=== PATIENT | male | born 1940 | race Caucasian/White ===

== ENCOUNTER 2020-01-08 14:09 | Outpatient (CLI) | payer OTHER, SELFPAY ==
--- NOTE | ~2020-01-08 | CT_ITS ---
EXAMINATION: CT abdomen pelvis wo con DATE: 01/08/2020 14:48 INDICATION: Renal mass TECHNIQUE: Computed tomography (CT) of the abdomen and pelvis was performed without intravenous contr ast. The dose-length product was 1314.09 mGy-cm. Automated exposure control and iterative reconstruct ion technique were employed. COMPARISON: CT dated 10/19/2016 FINDINGS: Borderline heart size. No significant pleural effusion. There is right lower lobe atelectas is/scarring. There is an expansile lytic lesion of the right eighth rib, suspicious for metastatic di sease. There are small scattered lytic lesions of the left pelvis. Gallbladder is moderately distende d. The liver, spleen, pancreas, adrenal glands are unremarkable. There is a 1 cm exophytic lesion lat eral margin of the right kidney, possibly hyperdense cysts. This is unchanged. There is a small exoph ytic lesion from the lower pole of the left kidney, likely benign. No lymphadenopathy. Small fat-cont aining umbilical hernia. Fat-containing left inguinal hernia. Enlarged prostate gland. Mild bladder w all thickening. IMPRESSION: 1. Expansile lytic lesion right eighth rib with multiple scattered lytic lesions of the left pelvis, suspicious for metastatic disease. Correlate for history of malignancy. 2: Small exophytic renal lesions, largest measuring 1 cm lateral margin right kidney. Correlation wit h contrast-enhanced MRI recommended. 3: Small fat-containing umbilical and left inguinal hernias. 4: Mild bladder wall thickening which may be due to hypertrophy from an large prostate gland or cysti tis. Reviewed, dictated and finalized at location A. IMPRESSION: 1. Expansile lytic lesion right eighth rib with multiple scattered lytic lesion s of the left pelvis, suspicious for metastatic disease. Correlate for history of malignancy. 2: Small exophytic renal lesions, largest measuring 1 cm lateral margin right k idney. Correlation with contrast-enhanced MRI recommended. 3: Small fat-containing umbilical and left inguinal hernias. 4: Mild bladder wall thickening which may be due to hypertrophy from an large p rostate gland or cystitis.
== END 2020-01-08 14:10 | disposition home or self-care (01) ==
PROVIDERS: PCP Emergency Medicine; Visit Provider Urology
DX: N28.89 Other specified disorders of kidney and ureter (principal); K44.9 Diaphragmatic hernia without obstruction or gangrene; K40.90 Unilateral inguinal hernia, without obstruction or gangrene, not specified as recurrent
CPT/HCPCS: 74176

== ENCOUNTER 2020-08-23 12:18 | Outpatient (CLI) | payer OTHER, SELFPAY ==
--- NOTE | ~2020-08-23 | NM_ITS ---
EXAMINATION: NM bone scan whole body DATE: 08/23/2020 15:54 INDICATION: Prostate cancer TECHNIQUE: 24.3 mCi Tc-99m HDP was administered intravenously. Delayed whole-body scintigrams were o btained. COMPARISON: CT dated 01/08/2020 and bone scan dated 10/19/2016 FINDINGS: Interval increase in size of a region of increased uptake at the posterior left second rib. New promi nent increased uptake such with an expansile lesion at the lateral right eighth rib which appears sub jectively increased in size since CT dated 01/08/2020 there are multiple new small foci of mild increa sed uptake at the left side of L5, at the right posterior iliac spine and posterior left seventh rib also concerning for metastatic disease. A prior lesion in the left supra-acetabular region is no long er visualized. Again seen is joint centered likely degenerative increased uptake at the medial compar tments of both knees, at the sternomanubrial articulation and at the bilateral acromioclavicular join ts. IMPRESSION: 1. Several suspicious foci of increased bone uptake suspicious for progression of metastatic disease, the most prominent fissure with an expansile lytic lesion at the lateral right eighth rib which appe ars enlarged since prior CT . Reviewed, dictated and finalized at location B. IMPRESSION: 1. Several suspicious foci of increased bone uptake suspicious for progression of metastatic disease, the most prominent fissure with an expansile lytic lesio n at the lateral right eighth rib which appears enlarged since prior CT .
== END 2020-08-23 12:19 | disposition home or self-care (01) ==
PROVIDERS: PCP Emergency Medicine; Visit Provider Urology
DX: C61 Malignant neoplasm of prostate (principal)
CPT/HCPCS: 78306; A9561

== ENCOUNTER 2020-08-31 09:32 | Outpatient (CLI) | payer OTHER, SELFPAY ==
--- NOTE | ~2020-08-31 | CT_ITS ---
EXAMINATION: CT abdomen pelvis wo con DATE: 08/31/2020 10:54 INDICATION: Prostate cancer. TECHNIQUE: Computed tomography (CT) of the abdomen and pelvis was performed without intravenous contr ast. The dose-length product was 878.58 mGy-cm. Automated exposure control and iterative reconstructi on technique were employed. COMPARISON: CT dated 12/2019. FINDINGS: Heart size normal. Lung bases unremarkable. No significant pleural or pericardial effusion. Increased size of expansile right eighth rib mass measuring 5.8 x 5.2 cm compared with 3.6 x 2.2 cm on prior examination. There are scattered ill-defined lytic lesions of the pelvis and proximal femurs which are not significantly changed. The gallbladder is distended. The liver, spleen, pancreas, adrenal glands are unremarkable. Prostate gland is enlarged. Bladder wall thickened. Nonobstructive bowel gas pattern. Fat-containing left ingu inal hernia. Fat-containing umbilical hernia. There is atherosclerosis. No evidence for aneurysm. No lymphadenopathy.. Enlargement of exophytic 1.3 cm right renal lesion measuring 23 Hounsfield units, m ost likely complicated cysts. Recommend correlation with ultrasound. IMPRESSION: 1. Progression of expansile mass involving the right eighth rib laterally, compatible with metastatic disease. Multiple ill-defined lytic lesions of the pelvis and proximal femurs, also suspicious for m etastatic disease. 2: Enlarging exophytic right renal lesion measuring 1.3 cm. Follow-up ultrasound recommended. 3: Enlarged prostate gland. Thickened bladder wall, likely due to bladder outlet obstruction or less likely cystitis. Reviewed, dictated and finalized at location A. IMPRESSION: 1. Progression of expansile mass involving the right eighth rib laterally, comp atible with metastatic disease. Multiple ill-defined lytic lesions of the pelvi s and proximal femurs, also suspicious for metastatic disease. 2: Enlarging exophytic right renal lesion measuring 1.3 cm. Follow-up ultrasoun d recommended. 3: Enlarged prostate gland. Thickened bladder wall, likely due to bladder outle t obstruction or less likely cystitis.
[2020-08-31 10:31] LABS: Estimated Glomerular Filt Rate 25
== END 2020-08-31 09:33 | disposition home or self-care (01) ==
PROVIDERS: PCP Emergency Medicine; Visit Provider Urology
DX: C61 Malignant neoplasm of prostate (principal); K42.9 Umbilical hernia without obstruction or gangrene; K40.90 Unilateral inguinal hernia, without obstruction or gangrene, not specified as recurrent; N28.9 Disorder of kidney and ureter, unspecified
CPT/HCPCS: 74176

== ENCOUNTER → 2020-10-27 14:49 | Outpatient (CLI) | payer OTHER, SELFPAY ==
--- NOTE | ~2020-10-27 | CT_ITS ---
EXAMINATION: CT abdomen pelvis wo con DATE: 10/27/2020 15:08 INDICATION: Right flank pain. Right upper quadrant abdominal pain TECHNIQUE: Computed tomography (CT) of the abdomen and pelvis was performed without intravenous contr ast. Automated exposure control and iterative reconstruction technique were employed. Exam dose: 107 7.91 mGy-cm total exam DLP. COMPARISON: 08/31/2020 CT abdomen pelvis noncontrast examination FINDINGS: There is further increased size of an expansile lesion of the right eighth rib laterally, c urrently measuring up to approximately 6.3 x 7.1 cm compared to approximately 4.8 x 5.7 cm on 09/01/19 21. There is extensive coronary calcification. Heart size is within normal range. There is mild atelectasis or fibrotic change at the lung bases. The gallbladder is distended. No gallbladder wall thickening or pericholecystic fluid or fat strandin g is evident. No bile duct or pancreatic duct dilatation. No hepatic, splenic, pancreatic, and adrenal space-occupying mass lesion is evident on this limited n oncontrast examination. Exophytic 11 mm lateral right exophytic mid renal mass, likely a cyst. The kidneys are otherwise unre markable. No hydroureteronephrosis. No apparent urinary tract calculus. Normal caliber of the abdominal aorta. No intraperitoneal or retroperitoneal or pelvic mass lesion or adenopathy or ascites. There is prominent prostate enlargement and moderate diffuse thickening of the urinary bladder wall s econdary to bladder outlet obstruction as a result. Small left and minimal right fat-containing inguinal hernias. Small fat containing umbilical hernia. IMPRESSION: Increased size of expansile lytic mass of lateral right eighth rib 11 mm lateral mid right renal exophytic probable cyst No urinary tract calculus or hydroureteronephrosis Normal appendix Prominent prostate enlargement with bladder outlet obstruction/moderate diffuse bladder wall thickeni ng Bilateral fat-containing inguinal hernias, mild on the left, minimal on the right Reviewed, dictated and finalized at Location A. Reviewed, dictated and finalized at location B. IMPRESSION: Increased size of expansile lytic mass of lateral right eighth rib 11 mm lateral mid right renal exophytic probable cyst No urinary tract calculus or hydroureteronephrosis Normal appendix Prominent prostate enlargement with bladder outlet obstruction/moderate diffuse bladder wall thickening Bilateral fat-containing inguinal hernias, mild on the left, minimal on the rig ht
== END ==
PROVIDERS: PCP Emergency Medicine; Visit Provider Emergency Medicine
DX: N18.4 Chronic kidney disease, stage 4 (severe) (principal); R10.9 Unspecified abdominal pain; K40.20 Bilateral inguinal hernia, without obstruction or gangrene, not specified as recurrent
CPT/HCPCS: 74176

== ENCOUNTER 2020-11-26 11:31 | Outpatient (CLI) | payer OTHER, SELFPAY ==
[2020-11-26 12:04] LABS: Basophils Percent Auto 0.7 % (0.2-1.2); Eosinophils Absolute Auto 0.1 K/mm3 (0-0.3); Eosinophils Percent Auto 1.7 % (0-4.4); Hematocrit 33.4 % (42.0-52.0); Hemoglobin 11.2 g/dL (14.0-18.0); Immature Granulocyte Absolute 0.02 K/mm3 (0.00-0.031); Immature Granulocyte Percent A 0.4 % (0-0.5); Lymphocytes Absolute Auto 1.34 K/mm3 (0.9-3.2); Lymphocytes Percent Auto 24.7 % (18.3-44.2); Mean Corpuscular HGB Conc 33.5 g/dl (32-36); Mean Corpuscular Hemoglobin 29.6 pg (26-34); Mean Corpuscular Volume 88.4 fl (80-100); Mean Platelet Volume 9.9 fl (7.4-10.4); Monocytes Absolute Auto 0.6 K/mm3 (0.1-0.6); Monocytes Percent Auto 11.6 % (2.6-8.5); Neutrophils Absolute Auto 3.3 K/mm3 (1.3-6.7); Neutrophils Percent Auto 60.9 % (45.5-73.1); Platelet Count Result 189 k/mm3 (150-375); Red Blood Count 3.78 M/mm3 (4.6-6.20); Red Cell Distribution Width 13.1 % (11.5-14.5); White Blood Count 5.4 K/mm3 (4.5-10.0)
[2020-11-26 12:46] LABS: Alanine Aminotransferase 12 U/L (4-50); Albumin Level 4.2 g/dL (3.5-5.1); Alkaline Phosphatase 210 U/L (38-126); Anion Gap 10 mmol/L (8-16); Aspartate Amino Transferase 28 U/L (17-59); Bilirubin,Total 0.4 mg/dL (0.2-1.3); Blood Urea Nitrogen 44 mg/dL (9-20); Calcium 8.6 mg/dL (8.4-10.2); Carbon Dioxide 21 mmol/L (22-30); Chloride 107 mmol/L (98-107); Estimated Glomerular Filt Rate 27; Glucose 133 mg/dL (75-110); Potassium 5.4 mmol/L (3.4-5.0); Sodium 138 mmol/L (137-145)
[2020-11-26 13:16] LABS: Prostate Specific Antigen 0.7 ng/mL (< OR = 4.0)
== END 2020-11-26 11:32 | disposition home or self-care (01) ==
PROVIDERS: PCP Emergency Medicine; Visit Provider Internal Medicine Hematology & Oncology
DX: C61 Malignant neoplasm of prostate (principal); C79.51 Secondary malignant neoplasm of bone
CPT/HCPCS: 36415; 80053; 84153; 85025

== ENCOUNTER 2021-06-17 11:40 | Outpatient (CLI) | payer OTHER, SELFPAY ==
--- NOTE | ~2021-06-17 | NM_ITS ---
EXAMINATION: NM bone scan whole body DATE: 06/17/2021 16:00 INDICATION: Prostate cancer metastatic to bone. TECHNIQUE: 25 mCi Tc-99m HDP was administered intravenously. Delayed whole-body scintigrams were obt ained. COMPARISON: Bone scan dated 08/23/[address] abdomen and pelvis dated 10/27/2020 FINDINGS: Again seen is prominent uptake associated with and expansile destructive mass lateral right eighth ri b which appears increased in size by approximately 20%. Likely degenerative joint centered uptake mos t prominent the region of the toes of the right foot and to a lesser degree at the medial compartment s of both knees, the bilateral acromioclavicular joints and along the sternomanubrial articulation or hypertrophic changes are seen on prior lateral chest radiograph dated 10/19/2016. Prior suspicious kalyn ne lesions at the left side of L5 and at the right posterior iliac spine are now nearly indiscernible significant decrease in the degree of bone uptake. No other new bone lesions to suggest more widespr ead metastatic disease. IMPRESSION: 1. Increase in size of expansile mass at the lateral right eighth rib consistent with progression of metastatic disease. 2. Decrease in degree of bone uptake associated with additional suspicious at the right posterior bryce ac spine and left side of L5 suggesting response to treatment. Reviewed, dictated and finalized at location B. 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 Increase in size of expansile mass at the lateral right eighth rib consisten t with progression of metastatic disease. 2. Decrease in degree of bone uptake associated with additional suspicious at t he right posterior iliac spine and left side of L5 suggesting response to treat ment.
== END 2021-06-17 11:41 | disposition home or self-care (01) ==
LOC: ANHIMG 11:46
PROVIDERS: PCP Emergency Medicine; Visit Provider Internal Medicine Hematology & Oncology
DX: C61 Malignant neoplasm of prostate (principal); C79.51 Secondary malignant neoplasm of bone
CPT/HCPCS: 78306; A9561

== ENCOUNTER → 2022-02-09 12:45 | Outpatient (CLI) | payer OTHER, SELFPAY ==
--- NOTE | ~2022-02-09 | DEXA_ITS ---
Bone Density Report Name: JORDAN GUTIERREZ Age: 81 Sex: Male Ethnicity: White Date of : 1940 Indication: screening for osteoporosis; height loss; cancer Referring Provider: Vel Harris Study: Bone densitometry was performed. Exam Date: February 09, 2022 Accession number: [id number] Bone Density: Region BMD T-score Z-score Classification AP Spine (L1-L4) 1.321 2.1 3.4 Normal Femoral Neck (Left) 1.027 0.7 2.4 Normal Total Hip (Left) 1.179 1.0 2.2 Normal Femoral Neck (Right) 1.026 0.7 2.4 Normal Total Hip (Right) 1.196 1.1 2.3 Normal Total Hip Mean 1.188 1.1 2.3 Normal World Health Organization criteria for BMD impression classify patients as: Normal (T-score at or above -1.0), Osteopenia (T-score between -1.0 and -2.5), or Osteoporosis (T-score at or below -2.5). 10-year Fracture Risk: FRAX not reported because: All T-scores for Spine Total, Hip Total, Femoral Neck at or above -1.0 Clinical Information Provided by Patient: Has used the following medications: Vitamin D, Calcium Has the following medical conditions: Cancer, PROSTATE CA-2018; BONE CA - 2020 Patient maximum height was 71 No regular weight bearing exercise Drinks caffeinated beverages Impression: The patient has normal bone mass. Discussion: LOW RISK OF FRACTURE; BONE DENSITY IS WELL ABOVE THE MINIMUM DESIRABLE LEVEL AND ABOVE AVERAGE FOR AGE AND SEX AT ALL SKELETAL SITES TESTED. This person's bone density is above expected limits for age and sex. This is rarely clinically significant, but should be pursued if there are significant musculoskeletal complaints. The patient should follow a healthful lifestyle (good nutrition with adequate calcium and vitamin D, and appropriate weight-bearing exercise). Follow-Up: Consider repeating this study in 5 years or sooner if there is some new clinical indication. Reported by: [facility] on 02/09/2022 1:54:00 PM. Reviewed, dictated and finalized at location AGia DUNN
== END ==
PROVIDERS: PCP Emergency Medicine; Visit Provider Internal Medicine Hematology & Oncology
DX: M81.0 Age-related osteoporosis without current pathological fracture (principal)
CPT/HCPCS: 77080

== ENCOUNTER 2022-03-29 07:18 | Inpatient (IN) | payer OTHER, SELFPAY ==
[2022-03-29] VITALS (39 sets, daily range): BP systolic 139–196; BP diastolic 57–115; PULSE 45–143; RESP 16–28; TEMP 36.2–36.9; O2SAT 96–100; BMI 31.4
--- NOTE | 2022-03-29 | ECHO_ITS ---
Patient Info Name: Rafael Oneill Age: 82 years : 1940 Gender: Male Ht: 69 in Wt: 213 lbs BSA: 2.20 m2 HR: 53 bpm BP: 141 / 93 mmHg Heart Rhythm: Sinus Rhythm Technical Quality: Fair Exam Date: 03/29/2022 4:35 PM Exam Location: [facility] Patient Status: Inpatient Admit Date: 03/29/2022 Staff Ordering Physician: Sarabjit Thornton MD Railcar Carpenter: Hanh Goff RDCS Attending Provider: Dennis Malave MD Referring Physician: Hillary TRUJILLO; Exam Type: CA echo doppler color flow Study Info Complete two-dimensional, color flow and Doppler transthoracic echocardiogram is performed. Summary 1. Complete two-dimensional, color flow and Doppler transthoracic echocardiogram is performed. 2. Left ventricular chamber dimension is mildly enlarged. 3. Left ventricular systolic function is mildly reduced, estimated at 45-50%. 4. There is mildly increased left ventricular wall thickness. 5. The left ventricular diastolic function is abnormal. 6. Left atrial chamber dimension is moderately enlarged. 7. There is mild mitral valve regurgitation. 8. There is mild tricuspid valve regurgitation. 9. Moderate pulmonary hypertension, estimated pulmonary arterial systolic pressure is 47 mmHg. 10. There is mild pulmonic regurgitation. 11. There is small pericardial effusion. Left Ventricle Left ventricular chamber dimension is mildly enlarged. Left ventricular systolic function is mildly reduced, estimated at 45-50%. There is mildly increased left ventricular wall thickness. The left ventricular diastolic function is abnormal. Right Ventricle Right ventricular chamber dimension is normal. Right ventricular systolic function is normal. Left Atria Left atrial chamber dimension is moderately enlarged. Right Atria Right atrial chamber dimension is normal. Atrial Septum Intact interatrial septum visualized by color flow imaging. Aortic Valve The aortic valve is trileaflet. There is mild aortic valve sclerosis. There is no aortic valve stenosis. There is trace aortic valve regurgitation. Pulmonic Valve The pulmonic valve is normal. There is no pulmonic valve stenosis. There is mild pulmonic regurgitation. Mitral Valve The mitral valve has normal leaflets. There is no mitral valve stenosis. There is mild mitral valve regurgitation. Tricuspid Valve The tricuspid valve leaflets are normal. There is no significant tricuspid valve stenosis. There is mild tricuspid valve regurgitation. Moderate pulmonary hypertension, estimated pulmonary arterial systolic pressure is 47 mmHg. Pericardium/Pleural The pericardium appears normal. There is small pericardial effusion. Inferior Vena Cava Dilated inferior vena cava with <50% collapse upon inspiration consistent with elevated right atrial pressure, 15 mmHg. Aorta The aortic root size at the sinus of Valsalva is normal. Left Ventricular Outflow Tract Name Value Normal LVOT 2D LVOT Diameter 2.2 cm LVOT Doppler LVOT Peak Gradient 3 mmHg LVOT Mean Gradient 2 mmHg
--- NOTE | ~2022-03-29 | US_ITS ---
EXAMINATION: US venous doppler [facility] DATE: 03/29/2022 17:39 INDICATION: sob . TECHNIQUE: Grayscale images without and with compression and Doppler images of the bilateral lower ex tremity veins were obtained. COMPARISON: None FINDINGS: Thrombus noted in the profunda femoral vein, femoral vein, popliteal vein, peroneal vein, and posteri or tibial vein. The right common femoral vein is patent. Thrombus noted in the profunda femoral vein, femoral vein, popliteal vein, peroneal vein, and posteri or tibial vein. The left common femoral vein is patent. IMPRESSION: 1. Extensive bilateral lower extremity DVTs. Results reported telephonically to Andreia Montaño RN by Dr. Garcia at 6:00 PM on 03/29/2022. Reviewed, dictated and finalized at location K. IMPRESSION: 1. Extensive bilateral lower extremity DVTs. Results reported telephonically to Andreia Montaño RN by Dr. Garcia at 6:00 PM o n 03/29/2022.
--- NOTE | ~2022-03-29 | XR_ITS ---
XR chest 1V portable 03/31/2022 12:36 Indication: Pulmonary edema Procedure: AP portable chest Comparison: Comparison to multiple prior studies sequentially, with oldest reviewed study dated 07/2009. Findings: There is improving pulmonary edema compared with 03/29/2022. Shallow inspiration. Possible small effusions. No pneumothorax. Stable cardiomediastinal silhouette. Impression: 1: Improving pulmonary edema. Reviewed, dictated and finalized at location A. Impression: 1: Improving pulmonary edema.
--- NOTE | ~2022-03-29 | NM_ITS ---
EXAMINATION: NM pulmonary perfusion DATE: 03/30/2022 11:00 INDICATION: Shortness of breath TECHNIQUE: 6 mCi Tc-99m MAA by intravenous route. Scintigraphic images of the chest were obtained. COMPARISON: Chest radiograph dated 03/29/2022 FINDINGS: Large perfusion defect involving the posterior lateral basilar segments of the right lower lobe with corresponding airspace opacities on chest radiograph as well as a large expansile right seventh rib l esion seen on prior CT. Small perfusion defect at the apical posterior segment of the left upper lobe . No other perfusion defects appreciated. Cardiomegaly. IMPRESSION: 1. Nondiagnostic (low or intermediate probability) probability for pulmonary embolism. Reviewed, dictated and finalized at location A. IMPRESSION: 1. Nondiagnostic (low or intermediate probability) probability for pulmonary e mbolism.
--- NOTE | ~2022-03-29 | XR_ITS ---
EXAMINATION: XR chest 1V portable DATE: 03/29/2022 08:02 INDICATION: Shortness of breath and hypoxia TECHNIQUE: frontal view of the chest was obtained. COMPARISON: Chest radiograph dated 10/19/16 FINDINGS: Diffuse bilateral interstitial and airspace opacities with perihilar and lower lung predominance. No pneumothorax or definitive pleural effusion. Cardiomegaly. 9 x 7 cm masslike opacity with suggestion of rim calcification projecting over the lateral right chest wall which appears to represent a expans ile lesion of the posterolateral right eighth rib which is concerning for malignancy. Right rotator c uff arthropathy. IMPRESSION: 1. Diffuse bilateral interstitial and airspace opacities most likely congestive heart failure related pulmonary edema with differential including pneumonia. 2. Cardiomegaly. 3. 9 x 7 cm mass projecting over the lateral right chest wall which appears to represent an expansile rib lesion concerning for malignancy. Correlate with clinical history. Reviewed, dictated and finalized at location A. IMPRESSION: 1. Diffuse bilateral interstitial and airspace opacities most likely congestive heart failure related pulmonary edema with differential including pneumonia. 2. Cardiomegaly. 3. 9 x 7 cm mass projecting over the lateral right chest wall which appears to represent an expansile rib lesion concerning for malignancy. Correlate with cli nical history.
--- NOTE | 2022-03-29 07:26 | ECG_ITS ---
Measurements Intervals [place] Rate: 86 P: IA: 0 QRS: -40 QRSD: 150 T: 82 QT: 415 QTc: 499 Interpretive Statements ATRIAL FIBRILLATION MARKED LEFT AXIS DEVIATION [QRS AXIS < -30] LEFT BUNDLE BRANCH BLOCK [120+ ms QRS DURATION, 80+ ms Q/S IN V1/V2, 85+ ms R IN I/aVL/V5/V6] ABNORMAL ECG NO PREVIOUS ECG AVAILABLE FOR COMPARISON Electronically Signed On 03-29-2022 10:21:20 CDT by Sarabjit Thornton M.D.
--- NOTE | 2022-03-29 07:35 | ED.SOB ---
HPI - SOB/Dyspnea General Chief Complaint: Shortness of Breath/Dyspnea Stated Complaint: SOB Time Seen by Provider: 03/29/22 07:34 Source: patient, EMS and RN notes reviewed Mode of arrival: EMS Limitations: no limitations History of Present Illness HPI Narrative: 82 years old white male came from assisting living by ambulance with sudden onset of shortness of breath started 1 to 2 hours prior to arrival to the emergency room. Patient denies having similar symptoms, fever, chills, nausea, vomiting, chest pain, back pain Patient came to the emergency room with oxygen, nasal cannula at 4 L with saturation running around 95 to 96%. Patient is telling me that he does not like to be on the machine if his condition getting worse. Patient is awake, alert and oriented x4 Related Data Home Medications Medication Instructions Recorded Confirmed finasteride 5 mg tablet 5 mg PO HS 05/06/19 03/30/22 hydralazine 50 mg tablet 50 mg PO BID 05/06/19 03/30/22 latanoprost 0.005 % eye drops 1 drp ophthalmic (eye) DAILY 05/06/19 03/30/22 needle (disp) 31 gauge 31 gauge x #100 ea 05/06/19 03/29/22 5/16 (Easy Touch Hypodermic Needle) omeprazole 20 mg capsule,delayed 20 mg PO DAILY 07/06/20 03/29/22 release calcium 600 mg capsule 2,400 mg PO QID 11/28/21 03/29/22 denosumab 60 mg/mL subcutaneous 60 mg subcut .[id number] 01/18/22 03/29/22 syringe leuprolide acetate (6 month) 45 mg 7.5 mg IM [id number] 01/18/22 03/29/22 intramuscular syringe kit enzalutamide 40 mg capsule (Xtandi) 160 mg PO DAILY 03/29/22 03/29/22 furosemide 20 mg tablet 20 mg PO DAILY 03/30/22 03/30/22 metoprolol tartrate 100 mg tablet 100 mg PO BID 03/30/22 03/30/22 simvastatin 40 mg tablet 20 mg PO HS 03/30/22 03/30/22 Allergies Allergy/AdvReac Type Severity Reaction Status Date / Time lisinopril Allergy Unknown Itching Verified 03/29/22 07:56 Review of Systems Review of Systems: All systems reviewed & are unremarkable except as noted in HPI and below PMFSH Past Medical History Medical History Arthritis Cancer treatment started CKD (chronic kidney disease) stage 4, GFR 15-29 ml/min Diabetes mellitus HLD (hyperlipidemia) Hypertension Impaired functional mobility, balance, gait, and endurance Kidney disease OA (osteoarthritis) of knee Prostate cancer Wears glasses Surgical History Surgical History History of hernia repair Family History Family History Father Acute myocardial infarction, Onset Age: 87 Cerebrovascular accident, Onset Age: 87 Mother Heart disease Acute myocardial infarction Sibling Acute myocardial infarction Heart disease Cerebrovascular accident Malignant neoplasm of prostate Sibling Carcinoma of colon Other Diabetes mellitus Family history of arthritis Hypertension Kidney disease Neuropathy Social History Social History Social History: Patient recently moved into [facility] into the assisted living. His niece Ursula is his surrogate power of truck chauffeur. Patient wishes to be a DNR at this time. Patient denies having any pets. Smoking status: Never smoker Tobacco type: cigarettes Smoking end date: 01/03/1965 Alcohol intake: current Alcohol use details: 1 beer every 2 months Substance use: never Living arrangements: assisted living Additional living arrangements comments: [facility] Occupation/Education: retired Additional occupation/education comments: [employer] Gender identity (if verbalized by the patient): Male Sexual Orientation (if Verbalized by the Patient): Straight or Heterosexual Spiritual care concerns: No Agree to blood products: Yes Has the Lack of Transportation Kept You From Medical Appointments or From Getting Medications?: No Within th
[2022-03-29 07:40] LABS: Glucose Point of Care 226 mg/dl (65-105)
[2022-03-29 08:03] LABS: Basophils Absolute Auto 0.1 K/mm3 (0.0-0.1); Basophils Percent Auto 0.6 % (0.2-1.2); Eosinophils Absolute Auto 0.2 K/mm3 (0-0.3); Eosinophils Percent Auto 2.4 % (0-4.4); Hematocrit 32.8 % (42.0-52.0); Hemoglobin 10.9 g/dL (14.0-18.0); Immature Granulocyte Absolute 0.08 K/mm3 (0.00-0.031); Immature Granulocyte Percent A 0.8 % (0-0.5); Lymphocytes Percent Auto 16.4 % (18.3-44.2); Mean Corpuscular HGB Conc 33.2 g/dl (32-36); Mean Corpuscular Hemoglobin 31.3 pg (26-34); Mean Corpuscular Volume 94.3 fl (80-100); Mean Platelet Volume 9.9 fl (7.4-10.4); Monocytes Absolute Auto 0.7 K/mm3 (0.1-0.6); Monocytes Percent Auto 6.8 % (2.6-8.5); Neutrophils Absolute Auto 7.1 K/mm3 (1.3-6.7); Platelet Count Result 251 k/mm3 (150-375); Red Blood Count 3.48 M/mm3 (4.6-6.20); Red Cell Distribution Width 13.2 % (11.5-14.5); White Blood Count 9.7 K/mm3 (4.5-10.0)
[2022-03-29 08:04] LABS: Alveolar/Arterial O2 Gradient 100.3 mmHg; Base Excess ABG -6.4 mEq/l (+/-2.0); Fractional Inspired Oxygen 36 %; HCO3 ABG 20.2 mEq/l (22.0-26.0); Oxygen Content ABG 15.9 %vol (16.0-22.0); Oxygen Saturation ABG 97.1 % (95.0-100.0); Oxyhemoglobin 95.5 % THb (90.0-100.0); PCO2 ABG 44.6 mmHg (35.0-45.0); PO2 ABG 104.6 mmHg (80.0-100.0); PO2 FiO2 Ratio Arterial Blood 2.91 %; Total Hemoglobin 11.7 g/dL (12.0-18.0)
[2022-03-29 08:07] LABS: Device NASAL CANNULA; Modified Allen's Test Pass; Site Drawn RIGHT RADIAL; pH ABG 7.274 (7.350-7.450)
[2022-03-29 08:13] LABS: Lactic Acid Reflex 1.9 mmol/L (0.7-2.0)
[2022-03-29 08:14] LABS: Alanine Aminotransferase 16 U/L (6-50); Albumin Level 4.1 g/dL (3.5-5.1); Alkaline Phosphatase 38 U/L (38-126); Anion Gap 13 mmol/L (8-16); Aspartate Amino Transferase 27 U/L (17-59); Bilirubin,Total 0.5 mg/dL (0.2-1.3); Blood Urea Nitrogen 72 mg/dL (9-20); Calcium 8.4 mg/dL (8.4-10.2); Carbon Dioxide 21 mmol/L (22-30); Chloride 103 mmol/L (98-107); Estimated CRCL calculation 18 ml/min; Estimated Glomerular Filt Rate 19; Glucose 236 mg/dL (65-110); Potassium 4.5 mmol/L (3.4-5.0); Sodium 137 mmol/L (137-145)
[2022-03-29 08:14] LABS: INR 1.1; Prothrombin Time 13.4 Seconds (11.1-14.7)
[2022-03-29 08:15] LABS: Partial Thromboplastin Time 31.6 SECONDS (22.3-36.8)
[2022-03-29 08:18] LABS: D Dimer 2.15 ug/mL (<0.48)
[2022-03-29 08:28] LABS: NT Pro B Type Natriuretic Pept 6100 pg/mL (5-100); Troponin I 0.117 ng/mL (0.000-0.034)
[2022-03-29 08:44] LABS: SARS-CoV-2 RNA PCR Negative
[2022-03-29] MEDS: NITROGLYCERIN OINTMENT 1 INCH DOSE TRANSDERM ×3 (08:54→23:59)
[2022-03-29] MEDS: FUROSEMIDE INJ 40 MG/4 ML VIAL 80 MG IV PUSH (08:54)
--- NOTE | 2022-03-29 09:38 | ECG_ITS ---
Measurements Intervals [place] Rate: 130 P: 19 [place]: 208 QRS: -52 QRSD: 156 T: 86 QT: 353 QTc: 520 Interpretive Statements SINUS TACHYCARDIA MARKED LEFT AXIS DEVIATION [QRS AXIS < -30] LEFT BUNDLE BRANCH BLOCK [120+ ms QRS DURATION, 80+ ms Q/S IN V1/V2, 85+ ms R IN I/aVL/V5/V6] ABNORMAL ECG COMPARED TO ECG 03/29/2022 07:27:41 SINUS TACHYCARDIA NOW PRESENT Electronically Signed On 03-29-2022 10:22:36 CDT by Sarabjit Thornton M.D.
--- NOTE | 2022-03-29 09:48 | PC.NURSE ---
DR. CLAUDIO UPDATED ON PT ABNORMAL VITAL SIGNS AND HE WISHES TO CONTINUE TO MONITOR THE PT AT THIS TIME
[2022-03-29] MEDS: dilTIAZem HCl INJ 25 MG/5 ML VIAL 10 MG IV PUSH (10:49)
[2022-03-29] MEDS: dilTIAZem 100 MG/100 ML 100 MG/100 ML BAG IV CONT (10:50)
[2022-03-29] MEDS: ENOXAPARIN 100 MG/ML SYRINGE SUB-Q (10:50)
[2022-03-29 11:11] LABS: Troponin I 0.383 ng/mL (0.000-0.034)
--- NOTE | 2022-03-29 11:45 | PM.IMHP ---
H&P: HPI History of Present Illness Date/Time: 03/29/22 7599 Chief Complaint: Shortness of breath Narrative: Patient is a 82-year-old male with a past medical history of CHF CKD, diabetes, hypertension, prostate cancer who presented to the ED with complaints of shortness of breath. Patient stated at 5-6 o'clock this morning he pushes button because he could not breathe. Patient stated that he tried to lay down and sit up however he just could not catch his breath. Patient also claims that he has a cough that had started yesterday afternoon however nothing is coming up with it. He denies any chest pain, nausea, vomiting, diarrhea, constipation, lightheadedness, dizziness, weakness, fatigue, home O2 use, wheezes, abnormal swelling. Patient did state that his feet are not swollen anymore than normal however he did state that when he does notices swelling is mostly at night and goes away when he lays down. Patient does not wear any compression as it was told him that it would not help him. He does claim to have some phlegm which he says he feels in his throat however will come back up. His niece was in the room. Workup did reveal an elevated troponin and elevated BNP. Patient was started on Lasix. I was called to the room earlier in the day for review of heart rate and rhythm. Patient did have burst of SVT that he would sustain for roughly a minute and then go back into a sinus Royce with what looks to be a pause here in there. Cardiology is consulted at this time. Patient is being admitted to the hospitalist service as an inpatient [facility] Past Medical History Medical History Arthritis Cancer treatment started CKD (chronic kidney disease) stage 4, GFR 15-29 ml/min Diabetes mellitus HLD (hyperlipidemia) Hypertension Impaired functional mobility, balance, gait, and endurance Kidney disease OA (osteoarthritis) of knee Prostate cancer Wears glasses Surgical History Surgical History History of hernia repair Family History Family History Father Acute myocardial infarction, Onset Age: 87 Cerebrovascular accident, Onset Age: 87 Mother Heart disease Acute myocardial infarction Sibling Acute myocardial infarction Heart disease Cerebrovascular accident Malignant neoplasm of prostate Sibling Carcinoma of colon Other Diabetes mellitus Family history of arthritis Hypertension Kidney disease Neuropathy Social History Social History Social History: Patient recently moved into [facility] into the assisted living. His niece Ursula is his surrogate power of deputy commonwealth's attorney. Patient wishes to be a DNR at this time. Patient denies having any pets. Smoking status: Never smoker Tobacco type: cigarettes Smoking end date: 01/03/1965 Alcohol intake: current Alcohol use details: 1 beer every 2 months Substance use: never Living arrangements: assisted living Additional living arrangements comments: [facility] house Occupation/Education: retired Additional occupation/education comments: [employer] Gender identity (if verbalized by the patient): Male Sexual Orientation (if Verbalized by the Patient): Straight or Heterosexual Spiritual care concerns: No Agree to blood products: Yes Has the Lack of Transportation Kept You From Medical Appointments or From Getting Medications?: No Within the Past 12 Months, Were You Worried Whether Your Food Would Run Out Before You Got Money to Buy More?: Never True What is Your Housing Situation Today?: I Have Housing Are You Worried That in the Next 2 Months, You May Not Have Your Own Housing to Live In?: No Do You Have Trouble Paying Your Heating Or Electricity Bill?: No Do You Have Trouble Paying For Medicines?: No A
--- NOTE | 2022-03-29 12:14 | ECG_ITS ---
Measurements Intervals [place] Rate: 125 P: -15 ID: [id number] QRS: -63 QRSD: 142 T: 71 QT: 345 QTc: 499 Interpretive Statements SINUS TACHYCARDIA WITH FIRST DEGREE AV BLOCK WITH OCCASIONAL VENTRICULAR PREMATURE COMPLEXES MARKED LEFT AXIS DEVIATION [QRS AXIS < -30] LEFT BUNDLE BRANCH BLOCK [120+ ms QRS DURATION, 80+ ms Q/S IN V1/V2, 85+ ms R IN I/aVL/V5/V6] ABNORMAL ECG COMPARED TO ECG 03/29/2022 09:40:44 FIRST DEGREE AV BLOCK NOW PRESENT Electronically Signed On 03-29-2022 13:58:02 CDT by Sarabjit Thornton M.D.
[2022-03-29 12:29] LABS: Glucose Point of Care 174 mg/dl (65-105)
[2022-03-29 12:45] LABS: Magnesium 2.2 mg/dL (1.6-2.3)
[2022-03-29] MEDS: METOPROLOL TARTRATE 50 MG TAB 100 MG PO (12:54)
[2022-03-29 14:29] LABS: Troponin I 0.581 ng/mL (0.000-0.034)
--- NOTE | 2022-03-29 16:05 | PM.CNCAR ---
Assessment and Plan Assessment and plan (1) NSTEMI (non-ST elevated myocardial infarction): Code(s): I21.4 - Non-ST elevation (NSTEMI) myocardial infarction Status: Acute Assessment and Plan: Plan as below. Will initiate enoxaparin, statin. Continue metoprolol, aspirin. Continue nitroglycerin. Will evaluate for evidence of pulmonary embolism. Patient is not a candidate for cardiac catheterization. 2D echocardiogram Doppler is ordered and will be reviewed. (2) Elevated troponin: Code(s): R77.8 - Other specified abnormalities of plasma proteins Status: Acute Assessment and Plan: Likely secondary to underlying non-STEMI from coronary disease. Cannot exclude pulmonary embolism at this point or simply related to underlying renal insufficiency with elevated blood pressure/heart failure. Plan as below (3) CKD (chronic kidney disease): Code(s): N18.9 - Chronic kidney disease, unspecified Status: Acute Assessment and Plan: Severe stage IV (4) Complete left bundle branch block: Code(s): I44.7 - Left bundle-branch block, unspecified Status: Acute Assessment and Plan: New onset: May be ischemic (5) Hypertension associated with diabetes: Code(s): E11.59 - Type 2 diabetes mellitus with other circulatory complications; I15.2 - Hypertension secondary to endocrine disorders Status: Acute Assessment and Plan: Above goal but better at present (6) Shortness of breath: Code(s): R06.02 - Shortness of breath Status: Acute Assessment and Plan: Shortness of breath is either related to marked hypertension and CHF versus underlying ischemic coronary disease verses pulmonary embolism. Likelihood is that this is related to underlying CAD in this is a true non-STEMI. Will order V/Q scan as well as a lower extremity venous Doppler to evaluate for evidence of pulmonary embolism. Cannot do a CT scan with contrast due to underlying renal disease. Will initiate Lovenox 100 mg q. 24 hours. He has significant renal insufficiency and acute 24 hour dosing appropriate. 2D echocardiogram Doppler is also ordered and will be reviewed. Continue metoprolol, aspirin, IV furosemide. Follow I's of his, daily weights and daily renal panel. Continue statin. I did talk to him about ischemic workup. He is not interested in cardiac catheterization. He is a DNR and does not want to rescind his DNR status nor wishes to be exposed IV dye which may result in dialysis. He verbalizes all understanding. Will continue to treat medically as best as possible including nitroglycerin paste 1 in Q 6 hours for now into workup is complete. History of Present Illness History of Present Illness Consult date/time: 03/29/22 16:05 Requesting physician: Mark Iraheta APN-[facility] Consult reason: chest pain and Other (ELEVATED TROPONIN) Reason For Visit: acute respiratory failure,chf, a fib with rvr,ckd, Narrative: REASON FOR CONSULTATION: NON-STEMI, CHEST PAIN, elevated troponin Date of service 03/29/2022 Requesting provider Mark Iraheta History patient is an 82-year-old male who has a multitude of cardiac risk factors including history of CHF, CKD, diabetes, hypertension, age, family history of coronary disease who presented to hospital because of acute onset of shortness of breath at about 5:00 a.m. this morning. States that he woke up and suddenly felt very short of breath. He sat up and laid back and had no improvement. Symptoms continued to the point that he came to the hospital for further workup and evaluation. His EKG showed a left bundle branch block pattern. Initial troponins were minimally elevated and under up trending. Cardiology consultation is requested. His blood pressure was markedly elevated also around 200/100. He was started on nitroglycerin paste as well as given IV furosemide. He currently is feeling much better and denies any active shortness of breath.
[2022-03-29 16:43] LABS: Hemoglobin A1C 5.6 % (<5.7)
[2022-03-29] MEDS: SIMVASTATIN 20 MG TABLET 40 MG PO (17:15)
[2022-03-29] MEDS: hydrALAZINE HCL 50 MG TABLET PO (17:15)
[2022-03-29 17:22] LABS: Glucose Point of Care 288 mg/dl (65-105)
[2022-03-29] MEDS: INSULIN ASPART (*BKC) 100 UNITS/ML SUB-Q (17:35)
[2022-03-29 20:14] LABS: Glucose Point of Care 134 mg/dl (65-105)
[2022-03-29] MEDS: FUROSEMIDE INJ 40 MG/4 ML VIAL IV PUSH (21:04)
[2022-03-29] MEDS: LATANOPROST 0.005% OP SOLN 2.5 ML BTL 1 DROP EACH EYE (21:04)
[2022-03-29 21:09] LABS: Creatinine Urine 52.1 mg/dL; Urea Random Urine 428 MG/DL
[2022-03-29 21:10] LABS: Sodium Urine Random 75 meq/L
[2022-03-30] VITALS (15 sets, daily range): BP systolic 128–165; BP diastolic 53–87; PULSE 38–93; RESP 16–20; TEMP 36.2–36.8; O2SAT 94–100
[2022-03-30 05:14] LABS: Basophils Percent Auto 0.6 % (0.2-1.2); Eosinophils Percent Auto 0.6 % (0-4.4); Hematocrit 27.7 % (42.0-52.0); Hemoglobin 9.2 g/dL (14.0-18.0); Immature Granulocyte Absolute 0.03 K/mm3 (0.00-0.031); Immature Granulocyte Percent A 0.5 % (0-0.5); Lymphocytes Percent Auto 31.8 % (18.3-44.2); Mean Corpuscular HGB Conc 33.2 g/dl (32-36); Mean Corpuscular Hemoglobin 31.7 pg (26-34); Mean Corpuscular Volume 95.5 fl (80-100); Mean Platelet Volume 9.5 fl (7.4-10.4); Monocytes Absolute Auto 0.8 K/mm3 (0.1-0.6); Monocytes Percent Auto 11.8 % (2.6-8.5); Neutrophils Absolute Auto 3.6 K/mm3 (1.3-6.7); Neutrophils Percent Auto 54.7 % (45.5-73.1); Platelet Count Result 192 k/mm3 (150-375); Red Cell Distribution Width 13.1 % (11.5-14.5); White Blood Count 6.6 K/mm3 (4.5-10.0)
[2022-03-30 05:34] LABS: Alanine Aminotransferase 15 U/L (6-50); Albumin Level 3.6 g/dL (3.5-5.1); Alkaline Phosphatase 27 U/L (38-126); Anion Gap 8 mmol/L (8-16); Aspartate Amino Transferase 29 U/L (17-59); Bilirubin,Total 0.6 mg/dL (0.2-1.3); Blood Urea Nitrogen 83 mg/dL (9-20); Calcium 7.8 mg/dL (8.4-10.2); Carbon Dioxide 25 mmol/L (22-30); Chloride 104 mmol/L (98-107); Estimated CRCL calculation 16 ml/min; Estimated Glomerular Filt Rate 16; Glucose 113 mg/dL (65-110); Magnesium 2.1 mg/dL (1.6-2.3); Potassium 4.3 mmol/L (3.4-5.0); Sodium 137 mmol/L (137-145)
[2022-03-30] MEDS: NITROGLYCERIN OINTMENT 1 INCH DOSE TRANSDERM (05:34)
--- NOTE | 2022-03-30 07:45 | P.PNIM_ITS ---
Progress Note: A&P Assessment and Plan (1) NSTEMI (non-ST elevated myocardial infarction): Code(s): I21.4 - Non-ST elevation (NSTEMI) myocardial infarction Status: Acute Assessment and Plan: * No chest pain noted however short of breath * EKG shows new bundle-branch block and first-degree block * Elevated troponins * Cardiology on board * Continue aspirin, metoprolol, simvastatin * Continue nitro paste * Tele monitor * Echo showed EF of 45-50% with abnormal diastolic dysfunction (2) Elevated troponin: Code(s): R77.8 - Other specified abnormalities of plasma proteins Status: Acute Assessment and Plan: * Troponin elevated: 0.117, 0.383, 0.581 * Cardiology on board * Echo EF of 45-50% with abnormal diastolic dysfunction * Not a candidate for catheterization * Could be related to CHF * Aspirin and nitro given the ED * Continue aspirin (3) Pneumonia: Code(s): J18.9 - Pneumonia, unspecified organism Status: Acute Assessment and Plan: * Chest x-ray indicates fluid overload versus pneumonia * WBCs are 9.7 however his baseline looks to be around 4 * WBC trending down currently 5.4 * Continue azithromycin and ceftriaxone * Supplemental oxygen provided * Trend labs * Sputum culture ordered awaiting collection * Adjust therapy as indicated * Blood cultures NGTD (4) CHF (congestive heart failure): Code(s): I50.9 - Heart failure, unspecified Status: Acute Assessment and Plan: * Chest x-ray indicates pulmonary edema * Increased oxygen demand * 1 to 2+ pitting edema bilateral lower extremities * Looks to be a probable acute on chronic exacerbation of diastolic heart failure * Cardiology consulted thank very help * Troponins elevated however not flat probably unrelated * Trend urine output * Daily weights * Heart healthy diet (5) CKD (chronic kidney disease): Code(s): N18.9 - Chronic kidney disease, unspecified Status: Acute Assessment and Plan: * Current BUN and creatinine 81/3.40 * Baseline creatinine looks to be about 3-3.5 * Avoid nephrotoxic medications * Trend labs * Adjust therapy as indicated * Urine labs (6) Acute respiratory failure: Code(s): J96.00 - Acute respiratory failure, unspecified whether with hypoxia or hypercap pia Status: Acute Assessment and Plan: * ABG does show metabolic acidosis with hypoxia * 4 L nasal cannula in the ED * Supplemental oxygen as needed * Trend SpO2 * Wean oxygen as indicated * Maintain saturations above 92% (7) Diabetes mellitus: Qualifiers: Chronic kidney disease stage: stage 4 (severe) Diabetes mellitus complication detail: with chronic kidney disease Diabetes mellitus complication status: with kidney complications Diabetes mellitus exterminator termite insulin use: with shelter use Diabetes mellitus type: type 2 Qualified Code(s): E11.22 - Type 2 diabetes mellitus with diabetic chronic kidney disease; N18.4 - Chronic kidney disease, stage 4 (severe); Z79.4 - longterm (current) use of insulin Code(s): E11.9 - Type 2 diabetes mellitus without complications Status: Acute Assessment and Plan: * Current glucose 142 * Hold Lantus 15 units BID, because he slides his lantus, will just use sliding scale * Accu-Cheks AC and HS * Hypoglycemia protocol * Trend glucos
--- NOTE | 2022-03-30 07:45 | PM.IMPN ---
Progress Note: A&P Assessment and Plan (1) NSTEMI (non-ST elevated myocardial infarction): Code(s): I21.4 - Non-ST elevation (NSTEMI) myocardial infarction Status: Acute Assessment and Plan: No chest pain noted however short of breath EKG shows new bundle-branch block and first-degree block Elevated troponins Cardiology on board Continue aspirin, metoprolol, simvastatin Continue nitro paste Tele monitor Echo showed EF of 45-50% with abnormal diastolic dysfunction (2) Elevated troponin: Code(s): R77.8 - Other specified abnormalities of plasma proteins Status: Acute Assessment and Plan: Troponin elevated: 0.117, 0.383, 0.581 Cardiology on board Echo EF of 45-50% with abnormal diastolic dysfunction Not a candidate for catheterization Could be related to CHF Aspirin and nitro given the ED Continue aspirin (3) Pneumonia: Code(s): J18.9 - Pneumonia, unspecified organism Status: Acute Assessment and Plan: Chest x-ray indicates fluid overload versus pneumonia WBCs are 9.7 however his baseline looks to be around 4 WBC trending down currently 5.4 Continue azithromycin and ceftriaxone Supplemental oxygen provided Trend labs Sputum culture ordered awaiting collection Adjust therapy as indicated Blood cultures NGTD (4) CHF (congestive heart failure): Code(s): I50.9 - Heart failure, unspecified Status: Acute Assessment and Plan: Chest x-ray indicates pulmonary edema Increased oxygen demand 1 to 2+ pitting edema bilateral lower extremities Looks to be a probable acute on chronic exacerbation of diastolic heart failure Cardiology consulted thank very help Troponins elevated however not flat probably unrelated Trend urine output Daily weights Heart healthy diet (5) CKD (chronic kidney disease): Code(s): N18.9 - Chronic kidney disease, unspecified Status: Acute Assessment and Plan: Current BUN and creatinine 81/3.40 Baseline creatinine looks to be about 3-3.5 Avoid nephrotoxic medications Trend labs Adjust therapy as indicated Urine labs (6) Acute respiratory failure: Code(s): J96.00 - Acute respiratory failure, unspecified whether with hypoxia or hypercapnia Status: Acute Assessment and Plan: ABG does show metabolic acidosis with hypoxia 4 L nasal cannula in the ED Supplemental oxygen as needed Trend SpO2 Wean oxygen as indicated Maintain saturations above 92% (7) Diabetes mellitus: Qualifiers: Chronic kidney disease stage: stage 4 (severe) Diabetes mellitus complication detail: with chronic kidney disease Diabetes mellitus complication status: with kidney complications Diabetes mellitus long term care phlebotomist insulin use: with custodial use Diabetes mellitus type: type 2 Qualified Code(s): E11.22 - Type 2 diabetes mellitus with diabetic chronic kidney disease; N18.4 - Chronic kidney disease, stage 4 (severe); Z79.4 - halfway (current) use of insulin Code(s): E11.9 - Type 2 diabetes mellitus without complications Status: Acute Assessment and Plan: Current glucose 142 Hold Lantus 15 units BID, because he slides his lantus, will just use sliding scale Accu-Cheks AC and HS Hypoglycemia protocol Trend glucose Insulin sliding scale Adjust therapy as indicated (8) Chest wall mass: Code(s): R22.2 - Localized swelling, mass and lump, trunk Status: Acute Assessment and Plan: Noted on the chest x-ray however unchanged Patient is aware Follow-up outpatient (9) HLD (hyperlipidemia): Qualifiers: Hyperlipidemia type: mixed hyperlipidemia Qualified Code(s): E78.2 - Mixed hyperlipidemia Code(s): E78.5 - Hyperlipidemia, unspecified Status: Acute Assessment and Plan: Continue simvastatin
[2022-03-30 08:36] LABS: Glucose Point of Care 131 mg/dl (65-105)
[2022-03-30] MEDS: amLODIPine BESYLATE 5 MG TABLET PO (09:26)
[2022-03-30] MEDS: hydrALAZINE HCL 50 MG TABLET PO ×2 (09:26→16:29)
[2022-03-30] MEDS: FUROSEMIDE INJ 40 MG/4 ML VIAL IV PUSH (09:27)
--- NOTE | 2022-03-30 09:46 | PM.PNCARD ---
Progress Note: A&P Assessment and Plan (1) NSTEMI (non-ST elevated myocardial infarction): Code(s): I21.4 - Non-ST elevation (NSTEMI) myocardial infarction Status: Acute Assessment and Plan: Plan as below. Continue enoxaparin, statin. Continue metoprolol, aspirin. Discontinue nitroglycerin paste. Awaiting Pulmonary perfusion study. Patient is not a candidate for cardiac catheterization. 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 Awaiting pulmonary V/Q scan. Discontinue IV furosemide at this point given worsening renal insufficiency. Continue enoxaparin and other medical regimen for now. Will eventually need to transition to oral anticoagulation. Subjective Date/time seen: 03/30/22 09:46 Interval history: Patient is a 82-year-old male with a past medical history of CHF CKD, diabetes, hypertension, prostate cancer who presented to the ED with complaints of shortness of breath. Date of service 03/30/2022: Less short of breath today. No chest pain. Lower extremity venous Doppler showed extensive bilateral DVT. Review of Systems Review of Systems: All systems reviewed & are unremarkable except as noted in HPI and below Constitutional: Constitutional: Denies body ache(s) and Denies fatigue Eyes: Eyes: Denies blurry vision ENT: Reports Normal hearing present and Denies lip swelling Cardiovascular: Cardiovascular: Denies chest pain, Denies leg edema and Reports dyspnea Respiratory: Respiratory: Denies hemoptysis and Reports dyspnea Gastrointestinal: Gastrointestinal: Denies abdominal pain Genitourinary: Genitourinary: Denies hematuria Musculoskeletal: Musculoskeletal: Denies myalgias, Reports arthralgias and Denies joint swelling Integumentary/Breasts: Skin/Breast: Denies skin pain Neurologic: Reports Normal hearing present, Denies Abnormal speech present and Denies confusion Psychiatric: Psychiatric: Denies anxiety and Denies confusion Endocrine: Endocrine: Denies fatigue Hematologic/Lymphatic: Hematologic/Lymphatic: Denies easy bleeding Allergic/Immunologic: Allergic/Immunologic: Denies GI upset with certain foods and Denies lip swelling Exam Narrative: Awake alert oriented and appears stated age Const: General: comfortable and no acute distress; No confusion Orientation/consciousness: No confusion HENMT: Face/Nose/Sinus: Normal nares present Mouth: Yes moist mucous membranes Eyes: General: appearance normal, both eyes and all related structures Sclera: sclerae normal Neck: Neck: supple Carotids: bruit Chest: Other: No reproducible chest wall pain to palpation Resp: Effort & Inspection: normal respiratory effort Auscultation: crackles Other: Basilar crackles bilaterally Cardio: Rate: regular rate Rhythm: regular rhythm Heart sounds: Murmur heart sound present GI: Inspection: non-distended Auscultation: normal bowel sounds Skin: General skin exam
[2022-03-30 12:37] LABS: Glucose Point of Care 169 mg/dl (65-105)
[2022-03-30 16:53] LABS: Glucose Point of Care 200 mg/dl (65-105)
[2022-03-30 20:02] LABS: Glucose Point of Care 223 mg/dl (65-105)
[2022-03-30] MEDS: APIXABAN 5 MG TABLET 10 MG PO (21:35)
[2022-03-30] MEDS: FINASTERIDE 5 MG TABLET PO (21:36)
[2022-03-30] MEDS: SIMVASTATIN 20 MG TABLET PO (21:36)
[2022-03-30] MEDS: LATANOPROST 0.005% OP SOLN 2.5 ML BTL 1 DROP EACH EYE (21:36)
[2022-03-31] VITALS (10 sets, daily range): BP systolic 129–168; BP diastolic 47–84; PULSE 49–130; RESP 18–22; TEMP 36.3–37.1; O2SAT 96–99
--- NOTE | 2022-03-31 00:57 | PC.NURSE ---
This patient, Rafael Oneill, was transferred to [[id number] ] on 03/31/22 at 0058. Personal belongings sent with patient. Report given to [ arturo rn]. Appropriate documentation sent with patient.
--- NOTE | 2022-03-31 03:59 | PC.NURSE ---
Pt had consistent mask leaking when using BiPap overnight, RT attempted fitting pt with different masks with no success, pt removed from Bipap and placed back on 3L NC at this time per RT recommendation. Dr Leal notified of situation.
[2022-03-31] MEDS: METOPROLOL TARTRATE 50 MG TAB 100 MG PO (04:25)
--- NOTE | 2022-03-31 04:26 | PC.NURSE ---
Dr Leal notified pt sustaining 130 HR for >10min, order received to give 100mg lopressor now
[2022-03-31 05:51] LABS: Basophils Percent Auto 0.7 % (0.2-1.2); Eosinophils Absolute Auto 0.1 K/mm3 (0-0.3); Hematocrit 26.7 % (42.0-52.0); Immature Granulocyte Absolute 0.02 K/mm3 (0.00-0.031); Immature Granulocyte Percent A 0.4 % (0-0.5); Lymphocytes Absolute Auto 1.62 K/mm3 (0.9-3.2); Lymphocytes Percent Auto 29.8 % (18.3-44.2); Mean Corpuscular HGB Conc 33.7 g/dl (32-36); Mean Corpuscular Hemoglobin 31.4 pg (26-34); Mean Platelet Volume 9.7 fl (7.4-10.4); Monocytes Absolute Auto 0.7 K/mm3 (0.1-0.6); Monocytes Percent Auto 13.1 % (2.6-8.5); Neutrophils Absolute Auto 2.9 K/mm3 (1.3-6.7); Platelet Count Result 190 k/mm3 (150-375); Red Blood Count 2.87 M/mm3 (4.6-6.20); Red Cell Distribution Width 12.8 % (11.5-14.5); White Blood Count 5.4 K/mm3 (4.5-10.0)
[2022-03-31 06:06] LABS: Alanine Aminotransferase 14 U/L (6-50); Albumin Level 3.6 g/dL (3.5-5.1); Alkaline Phosphatase 25 U/L (38-126); Anion Gap 14 mmol/L (8-16); Aspartate Amino Transferase 26 U/L (17-59); Bilirubin,Total 0.5 mg/dL (0.2-1.3); Blood Urea Nitrogen 81 mg/dL (9-20); Calcium 7.5 mg/dL (8.4-10.2); Carbon Dioxide 25 mmol/L (22-30); Chloride 102 mmol/L (98-107); Estimated CRCL calculation 17 ml/min; Estimated Glomerular Filt Rate 17; Glucose 142 mg/dL (65-110); Magnesium 2.1 mg/dL (1.6-2.3); Sodium 141 mmol/L (137-145)
[2022-03-31 08:07] LABS: Glucose Point of Care 166 mg/dl (65-105)
[2022-03-31] MEDS: APIXABAN 5 MG TABLET 10 MG PO (08:53)
[2022-03-31] MEDS: amLODIPine BESYLATE 5 MG TABLET PO (08:54)
[2022-03-31] MEDS: hydrALAZINE HCL 50 MG TABLET PO ×2 (08:54→16:21)
--- NOTE | 2022-03-31 09:00 | PM.DS ---
DS: Admitting Diagnosis Discharge Date 03/31/22 0900 Admitting Diagnosis Acute DVT/CHF Exacerbation DS: Discharge Diagnosis Discharge Diagnosis (1) NSTEMI (non-ST elevated myocardial infarction): Code(s): I21.4 - Non-ST elevation (NSTEMI) myocardial infarction Status: Acute Assessment and Plan: No chest pain noted however short of breath EKG shows new bundle-branch block and first-degree block Elevated troponins Cardiology on board Continue aspirin, metoprolol, simvastatin Eliquis added Tele monitor Echo showed EF of 45-50% with abnormal diastolic dysfunction (2) Elevated troponin: Code(s): R77.8 - Other specified abnormalities of plasma proteins Status: Acute Assessment and Plan: Troponin elevated: 0.117, 0.383, 0.581 Cardiology on board Echo EF of 45-50% with abnormal diastolic dysfunction Not a candidate for catheterization Could be related to CHF Aspirin and nitro given the ED Continue aspirin (3) Pneumonia: Code(s): J18.9 - Pneumonia, unspecified organism Status: Acute Assessment and Plan: Chest x-ray indicates fluid overload versus pneumonia WBCs are 9.7 however his baseline looks to be around 4 WBC trending down currently 5.4 Stop azithromycin and ceftriaxone Supplemental oxygen provided Trend labs Sputum culture ordered awaiting collection Adjust therapy as indicated Blood cultures NGTD Seems to be a probable CHF Exacerbation (4) CHF (congestive heart failure): Code(s): I50.9 - Heart failure, unspecified Status: Acute Assessment and Plan: Chest x-ray indicates pulmonary edema Weaned to room air 1 to 2+ pitting edema bilateral lower extremities 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 Cardiology consulted thank very help Troponins elevated however not flat probably unrelated Trend urine output Daily weights Heart healthy diet (5) CKD (chronic kidney disease): Code(s): N18.9 - Chronic kidney disease, unspecified Status: Acute Assessment and Plan: Current BUN and creatinine 81/3.40 Baseline creatinine looks to be about 3-3.5 Avoid nephrotoxic medications Trend labs Adjust therapy as indicated Urine labs (6) Acute respiratory failure: Code(s): J96.00 - Acute respiratory failure, unspecified whether with hypoxia or hypercapnia Status: Acute Assessment and Plan: ABG does show metabolic acidosis with hypoxia 4 L nasal cannula in the ED Supplemental oxygen as needed Trend SpO2 Wean oxygen as indicated Maintain saturations above 92% (7) Diabetes mellitus: Qualifiers: Chronic kidney disease stage: stage 4 (severe) Diabetes mellitus complication detail: with chronic kidney disease Diabetes mellitus complication status: with kidney complications Diabetes mellitus longterm insulin use: with roasterman use Diabetes mellitus type: type 2 Qualified Code(s): E11.22 - Type 2 diabetes mellitus with diabetic chronic kidney disease; N18.4 - Chronic kidney disease, stage 4 (severe); Z79.4 - retirement (current) use of insulin Code(s): E11.9 - Type 2 diabetes mellitus without complications Status: Acute Assessment and Plan: Current glucose 142 Hold Lantus 15 units BID, because he slides his lantus, will just use sliding scale Accu-Cheks AC and HS Hypoglycemia protocol Trend glucose Insulin sliding scale Adjust therapy as indicated (8) Chest wall mass: Code(s): R22.2 - Localized swelling, mass and lump, trunk Status: Acute Assessment and Plan: Noted on the chest x-ray however unchanged Patient is aware Follow-up outpatient (9) HLD (hyperlipidemia): Qualifiers: Hyperlipidemia type: mixed hyperlipidemia Qualified Code(s): E78.2 - Mixed hyperlipid
--- NOTE | 2022-03-31 09:00 | P.DS_ITS ---
DS: Admitting Diagnosis Discharge Date 03/31/22 0900 Admitting Diagnosis Acute DVT/CHF Exacerbation DS: Discharge Diagnosis Discharge Diagnosis (1) NSTEMI (non-ST elevated myocardial infarction): Code(s): I21.4 - Non-ST elevation (NSTEMI) myocardial infarction Status: Acute Assessment and Plan: * No chest pain noted however short of breath * EKG shows new bundle-branch block and first-degree block * Elevated troponins * Cardiology on board * Continue aspirin, metoprolol, simvastatin * Eliquis added * Tele monitor * Echo showed EF of 45-50% with abnormal diastolic dysfunction (2) Elevated troponin: Code(s): R77.8 - Other specified abnormalities of plasma proteins Status: Acute Assessment and Plan: * Troponin elevated: 0.117, 0.383, 0.581 * Cardiology on board * Echo EF of 45-50% with abnormal diastolic dysfunction * Not a candidate for catheterization * Could be related to CHF * Aspirin and nitro given the ED * Continue aspirin (3) Pneumonia: Code(s): J18.9 - Pneumonia, unspecified organism Status: Acute Assessment and Plan: * Chest x-ray indicates fluid overload versus pneumonia * WBCs are 9.7 however his baseline looks to be around 4 * WBC trending down currently 5.4 * Stop azithromycin and ceftriaxone * Supplemental oxygen provided * Trend labs * Sputum culture ordered awaiting collection * Adjust therapy as indicated * Blood cultures NGTD * Seems to be a probable CHF Exacerbation (4) CHF (congestive heart failure): Code(s): I50.9 - Heart failure, unspecified Status: Acute Assessment and Plan: * Chest x-ray indicates pulmonary edema * Weaned to room air * 1 to 2+ pitting edema bilateral lower extremities * 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 * Cardiology consulted thank very help * Troponins elevated however not flat probably unrelated * Trend urine output * Daily weights * Heart healthy diet (5) CKD (chronic kidney disease): Code(s): N18.9 - Chronic kidney disease, unspecified Status: Acute Assessment and Plan: * Current BUN and creatinine 81/3.40 * Baseline creatinine looks to be about 3-3.5 * Avoid nephrotoxic medications * Trend labs * Adjust therapy as indicated * Urine labs (6) Acute respiratory failure: Code(s): J96.00 - Acute respiratory failure, unspecified whether with hypoxia or hypercapnia Status: Acute Assessment and Plan: * ABG does show metabolic acidosis with hypoxia * 4 L nasal cannula in the ED * Supplemental oxygen as needed * Trend SpO2 * Wean oxygen as indicated * Maintain saturations above 92% (7) Diabetes mellitus: Qualifiers: Chronic kidney disease stage: stage 4 (severe) Diabetes mellitus complication detail: with chronic kidney disease Diabetes mellitus complication status: with kidney complications 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
--- NOTE | 2022-03-31 09:40 | PM.PNCARD ---
Progress Note: A&P Assessment and Plan (1) NSTEMI (non-ST elevated myocardial infarction): Code(s): I21.4 - Non-ST elevation (NSTEMI) myocardial infarction Status: Acute Assessment and Plan: Medical management with eliquis, statin, metoprolol, ASA. Patient is not a candidate for cardiac catheterization. (2) Elevated troponin: Code(s): R77.8 - Other specified abnormalities of plasma proteins Status: Acute Assessment and Plan: Likely secondary to underlying non-STEMI from coronary disease. (3) CKD (chronic kidney disease): Code(s): N18.9 - Chronic kidney disease, unspecified Status: Acute Assessment and Plan: Severe stage IV (4) Complete left bundle branch block: Code(s): I44.7 - Left bundle-branch block, unspecified Status: Acute Assessment and Plan: New onset: May be ischemic (5) Hypertension associated with diabetes: Code(s): E11.59 - Type 2 diabetes mellitus with other circulatory complications; I15.2 - Hypertension secondary to endocrine disorders Status: Acute Assessment and Plan: Above goal but better at present (6) Shortness of breath: Code(s): R06.02 - Shortness of breath Status: Acute Subjective Date/time seen: 03/31/22 09:40 Cardiology follow up for NSTEMI Interval history: Patient is a 82-year-old male with a past medical history of CHF CKD, diabetes, hypertension, prostate cancer who presented to the ED with complaints of shortness of breath. Date of service 03/30/2022: Less short of breath today. No chest pain. Lower extremity venous Doppler showed extensive bilateral DVT. Date of service 03/31/2022: Denies any shortness of breath today. Feels worn out after physical therapy. No chest pain. Review of Systems Review of Systems: All systems reviewed & are unremarkable except as noted in HPI and below Constitutional: Constitutional: Denies body ache(s) and Denies fatigue Eyes: Eyes: Denies blurry vision ENT: Reports Normal hearing present and Denies lip swelling Cardiovascular: Cardiovascular: Denies chest pain, Denies leg edema and Reports dyspnea Respiratory: Respiratory: Denies hemoptysis and Reports dyspnea Gastrointestinal: Gastrointestinal: Denies abdominal pain Genitourinary: Genitourinary: Denies hematuria Musculoskeletal: Musculoskeletal: Denies myalgias, Reports arthralgias and Denies joint swelling Integumentary/Breasts: Skin/Breast: Denies skin pain Neurologic: Reports Normal hearing present, Denies Abnormal speech present and Denies confusion Psychiatric: Psychiatric: Denies anxiety and Denies confusion Endocrine: Endocrine: Denies fatigue Hematologic/Lymphatic: Hematologic/Lymphatic: Denies easy bleeding Allergic/Immunologic: Allergic/Immunologic: Denies GI upset with certain foods and Denies lip swelling Exam Narrative: Awake alert oriented and appears stated age Const: General: comfortable and no acute distress; No confusion Orientation/consciousness: No confusion HENMT: Face/Nose/Sinus: Normal nares present Mouth: Yes moist mucous membranes Eyes: General: appearance normal, both eyes and all related structures Sclera: sclerae normal Neck: Neck: supple Carotids: bruit Chest: Other: No reproducible chest wall pain to palpation Resp: Effort & Inspection: normal respiratory effort Auscultation: clear to auscultation bilaterally Cardio: Rate: regular rate Rhythm: regular rhythm Heart sounds: Murmur heart sound present GI: Inspection: non-distended Auscultation: normal bowel sounds Skin: General skin exam: normal color Neuro: General: No confusion Cranial nerves: Yes Normal hearing present Speech: normal speech and No Abnormal speech present Extrem: General: normal to inspection and no edema Psych: Mental Status: mental status grossly normal Objective Data Vital Signs Vital Signs: Vital Signs - 24 hr 03/30/22 12:00 1
--- NOTE | 2022-03-31 10:55 | PM.CNNEP ---
Assessment and Plan Assessment and plan (1) CKD (chronic kidney disease): Code(s): N18.9 - Chronic kidney disease, unspecified Status: Acute Assessment and Plan: the patient has chronic kidney disease. This is due to diabetes and hypertension. It looks like his creatinine is at about its baseline. He has done pretty well considering the diuresis, as his creatinine has remained stable. (2) DVT (deep venous thrombosis): Code(s): I82.409 - Acute embolism and thrombosis of unspecified deep veins of unspecified lower extremity Status: Acute Assessment and Plan: The patient received Lovenox and is on Eliquis now. (3) NSTEMI (non-ST elevated myocardial infarction): Code(s): I21.4 - Non-ST elevation (NSTEMI) myocardial infarction Status: Acute Assessment and Plan: He is on a baby aspirin (4) Hypertension associated with diabetes: Code(s): E11.59 - Type 2 diabetes mellitus with other circulatory complications; I15.2 - Hypertension secondary to endocrine disorders Status: Acute Assessment and Plan: his systolic is running between 150 and 170. He is on amlodipine and metoprolol. GFR is too low for Shalom inhibitors (5) Chest wall mass: Code(s): R22.2 - Localized swelling, mass and lump, trunk Status: Acute Assessment and Plan: he had swelling in his legs. This is better now with diuretics , and anticoagulants.. (6) Bilateral knee pain: Code(s): M25.561 - Pain in right knee; M25.562 - Pain in left knee Status: Acute Assessment and Plan: He has severe arthritis in both knees. He has been trying to get orthopedics to do a knee replacements but he is not been able to be cleared by surgery because of his severe comorbidities. (7) Prostate CA: Code(s): C61 - Malignant neoplasm of prostate Status: Acute Assessment and Plan: He is working with Urology on this. Plan Okay for discharge at any time from the renal standpoint History of Present Illness Reason for Consult Consult date: 03/31/22 Chief Complaint Chief complaint: acute respiratory failure,chf, a fib with rvr,ckd, History of Present Illness Narrative: Rafael is a very pleasant 82-year-old gentleman who has multiple problems including chronic kidney disease stage 4 with a GFR in the high teens, diabetes, hypertension, prostate cancer, arthritis, hyperlipidemia, who was well until a few days before admission. At that point he started becoming short of breath. He woke up at 5:00 a.m. on the day of admission and he was very short of breath so came to the ER. He was seen in the emergency room admitted. Venous Dopplers were positive for clots on both sides. Perfusion scan was indeterminate apparently. He also had a high BNP and high troponin and so it is felt that his shortness of breath was due to possible pulmonary emboli, and congestive heart failure. He was treated with anticoagulants and also diuretics. He had some swelling when he came in and that is better now. His creatinine is about the same as when he was on admission which is at his baseline. Renal consultation was requested because of the CKD. The patient denies any chest pain. No belly pain. He has not coughed up any blood her blood blood out of his nose. No fevers or chills. He has no bloody urine foamy urine kidney stones or bladder infections. No pain with urination. Review of Systems Constitutional: Constitutional: Reports no additional constitutional complaints Eyes: Eyes: Reports no additional eye complaints ENT: Reports system reviewed and no additional complaints, except as documented Cardiovascular: Cardiovascular: Reports no additional cardiovascular complaints Respiratory: Respiratory: Reports no additional respiratory complaints Gastrointestinal: Gastrointestinal: Reports no additional gastrointestinal complaints Genitourinary
[2022-03-31] MEDS: ASPIRIN 81 MG CHEWABLE TABLET PO (11:00)
[2022-03-31 11:03] LABS: Glucose Point of Care 254 mg/dl (65-105)
--- NOTE | 2022-03-31 11:22 | P.PNIM_ITS ---
Progress Note: A&P Assessment and Plan (1) NSTEMI (non-ST elevated myocardial infarction): Code(s): I21.4 - Non-ST elevation (NSTEMI) myocardial infarction Status: Acute Assessment and Plan: * No chest pain noted however short of breath * EKG shows new bundle-branch block and first-degree block * Elevated troponins * Cardiology on board * Continue aspirin, metoprolol, simvastatin * Eliquis added * Tele monitor * Echo showed EF of 45-50% with abnormal diastolic dysfunction (2) Elevated troponin: Code(s): R77.8 - Other specified abnormalities of plasma proteins Status: Acute Assessment and Plan: * Troponin elevated: 0.117, 0.383, 0.581 * Cardiology on board * Echo EF of 45-50% with abnormal diastolic dysfunction * Not a candidate for catheterization * Could be related to CHF * Aspirin and nitro given the ED * Continue aspirin (3) Pneumonia: Code(s): J18.9 - Pneumonia, unspecified organism Status: Acute Assessment and Plan: * Chest x-ray indicates fluid overload versus pneumonia * WBCs are 9.7 however his baseline looks to be around 4 * WBC trending down currently 5.4 * Stop azithromycin and ceftriaxone * Supplemental oxygen provided * Trend labs * Sputum culture ordered awaiting collection * Adjust therapy as indicated * Blood cultures NGTD * Seems to be a probable CHF Exacerbation (4) CHF (congestive heart failure): Code(s): I50.9 - Heart failure, unspecified Status: Acute Assessment and Plan: * Chest x-ray indicates pulmonary edema * Weaned to room air * 1 to 2+ pitting edema bilateral lower extremities * 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 * Cardiology consulted thank very help * Troponins elevated however not flat probably unrelated * Trend urine output * Daily weights * Heart healthy diet (5) CKD (chronic kidney disease): Code(s): N18.9 - Chronic kidney disease, unspecified Status: Acute Assessment and Plan: * Current BUN and creatinine 81/3.40 * Baseline creatinine looks to be about 3-3.5 * Avoid nephrotoxic medications * Trend labs * Adjust therapy as indicated * Urine labs (6) Acute respiratory failure: Code(s): J96.00 - Acute respiratory failure, unspecified whether with hypoxia or hypercapnia Status: Acute Assessment and Plan: * ABG does show metabolic acidosis with hypoxia * 4 L nasal cannula in the ED * Supplemental oxygen as needed * Trend SpO2 * Wean oxygen as indicated * Maintain saturations above 92% (7) Diabetes mellitus: Qualifiers: Chronic kidney disease stage: stage 4 (severe) Diabetes mellitus complication detail: with chronic kidney disease Diabetes mellitus complication status: with kidney complications Diabetes mellitus mcc insulin use: with mcc use Diabetes mellitus type: type 2 Qualified Code(s): E11.22 - Type 2 diabetes mellitus with diabetic chronic kidney disease; N18.4 - Chronic kidney disease, stage 4 (severe); 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
--- NOTE | 2022-03-31 11:22 | PM.IMPN ---
Progress Note: A&P Assessment and Plan (1) NSTEMI (non-ST elevated myocardial infarction): Code(s): I21.4 - Non-ST elevation (NSTEMI) myocardial infarction Status: Acute Assessment and Plan: No chest pain noted however short of breath EKG shows new bundle-branch block and first-degree block Elevated troponins Cardiology on board Continue aspirin, metoprolol, simvastatin Eliquis added Tele monitor Echo showed EF of 45-50% with abnormal diastolic dysfunction (2) Elevated troponin: Code(s): R77.8 - Other specified abnormalities of plasma proteins Status: Acute Assessment and Plan: Troponin elevated: 0.117, 0.383, 0.581 Cardiology on board Echo EF of 45-50% with abnormal diastolic dysfunction Not a candidate for catheterization Could be related to CHF Aspirin and nitro given the ED Continue aspirin (3) Pneumonia: Code(s): J18.9 - Pneumonia, unspecified organism Status: Acute Assessment and Plan: Chest x-ray indicates fluid overload versus pneumonia WBCs are 9.7 however his baseline looks to be around 4 WBC trending down currently 5.4 Stop azithromycin and ceftriaxone Supplemental oxygen provided Trend labs Sputum culture ordered awaiting collection Adjust therapy as indicated Blood cultures NGTD Seems to be a probable CHF Exacerbation (4) CHF (congestive heart failure): Code(s): I50.9 - Heart failure, unspecified Status: Acute Assessment and Plan: Chest x-ray indicates pulmonary edema Weaned to room air 1 to 2+ pitting edema bilateral lower extremities 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 Cardiology consulted thank very help Troponins elevated however not flat probably unrelated Trend urine output Daily weights Heart healthy diet (5) CKD (chronic kidney disease): Code(s): N18.9 - Chronic kidney disease, unspecified Status: Acute Assessment and Plan: Current BUN and creatinine 81/3.40 Baseline creatinine looks to be about 3-3.5 Avoid nephrotoxic medications Trend labs Adjust therapy as indicated Urine labs (6) Acute respiratory failure: Code(s): J96.00 - Acute respiratory failure, unspecified whether with hypoxia or hypercapnia Status: Acute Assessment and Plan: ABG does show metabolic acidosis with hypoxia 4 L nasal cannula in the ED Supplemental oxygen as needed Trend SpO2 Wean oxygen as indicated Maintain saturations above 92% (7) Diabetes mellitus: Qualifiers: Chronic kidney disease stage: stage 4 (severe) Diabetes mellitus complication detail: with chronic kidney disease Diabetes mellitus complication status: with kidney complications Diabetes mellitus skilled nursing insulin use: with watermelon inspector use Diabetes mellitus type: type 2 Qualified Code(s): E11.22 - Type 2 diabetes mellitus with diabetic chronic kidney disease; N18.4 - Chronic kidney disease, stage 4 (severe); 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 Code(s): E11.9 - Type 2 diabetes mellitus without complications Status: Acute Assessment and Plan: Current glucose 142 Hold Lantus 15 units BID, because he slides his lantus, will just use sliding scale Accu-Cheks AC and HS Hypoglycemia protocol Trend glucose Insulin sliding scale Adjust therapy as indicated (8) Chest wall mass: Code(s): R22.2 - Localized swelling, mass and lump, trunk Status: Acute Assessment and Plan: Noted on the chest x-ray however unchanged Patient is aware Follow-up outpatient (9) HLD (hyperlipidemia): Qualifiers: Hyperlipidemia type: mixed hyperlipidemia Qualified Code(s): E78.2 - Mixed hyperlipidemia Code(s): E78.5 - Hyperlipidemia, unspecified Status: Acute Assessment and Plan: Co
[2022-03-31] MEDS: DOCUSATE SODIUM 100 MG CAPSULE PO (11:36)
[2022-03-31] MEDS: polyethylene glycoL 3350 17 GM POWD.PACK PO (11:36)
[2022-03-31] MEDS: INSULIN ASPART (*BKC) 100 UNITS/ML SUB-Q (11:37)
[2022-03-31 13:00] LABS: NT Pro B Type Natriuretic Pept 9540 pg/mL (5-100)
[2022-03-31 16:17] LABS: Glucose Point of Care 160 mg/dl (65-105)
[2022-04-02 05:40] LABS: Legionella pneumophila Ag Ur Not Detected (Not Detected)
[2022-04-02 21:32] LABS: Pneumococcal Antigen Urine Not Detected (Not Detected)
--- NOTE | 2022-04-03 15:17 | PCCCNOTE ---
Phone call received from YESI Garcia regarding home health, and that she hasn't been contacted yet. Ursula provides patient's name and as identification. Advised that this care assistant would review discharge notes and call her back. Per discharge planning notes, [facility] had accepted the patient. Called to [facility] and spoke with Zen, Zen states that referral is pending, and will be going out later this week. Awaiting approval from insurance. Zen does not have PO's contact number which was provided to her. Called back to Ursula at [phone] and updated regarding home health and information provided by Zen. Provided Ursula with contact # for [facility]. No other further questions or concerns.
[2022-04-03 18:01] LABS: Osmolality, Urine 392 mOsm/kg (50-1200)
== END 2022-03-31 17:45 | disposition home health service (06) | DRG 280 ==
LOC: ANHED 07:45 → ANHIMU 11:05 → ANH2MED 03-31 00:59
PROVIDERS: Nurse Practitioner; Admitting Provider Internal Medicine; Emergency Provider Emergency Medicine; PCP Emergency Medicine; Visit Provider Internal Medicine
DX: I21.4 Non-ST elevation (NSTEMI) myocardial infarction (principal); I50.43 Acute on chronic combined systolic (congestive) and diastolic (congestive) heart failure; J18.9 Pneumonia, unspecified organism; J96.01 Acute respiratory failure with hypoxia; I13.0 Hypertensive heart and chronic kidney disease with heart failure and stage 1 through stage 4 chronic kidney disease, or unspecified chronic kidney disease; I47.1 Supraventricular tachycardia; E87.20 Acidosis, unspecified; N18.4 Chronic kidney disease, stage 4 (severe); I82.453 Acute embolism and thrombosis of peroneal vein, bilateral; I82.413 Acute embolism and thrombosis of femoral vein, bilateral; I82.433 Acute embolism and thrombosis of popliteal vein, bilateral; I82.443 Acute embolism and thrombosis of tibial vein, bilateral; I44.0 Atrioventricular block, first degree; E11.22 Type 2 diabetes mellitus with diabetic chronic kidney disease; Z20.822 Contact with and (suspected) exposure to COVID-19; E78.2 Mixed hyperlipidemia; R79.89 Other specified abnormal findings of blood chemistry; M19.90 Unspecified osteoarthritis, unspecified site; Z79.4 Long term (current) use of insulin; Z85.46 Personal history of malignant neoplasm of prostate; I44.7 Left bundle-branch block, unspecified; R22.2 Localized swelling, mass and lump, trunk; K59.00 Constipation, unspecified
CPT/HCPCS: 36415; 36600; 71045; 78580; 80053; 82570; 82805; 82948; 83036; 83605; 83735; 83880; 83935; 84300; 84484; 84540; 85025; 85380; 85610; 85730; 87040; 87449; 87899; 93005; 93306; 93970; 94002; 96374; 97161; 97166; 99291; A9270; A9540; C9803; J0456; J0696; J1650; J1815; J1940; U0003; U0005

== ENCOUNTER 2022-04-25 03:01 | Inpatient (IN) | payer OTHER, SELFPAY ==
[2022-04-25] VITALS (21 sets, daily range): BP systolic 122–191; BP diastolic 65–103; PULSE 73–131; RESP 14–27; TEMP 35.9–36.9; O2SAT 95–100; BMI 31.4
--- NOTE | ~2022-04-25 | XR_ITS ---
EXAMINATION: XR chest 1V portable DATE: 04/25/2022 04:09 INDICATION: Shortness of breath. TECHNIQUE: A single frontal view of the chest was obtained. COMPARISON: Chest single view 03/31/2022, CT abdomen and pelvis 10/27/2020 FINDINGS: There is a diffuse interstitial pattern in the lungs, consistent mild pulmonary edema. No p leural effusion or pneumothorax. Cardiomegaly is noted. There is an expansile lytic lesion of right e ighth rib. IMPRESSION: 1. Mild pulmonary edema. 2. Cardiomegaly. 3. Expansile lytic lesion of right eighth rib, consistent with metastatic disease versus sarcoma. Reviewed, dictated and finalized at location A. ER/[facility] IMPRESSION: 1. Mild pulmonary edema. 2. Cardiomegaly. 3. Expansile lytic lesion of right eighth rib, consistent with metastatic disea se versus sarcoma.
--- NOTE | 2022-04-25 03:15 | ECG_ITS ---
Measurements Intervals [place] Rate: 94 P: -59 OR: 80 QRS: -46 QRSD: 150 T: 86 QT: 385 QTc: 483 Interpretive Statements SINUS RHYTHM WITH FIRST DEGREE AV BLOCK FREQUENT ATRIAL PREMATURE COMPLEXES LEFT AXIS DEVIATION LEFT BUNDLE BRANCH BLOCK BASELINE ARTIFACT- I, II, III, AVR, AVL, AVF, V1-V6 ABNORMAL ECG COMPARED TO ECG 03/29/2022 12:28:26 SINUS RHYTHM NOW PRESENT Electronically Signed On 04-25-2022 6:40:05 SADDLE CUTTER by Isma Pearson D.O.
--- NOTE | 2022-04-25 03:26 | ECG_ITS ---
Measurements Intervals [place] Rate: 100 P: [place]: 0 QRS: -1 QRSD: 161 T: 81 QT: 414 QTc: 535 Interpretive Statements ATRIAL FLUTTER/TACHYCARDIA WITH RAPID VENTRICULAR RESPONSE LEFT BUNDLE BRANCH BLOCK ABNORMAL ECG COMPARED TO ECG 04/25/2022 03:06:32 ATRIAL FLUTTER/TACHYCARDIA WITH RAPID VENTRICULAR RESPONSE NOW PRESENT Electronically Signed On 04-25-2022 6:45:25 MUFFLER MECHANIC by Isma Pearson D.O.
[2022-04-25] MEDS: NITROGLYCERIN/D5W 200 MCG/ML 50 MG/250 ML BTL IV CONT (03:45)
[2022-04-25 04:00] LABS: Basophils Absolute Auto 0.1 K/mm3 (0.0-0.1); Basophils Percent Auto 0.6 % (0.2-1.2); Eosinophils Absolute Auto 0.1 K/mm3 (0-0.3); Eosinophils Percent Auto 1.1 % (0-4.4); Hematocrit 32.2 % (42.0-52.0); Hemoglobin 10.6 g/dL (14.0-18.0); Immature Granulocyte Absolute 0.08 K/mm3 (0.00-0.031); Immature Granulocyte Percent A 0.7 % (0-0.5); Lymphocytes Absolute Auto 1.77 K/mm3 (0.9-3.2); Lymphocytes Percent Auto 15.2 % (18.3-44.2); Mean Corpuscular HGB Conc 32.9 g/dl (32-36); Mean Corpuscular Hemoglobin 31.4 pg (26-34); Mean Corpuscular Volume 95.3 fl (80-100); Mean Platelet Volume 9.8 fl (7.4-10.4); Monocytes Absolute Auto 0.9 K/mm3 (0.1-0.6); Monocytes Percent Auto 7.7 % (2.6-8.5); Neutrophils Absolute Auto 8.7 K/mm3 (1.3-6.7); Neutrophils Percent Auto 74.7 % (45.5-73.1); Platelet Count Result 237 k/mm3 (150-375); Red Blood Count 3.38 M/mm3 (4.6-6.20); Red Cell Distribution Width 12.7 % (11.5-14.5); White Blood Count 11.6 K/mm3 (4.5-10.0)
[2022-04-25 04:14] LABS: Alanine Aminotransferase 17 U/L (6-50); Albumin Level 4.1 g/dL (3.5-5.1); Alkaline Phosphatase 46 U/L (38-126); Anion Gap 14 mmol/L (8-16); Aspartate Amino Transferase 30 U/L (17-59); Bilirubin,Total 0.5 mg/dL (0.2-1.3); Blood Urea Nitrogen 69 mg/dL (9-20); Calcium 8.3 mg/dL (8.4-10.2); Carbon Dioxide 22 mmol/L (22-30); Chloride 104 mmol/L (98-107); Estimated Glomerular Filt Rate 19; Glucose 217 mg/dL (65-110); Potassium 4.3 mmol/L (3.4-5.0); Sodium 140 mmol/L (137-145)
--- NOTE | 2022-04-25 04:15 | ED.SOB ---
HPI - SOB/Dyspnea General Chief Complaint: Shortness of Breath/Dyspnea Stated Complaint: SOB LYING DOWN Time Seen by Provider: 04/25/22 03:05 History of Present Illness HPI Narrative: HPI limited by acuity of symptoms. This is an 82-year-old male with past medical history of CHF and A. fib on Eliquis, brought into the emergency department by EMS for sudden onset shortness of breath. EMS reports patient woke approximately an hour prior to arrival with sudden onset shortness of breath. On arrival patient was satting in the 80s on room air he was placed on supplemental oxygen rising to the low 90s. He denies chest pain, loss of consciousness or palpitations. He has no other complaints today. Related Data Home Medications Medication Instructions Recorded Confirmed finasteride 5 mg tablet 5 mg PO HS 05/06/19 03/30/22 hydralazine 50 mg tablet 50 mg PO BID 05/06/19 03/30/22 latanoprost 0.005 % eye drops 1 drp ophthalmic (eye) DAILY 05/06/19 03/30/22 needle (disp) 31 gauge 31 gauge x #100 ea 05/06/19 03/29/22/16 (Easy Touch Hypodermic Needle) omeprazole 20 mg capsule,delayed 20 mg PO DAILY 07/06/20 03/29/22 release calcium 600 mg capsule 2,400 mg PO QID 11/28/21 03/29/22 denosumab 60 mg/mL subcutaneous 60 mg subcut .[id number] 01/18/22 03/29/22 syringe leuprolide acetate (6 month) 45 mg 7.5 mg IM [id number] 01/18/22 03/29/22 intramuscular syringe kit enzalutamide 40 mg capsule (Xtandi) 160 mg PO DAILY 03/29/22 03/29/22 furosemide 20 mg tablet 20 mg PO DAILY 03/30/22 03/30/22 metoprolol tartrate 100 mg tablet 100 mg PO BID 03/30/22 03/30/22 simvastatin 40 mg tablet 20 mg PO HS 03/30/22 03/30/22 Allergies Allergy/AdvReac Type Severity Reaction Status Date / Time lisinopril Allergy Unknown Itching Verified 04/25/22 03:27 Review of Systems Review of Systems: Review of systems limited due to acuity of symptoms CONSTITUTIONAL: Denies fever, chills, or sweats. CARDIOVASCULAR: Denies chest pain, palpitations, or edema. RESPIRATORY: Dyspnea and cough GASTROINTESTINAL: Denies abdominal pain, nausea, vomiting, or diarrhea. [facility] Past Medical History Medical History (Updated 04/25/22 @ 06:11 by Gerald Trivedi MD) Arthritis Atrial fibrillation with RVR Cancer treatment started CHF (congestive heart failure) CKD (chronic kidney disease) stage 4, GFR 15-29 ml/min Diabetes mellitus DNR (do not resuscitate) HLD (hyperlipidemia) Hypertension Impaired functional mobility, balance, gait, and endurance Kidney disease OA (osteoarthritis) of knee Prostate cancer Wears glasses Surgical History Surgical History History of hernia repair Family History Family History Father Acute myocardial infarction, Onset Age: 87 Cerebrovascular accident, Onset Age: 87 Mother Heart disease Acute myocardial infarction Sibling Acute myocardial infarction Heart disease Cerebrovascular accident Malignant neoplasm of prostate Sibling Carcinoma of colon Other Diabetes mellitus Family history of arthritis Hypertension Kidney disease Neuropathy Social History Social History Social History: Patient recently moved into [facility] into the assisted living. His niece Ursula is his surrogate power of state attorney. Patient wishes to be a DNR at this time. Patient denies having any pets. Smoking status: Former smoker Tobacco type: cigarettes Smoking end date: 01/03/1965 Alcohol intake: current Alcohol use details: 1 beer every 2 months Substance use: never Lack of Transportation: No Lack of Food: Never True Current Housing: I Have Housing Concerned About Future Housing: No Difficulty Paying Gas/Electric Bills: No Difficulty Paying for Meds: No Currently Unemployed: No Education: High School Diploma
[2022-04-25 04:20] LABS: INR 1.3; Prothrombin Time 15.8 Seconds (11.1-14.7)
[2022-04-25 04:21] LABS: Partial Thromboplastin Time 38.9 SECONDS (22.3-36.8)
[2022-04-25 04:23] LABS: NT Pro B Type Natriuretic Pept 11700 pg/mL (5-100)
[2022-04-25 04:28] LABS: NT Pro B Type Natriuretic Pept 11600 pg/mL (5-100); Troponin I 0.076 ng/mL (0.000-0.034)
[2022-04-25 05:11] LABS: Influenza A QL RT-PCR Negative (Negative); Influenza B QL RT-PCR Negative (Negative); SARS-CoV-2 RNA PCR Negative
[2022-04-25] MEDS: FUROSEMIDE INJ 100 MG/10 ML VIAL 80 MG IV PUSH (05:46)
[2022-04-25 05:54] LABS: Alveolar/Arterial O2 Gradient 230.6 mmHg; Fractional Inspired Oxygen 50 %; HCO3 ABG 18.8 mEq/l (22.0-26.0); Oxygen Content ABG 14.5 %vol (16.0-22.0); Oxygen Saturation ABG 96.4 % (95.0-100.0); Oxyhemoglobin 94.5 % THb (90.0-100.0); PCO2 ABG 34.2 mmHg (35.0-45.0); PO2 ABG 87.4 mmHg (80.0-100.0); PO2 FiO2 Ratio Arterial Blood 1.75 %; Total Hemoglobin 10.8 g/dL (12.0-18.0); pH ABG 7.357 (7.350-7.450)
[2022-04-25 05:55] LABS: Device NON-INVASIVE VENT; Modified Allen's Test Pass; Non-Invasive Expiratory Pressure 7 CMH2O; Non-Invasive Inspiratory Pressure 14 CMH2O; Non-Invasive Vent Rate 12 /MIN; Site Drawn RIGHT RADIAL
--- NOTE | 2022-04-25 06:48 | ADMGEN ---
This patient, Rafael Oneill, was admitted to Intensive Care Unit-3 at 0630 on 04/25/2022. Patient/family oriented to hospital policies and general routines including ID bracelet, bed and alarms, visiting hours, pain management, procedures, bathroom and other care routines, personal items, smoking policy, room service/diet, and visiting hours. Information on how to activate the Rapid Response Team has been discussed. Patient/Family are encouraged to report perceived risks to care and to ask questions if they do not understand what they are told or what they should do.
[2022-04-25 07:02] LABS: Troponin I 0.105 ng/mL (0.000-0.034)
--- NOTE | 2022-04-25 08:03 | PM.IMHP ---
H&P: HPI History of Present Illness Date/Time: 04/25/22 08:03 Chief Complaint: sob Narrative: A 2-year-old male with past medical history significant for prostate cancer, diabetes, atrial fibrillation, systolic heart failure with pulmonary hypertension, CKD, hypertension, hyperlipidemia with recent admission at the end of March is presenting with shortness of breath. During his last admission, he was found to have bilateral DVTs but was unable to tolerate a CTA to rule out PE secondary to kidney disease. Therefore, he was discharged on Eliquis. He states that yesterday he woke up with acute shortness of breath and was gasping for air. In the ER, he was hypoxic in the low 80s and placed on BiPAP with a nitro drip for hypertensive urgency and heart failure exacerbation. He was also noted to have AFib with RVR and was given metoprolol. This seemed to improve his rate. IV diuresis was initiated and patient seemed to improve. He was initially in the ICU with critical care and cardiology consultations for possible flash pulmonary edema. Rapidly improved, weaned to 3 L nasal cannula after diuresis and was transferred to the floor. Previous echo showed an EF of 45-50% with moderate pulmonary hypertension. Patient did refuse any ischemic workup including heart catheterization. Creatinine was noted to be 3.1, 3.4 at last discharge. Baseline appears to be anywhere from 3-3.5. Review of Systems Review of Systems: 12 point review of systems was assessed and was negative except as noted in the HPI [facility] Past Medical History Medical History Arthritis Atrial fibrillation with RVR Cancer treatment started CHF (congestive heart failure) CKD (chronic kidney disease) stage 4, GFR 15-29 ml/min Diabetes mellitus DNR (do not resuscitate) HLD (hyperlipidemia) Hypertension Impaired functional mobility, balance, gait, and endurance Kidney disease OA (osteoarthritis) of knee Prostate cancer Wears glasses Surgical History Surgical History History of hernia repair Family History Family History Father Acute myocardial infarction, Onset Age: 87 Cerebrovascular accident, Onset Age: 87 Mother Heart disease Acute myocardial infarction Sibling Acute myocardial infarction Heart disease Cerebrovascular accident Malignant neoplasm of prostate Sibling Carcinoma of colon Other Diabetes mellitus Family history of arthritis Hypertension Kidney disease Neuropathy Social History Social History Social History: Patient recently moved into [facility] into the assisted living. His niece Ursula is his surrogate power of civil attorney. Patient wishes to be a DNR at this time. Patient denies having any pets. Smoking packs per day: 0.5 Smoking cigarettes per day: 10.0 Years smoked: 10 Smoking pack-years: 5.00 Smoking status: Former smoker Alcohol intake: current Alcohol use details: 1 beer every 2 months Substance use: never Lack of Transportation: No Lack of Food: Never True Current Housing: I Have Housing Concerned About Future Housing: No Difficulty Paying Gas/Electric Bills: No Difficulty Paying for Meds: No Currently Unemployed: No Education: High School Diploma/GED Difficulty w/ Childcare or Family Care: No Additional living arrangements comments: [facility] Additional occupation/education comments: [employer] Gender identity (if verbalized by the patient): Male Sexual Orientation (if Verbalized by the Patient): Straight or Heterosexual Spiritual care concerns: No Agree to blood products: Yes Meds Home Medications and Allergies Home Medications Medication Instructions Recorded Confirmed Type finasteride 5 mg tablet 5 mg PO HS 1
[2022-04-25 09:15] LABS: Troponin I 0.111 ng/mL (0.000-0.034)
[2022-04-25 09:24] LABS: Hemoglobin A1C 5.7 % (<5.7)
[2022-04-25] MEDS: amLODIPine BESYLATE 5 MG TABLET PO (09:27)
[2022-04-25] MEDS: hydrALAZINE HCL 50 MG TABLET PO ×2 (09:27→16:19)
[2022-04-25] MEDS: METOPROLOL TARTRATE 50 MG TAB 100 MG PO ×2 (09:28→20:35)
[2022-04-25] MEDS: PANTOPRAZOLE SODIUM IV 40 MG VIAL IV PUSH (09:37)
[2022-04-25] MEDS: FLUTICASONE PROPIONATE 0.05% NA SPR 16 GM BTL (*BKC) 1 SPRAY NASAL ×2 (09:42→20:34)
[2022-04-25 09:53] LABS: Glucose Point of Care 149 mg/dl (65-105)
--- NOTE | 2022-04-25 10:31 | PM.CNCAR ---
Assessment and Plan Assessment and plan (1) Flash pulmonary edema: Code(s): J81.0 - Acute pulmonary edema Status: Acute (2) Hypertension: Code(s): I10 - Essential (primary) hypertension Status: Acute (3) Acute dyspnea: Code(s): R06.00 - Dyspnea, unspecified Status: Acute (4) DVT (deep venous thrombosis): Code(s): I82.409 - Acute embolism and thrombosis of unspecified deep veins of unspecified lower extremity Status: Acute (5) CKD (chronic kidney disease): Code(s): N18.9 - Chronic kidney disease, unspecified Status: Acute (6) Complete left bundle branch block: Code(s): I44.7 - Left bundle-branch block, unspecified Status: Acute Plan Agree with IV diuresis. Restarted on Amlodipine 5mg, however, patient had med recently increased to 10mg. Will increase dose to 10mg. Continue home doses of Hydralazine, Metoprolol. Would resume his Eliquis. His ECG from 4:32 this AM was read as atrial flutter/tachycardia, however, the rhythm lead appears to be more sinus with PACs. Telemetry review shows frequent ectopy with PACs, no clear evidence of atrial fibrillation. HR is controlled. Regardless, patient needs to be on Eliquis anyways. Will continue to monitor his telemetry. History of Present Illness History of Present Illness Consult date/time: 04/25/22 10:31 Requesting physician: Gerald Trivedi MD Consult reason: Other (Flash pulmonary edema) Reason For Visit: Flash pulmonary edema Narrative: This is an 82-year-old male who we are being consulted for flash pulmonary edema. Patient has a history of metastatic prostate cancer, CKD, HTN, HLD who was recently discharged from here end of March. Patient was admitted at that time with shortness of breath. Found with bilateral severe DVTs. He was unable to get a CTA for PE evaluation due to his renal function. Was discharged on Eliquis for anticoagulation. His echo last admission showed LVEF 45-50%, moderate PHTN. He had mildly elevated troponins last hospitalization. Our team was consulted at that time. We did talk to him about ischemic workup, however, he was not interested in cardiac cath and did not want to undergo procedure. His symptoms at that time were deemed to be most likely from a PE given extensive DVTs. Patient presented last night with acute shortness of breath that awoke him from sleep. Patient was noted to be hypoxic in the ED with sats in the 80s. Patient denies any chest pain. BP noted to be in the 190s systolics. He was placed on BIPAP. Given IV diuresis with significant improvement. Patient remains on BIPAP this AM, but reports that he has been urinated frequently since getting the IV diuresis. No chest pain. BP is improved. Review of Systems Review of Systems: 12-point ROS obtained. Negative, unless stated in HPI. [facility] Past Medical History Medical History Arthritis Atrial fibrillation with RVR Cancer treatment started CHF (congestive heart failure) CKD (chronic kidney disease) stage 4, GFR 15-29 ml/min Diabetes mellitus DNR (do not resuscitate) HLD (hyperlipidemia) Hypertension Impaired functional mobility, balance, gait, and endurance Kidney disease OA (osteoarthritis) of knee Prostate cancer Wears glasses Surgical History Surgical History History of hernia repair Family History Family History Father Acute myocardial infarction, Onset Age: 87 Cerebrovascular accident, Onset Age: 87 Mother Heart disease Acute myocardial infarction Sibling Acute myocardial infarction Heart disease Cerebrovascular accident Malignant neoplasm of prostate Sibling Carcinoma of colon Other Diabetes mellitus Family history of arthritis Hypertension Kidney disease Neuropathy Social Hi
--- NOTE | 2022-04-25 11:15 | WPDCNINT ---
Assessment and Plan Assessment and plan (1) Flash pulmonary edema: Code(s): J81.0 - Acute pulmonary edema Status: Acute Assessment and Plan: Patient presented with sudden onset of shortness of breath, was found to be in hypertensive urgency and pulmonary edema in the ER on chest x-ray. Likely cause of pulmonary edema was hypertensive urgency and AFib RVR -patient was given Lasix with adequate urine output and improvement in respiratory status -currently on BiPAP -blood pressures are better, patient's breathing seems to be improving -will place patient on nasal cannula (2) Hypertensive urgency: Code(s): I16.0 - Hypertensive urgency Status: Acute Assessment and Plan: Patient had a systolic blood pressures in the 190s, -was started on nitroglycerin infusion with improvement in blood pressures -will restart home medications, cardiology also following and agreeable to stay pre starting home meds -started on amlodipine 10 mg daily, hydralazine and metoprolol (3) Atrial fibrillation with RVR: Code(s): I48.91 - Unspecified atrial fibrillation Status: Acute Assessment and Plan: Patient with history of AFib RVR, was in rapid ventricular response in the ER, could also be the reason for his flash pulmonary edema -continue metoprolol -currently in AFib, rate controlled (4) Acute respiratory failure: Code(s): J96.00 - Acute respiratory failure, unspecified whether with hypoxia or hypercapnia Status: Acute Assessment and Plan: Acute respiratory failure likely related to the above -will continue BiPAP and switched to nasal cannula (5) CKD (chronic kidney disease): Code(s): N18.9 - Chronic kidney disease, unspecified Status: Acute Assessment and Plan: Patient with history of chronic kidney disease, currently at baseline creatinine, CKD likely related to hypertension, diabetes, CHF -continue to monitor urine output, renal function electrolytes (6) DVT (deep venous thrombosis): Code(s): I82.409 - Acute embolism and thrombosis of unspecified deep veins of unspecified lower extremity Status: Acute Assessment and Plan: Patient has a history of recent DVT, Eliquis was restarted (7) Prostate CA: Code(s): C61 - Malignant neoplasm of prostate Status: Acute Assessment and Plan: History of prostate cancer, -niece who is the POA has requested to start him on calcium and vitamin-D, also on his home prostate cancer medications. Xenia is going to bring his medications from home since they are not on formulary at the hospital, pharmacist is agreeable to allow home medications for prostate cancer (8) Diabetes mellitus: Qualifiers: Diabetes mellitus type: type 2 Diabetes mellitus alf insulin use: with watermaster use Diabetes mellitus complication status: with kidney complications Diabetes mellitus complication detail: with chronic kidney disease Chronic kidney disease stage: stage 4 (severe) Qualified Code(s): E11.22 - Type 2 diabetes mellitus with diabetic chronic kidney disease; N18.4 - Chronic kidney disease, stage 4 (severe); Z79.4 - intermediate teacher (current) use of insulin Code(s): E11.9 - Type 2 diabetes mellitus without complications Status: Acute Assessment and Plan: Sliding scale insulin and Accu-Cheks (9) HLD (hyperlipidemia): Qualifiers: Hyperlipidemia type: mixed hyperlipidemia Qualified Code(s): E78.2 - Mixed hyperlipidemia Code(s): E78.5 - Hyperlipidemia, unspecified Status: Acute Assessment and Plan: Continue simvastatin Plan DVT prophylaxis: Heparin Stress ulcer prophylaxis: Protonix Nutrition: NPO except sips with medications, patient as well as try to start him on some diet at lunch Code Status: Do not resuscitate Critical Care Time Spent: 44 minutes Due to a high probability of clinically significant, life threatening deterioration, t
[2022-04-25 12:57] LABS: Glucose Point of Care 127 mg/dl (65-105)
[2022-04-25] MEDS: CALCIUM CARBONATE (OSCAL) 500 MG TABLET PO ×3 (13:04→20:34)
[2022-04-25] MEDS: APIXABAN 5 MG TABLET PO (13:04)
--- NOTE | 2022-04-25 15:49 | PHAR ---
HOME MEDICATION VERIFIED BY PHARMACY: XTANDI 40MG TABLETS (IN A CAPSULE PACKAGE)
[2022-04-25] MEDS: BUMETANIDE INJ 1 MG/4 ML VIAL IV PUSH (16:21)
--- NOTE | 2022-04-25 16:45 | PC.NURSE ---
This patient, Rafael Oneill, was transferred to [[id number]] on 04/25/22 at 1645. Personal belongings sent with patient. Report given to [ANALISA DOMINGO]. Appropriate documentation sent with patient.
[2022-04-25 16:58] LABS: Glucose Point of Care 289 mg/dl (65-105)
[2022-04-25] MEDS: INSULIN ASPART (*BKC) 100 UNITS/ML SUB-Q (16:58)
--- NOTE | 2022-04-25 17:02 | PC.NURSE ---
This patient, Rafael Oneill, was received from [ICU] on 04/25/22 at 1645. Patient/family oriented to unit policies and routines. report from vaughn
[2022-04-25 19:56] LABS: Glucose Point of Care 233 mg/dl (65-105)
[2022-04-25] MEDS: FINASTERIDE 5 MG TABLET PO (20:34)
[2022-04-25] MEDS: LATANOPROST 0.005% OP SOLN 2.5 ML BTL 1 DROP EACH EYE (20:35)
[2022-04-26] VITALS (13 sets, daily range): BP systolic 119–149; BP diastolic 63–88; PULSE 58–111; RESP 18–25; TEMP 35.6–36.6; O2SAT 97–100
[2022-04-26] MEDS: FLUTICASONE PROPIONATE 0.05% NA SPR 16 GM BTL (*BKC) 1 SPRAY NASAL ×2 (08:18→20:34)
[2022-04-26] MEDS: CHOLECALCIFEROL 1,000 UNITS TABLET 1000 UNITS PO (08:18)
[2022-04-26] MEDS: CALCIUM CARBONATE (OSCAL) 500 MG TABLET PO ×4 (08:19→20:34)
[2022-04-26] MEDS: METOPROLOL TARTRATE 50 MG TAB 100 MG PO ×2 (08:20→20:35)
[2022-04-26] MEDS: hydrALAZINE HCL 50 MG TABLET PO ×2 (08:20→17:34)
[2022-04-26] MEDS: APIXABAN 5 MG TABLET PO ×2 (08:20→17:34)
[2022-04-26] MEDS: SIMVASTATIN 20 MG TABLET PO (08:20)
[2022-04-26] MEDS: INSULIN ASPART (*BKC) 100 UNITS/ML SUB-Q ×2 (08:21→17:34)
[2022-04-26] MEDS: PANTOPRAZOLE SODIUM IV 40 MG VIAL IV PUSH (08:21)
[2022-04-26] MEDS: INSULIN GLARGINE (*BKC) 100 UNITS/ML 10 UNITS SUB-Q (08:21)
[2022-04-26 09:06] LABS: Glucose Point of Care 135 mg/dl (65-105)
[2022-04-26] MEDS: amLODIPine BESYLATE 5 MG TABLET 10 MG PO (09:38)
--- NOTE | 2022-04-26 14:32 | PM.IMPN ---
Progress Note: A&P Assessment and Plan (1) Acute respiratory failure: Code(s): J96.00 - Acute respiratory failure, unspecified whether with hypoxia or hypercapnia Status: Acute Assessment and Plan: Suspected flash pulmonary edema from heart failure, AFib with RVR, and possible underlying metastatic disease Originally on BiPAP, now weaned to 3 L nasal cannula, monitor ABG with no hypercarbia Will try to taper off BiPAP (2) Diabetes mellitus: Qualifiers: Diabetes mellitus type: type 2 Diabetes mellitus usp insulin use: with soft drink powder mixer use Diabetes mellitus complication status: with kidney complications Diabetes mellitus complication detail: with chronic kidney disease Chronic kidney disease stage: stage 4 (severe) Qualified Code(s): E11.22 - Type 2 diabetes mellitus with diabetic chronic kidney disease; N18.4 - Chronic kidney disease, stage 4 (severe); Z79.4 - [facility] (current) use of insulin Code(s): E11.9 - Type 2 diabetes mellitus without complications Status: Acute Assessment and Plan: Accu-Cheks, sliding scale insulin, last A1c was 5.6 Continue home Lantus 10 units daily (3) HLD (hyperlipidemia): Qualifiers: Hyperlipidemia type: mixed hyperlipidemia Qualified Code(s): E78.2 - Mixed hyperlipidemia Code(s): E78.5 - Hyperlipidemia, unspecified Status: Acute Assessment and Plan: on simvastatin (4) Hypertension: Code(s): I10 - Essential (primary) hypertension Status: Acute Assessment and Plan: Slightly elevated, monitor (5) CKD (chronic kidney disease): Code(s): N18.9 - Chronic kidney disease, unspecified Status: Acute Assessment and Plan: Appears to be at baseline, monitor (6) Elevated troponin: Code(s): R77.8 - Other specified abnormalities of plasma proteins Status: Acute Assessment and Plan: Do not suspect NH at this time, likely a troponin leak from the AFib with RVR (7) Prostate CA: Code(s): C61 - Malignant neoplasm of prostate Status: Acute Assessment and Plan: Concern for metastatic disease, lytic lesion of right 8th rib noted This is been present in CT abdomen pelvis done in 2020 as well also in bone scan Was planned to see Dr. Beltran for treatment (8) Hypertensive urgency: Code(s): I16.0 - Hypertensive urgency Status: Acute Assessment and Plan: Resolved, weaned off nitro drip, continue home medications (9) Atrial fibrillation with RVR: Code(s): I48.91 - Unspecified atrial fibrillation Status: Acute Assessment and Plan: Rate controlled at this time, monitor cardiology notes notes more sinus with frequent ectopy with PACs Plan history of prostate cancer on treatment Xtandi bilateral extensive DVT diagnosed March 2022: On Eliquis DVT prophylaxis with Eliquis GI prophylaxis with PPI Code status DNR Subjective Date/time seen: 04/26/22 14:32 Interval history: 82-year-old male with past medical history significant for prostate cancer, diabetes, atrial fibrillation, systolic heart failure with pulmonary hypertension, CKD, hypertension, hyperlipidemia with recent admission at the end of March is presenting with shortness of breath.? During his last admission, he was found to have bilateral DVTs but was unable to tolerate a CTA to rule out PE secondary to kidney disease.? Therefore, he was discharged on Eliquis.? He states that yesterday he woke up with acute shortness of breath and was gasping for air.? In the ER, he was hypoxic in the low 80s and placed on BiPAP with a nitro drip for hypertensive urgency and heart failure exacerbation.? He was also noted to have AFib with RVR and was given metoprolol.? This seemed to improve his rate.? IV diuresis was initiated and patient seemed to improve.? He was initially in the ICU with critical care and cardiology consultations for possible flash pulmonary edema.? R
[2022-04-26] MEDS: FUROSEMIDE INJ 40 MG/4 ML VIAL IV PUSH (16:05)
[2022-04-26 16:40] LABS: Glucose Point of Care 220 mg/dl (65-105)
[2022-04-26 16:51] LABS: Glucose Point of Care 160 mg/dl (65-105)
--- NOTE | 2022-04-26 17:03 | PM.PNCARD ---
Progress Note: A&P Assessment and Plan (1) Hypertensive urgency: Code(s): I16.0 - Hypertensive urgency Status: Acute (2) Flash pulmonary edema: Code(s): J81.0 - Acute pulmonary edema Status: Acute (3) Acute dyspnea: Code(s): R06.00 - Dyspnea, unspecified Status: Acute (4) DVT (deep venous thrombosis): Code(s): I82.409 - Acute embolism and thrombosis of unspecified deep veins of unspecified lower extremity Status: Acute (5) CKD (chronic kidney disease): Code(s): N18.9 - Chronic kidney disease, unspecified Status: Acute (6) Complete left bundle branch block: Code(s): I44.7 - Left bundle-branch block, unspecified Status: Acute Plan Blood pressures are much better now. Continue with anti-hypertensive regimen. Still with oxygen requirement, would continue diuresis. Continue Eliquis Time Spent With Patient Time with patient: 15 - 25 minutes Subjective Date/time seen: 04/26/22 17:03 Interval history: Reason for visit: Flash pulmonary edema No acute events overnight. Transferred out of ICU. Feeling better. On supplemental oxygen. BP much better today. Review of Systems Review of Systems: 8-point ROS obtained. Negative, unless stated in HPI. Exam Const: General: comfortable HENMT: Mouth: Yes moist mucous membranes Eyes: General: appearance normal, both eyes and all related structures Neck: Neck: supple Other: Unable to accurately assess for JVD Resp: Effort & Inspection: normal respiratory effort Auscultation: diminished lung sounds Cardio: Rate: regular rate Rhythm: regular rhythm and abnormal rhythm Heart sounds: no murmurs GI: GI Palp: Yes Soft to palpation and No Tenderness to palpation present (GI) Skin: General skin exam: normal color Neuro: Speech: normal speech Extrem: General: no edema Psych: Mental Status: mental status grossly normal Objective Data Vital Signs Vital Signs: Vital Signs - 24 hr 04/25/22 20:35 04/25/22 20:00 04/25/22 23:26 Temperature 36.1 C L Pulse Rate 75 112 H Respiratory Rate 16 Blood Pressure 122/79 Pulse Oximetry 98 98 Oxygen Delivery Nasal Cannula Oxygen Flow Rate 3 04/26/22 00:35 04/26/22 02:35 04/25/22 20:00 Temperature Pulse Rate 58 L 111 H 112 H Respiratory Rate 19 25 H Blood Pressure Pulse Oximetry 98 98 Oxygen Delivery BiPAP BiPAP Oxygen Flow Rate 04/26/22 00:00 04/26/22 04:00 04/26/22 06:46 Temperature 35.6 C L Pulse Rate 64 111 H 111 H Respiratory Rate 22 H Blood Pressure 136/88 Pulse Oximetry 100 Oxygen Delivery Oxygen Flow Rate 04/26/22 08:20 04/26/22 08:00 04/26/22 12:00 Temperature Pulse Rate 80 77 64 Respiratory Rate Blood Pressure Pulse Oximetry Oxygen Delivery Oxygen Flow Rate 04/26/22 14:00 04/26/22 16:00 Temperature 36.6 C Pulse Rate 74 76 Respiratory Rate 18 Blood Pressure 119/63 Pulse Oximetry 100 Oxygen Delivery Oxygen Flow Rate Intake/Output Intake/Output: Intake & Output 04/23/22 04/24/22 04/25/22 04/26/22 23:59 23:59 23:59 23:59 Intake Total 740 480 Output Total 3785 1000 Balance -3045 -520 Meds/Results Medications: Active Medications Generic Name Dose Route Start Last Admin Trade Name Freq PRN Reason Stop Dose Admin Amlodipine Besylate 10 mg 04/26/22 09:00 04/26/22 09:38 Amlodipine Besylate 5 Mg Tablet PO 10 mg DAILY BLADIMIR Administration Apixaban 5 mg 04/26/22 09:00 04/26/22 08:20 Apixaban 5 Mg Tablet PO 5 mg BID BLADIMIR Administration Calcium Carbonate 500 mg 04/25/22 13:00 04/26/22 12:02 Calcium Carbonate (Oscal) 500 Mg Tablet PO 05/25/22 12:59 500 mg QID BLADIMIR Administration Dextrose 12.5 gm 04/25/22 08:46 Dextrose 50% 25 Gm/50 Ml Syringe IV PUSH PRN PRN Hypoglycemia Protocol Finasteride 5 mg 04/25/22 21:00 04/25/22 20:34 Finasteride 5 Mg Tablet PO 5 mg HS
[2022-04-26] MEDS: FINASTERIDE 5 MG TABLET PO (20:34)
[2022-04-26 21:09] LABS: Glucose Point of Care 192 mg/dl (65-105)
[2022-04-27] VITALS (10 sets, daily range): BP systolic 128–154; BP diastolic 72–76; PULSE 68–98; RESP 18–20; TEMP 36.2–36.7; O2SAT 95–97
[2022-04-27] MEDS: LATANOPROST 0.005% OP SOLN 2.5 ML BTL 1 DROP EACH EYE ×2 (00:11→20:02)
[2022-04-27 06:36] LABS: Basophils Percent Auto 0.3 % (0.2-1.2); Eosinophils Absolute Auto 0.2 K/mm3 (0-0.3); Eosinophils Percent Auto 2.8 % (0-4.4); Hemoglobin 9.7 g/dL (14.0-18.0); Immature Granulocyte Absolute 0.03 K/mm3 (0.00-0.031); Immature Granulocyte Percent A 0.5 % (0-0.5); Lymphocytes Absolute Auto 1.56 K/mm3 (0.9-3.2); Lymphocytes Percent Auto 24.5 % (18.3-44.2); Mean Corpuscular HGB Conc 33.4 g/dl (32-36); Mean Corpuscular Hemoglobin 30.6 pg (26-34); Mean Corpuscular Volume 91.5 fl (80-100); Mean Platelet Volume 10.2 fl (7.4-10.4); Monocytes Absolute Auto 0.8 K/mm3 (0.1-0.6); Monocytes Percent Auto 12.4 % (2.6-8.5); Neutrophils Absolute Auto 3.8 K/mm3 (1.3-6.7); Neutrophils Percent Auto 59.5 % (45.5-73.1); Platelet Count Result 197 k/mm3 (150-375); Red Blood Count 3.17 M/mm3 (4.6-6.20); Red Cell Distribution Width 12.1 % (11.5-14.5); White Blood Count 6.4 K/mm3 (4.5-10.0)
[2022-04-27 06:52] LABS: Alanine Aminotransferase 14 U/L (6-50); Albumin Level 3.8 g/dL (3.5-5.1); Alkaline Phosphatase 43 U/L (38-126); Anion Gap 13 mmol/L (8-16); Aspartate Amino Transferase 26 U/L (17-59); Bilirubin,Total 0.6 mg/dL (0.2-1.3); Blood Urea Nitrogen 69 mg/dL (9-20); Calcium 7.9 mg/dL (8.4-10.2); Carbon Dioxide 26 mmol/L (22-30); Chloride 100 mmol/L (98-107); Estimated CRCL calculation 18 ml/min; Estimated Glomerular Filt Rate 18; Glucose 162 mg/dL (65-110); Magnesium 2.2 mg/dL (1.6-2.3); Potassium 4.2 mmol/L (3.4-5.0); Sodium 139 mmol/L (137-145)
[2022-04-27 07:45] LABS: Glucose Point of Care 142 mg/dl (65-105)
--- NOTE | 2022-04-27 07:51 | P.CDI_ITS ---
CDI Query Clarified Diagnosis Clarified Diagnosis: Please specify type and acuity of heart failure if known. Patient noted to have acute respiratory failure and flash pulmonary edema. It was noted on 04/25/22 flash pulmonary edema from heart failure Patient taking IV Lasix and had an increase in oxygen demand requiring Bipap. BNP was elevated on 04/25/22 lab work Charting notes patient with complaints of shortness of breath and inability to lie flat. Please clarify type and acuity of CHF if known: * Acute * Chronic * Acute on Chronic * Unknown * Systolic * Diastolic * Combined Systolic and Diastolic * Unknown <Carmella Oshea RN - Last Filed: 04/27/22 08:02> Provider Comments acute on chronic combined systolic and diastolic congestive heart failure <Dennis Malave MD - Last Filed: 04/27/22 08:07>
[2022-04-27] MEDS: INSULIN GLARGINE (*BKC) 100 UNITS/ML 10 UNITS SUB-Q (08:17)
[2022-04-27] MEDS: METOPROLOL TARTRATE 50 MG TAB 100 MG PO ×2 (08:23→20:02)
[2022-04-27] MEDS: amLODIPine BESYLATE 5 MG TABLET 10 MG PO (08:23)
[2022-04-27] MEDS: CHOLECALCIFEROL 1,000 UNITS TABLET 1000 UNITS PO (08:23)
[2022-04-27] MEDS: hydrALAZINE HCL 50 MG TABLET PO ×2 (08:23→17:17)
[2022-04-27] MEDS: FLUTICASONE PROPIONATE 0.05% NA SPR 16 GM BTL (*BKC) 1 SPRAY NASAL ×2 (08:25→20:02)
[2022-04-27] MEDS: CALCIUM CARBONATE (OSCAL) 500 MG TABLET PO ×4 (08:25→20:00)
[2022-04-27] MEDS: SIMVASTATIN 20 MG TABLET PO (08:25)
[2022-04-27] MEDS: APIXABAN 5 MG TABLET PO ×2 (08:25→17:17)
[2022-04-27] MEDS: PANTOPRAZOLE SODIUM IV 40 MG VIAL IV PUSH (08:28)
--- NOTE | 2022-04-27 09:29 | PM.PNCARD ---
Progress Note: A&P Assessment and Plan (1) Hypertensive urgency: Code(s): I16.0 - Hypertensive urgency Status: Acute (2) Flash pulmonary edema: Code(s): J81.0 - Acute pulmonary edema Status: Acute (3) Acute dyspnea: Code(s): R06.00 - Dyspnea, unspecified Status: Acute (4) DVT (deep venous thrombosis): Code(s): I82.409 - Acute embolism and thrombosis of unspecified deep veins of unspecified lower extremity Status: Acute (5) CKD (chronic kidney disease): Code(s): N18.9 - Chronic kidney disease, unspecified Status: Acute (6) Complete left bundle branch block: Code(s): I44.7 - Left bundle-branch block, unspecified Status: Acute Plan Blood pressures improved, stable. If not at goal for discharge would recommend adding losartan. Now on room air, breathing comfortably. Can shift to p.o. diuretic at this point. Continue Eliquis Cardiology will sign off please do not hesitate to contact us with any questions. Subjective Date/time seen: 04/27/22 09:29 Cardiology follow up for hypertensive urgency Interval history: Feeling good today. Breathing comfortably on room air. Denies any chest pain, swelling, or shortness of breath. Exam Const: General: comfortable, no acute distress, alert and awake HENMT: Head: normal to inspection Mouth: Yes moist mucous membranes Eyes: General: appearance normal, both eyes and all related structures Neck: Neck: supple Other: Unable to accurately assess for JVD Resp: Effort & Inspection: normal respiratory effort Auscultation: crackles and diminished lung sounds Cardio: Rate: regular rate Rhythm: regular rhythm Heart sounds: no murmurs Skin: General skin exam: normal color Neuro: Speech: normal speech Extrem: General: no edema Psych: Mental Status: mental status grossly normal Objective Data Vital Signs Vital Signs: Vital Signs - 24 hr 04/26/22 12:00 04/26/22 14:00 04/26/22 16:00 Temperature 36.6 C Pulse Rate 64 74 76 Respiratory Rate 18 Blood Pressure 119/63 Pulse Oximetry 100 Oxygen Delivery Oxygen Flow Rate 04/26/22 19:56 04/26/22 20:35 04/26/22 23:45 Temperature 36.2 C L Pulse Rate 80 89 Respiratory Rate 20 Blood Pressure 149/75 H Pulse Oximetry 100 97 Oxygen Delivery Nasal Cannula Oxygen Flow Rate 3 04/27/22 00:00 04/27/22 04:00 04/27/22 08:23 Temperature Pulse Rate 68 89 78 Respiratory Rate Blood Pressure Pulse Oximetry Oxygen Delivery Oxygen Flow Rate 04/27/22 08:00 Temperature 36.7 C Pulse Rate 80 Respiratory Rate 20 Blood Pressure 154/76 H Pulse Oximetry 96 Oxygen Delivery Oxygen Flow Rate Intake/Output Intake/Output: Intake & Output 04/24/22 04/25/22 04/26/22 04/27/22 23:59 23:59 23:59 23:59 Intake Total 740 960 400 Output Total 3785 0560 1950 [facility] -3045 [id number] -[id number] Meds/Results Medications: Active Medications Generic Name Dose Route Start Last Admin Trade Name Freq PRN Reason Stop Dose Admin Amlodipine Besylate 10 mg 04/26/22 09:00 04/27/22 08:23 Amlodipine Besylate 5 Mg Tablet PO 10 mg DAILY BLADIMIR Administration Apixaban 5 mg 04/26/22 09:00 04/27/22 08:25 Apixaban 5 Mg Tablet PO 5 mg BID BLADIMIR Administration Calcium Carbonate 500 mg 04/25/22 13:00 04/27/22 08:25 Calcium Carbonate (Oscal) 500 Mg Tablet PO 05/25/22 12:59 500 mg QID BLADIMIR Administration Dextrose 12.5 gm 04/25/22 08:46 Dextrose 50% 25 Gm/50 Ml Syringe IV PUSH PRN PRN Hypoglycemia Protocol Finasteride 5 mg 04/25/22 21:00 04/26/22 20:34 Finasteride 5 Mg Tablet PO 5 mg HS BLADIMIR Administration Fluticasone Propionate 1 spray 04/25/22 09:00 04/27/22 08:25 Fluticasone Propionate 0.05% Na Spr 16 Gm Btl (*Bkc) NASAL 1 spray Q12HR BLADIMIR Administration Glucagon 1 mg 04/25/22 08:46 Glucagon For Inj 1 Mg Vial IM PRN PRN Hypoglycemia
[2022-04-27 11:22] LABS: Glucose Point of Care 217 mg/dl (65-105)
[2022-04-27] MEDS: INSULIN ASPART (*BKC) 100 UNITS/ML SUB-Q ×2 (11:44→17:17)
--- NOTE | 2022-04-27 12:53 | PDONCCN ---
[facility] - Date of Consult Date/Time: 04/27/22 12:53 Requesting Physician: Dennis Malave MD Primary Care Provider: Jose M Stafford MD - Consult Narrative Reason for consult: Metastatic prostate cancer Narrative: Rafael Oneill is a 82 year old male with history of metastatic prostate cancer. He was initially diagnosed with Colon score 4+4=8 prostate cancer in 2017 with initial PSA of 25. He had bone metastasis at diagnosis. Patient is currently on treatment with Xtandi and Lupron every 3 months basis. His last PSA was normal. He also received Xgeva on a monthly basis. He came into the hospital with increasing shortness of breath. He was diagnosed to have extensive bilateral lower extremity DVT in March 29, 2022. V/Q scan showed low to intermediate probability. His labs also showed drop in hemoglobin now down to 9.7. He denies any bleeding including melena hematochezia. He has been eating poorly and may have lost some weight. Review of Systems - Review of Systems All systems reviewed & are unremarkable except as noted in [facility] and [facility] Medical History: Medical History (Last Reviewed 04/25/22 @ 20:04 by Sofie Gasca DO) Arthritis Atrial fibrillation with RVR Cancer treatment started CHF (congestive heart failure) CKD (chronic kidney disease) stage 4, GFR 15-29 ml/min Diabetes mellitus DNR (do not resuscitate) HLD (hyperlipidemia) Hypertension Impaired functional mobility, balance, gait, and endurance Kidney disease OA (osteoarthritis) of knee Prostate cancer Wears glasses Surgical History: Surgical History (Last Reviewed 04/25/22 @ 20:04 by Sofie Gasca DO) History of hernia repair Family History: Family History (Last Reviewed 04/25/22 @ 20:04 by Sofie Gasca DO) Father Acute myocardial infarction, Onset Age: 87 Cerebrovascular accident, Onset Age: 87 Mother Heart disease Acute myocardial infarction Sibling Acute myocardial infarction Heart disease Cerebrovascular accident Malignant neoplasm of prostate Sibling Carcinoma of colon Other Diabetes mellitus Family history of arthritis Hypertension Kidney disease Neuropathy - Social History Social History: Social History (Last Reviewed 04/25/22 @ 20:04 by Sofie Gasca DO) Gender Identity: Gender identity (if verbalized by the patient): Male Sexual Orientation: Sexual Orientation (if Verbalized by the Patient): Straight or Heterosexual Alcohol Use: Alcohol intake: current Alcohol use details: 1 beer every 2 months Substance Use: Substance use: never Others: Spiritual care concerns: No Agree to blood products: Yes Smoking Status: Smoking status: Former smoker Approximate Smoking End Date: 1967 Smoking Pack-years: Smoking packs per day: 0.5 Smoking cigarettes per day: 10.0 Years smoked: 10 Smoking pack-years: 5.00 Social Determinants of Health: Has the Lack of Transportation Kept You From Medical Appointments or From Getting Medications?: No Within the Past 12 Months, Were You Worried Whether Your Food Would Run Out Before You Got Money to Buy More?: Never True What is Your Housing Situation Today?: I Have Housing Are You Worried That in the Next 2 Months, You May Not Have Your Own Housing to Live In?: No Do You Have Trouble Paying Your Heating Or Electricity Bill?: No Do You Have Trouble Paying For Medicines?: No Are You Currently Unemployed and Looking for Work?: No Highest Level of Education Completed: High School Diploma/GED Do You Have Trouble With Childcare or the Care of a Family Member?: No Exam - Vital Signs Vital Signs - 24 hr 04/26/22 14:00 04/26/22 16:00 04/26/22 19:56 Temperature 36.6 C Pulse Rate 74 76 Respiratory Rate 18 Blood Pressure 119/63 Pulse Oximetry 100 100 Oxygen Delivery Nasal Cannula Oxygen Jakob
[2022-04-27] MEDS: EPOETIN ALFA-EPBX 20,000 UNITS/ML VIAL 20000 UNITS SUB-Q (13:42)
[2022-04-27 14:14] LABS: Iron 46 ug/dL (49-181)
[2022-04-27 14:24] LABS: Percent Iron Saturation 15 % (20-50)
[2022-04-27 14:27] LABS: Prostate Specific Antigen 0.9 ng/mL (< OR = 4.0)
[2022-04-27 15:02] LABS: Folic Acid 11.7 ng/mL (2.76->20)
[2022-04-27 16:32] LABS: Glucose Point of Care 209 mg/dl (65-105)
--- NOTE | 2022-04-27 16:47 | PM.IMPN ---
Progress Note: A&P Assessment and Plan (1) Acute respiratory failure: Code(s): J96.00 - Acute respiratory failure, unspecified whether with hypoxia or hypercapnia Status: Acute Assessment and Plan: Suspected flash pulmonary edema from heart failure, AFib with RVR, and possible underlying metastatic disease Originally on BiPAP, now weaned to 3 L nasal cannula, monitor ABG with no hypercarbia will stop BiPAP at night (2) Diabetes mellitus: Qualifiers: Diabetes mellitus type: type 2 Diabetes mellitus residential insulin use: with residential use Diabetes mellitus complication status: with kidney complications Diabetes mellitus complication detail: with chronic kidney disease Chronic kidney disease stage: stage 4 (severe) Qualified Code(s): E11.22 - Type 2 diabetes mellitus with diabetic chronic kidney disease; N18.4 - Chronic kidney disease, stage 4 (severe); 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 Code(s): E11.9 - Type 2 diabetes mellitus without complications Status: Acute Assessment and Plan: Accu-Cheks, sliding scale insulin, last A1c was 5.6 Continue home Lantus 10 units daily (3) HLD (hyperlipidemia): Qualifiers: Hyperlipidemia type: mixed hyperlipidemia Qualified Code(s): E78.2 - Mixed hyperlipidemia Code(s): E78.5 - Hyperlipidemia, unspecified Status: Acute Assessment and Plan: on simvastatin (4) Hypertension: Code(s): I10 - Essential (primary) hypertension Status: Acute Assessment and Plan: Slightly elevated, monitor Much improved from admission (5) CKD (chronic kidney disease): Code(s): N18.9 - Chronic kidney disease, unspecified Status: Acute Assessment and Plan: Appears to be at baseline, monitor (6) Elevated troponin: Code(s): R77.8 - Other specified abnormalities of plasma proteins Status: Acute Assessment and Plan: Do not suspect PA at this time, likely a troponin leak from the AFib with RVR (7) Prostate CA: Code(s): C61 - Malignant neoplasm of prostate Status: Acute Assessment and Plan: Concern for metastatic disease, lytic lesion of right 8th rib noted This is been present in CT abdomen pelvis done in 2020 as well also in bone scan Was planned to see Dr. Beltran for treatment To urology and oncology consulted during the hospital stay (8) Hypertensive urgency: Code(s): I16.0 - Hypertensive urgency Status: Acute Assessment and Plan: Resolved, weaned off nitro drip, continue home medications (9) Atrial fibrillation with RVR: Code(s): I48.91 - Unspecified atrial fibrillation Status: Acute Assessment and Plan: Rate controlled at this time, monitor cardiology notes notes more sinus with frequent ectopy with PACs Plan history of prostate cancer on treatment Xtandi bilateral extensive DVT diagnosed March 2022: On Eliquis DVT prophylaxis with Eliquis GI prophylaxis with PPI Code status DNR Subjective Date/time seen: 04/27/22 16:47 Interval history: 82-year-old male with past medical history significant for prostate cancer, diabetes, atrial fibrillation, systolic heart failure with pulmonary hypertension, CKD, hypertension, hyperlipidemia with recent admission at the end of March is presenting with shortness of breath.? During his last admission, he was found to have bilateral DVTs but was unable to tolerate a CTA to rule out PE secondary to kidney disease.? Therefore, he was discharged on Eliquis.? He states that yesterday he woke up with acute shortness of breath and was gasping for air.? In the ER, he was hypoxic in the low 80s and placed on BiPAP with a nitro drip for hypertensive urgency and heart failure exacerbation.? He was also noted to have AFib with RVR and was given metoprolol.? This seemed to improve his rate.? IV diuresis was initiated and patient seemed to improve.? He was initially in the I
[2022-04-27] MEDS: SALINE 0.65% NAS SOLN 44 ML BTL 1 SPRAY NASAL (17:21)
[2022-04-27] MEDS: FINASTERIDE 5 MG TABLET PO (20:02)
[2022-04-27 21:00] LABS: Glucose Point of Care 270 mg/dl (65-105)
[2022-04-28] VITALS: PULSE 83
[2022-04-28 04:00] VITALS: PULSE 83
[2022-04-28 05:50] VITALS: BP 138/75; PULSE 113; RESP 16; TEMP 36.8; O2SAT 98
[2022-04-28 07:33] LABS: Basophils Percent Auto 0.7 % (0.2-1.2); Eosinophils Absolute Auto 0.2 K/mm3 (0-0.3); Eosinophils Percent Auto 3.1 % (0-4.4); Hematocrit 31.2 % (42.0-52.0); Hemoglobin 10.2 g/dL (14.0-18.0); Immature Granulocyte Absolute 0.02 K/mm3 (0.00-0.031); Immature Granulocyte Percent A 0.3 % (0-0.5); Lymphocytes Absolute Auto 1.56 K/mm3 (0.9-3.2); Lymphocytes Percent Auto 26.8 % (18.3-44.2); Mean Corpuscular HGB Conc 32.7 g/dl (32-36); Mean Corpuscular Hemoglobin 30.9 pg (26-34); Mean Corpuscular Volume 94.5 fl (80-100); Monocytes Absolute Auto 0.6 K/mm3 (0.1-0.6); Monocytes Percent Auto 10.8 % (2.6-8.5); Neutrophils Absolute Auto 3.4 K/mm3 (1.3-6.7); Neutrophils Percent Auto 58.3 % (45.5-73.1); Platelet Count Result 227 k/mm3 (150-375); Red Cell Distribution Width 12.1 % (11.5-14.5); White Blood Count 5.8 K/mm3 (4.5-10.0)
[2022-04-28 07:49] LABS: Glucose Point of Care 165 mg/dl (65-105)
[2022-04-28 08:00] VITALS: PULSE 112
[2022-04-28 08:06] LABS: Alanine Aminotransferase 13 U/L (6-50); Albumin Level 3.8 g/dL (3.5-5.1); Alkaline Phosphatase 35 U/L (38-126); Anion Gap 16 mmol/L (8-16); Aspartate Amino Transferase 27 U/L (17-59); Bilirubin,Total 0.6 mg/dL (0.2-1.3); Blood Urea Nitrogen 68 mg/dL (9-20); Calcium 7.7 mg/dL (8.4-10.2); Carbon Dioxide 21 mmol/L (22-30); Chloride 100 mmol/L (98-107); Estimated CRCL calculation 21 ml/min; Estimated Glomerular Filt Rate 22; Glucose 154 mg/dL (65-110); Magnesium 2.4 mg/dL (1.6-2.3); Potassium 4.3 mmol/L (3.4-5.0); Sodium 137 mmol/L (137-145)
[2022-04-28 08:18] VITALS: PULSE 98
[2022-04-28] MEDS: hydrALAZINE HCL 50 MG TABLET PO (08:18)
[2022-04-28] MEDS: APIXABAN 5 MG TABLET PO (08:18)
[2022-04-28] MEDS: amLODIPine BESYLATE 5 MG TABLET 10 MG PO (08:18)
[2022-04-28] MEDS: SIMVASTATIN 20 MG TABLET PO (08:18)
[2022-04-28] MEDS: FUROSEMIDE 40 MG TABLET PO (08:18)
[2022-04-28] MEDS: CHOLECALCIFEROL 1,000 UNITS TABLET 1000 UNITS PO (08:18)
[2022-04-28] MEDS: CALCIUM CARBONATE (OSCAL) 500 MG TABLET PO ×2 (08:18→12:00)
[2022-04-28] MEDS: METOPROLOL TARTRATE 50 MG TAB 100 MG PO (08:18)
[2022-04-28] MEDS: INSULIN GLARGINE (*BKC) 100 UNITS/ML 10 UNITS SUB-Q (08:19)
[2022-04-28] MEDS: FLUTICASONE PROPIONATE 0.05% NA SPR 16 GM BTL (*BKC) 1 SPRAY NASAL (08:19)
[2022-04-28] MEDS: PANTOPRAZOLE SODIUM IV 40 MG VIAL IV PUSH (08:19)
[2022-04-28 11:12] LABS: Glucose Point of Care 349 mg/dl (65-105)
[2022-04-28] MEDS: INSULIN ASPART (*BKC) 100 UNITS/ML SUB-Q (11:24)
[2022-04-28 12:00] VITALS: PULSE 56
--- NOTE | 2022-04-28 13:06 | PM.DS ---
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 use: with lobsterman use Diabetes mellitus complication status: with kidney complications Diabetes mellitus complication detail: with chronic kidney disease Chronic kidney disease stage: stage 4 (severe) Qualified Code(s): E11.22 - Type 2 diabetes mellitus with diabetic chronic kidney disease; N18.4 - Chronic kidney disease, stage 4 (severe); Z79.4 - USP (current) use of insulin Code(s): E11.9 - Type 2 diabetes mellitus without complications Status: Acute (3) HLD (hyperlipidemia): Qualifiers: Hyperlipidemia type: mixed hyperlipidemia Qualified Code(s): E78.2 - Mixed hyperlipidemia Code(s): E78.5 - Hyperlipidemia, unspecified Status: Acute (4) Hypertension: Code(s): I10 - Essential (primary) hypertension Status: Acute (5) CKD (chronic kidney disease): Code(s): N18.9 - Chronic kidney disease, unspecified Status: Acute (6) Elevated troponin: Code(s): R77.8 - Other specified abnormalities of plasma proteins Status: Acute (7) Prostate CA: Code(s): C61 - Malignant neoplasm of prostate Status: Acute (8) Hypertensive urgency: Code(s): I16.0 - Hypertensive urgency Status: Acute (9) Atrial fibrillation with RVR: Code(s): I48.91 - Unspecified atrial fibrillation Status: Acute DS: Summary Hospital Course Reason for hospitalization: 82-year-old male with past medical history significant for prostate cancer, diabetes, atrial fibrillation, systolic heart failure with pulmonary hypertension, CKD, hypertension, hyperlipidemia with recent admission at the end of March is presenting with shortness of breath.? During his last admission, he was found to have bilateral DVTs but was unable to tolerate a CTA to rule out PE secondary to kidney disease.? Therefore, he was discharged on Eliquis.? He states that yesterday he woke up with acute shortness of breath and was gasping for air.? In the ER, he was hypoxic in the low 80s and placed on BiPAP with a nitro drip for hypertensive urgency and heart failure exacerbation.? He was also noted to have AFib with RVR and was given metoprolol.? This seemed to improve his rate.? IV diuresis was initiated and patient seemed to improve.? He was initially in the ICU with critical care and cardiology consultations for possible flash pulmonary edema.? Rapidly improved, weaned to 3 L nasal cannula after diuresis and was transferred to the floor. Previous echo showed an EF of 45-50% with moderate pulmonary hypertension.? Patient did refuse any ischemic workup including heart catheterization.? Creatinine was noted to be 3.1, 3.4 at last discharge.? Baseline appears to be anywhere from 3-3.5. Hospital Course: # Acute respiratory failure: Suspected flash pulmonary edema from heart failure, AFib with RVR, and possible underlying metastatic disease Originally on BiPAP, admitted to the ICU now weaned to 3 L nasal cannula, subsequently tapered off and was room air by the time of discharge. ABG with no hypercarbia # diabetes mellitus type 2 on insulin: Accu-Cheks, sliding scale insulin, last A1c was 5.6 Continue home Lantus 10 units daily Along with sliding scale insulin # hyperlipidemia: On simvastatin # hypertensive urgency: Started on nitro drip on admission. Subsequently Was weaned offf with adjustment of blood pressure medication. he was also diuresed for her as flash pulmonary edema with rapid improvement. # CKD stage 4: Renal function remains stable throughout the hospital stay # elevated tro
== END 2022-04-28 14:35 | disposition home health service (06) | DRG 291 ==
LOC: ANHED 04:46 → ANHICU 05:51 → ANH3MEDSUR 16:54
PROVIDERS: Internal Medicine; Internal Medicine Hematology & Oncology; Student in an Organized Health Care Education/Training Program; Admitting Provider Internal Medicine; Emergency Provider Preventive Medicine Aerospace Medicine; PCP Emergency Medicine; Visit Provider Internal Medicine
DX: I13.0 Hypertensive heart and chronic kidney disease with heart failure and stage 1 through stage 4 chronic kidney disease, or unspecified chronic kidney disease (principal); I50.43 Acute on chronic combined systolic (congestive) and diastolic (congestive) heart failure; J96.01 Acute respiratory failure with hypoxia; N18.4 Chronic kidney disease, stage 4 (severe); C79.51 Secondary malignant neoplasm of bone; E11.22 Type 2 diabetes mellitus with diabetic chronic kidney disease; E78.2 Mixed hyperlipidemia; Z87.891 Personal history of nicotine dependence; I16.0 Hypertensive urgency; I48.91 Unspecified atrial fibrillation; Z79.01 Long term (current) use of anticoagulants; C61 Malignant neoplasm of prostate; Z86.718 Personal history of other venous thrombosis and embolism; Z20.822 Contact with and (suspected) exposure to COVID-19; I44.7 Left bundle-branch block, unspecified; Z80.42 Family history of malignant neoplasm of prostate; Z82.49 Family history of ischemic heart disease and other diseases of the circulatory system; Z83.3 Family history of diabetes mellitus; Z66 Do not resuscitate; Z79.899 Other long term (current) drug therapy
CPT/HCPCS: 36415; 36600; 71045; 80053; 82607; 82728; 82746; 82805; 82948; 83036; 83540; 83550; 83735; 83880; 84153; 84484; 85025; 85610; 85730; 87636; 93005; 94002; 94003; 96365; 96366; 96375; 96376; 97161; 97165; 99285; A9270; C9113; G0378; J1815; J1940; Q5105

== ENCOUNTER 2022-06-28 17:48 | Inpatient (IN) | payer OTHER, SELFPAY ==
[2022-06-28] VITALS (13 sets, daily range): BP systolic 148–215; BP diastolic 85–145; PULSE 105–123; RESP 20–27; TEMP 36.4; O2SAT 93–99; BMI 35.8
--- NOTE | ~2022-06-28 | XR_ITS ---
EXAMINATION: XR chest 1V portable DATE: 06/28/2022 18:27 INDICATION: Shortness of breath. TECHNIQUE: A single frontal view of the chest was obtained. COMPARISON: Chest single view 04/25/2022, CT abdomen and pelvis 10/27/2020 FINDINGS: There is a diffuse interstitial pattern in the lungs. There are mild airspace opacities in the right mid and lower lung zones and left lower lung zone. No pleural effusion or pneumothorax. Car diomegaly is noted. There is an expansile lytic lesion of right eighth rib. IMPRESSION: 1. Diffuse lung disease, likely mild pulmonary edema. 2. Cardiomegaly. 3. Expansile lytic lesion of right eighth rib, consistent with metastatic disease versus sarcoma. Reviewed, dictated and finalized at location [facility]. E INFORMATICIST IMPRESSION: 1. Diffuse lung disease, likely mild pulmonary edema. 2. Cardiomegaly. 3. Expansile lytic lesion of right eighth rib, consistent with metastatic disea se versus sarcoma.
--- NOTE | 2022-06-28 17:48 | ED.GENADULT ---
HPI - General Adult General Chief complaint: Shortness of Breath/Dyspnea Stated complaint: SOB, EMS declared STEMI Source: EMS Mode of arrival: EMS Limitations: physical limitation and clinical condition History of Present Illness HPI narrative: 82 years old white male assisted living called 911 because of sudden onset of shortness of breath. Patient was tachypneic at 30 breaths/min, diaphoretic, BiPAP was placed immediately. History of A. fib with RVR, congestive heart failure, CKD, diabetes hyperlipidemia, DNR, hypertension, prostatic cancer with treatment started April 2022. Patient arrived to the ED with BiPAP on, unable to communicate. Related Data Home Medications Medication Instructions Recorded Confirmed finasteride 5 mg tablet 5 mg PO HS 05/06/19 04/25/22 latanoprost 0.005 % eye drops 1 drp ophthalmic (eye) DAILY 05/06/19 04/25/22 omeprazole 20 mg capsule,delayed 20 mg PO DAILY 07/06/20 04/25/22 release calcium 600 mg capsule 600 mg PO QID 11/28/21 04/25/22 denosumab 60 mg/mL subcutaneous 60 mg subcut .[id number] 01/18/22 04/25/22 syringe leuprolide acetate (6 month) 45 mg 7.5 mg IM [id number] 01/18/22 04/25/22 intramuscular syringe kit enzalutamide 40 mg capsule (Xtandi) 160 mg PO DAILY 03/29/22 04/25/22 metoprolol tartrate 100 mg tablet 100 mg PO BID 03/30/22 04/25/22 apixaban 5 mg tablet (Eliquis) 5 mg PO BID 04/25/22 04/25/22 fluticasone propionate 50 1 spray intranasal BID 04/25/22 04/25/22 mcg/actuation nasal spray,suspension insulin glargine 100 unit/mL (3 15 unit subcut DIRECTED 04/25/22 04/25/22 mL) subcutaneous pen (Lantus Solostar U-100 Insulin) simvastatin 40 mg tablet 20 mg PO DAILY 04/25/22 04/25/22 insulin glargine 100 unit/mL (3 10 unit subcut DAILY 06/28/22 mL) subcutaneous pen (Lantus Solostar U-100 Insulin) Allergies Allergy/AdvReac Type Severity Reaction Status Date / Time lisinopril Allergy Unknown Itching Verified 06/28/22 17:52 Review of Systems Review of Systems: ROS unobtainable: Yes unobtainable due to medical condition [facility] Past Medical History Medical History Arthritis Atrial fibrillation with RVR Cancer treatment started CHF (congestive heart failure) CKD (chronic kidney disease) stage 4, GFR 15-29 ml/min Diabetes mellitus DNR (do not resuscitate) HLD (hyperlipidemia) Hypertension Impaired functional mobility, balance, gait, and endurance Kidney disease OA (osteoarthritis) of knee Prostate cancer Wears glasses Surgical History Surgical History History of hernia repair Family History Family History Father Acute myocardial infarction, Onset Age: 87 Cerebrovascular accident, Onset Age: 87 Mother Heart disease Acute myocardial infarction Sibling Acute myocardial infarction Heart disease Cerebrovascular accident Malignant neoplasm of prostate Sibling Carcinoma of colon Other Diabetes mellitus Family history of arthritis Hypertension Kidney disease Neuropathy Social History Social History (Updated 06/28/22 @ 20:13 by Renetta Ramirez NP) Social History: Patient recently moved into [facility] into the assisted living. His niece Ursula is his surrogate power of bee tender. Patient wishes to be a DNR at this time. Patient denies having any pets.no children . retired [employer] Smoking packs per day: 0.5 Smoking cigarettes per day: 10.0 Years smoked: 10 Smoking pack-years: 5.00 Smoking status: Former smoker Alcohol intake: current Alcohol use details: 1 beer every 2 months Substance use: never Lack of Transportation: No Lack of Food: Never True Current Housing: I Have Housing Concerned About Future Housing: No Difficulty Paying Gas/Electric Bills: No Difficulty Paying for Meds: No Currently Unemplo
--- NOTE | 2022-06-28 17:53 | ECG_ITS ---
Measurements Intervals [place] Rate: 108 P: [place]: 0 QRS: -47 QRSD: 153 T: 83 QT: 386 QTc: 519 Interpretive Statements ATRIAL FLUTTER/TACHYCARDIA WITH RAPID VENTRICULAR RESPONSE LEFT AXIS DEVIATION LEFT BUNDLE BRANCH BLOCK ABNORMAL ECG COMPARED TO ECG 04/25/2022 04:32:14 LEFT-AXIS DEVIATION NOW PRESENT Electronically Signed On 06-28-2022 19:20:39 [employer]ICULTURE [employer]ER by Isma Pearson D.O.
[2022-06-28 18:04] LABS: Basophils Absolute Auto 0.1 K/mm3 (0.0-0.1); Basophils Percent Auto 0.7 % (0.2-1.2); Eosinophils Absolute Auto 0.3 K/mm3 (0-0.3); Eosinophils Percent Auto 2.8 % (0-4.4); Hematocrit 34.5 % (42.0-52.0); Hemoglobin 11.1 g/dL (14.0-18.0); Immature Granulocyte Absolute 0.06 K/mm3 (0.00-0.031); Immature Granulocyte Percent A 0.6 % (0-0.5); Mean Corpuscular HGB Conc 32.2 g/dl (32-36); Mean Corpuscular Hemoglobin 30.3 pg (26-34); Mean Corpuscular Volume 94.3 fl (80-100); Mean Platelet Volume 9.9 fl (7.4-10.4); Monocytes Absolute Auto 0.8 K/mm3 (0.1-0.6); Neutrophils Absolute Auto 6.5 K/mm3 (1.3-6.7); Neutrophils Percent Auto 67.9 % (45.5-73.1); Platelet Count Result 212 k/mm3 (150-375); Red Blood Count 3.66 M/mm3 (4.6-6.20); Red Cell Distribution Width 14.3 % (11.5-14.5); White Blood Count 9.5 K/mm3 (4.5-10.0)
[2022-06-28 18:11] LABS: Alanine Aminotransferase 18 U/L (6-50); Albumin Level 4.2 g/dL (3.5-5.1); Alkaline Phosphatase 49 U/L (38-126); Anion Gap 10 mmol/L (8-16); Aspartate Amino Transferase 27 U/L (17-59); Bilirubin,Total 0.4 mg/dL (0.2-1.3); Blood Urea Nitrogen 71 mg/dL (9-20); Calcium 7.1 mg/dL (8.4-10.2); Carbon Dioxide 23 mmol/L (22-30); Chloride 105 mmol/L (98-107); Estimated Glomerular Filt Rate 18; Glucose 218 mg/dL (65-110); Potassium 4.7 mmol/L (3.4-5.0); Sodium 138 mmol/L (137-145)
[2022-06-28 18:12] LABS: INR 1.2; Prothrombin Time 14.7 Seconds (11.1-14.7)
[2022-06-28 18:13] LABS: Partial Thromboplastin Time 37.9 SECONDS (22.3-36.8)
[2022-06-28 18:23] LABS: Alveolar/Arterial O2 Gradient 212.6 mmHg; Base Excess ABG -4.1 mEq/l (+/-2.0); Fractional Inspired Oxygen 50 %; HCO3 ABG 21.6 mEq/l (22.0-26.0); Oxygen Saturation ABG 96.9 % (95.0-100.0); Oxyhemoglobin 95.1 % THb (90.0-100.0); PCO2 ABG 41.9 mmHg (35.0-45.0); PO2 ABG 96.8 mmHg (80.0-100.0); PO2 FiO2 Ratio Arterial Blood 1.94 %; Total Hemoglobin 11.9 g/dL (12.0-18.0); pH ABG 7.331 (7.350-7.450)
[2022-06-28 18:24] LABS: Device NON-INVASIVE VENT; Modified Allen's Test Pass; Site Drawn LEFT RADIAL
[2022-06-28 18:25] LABS: Non-Invasive Expiratory Pressure 8 CMH2O; Non-Invasive Inspiratory Pressure 16 CMH2O; Non-Invasive Vent Rate 16 /MIN
[2022-06-28 18:26] LABS: NT Pro B Type Natriuretic Pept 9090 pg/mL (19.9-100)
[2022-06-28] MEDS: NITROGLYCERIN OINTMENT 1 INCH DOSE TRANSDERM ×2 (18:53→23:26)
[2022-06-28] MEDS: FUROSEMIDE INJ 40 MG/4 ML VIAL 60 MG IV PUSH (18:53)
--- NOTE | 2022-06-28 19:05 | PM.IMHP ---
H&P: HPI History of Present Illness Date/Time: 06/28/22 19:05 Chief Complaint: Shortness of breath. Narrative: This is a 82-year-old male patient that has had a son and onset of shortness of breath. He resides at the [facility] and 911 was called. A STEMI was to cleared EN route. The patient was diaphoretic and a BiPAP was placed immediately. The patient had been on a BiPAP 16/8 with a rate of 16 and FiO2 of 50. He does have a history of congestive heart failure, AFib, chronic kidney disease, diabetes and hypertension. The patient is a DNR. His niece was at the bedside to answer the questions for me. His H&H is 11.1 and 34.5 which has improved from his baseline. Arterial blood gases pH 7.331, bicarb 21.6. CO2 normal. His BUN is 71 creatinine 3.3 which is his baseline. His blood sugar was 218. Troponin was 0.040. BNP 9090. The patient was negative for influenza a B and is positive for COVID. The patient was given IV Lasix, x2 and nitroglycerin ointment. Chest x-ray was read as 1. Diffuse lung disease, likely mild pulmonary edema. 2. Cardiomegaly. 3. Expansile lytic lesion of right eighth rib, consistent with metastatic disease versus sarcoma. Once the patient came up to IMU he was taken off of the BiPAP and was doing well on oxygen at 2 L per nasal cannula. The patient is being admitted to observation status on the date of service of 06/28/2022. Review of Systems Review of Systems: See HPI All systems reviewed & are unremarkable except as noted in HPI and below Constitutional: Constitutional: Reports as per HPI and Reports no additional constitutional complaints Eyes: Eyes: Reports as per HPI and Reports no additional eye complaints ENT: Reports system reviewed and no additional complaints, except as documented and Reports Normal hearing present Cardiovascular: Cardiovascular: Reports no additional cardiovascular complaints Respiratory: Respiratory: Reports no additional respiratory complaints and Reports no additional respiratory complaints Gastrointestinal: Gastrointestinal: Reports as per HPI and Reports no additional gastrointestinal complaints Musculoskeletal: Musculoskeletal: Reports no additional musculoskeletal complaints Integumentary/Breasts: Skin/Breast: Reports system reviewed and no additional complaints, except as docu and Reports as per HPI Neurologic: Reports system reviewed and no additional complaints, except as documented, Reports as per HPI and Reports Normal hearing present Psychiatric: Psychiatric: Reports no additional psychiatric complaints and Reports as per HPI Endocrine: Endocrine: Reports no additional endocrine complaints Hematologic/Lymphatic: Hematologic/Lymphatic: Reports no additional hematologic/lymphatic complaints Allergic/Immunologic: Allergic/Immunologic: Reports no additional allergic/immunologic complaints [facility] Past Medical History Medical History (Updated 06/28/22 @ 23:42 by Renetta Ramirez NP) Arthritis Atrial fibrillation with RVR BPH (benign prostatic hyperplasia) Cancer treatment started CHF (congestive heart failure) CKD (chronic kidney disease) stage 4, GFR 15-29 ml/min Diabetes mellitus DNR (do not resuscitate) Glaucoma HLD (hyperlipidemia) Hypertension Impaired functional mobility, balance, gait, and endurance Kidney disease Neuropathy OA (osteoarthritis) of knee Prostate cancer Wears glasses Surgical History Surgical History (Updated 06/28/22 @ 23:33 by Renetta Ramirez NP) History of cardiac catheterization History of hernia repair Family History Family History Father Acute myocardial infarction, Onset Age: 87 Cerebrovascular accident, Onset Age: 87 Mother Heart disease Acute myocardial infarction Sibling Acute myocardial infarction Heart disease Cerebrovascular accident Malignant neoplasm of prostate Sibling Carcinoma of colon Othe
[2022-06-28] MEDS: FUROSEMIDE INJ 40 MG/4 ML VIAL IV PUSH (20:23)
[2022-06-28 20:48] LABS: Influenza A QL RT-PCR Negative (Negative); Influenza B QL RT-PCR Negative (Negative); SARS-CoV-2 RNA PCR Positive
--- NOTE | 2022-06-28 20:51 | ADMGEN ---
This patient, Rafael Oneill, was admitted to IMU Room 214-01 at 2034. Patient/family oriented to hospital policies and general routines including ID bracelet, bed and alarms, visiting hours, pain management, procedures, bathroom and other care routines, personal items, smoking policy, room service/diet, and visiting hours. Information on how to activate the Rapid Response Team has been discussed. Patient/Family are encouraged to report perceived risks to care and to ask questions if they do not understand what they are told or what they should do.
[2022-06-28 23:53] LABS: Troponin I 0.187 ng/mL (0.000-0.034)
[2022-06-29] VITALS (16 sets, daily range): BP systolic 133–177; BP diastolic 70–85; PULSE 73–114; RESP 20–24; TEMP 36.3–36.7; O2SAT 95–100
[2022-06-29 02:11] LABS: Troponin I 0.253 ng/mL (0.000-0.034)
[2022-06-29 04:16] LABS: Basophils Percent Auto 0.2 % (0.2-1.2); Hematocrit 28.7 % (42.0-52.0); Hemoglobin 9.5 g/dL (14.0-18.0); Immature Granulocyte Absolute 0.02 K/mm3 (0.00-0.031); Immature Granulocyte Percent A 0.4 % (0-0.5); Lymphocytes Absolute Auto 0.35 K/mm3 (0.9-3.2); Lymphocytes Percent Auto 6.5 % (18.3-44.2); Mean Corpuscular HGB Conc 33.1 g/dl (32-36); Mean Corpuscular Hemoglobin 30.1 pg (26-34); Mean Corpuscular Volume 90.8 fl (80-100); Mean Platelet Volume 10.2 fl (7.4-10.4); Monocytes Absolute Auto 0.1 K/mm3 (0.1-0.6); Monocytes Percent Auto 1.9 % (2.6-8.5); Neutrophils Absolute Auto 4.9 K/mm3 (1.3-6.7); Platelet Count Result 158 k/mm3 (150-375); Red Blood Count 3.16 M/mm3 (4.6-6.20); White Blood Count 5.4 K/mm3 (4.5-10.0)
[2022-06-29 04:30] LABS: Alanine Aminotransferase 16 U/L (6-50); Albumin Level 3.6 g/dL (3.5-5.1); Alkaline Phosphatase 40 U/L (38-126); Anion Gap 10 mmol/L (8-16); Aspartate Amino Transferase 32 U/L (17-59); Bilirubin,Total 0.5 mg/dL (0.2-1.3); Blood Urea Nitrogen 72 mg/dL (9-20); Calcium 7.4 mg/dL (8.4-10.2); Carbon Dioxide 21 mmol/L (22-30); Chloride 105 mmol/L (98-107); Estimated CRCL calculation 18 ml/min; Estimated Glomerular Filt Rate 18; Glucose 209 mg/dL (65-110); Magnesium 2.2 mg/dL (1.6-2.3); Sodium 136 mmol/L (137-145)
[2022-06-29 06:18] LABS: Thyroid Stimulating Hormone Reflex 0.726 uIU/mL (0.465-4.68)
[2022-06-29] MEDS: NITROGLYCERIN OINTMENT 1 INCH DOSE TRANSDERM ×3 (07:54→18:22)
[2022-06-29 08:54] LABS: Glucose Point of Care 187 mg/dl (65-105)
[2022-06-29] MEDS: FLUTICASONE PROPIONATE 0.05% NA SPR 16 GM BTL (*BKC) 1 SPRAY NASAL (10:03)
[2022-06-29] MEDS: FUROSEMIDE INJ 40 MG/4 ML VIAL IV PUSH ×2 (10:05→20:16)
[2022-06-29] MEDS: INSULIN GLARGINE (*BKC) 100 UNITS/ML 10 UNITS SUB-Q (10:06)
[2022-06-29] MEDS: LATANOPROST 0.005% OP SOLN 2.5 ML BTL 1 DROP EACH EYE (10:07)
[2022-06-29] MEDS: APIXABAN 5 MG TABLET PO ×2 (10:07→18:22)
[2022-06-29] MEDS: PANTOPRAZOLE 40 MG TABLET PO (10:08)
[2022-06-29] MEDS: SIMVASTATIN 20 MG TABLET PO (10:08)
[2022-06-29] MEDS: hydrALAZINE HCL 50 MG TABLET PO ×2 (10:08→18:22)
[2022-06-29] MEDS: METOPROLOL TARTRATE 50 MG TAB 100 MG PO ×2 (10:08→18:22)
[2022-06-29 11:48] LABS: Hemoglobin A1C 6.1 % (<5.7)
[2022-06-29 12:26] LABS: Glucose Point of Care 305 mg/dl (65-105)
[2022-06-29] MEDS: INSULIN ASPART (*BKC) 100 UNITS/ML SUB-Q ×2 (14:07→18:16)
--- NOTE | 2022-06-29 14:22 | PC.NURSE ---
Spoke with Andreia Bautista at [facility]. She confirmed patient takes 2,400 mg 4 times daily. Due to prostate cancer.
[2022-06-29 17:13] LABS: Glucose Point of Care 244 mg/dl (65-105)
--- NOTE | 2022-06-29 18:00 | PM.IMPN ---
Progress Note: A&P Assessment and Plan (1) Acute respiratory failure: Code(s): J96.00 - Acute respiratory failure, unspecified whether with hypoxia or hypercapnia Status: Acute Assessment and Plan: -the patient initially was started on a BiPAP machine and given Lasix. 06/29/2021 interval history: 82-year-old male presented with a complaint of shortness of breath and is found to have COVID-19 started the patient on dexamethasone unable to treated with and severe due to chronic kidney disease, patient with a mildly reduced systolic ejection fraction patient being diuresed with IV Lasix 40 mg b.i.d., patient also found to have hypoxic respiratory failure, requiring BiPAP, patient states is feeling much better compared to when he arrived, will continue to monitor will have a PT OT evaluate the patient. (2) COVID: Code(s): U07.1 - COVID-19 Status: Acute Assessment and Plan: -unable to give REMdezivir due to his renal failure. -continue with Decadron. -continue with droplet and contact isolation. (3) CKD (chronic kidney disease) stage 4, GFR 15-29 ml/min: Code(s): N18.4 - Chronic kidney disease, stage 4 (severe) Status: Acute Assessment and Plan: -the patient is at his baseline. Continue to monitor. (4) DVT (deep venous thrombosis): Code(s): I82.409 - Acute embolism and thrombosis of unspecified deep veins of unspecified lower extremity Status: Acute Assessment and Plan: -the patient is on Eliquis. (5) Glaucoma: Code(s): H40.9 - Unspecified glaucoma Status: Acute Assessment and Plan: -continue with home medication. Continue with latanoprost (6) HLD (hyperlipidemia): Qualifiers: Hyperlipidemia type: mixed hyperlipidemia Qualified Code(s): E78.2 - Mixed hyperlipidemia Code(s): E78.5 - Hyperlipidemia, unspecified Status: Acute Assessment and Plan: -continue with Zocor. (7) Hypertension: Code(s): I10 - Essential (primary) hypertension Status: Acute Assessment and Plan: -continue with hydralazine -continue with Lasix -continue metoprolol (8) Prostate CA: Code(s): C61 - Malignant neoplasm of prostate Status: Acute Assessment and Plan: -the patient is not able to have his prostate removed. The patient is on harm a injections. Leuprolide -the patient is also on Xtandi however this is non formulary the patient will need to bring in his home dose. -continue with finasteride (9) Anemia: Code(s): D64.9 - Anemia, unspecified Status: Acute Assessment and Plan: The patient appears to be above his baseline. 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 The patient is a DNR. (12) Congestive heart failure: Code(s): I50.9 - Heart failure, unspecified Status: Acute Assessment and Plan: -continue with IV Lasix. -continue with metoprolol. Last echo 03/29/2022. Complete two-dimensional, color flow and Doppler transthoracic echocardiogram is performed. ? 2. Left ventricular chamber dimension is mildly enlarged. ? 3. Left ventricular systolic function is mildly reduced, estimated at 45-50%. ? 4. There is mildly increased left ventricular wall thickness. ? 5. The left ventricular diastolic function is abnormal. ? 6. Left atrial chamber dimension is moderately enlarged. ? 7. There is mild mitral valve regurgitation. ? 8. There is mild tricuspid valve regurgitation. ? 9. Moderate pulmonary hypertension, estimated pulmonary arterial systolic pressure is 47 mmHg. ? 10. There is mild pulmonic regurgitation. ? 11. There i
[2022-06-29] MEDS: CALCIUM CARBONATE (OSCAL) 500 MG TABLET PO ×2 (18:22→20:17)
--- NOTE | 2022-06-29 18:35 | PC.NURSE ---
Calcium: 1 each, 600mg tablet of calcium Caltrate taken 4 times a day, for a total daily dose of 2,400mg. After extensive research, electronics department manager spoke to cancer center and verified patients calcium order.
[2022-06-29] MEDS: FINASTERIDE 5 MG TABLET PO (20:17)
[2022-06-29 21:46] LABS: Glucose Point of Care 200 mg/dl (65-105)
[2022-06-30] VITALS (15 sets, daily range): BP systolic 134–154; BP diastolic 75–95; PULSE 56–115; RESP 20–24; TEMP 36.1–36.8; O2SAT 96–100
[2022-06-30] MEDS: NITROGLYCERIN OINTMENT 1 INCH DOSE TRANSDERM ×3 (00:01→13:48)
[2022-06-30 03:57] LABS: Glucose Point of Care 142 mg/dl (65-105)
[2022-06-30 08:32] LABS: Glucose Point of Care 198 mg/dl (65-105)
--- NOTE | 2022-06-30 09:51 | P.CDI_ITS ---
CDI Query Clarified Diagnosis Clarified Diagnosis: Elevated BNP on 06/28/22 lab work. Documented history of CHF. CHF noted on assessment and plan. Chest xray notes pulmonary edema. Documented edema and dyspnea. Please specify type and acuity of heart failure if known. * Acute * Chronic * Acute on Chronic * Unknown * Systolic * Diastolic * Combined Systolic and Diastolic * Unknown <Carmella Oshea RN - Last Filed: 06/30/22 09:54> Provider Comments patient with history mild reduced systolic function most likely patient had acute on chronic systolic congestive Heart failure <Lucía Dodge MD - Last Filed: 07/16/22 15:15>
[2022-06-30 12:10] LABS: Glucose Point of Care 235 mg/dl (65-105)
[2022-06-30] MEDS: INSULIN ASPART (*BKC) 100 UNITS/ML SUB-Q (13:42)
[2022-06-30] MEDS: FLUTICASONE PROPIONATE 0.05% NA SPR 16 GM BTL (*BKC) 1 SPRAY NASAL (13:42)
[2022-06-30] MEDS: APIXABAN 5 MG TABLET PO (13:43)
[2022-06-30] MEDS: hydrALAZINE HCL 50 MG TABLET PO (13:43)
[2022-06-30] MEDS: FUROSEMIDE INJ 40 MG/4 ML VIAL IV PUSH ×2 (13:43→21:28)
[2022-06-30] MEDS: LATANOPROST 0.005% OP SOLN 2.5 ML BTL 1 DROP EACH EYE (13:43)
[2022-06-30] MEDS: CALCIUM CARBONATE (OSCAL) 500 MG TABLET PO ×3 (13:43→21:21)
--- NOTE | 2022-06-30 15:11 | PM.CNCAR ---
Assessment and Plan Assessment and plan (1) Atrial fibrillation with RVR: Code(s): I48.91 - Unspecified atrial fibrillation Status: Acute (2) CHF (congestive heart failure): Code(s): I50.9 - Heart failure, unspecified Status: Acute Plan This is an 82-year-old man with atrial fibrillation mild LV systolic dysfunction and left bundle branch block presents the hospital with shortness of breath yet again. He does have some pulmonary congestion and needs to be diuresed. His atrial fibrillation has been is seen previously and is very well controlled as far as the heart rate is concerned. It we are asked to see him again today because of bradycardia but on my review of his telemetry strips there has been none of this documented. Obviously even he were having significant a bradycardic pauses he would not be a candidate for pacemaker device he is DNR has been very firm in this decision or/desire. At this point I would simply recommend diuresing him with furosemide and/or Bumex to decongest his lungs on chest x-ray. His physical exam is not very impressive at all in terms of congestion. His left bundle branch block is chronic. It is interesting that despite his age, chronic left bundle branch block and DNR status acute STEMI was declared in the field as he was being brought into the hospital. He is clearly not a candidate for going to the labor and delivery nurse even if that were to be found. Since the patient does not have any significant new cardiac issues I will sign off of his case at this time. Please contact me/our service a far services are needed any further during this hospitalization Jose M Frazier MD [facility] History of Present Illness History of Present Illness Consult date/time: 06/30/22 15:11 Reason For Visit: CHF Narrative: This is an 82-year-old man I am seeing at the request of the hospitalist with the stated for consult being new bradycardia. Patient is unknown to me prior to this consultation however he has been seen on 2 previous admissions by my partners and all of these notes and hospital records have been reviewed. The patient was admitted to [facility] from his residence in an assisted living facility yesterday because of her problematic shortness of breath. He was evaluated in the emergency room and found to have coronavirus. His chest x-ray appears to show evidence of diffuse congestion/pulmonary edema. He was given some diuretics and is on a BiPAP in the IMU at this time. His telemetry shows atrial fibrillation with controlled ventricular response heart rates generally in the 90s with left bundle branch block morphology. Compared to previous electrocardiograms there is no interval difference. Reviewing the rhythm strips from this morning that created concern there is no rhythm strip on the chart the demonstrates any concerning bradycardia. The strip that created the concern has significant artifact on it and on review the patient was not bradycardic. He has no history of syncope/near syncope he is resting fairly comfortably in room 214 with the BiPAP in place and does not have any other complaints. On previous admissions he was seen because of significant shortness of breath and found to have some congestive heart failure with LV systolic dysfunction with ejection fraction in the 40-45% range. He was seen to have episodes of atrial fib as well as sinus rhythm on previous admissions. He was also found to have extensive DVTs and was presumed to have pulmonary emboli and has been systemically anticoagulated for both of these reasons. The patient has a his advanced age with comorbidities and renal failure has elected DNR status and is consistent with that desire and does not wish to have any further cardiac testing or evaluation. For these reasons he is obviously not a candidate for any invasive procedures. Review of Systems Constitutional: Constitutional: Reports lethargy Eyes: Eyes: Reports no additio
[2022-06-30 17:23] LABS: Glucose Point of Care 196 mg/dl (65-105)
[2022-06-30] MEDS: METOPROLOL TARTRATE 50 MG TAB 100 MG PO (17:37)
--- NOTE | 2022-06-30 18:39 | PM.IMPN ---
Progress Note: A&P Assessment and Plan (1) Acute respiratory failure: Code(s): J96.00 - Acute respiratory failure, unspecified whether with hypoxia or hypercapnia Status: Acute Assessment and Plan: -the patient initially was started on a BiPAP machine and given Lasix. 06/30/2021 interval history: 82-year-old male presented with a complaint of shortness of breath and is found to have COVID-19 started the patient on dexamethasone unable to treated with and severe due to chronic kidney disease, patient with a mildly reduced systolic ejection fraction patient being diuresed with IV Lasix 40 mg b.i.d., patient also found to have hypoxic respiratory failure, requiring BiPAP, patient also found to have bradycardia his heart rate drops and 30s, was seen by elevator repair mechanic patient with elevated tropes and chronic left bundle jermaine block, however patient is not a candidate for cardiac catheterization, recommended conservative management,patient states is feeling much better compared to when he arrived, will continue to monitor will have a PT OT evaluate the patient. (2) COVID: Code(s): U07.1 - COVID-19 Status: Acute Assessment and Plan: -unable to give REMdezivir due to his renal failure. -continue with Decadron. -continue with droplet and contact isolation. (3) CKD (chronic kidney disease) stage 4, GFR 15-29 ml/min: Code(s): N18.4 - Chronic kidney disease, stage 4 (severe) Status: Acute Assessment and Plan: -the patient is at his baseline. Continue to monitor. (4) DVT (deep venous thrombosis): Code(s): I82.409 - Acute embolism and thrombosis of unspecified deep veins of unspecified lower extremity Status: Acute Assessment and Plan: -the patient is on Eliquis. (5) Glaucoma: Code(s): H40.9 - Unspecified glaucoma Status: Acute Assessment and Plan: -continue with home medication. Continue with latanoprost (6) HLD (hyperlipidemia): Qualifiers: Hyperlipidemia type: mixed hyperlipidemia Qualified Code(s): E78.2 - Mixed hyperlipidemia Code(s): E78.5 - Hyperlipidemia, unspecified Status: Acute Assessment and Plan: -continue with Zocor. (7) Hypertension: Code(s): I10 - Essential (primary) hypertension Status: Acute Assessment and Plan: -continue with hydralazine -continue with Lasix -continue metoprolol (8) Prostate CA: Code(s): C61 - Malignant neoplasm of prostate Status: Acute Assessment and Plan: -the patient is not able to have his prostate removed. The patient is on harm a injections. Leuprolide -the patient is also on Xtandi however this is non formulary the patient will need to bring in his home dose. -continue with finasteride (9) Anemia: Code(s): D64.9 - Anemia, unspecified Status: Acute Assessment and Plan: The patient appears to be above his baseline. 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 The patient is a DNR. (12) Congestive heart failure: Code(s): I50.9 - Heart failure, unspecified Status: Acute Assessment and Plan: -continue with IV Lasix. -continue with metoprolol. Last echo 03/29/2022. Complete two-dimensional, color flow and Doppler transthoracic echocardiogram is performed. ? 2. Left ventricular chamber dimension is mildly enlarged. ? 3. Left ventricular systolic function is mildly reduced, estimated at 45-50%. ? 4. There is mildly increased left ventricular wall thickness. ? 5. The left ventricular diastolic function is abnormal. ? 6. Left atrial chamber dimension is moderately enl
[2022-06-30 20:40] LABS: Glucose Point of Care 272 mg/dl (65-105)
[2022-06-30] MEDS: FINASTERIDE 5 MG TABLET PO (21:21)
[2022-07-01] VITALS (21 sets, daily range): BP systolic 110–149; BP diastolic 70–90; PULSE 50–119; RESP 18–32; TEMP 36.2–36.8; O2SAT 94–100
[2022-07-01] MEDS: NITROGLYCERIN OINTMENT 1 INCH DOSE TRANSDERM ×4 (00:25→17:56)
[2022-07-01 07:57] LABS: Glucose Point of Care 156 mg/dl (65-105)
[2022-07-01] MEDS: SIMVASTATIN 20 MG TABLET PO (08:08)
[2022-07-01] MEDS: LATANOPROST 0.005% OP SOLN 2.5 ML BTL 1 DROP EACH EYE (08:08)
[2022-07-01] MEDS: METOPROLOL TARTRATE 50 MG TAB 100 MG PO ×2 (08:08→16:36)
[2022-07-01] MEDS: PANTOPRAZOLE 40 MG TABLET PO (08:08)
[2022-07-01] MEDS: FUROSEMIDE INJ 40 MG/4 ML VIAL IV PUSH ×2 (08:09→21:40)
[2022-07-01] MEDS: CALCIUM CARBONATE (OSCAL) 500 MG TABLET PO ×4 (08:09→21:40)
[2022-07-01] MEDS: APIXABAN 5 MG TABLET PO ×2 (08:09→16:38)
[2022-07-01] MEDS: hydrALAZINE HCL 50 MG TABLET PO ×2 (08:09→16:37)
[2022-07-01] MEDS: INSULIN GLARGINE (*BKC) 100 UNITS/ML 10 UNITS SUB-Q (08:11)
[2022-07-01 12:05] LABS: Glucose Point of Care 340 mg/dl (65-105)
[2022-07-01] MEDS: INSULIN ASPART (*BKC) 100 UNITS/ML SUB-Q ×2 (12:12→16:37)
--- NOTE | 2022-07-01 15:31 | PM.IMPN ---
Progress Note: A&P Assessment and Plan (1) Acute respiratory failure: Code(s): J96.00 - Acute respiratory failure, unspecified whether with hypoxia or hypercapnia Status: Acute Assessment and Plan: -the patient initially was started on a BiPAP machine and given Lasix. 07/01/2021 interval history: 82-year-old male presented with a complaint of shortness of breath and is found to have COVID-19 started the patient on dexamethasone unable to treated with and severe due to chronic kidney disease, patient with a mildly reduced systolic ejection fraction patient being diuresed with IV Lasix 40 mg b.i.d., patient also found to have hypoxic respiratory failure, requiring BiPAP, patient also found to have bradycardia his heart rate drops and 30s, was seen by baggage checker patient with elevated tropes and chronic left bundle jermaine block, however patient is not a candidate for cardiac catheterization, recommended conservative management, patient remains clinically stable has no new complaints, patient states is feeling much better compared to when he arrived, will continue to monitor will have a PT OT evaluate the patient. (2) COVID: Code(s): U07.1 - COVID-19 Status: Acute Assessment and Plan: -unable to give REMdezivir due to his renal failure. -continue with Decadron. -continue with droplet and contact isolation. (3) CKD (chronic kidney disease) stage 4, GFR 15-29 ml/min: Code(s): N18.4 - Chronic kidney disease, stage 4 (severe) Status: Acute Assessment and Plan: -the patient is at his baseline. Continue to monitor. (4) DVT (deep venous thrombosis): Code(s): I82.409 - Acute embolism and thrombosis of unspecified deep veins of unspecified lower extremity Status: Acute Assessment and Plan: -the patient is on Eliquis. (5) Glaucoma: Code(s): H40.9 - Unspecified glaucoma Status: Acute Assessment and Plan: -continue with home medication. Continue with latanoprost (6) HLD (hyperlipidemia): Qualifiers: Hyperlipidemia type: mixed hyperlipidemia Qualified Code(s): E78.2 - Mixed hyperlipidemia Code(s): E78.5 - Hyperlipidemia, unspecified Status: Acute Assessment and Plan: -continue with Zocor. (7) Hypertension: Code(s): I10 - Essential (primary) hypertension Status: Acute Assessment and Plan: -continue with hydralazine -continue with Lasix -continue metoprolol (8) Prostate CA: Code(s): C61 - Malignant neoplasm of prostate Status: Acute Assessment and Plan: -the patient is not able to have his prostate removed. The patient is on harm a injections. Leuprolide -the patient is also on Xtandi however this is non formulary the patient will need to bring in his home dose. -continue with finasteride (9) Anemia: Code(s): D64.9 - Anemia, unspecified Status: Acute Assessment and Plan: The patient appears to be above his baseline. 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 The patient is a DNR. (12) Congestive heart failure: Code(s): I50.9 - Heart failure, unspecified Status: Acute Assessment and Plan: -continue with IV Lasix. -continue with metoprolol. Last echo 03/29/2022. Complete two-dimensional, color flow and Doppler transthoracic echocardiogram is performed. ? 2. Left ventricular chamber dimension is mildly enlarged. ? 3. Left ventricular systolic function is mildly reduced, estimated at 45-50%. ? 4. There is mildly increased left ventricular wall thickness. ? 5. The left ventricular diastolic function is abnor
[2022-07-01 16:24] LABS: Glucose Point of Care 275 mg/dl (65-105)
[2022-07-01 20:22] LABS: Glucose Point of Care 235 mg/dl (65-105)
[2022-07-01] MEDS: FINASTERIDE 5 MG TABLET PO (21:40)
[2022-07-02] VITALS (12 sets, daily range): BP systolic 129–155; BP diastolic 69–90; PULSE 63–121; RESP 16–20; TEMP 36.2–36.8; O2SAT 94–100
[2022-07-02] MEDS: NITROGLYCERIN OINTMENT 1 INCH DOSE TRANSDERM ×4 (06:19→18:26)
[2022-07-02] MEDS: SIMVASTATIN 20 MG TABLET PO (08:24)
[2022-07-02] MEDS: PANTOPRAZOLE 40 MG TABLET PO (08:24)
[2022-07-02] MEDS: METOPROLOL TARTRATE 50 MG TAB 100 MG PO ×2 (08:24→16:42)
[2022-07-02] MEDS: FUROSEMIDE INJ 40 MG/4 ML VIAL IV PUSH ×2 (08:25→21:10)
[2022-07-02] MEDS: hydrALAZINE HCL 50 MG TABLET PO ×2 (08:25→16:42)
[2022-07-02] MEDS: LATANOPROST 0.005% OP SOLN 2.5 ML BTL 1 DROP EACH EYE (08:25)
[2022-07-02] MEDS: APIXABAN 5 MG TABLET PO ×2 (08:26→16:42)
[2022-07-02] MEDS: CALCIUM CARBONATE (OSCAL) 500 MG TABLET PO ×4 (08:26→21:10)
[2022-07-02] MEDS: INSULIN GLARGINE (*BKC) 100 UNITS/ML 10 UNITS SUB-Q (08:27)
[2022-07-02 08:41] LABS: Glucose Point of Care 200 mg/dl (65-105)
[2022-07-02 11:57] LABS: Glucose Point of Care 382 mg/dl (65-105)
[2022-07-02] MEDS: INSULIN ASPART (*BKC) 100 UNITS/ML SUB-Q ×2 (12:14→16:45)
--- NOTE | 2022-07-02 13:03 | PM.IMPN ---
Progress Note: A&P Assessment and Plan (1) Acute respiratory failure: Code(s): J96.00 - Acute respiratory failure, unspecified whether with hypoxia or hypercapnia Status: Acute Assessment and Plan: -the patient initially was started on a BiPAP machine and given Lasix. 07/02/2021 interval history: 82-year-old male presented with a complaint of shortness of breath and is found to have COVID-19 started the patient on dexamethasone unable to treated with and severe due to chronic kidney disease, patient with a mildly reduced systolic ejection fraction patient being diuresed with IV Lasix 40 mg b.i.d., so far has diursed 16L, patient also found to have hypoxic respiratory failure, requiring BiPAP, patient also found to have bradycardia his heart rate drops and 30s, was seen by cross tie maker patient with elevated tropes and chronic left bundle jermaine block, however patient is not a candidate for cardiac catheterization, recommended conservative management, patient remains clinically stable has no new complaints, patient states is feeling much better compared to when he arrived, will transfer patient out of IMU to medical floor, will continue to monitor will have a PT OT evaluate the patient. (2) COVID: Code(s): U07.1 - COVID-19 Status: Acute Assessment and Plan: -unable to give REMdezivir due to his renal failure. -continue with Decadron. -continue with droplet and contact isolation. (3) CKD (chronic kidney disease) stage 4, GFR 15-29 ml/min: Code(s): N18.4 - Chronic kidney disease, stage 4 (severe) Status: Acute Assessment and Plan: -the patient is at his baseline. Continue to monitor. (4) DVT (deep venous thrombosis): Code(s): I82.409 - Acute embolism and thrombosis of unspecified deep veins of unspecified lower extremity Status: Acute Assessment and Plan: -the patient is on Eliquis. (5) Glaucoma: Code(s): H40.9 - Unspecified glaucoma Status: Acute Assessment and Plan: -continue with home medication. Continue with latanoprost (6) HLD (hyperlipidemia): Qualifiers: Hyperlipidemia type: mixed hyperlipidemia Qualified Code(s): E78.2 - Mixed hyperlipidemia Code(s): E78.5 - Hyperlipidemia, unspecified Status: Acute Assessment and Plan: -continue with Zocor. (7) Hypertension: Code(s): I10 - Essential (primary) hypertension Status: Acute Assessment and Plan: -continue with hydralazine -continue with Lasix -continue metoprolol (8) Prostate CA: Code(s): C61 - Malignant neoplasm of prostate Status: Acute Assessment and Plan: -the patient is not able to have his prostate removed. The patient is on harm a injections. Leuprolide -the patient is also on Xtandi however this is non formulary the patient will need to bring in his home dose. -continue with finasteride (9) Anemia: Code(s): D64.9 - Anemia, unspecified Status: Acute Assessment and Plan: The patient appears to be above his baseline. 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 The patient is a DNR. (12) Congestive heart failure: Code(s): I50.9 - Heart failure, unspecified Status: Acute Assessment and Plan: -continue with IV Lasix. -continue with metoprolol. Last echo 03/29/2022. Complete two-dimensional, color flow and Doppler transthoracic echocardiogram is performed. ? 2. Left ventricular chamber dimension is mildly enlarged. ? 3. Left ventricular systolic function is mildly reduced, estimated at 45-50%. ? 4. There is mildly increased left ventri
--- NOTE | 2022-07-02 15:53 | PHAR ---
The patient's home med of XTANDI Enzalutamide 40mg has been verified.
[2022-07-02 16:47] LABS: Glucose Point of Care 399 mg/dl (65-105)
[2022-07-02 20:22] LABS: Glucose Point of Care 260 mg/dl (65-105)
[2022-07-02] MEDS: FINASTERIDE 5 MG TABLET PO (21:10)
--- NOTE | 2022-07-02 23:20 | PC.NURSE ---
This patient, Rafael Oneill, was transferred to [ [facility]] on 07/02/22 at 2320. Personal belongings sent with patient. Report given to [ miladis]. Appropriate documentation sent with patient.
[2022-07-03] VITALS (7 sets, daily range): BP systolic 105–133; BP diastolic 66–85; PULSE 63–101; RESP 17–18; TEMP 36.1–36.6; O2SAT 94–100
[2022-07-03] MEDS: NITROGLYCERIN OINTMENT 1 INCH DOSE TRANSDERM ×3 (01:20→12:01)
[2022-07-03 08:09] LABS: Hematocrit 32.8 % (42.0-52.0); Hemoglobin 11.2 g/dL (14.0-18.0); Mean Corpuscular HGB Conc 34.1 g/dl (32-36); Mean Corpuscular Hemoglobin 30.7 pg (26-34); Mean Corpuscular Volume 89.9 fl (80-100); Mean Platelet Volume 10.1 fl (7.4-10.4); Platelet Count Result 214 k/mm3 (150-375); Red Blood Count 3.65 M/mm3 (4.6-6.20); Red Cell Distribution Width 13.5 % (11.5-14.5); White Blood Count 8.3 K/mm3 (4.5-10.0)
[2022-07-03 08:19] LABS: Anion Gap 11 mmol/L (8-16); Blood Urea Nitrogen 98 mg/dL (9-20); Calcium 7.6 mg/dL (8.4-10.2); Carbon Dioxide 28 mmol/L (22-30); Chloride 94 mmol/L (98-107); Estimated CRCL calculation 18 ml/min; Estimated Glomerular Filt Rate 19; Glucose 193 mg/dL (65-110); Magnesium 2.2 mg/dL (1.6-2.3); Potassium 3.6 mmol/L (3.4-5.0); Sodium 133 mmol/L (137-145)
[2022-07-03 08:23] LABS: Glucose Point of Care 215 mg/dl (65-105)
[2022-07-03] MEDS: METOPROLOL TARTRATE 50 MG TAB 100 MG PO (08:24)
[2022-07-03] MEDS: CALCIUM CARBONATE (OSCAL) 500 MG TABLET PO ×2 (08:24→12:00)
[2022-07-03] MEDS: APIXABAN 5 MG TABLET PO (08:24)
[2022-07-03] MEDS: hydrALAZINE HCL 50 MG TABLET PO (08:24)
[2022-07-03] MEDS: PANTOPRAZOLE 40 MG TABLET PO (08:25)
[2022-07-03] MEDS: LATANOPROST 0.005% OP SOLN 2.5 ML BTL 1 DROP EACH EYE (08:25)
[2022-07-03] MEDS: INSULIN GLARGINE (*BKC) 100 UNITS/ML 10 UNITS SUB-Q (08:25)
[2022-07-03] MEDS: INSULIN ASPART (*BKC) 100 UNITS/ML SUB-Q ×2 (08:25→12:05)
[2022-07-03] MEDS: SIMVASTATIN 20 MG TABLET PO (08:25)
[2022-07-03] MEDS: FUROSEMIDE INJ 40 MG/4 ML VIAL IV PUSH (08:25)
[2022-07-03] MEDS: FLUTICASONE PROPIONATE 0.05% NA SPR 16 GM BTL (*BKC) 1 SPRAY NASAL (08:26)
[2022-07-03 12:01] LABS: Glucose Point of Care 306 mg/dl (65-105)
--- NOTE | 2022-07-03 15:04 | PM.DS ---
DS: Admitting Diagnosis Discharge Date 07/03/2022 Admitting Diagnosis shortness of breath DS: Discharge Diagnosis Discharge Diagnosis (1) Acute respiratory failure: Code(s): J96.00 - Acute respiratory failure, unspecified whether with hypoxia or hypercapnia Status: Acute Assessment and Plan: -the patient initially was started on a BiPAP machine and given Lasix. 07/02/2021 interval history: 82-year-old male presented with a complaint of shortness of breath and is found to have COVID-19 started the patient on dexamethasone unable to treated with and severe due to chronic kidney disease, patient with a mildly reduced systolic ejection fraction patient being diuresed with IV Lasix 40 mg b.i.d., so far has diursed 16L, patient also found to have hypoxic respiratory failure, requiring BiPAP, patient also found to have bradycardia his heart rate drops and 30s, was seen by diet supervisor patient with elevated tropes and chronic left bundle jermaine block, however patient is not a candidate for cardiac catheterization, recommended conservative management, patient remains clinically stable has no new complaints, patient states is feeling much better compared to when he arrived, will transfer patient out of IMU to medical floor, will continue to monitor will have a PT OT evaluate the patient. (2) COVID: Code(s): U07.1 - COVID-19 Status: Acute Assessment and Plan: -unable to give REMdezivir due to his renal failure. -continue with Decadron. -continue with droplet and contact isolation. (3) CKD (chronic kidney disease) stage 4, GFR 15-29 ml/min: Code(s): N18.4 - Chronic kidney disease, stage 4 (severe) Status: Acute Assessment and Plan: -the patient is at his baseline. Continue to monitor. (4) DVT (deep venous thrombosis): Code(s): I82.409 - Acute embolism and thrombosis of unspecified deep veins of unspecified lower extremity Status: Acute Assessment and Plan: -the patient is on Eliquis. (5) Glaucoma: Code(s): H40.9 - Unspecified glaucoma Status: Acute Assessment and Plan: -continue with home medication. Continue with latanoprost (6) HLD (hyperlipidemia): Qualifiers: Hyperlipidemia type: mixed hyperlipidemia Qualified Code(s): E78.2 - Mixed hyperlipidemia Code(s): E78.5 - Hyperlipidemia, unspecified Status: Acute Assessment and Plan: -continue with Zocor. (7) Hypertension: Code(s): I10 - Essential (primary) hypertension Status: Acute Assessment and Plan: -continue with hydralazine -continue with Lasix -continue metoprolol (8) Prostate CA: Code(s): C61 - Malignant neoplasm of prostate Status: Acute Assessment and Plan: -the patient is not able to have his prostate removed. The patient is on harm a injections. Leuprolide -the patient is also on Xtandi however this is non formulary the patient will need to bring in his home dose. -continue with finasteride (9) Anemia: Code(s): D64.9 - Anemia, unspecified Status: Acute Assessment and Plan: The patient appears to be above his baseline. 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 The patient is a DNR. (12) Congestive heart failure: Code(s): I50.9 - Heart failure, unspecified Status: Acute Assessment and Plan: -continue with IV Lasix. -continue with metoprolol. Last echo 03/29/2022. Complete two-dimensional, color flow and Doppler transthoracic echocardiogram is performed. ? 2. Left ventricular chamber dimension is mildly enlarged. ? 3. Left ventricula
[2022-07-03 17:07] LABS: Glucose Point of Care 278 mg/dl (65-105)
== END 2022-07-03 18:55 | DRG 177 ==
LOC: ANHED 19:43 → ANHIMU 20:02 → ANH3MEDSUR 07-02 23:36
PROVIDERS: Nurse Practitioner; Admitting Provider Family Medicine; Emergency Provider Emergency Medicine; PCP Emergency Medicine; Visit Provider Family Medicine
DX: U07.1 COVID-19 (principal); I50.43 Acute on chronic combined systolic (congestive) and diastolic (congestive) heart failure; J96.21 Acute and chronic respiratory failure with hypoxia; N18.4 Chronic kidney disease, stage 4 (severe); I48.92 Unspecified atrial flutter; I13.0 Hypertensive heart and chronic kidney disease with heart failure and stage 1 through stage 4 chronic kidney disease, or unspecified chronic kidney disease; C79.51 Secondary malignant neoplasm of bone; I82.409 Acute embolism and thrombosis of unspecified deep veins of unspecified lower extremity; C61 Malignant neoplasm of prostate; E11.22 Type 2 diabetes mellitus with diabetic chronic kidney disease; I44.7 Left bundle-branch block, unspecified; H40.9 Unspecified glaucoma; E78.5 Hyperlipidemia, unspecified; I48.91 Unspecified atrial fibrillation; D64.9 Anemia, unspecified; E11.42 Type 2 diabetes mellitus with diabetic polyneuropathy; Z66 Do not resuscitate; E66.9 Obesity, unspecified; M19.90 Unspecified osteoarthritis, unspecified site; Z68.32 Body mass index [BMI] 32.0-32.9, adult; Z87.891 Personal history of nicotine dependence; Z79.4 Long term (current) use of insulin; R00.1 Bradycardia, unspecified
CPT/HCPCS: 36415; 36600; 71045; 80048; 80053; 82805; 82948; 83036; 83735; 83880; 84443; 84484; 85025; 85027; 85610; 85730; 87636; 93005; 94002; 94003; 96374; 97161; 99291; A9270; J1100; J1815; J1940

== ENCOUNTER 2022-09-23 18:43 | Observation (INO) | payer OTHER, SELFPAY ==
--- NOTE | ~2022-09-23 | XR_ITS ---
Portable chest x-ray Comparison: 09/23/2022 Clinical History: CHF Findings: Small right pleural effusion present. There is probable mild interstitial pulmonary edema pattern. Probable minimal bibasilar atelectasis. Cardiomediastinal silhouette is stable. Stable larg e calcified masslike lesion projecting over the right chest.. Impression: Small left pleural effusion with probable mild interstitial pulmonary edema and mild bibasilar atelec tasis. Stable large calcified masslike lesion projecting over the right chest. Reviewed, dictated and finalized at location . Impression: Small left pleural effusion with probable mild interstitial pulmonary edema and mild bibasilar atelectasis. Stable large calcified masslike lesion projecting over the right chest.
--- NOTE | ~2022-09-23 | XR_ITS ---
EXAMINATION: XR chest 2V DATE: 09/23/2022 20:09 INDICATION: Hypertension, atrial fibrillation and congestive heart failure presenting with shortness of breath TECHNIQUE: frontal and lateral views of the chest were obtained. COMPARISON: Chest radiograph dated 06/28/2022 FINDINGS: Small bilateral pleural effusions with blunting at the posterior sulci and costophrenic angles. Addit ional mild opacities in the bilateral lung bases which could represent associated atelectasis, pneumo pia or mild pulmonary edema. No pneumothorax. Cardiomegaly. Chronic markedly expansile mass arising f rom the posterolateral right eighth rib suspicious for metastatic disease in patient with known histo ry of metastatic prostate cancer. IMPRESSION: 1. Small bilateral pleural effusions with mild bibasilar opacities which could represent atelectasis, mild pulmonary edema or pneumonia. 2. Cardiomegaly. 3. Chronic large expansile lesion arising from the posterolateral right eighth rib suspicious for met astatic disease. Reviewed, dictated and finalized at location A. IMPRESSION: 1. Small bilateral pleural effusions with mild bibasilar opacities which could represent atelectasis, mild pulmonary edema or pneumonia. 2. Cardiomegaly. 3. Chronic large expansile lesion arising from the posterolateral right eighth rib suspicious for metastatic disease.
[2022-09-23 18:51] VITALS: BP 154/96; PULSE 94; RESP 22; O2SAT 97
[2022-09-23 18:55] VITALS: BP 154/96; PULSE 90; PULSE 94; RESP 24; O2SAT 98
--- NOTE | 2022-09-23 18:57 | ECG_ITS ---
Measurements Intervals [place] Rate: 76 P: TX: 0 QRS: -42 QRSD: 145 T: 62 QT: 469 QTc: 528 Interpretive Statements POSSIBLE ATRIAL FLUTTER/TACHYCARDIA MARKED LEFT AXIS DEVIATION [QRS AXIS < -30] LEFT BUNDLE BRANCH BLOCK [120+ ms QRS DURATION, 80+ ms Q/S IN V1/V2, 85+ ms R IN I/aVL/V5/V6] COMPARED TO ECG 06/28/2022 17:47:32 NO SIGNIFICANT CHANGES Electronically Signed On 09-24-2022 9:16:09 CDT by Ivone Rodgers M.D.
--- NOTE | 2022-09-23 19:10 | PC.NURSE ---
Report given to CHAYO Doran at this time.
[2022-09-23 19:14] LABS: Basophils Percent Auto 0.4 % (0.2-1.2); Eosinophils Percent Auto 0.1 % (0-4.4); Hematocrit 32.6 % (42.0-52.0); Hemoglobin 10.8 g/dL (14.0-18.0); Immature Granulocyte Absolute 0.06 K/mm3 (0.00-0.031); Immature Granulocyte Percent A 0.6 % (0-0.5); Lymphocytes Absolute Auto 0.91 K/mm3 (0.9-3.2); Lymphocytes Percent Auto 9.7 % (18.3-44.2); Mean Corpuscular HGB Conc 33.1 g/dl (32-36); Mean Corpuscular Hemoglobin 31.2 pg (26-34); Mean Corpuscular Volume 94.2 fl (80-100); Mean Platelet Volume 9.8 fl (7.4-10.4); Monocytes Absolute Auto 0.8 K/mm3 (0.1-0.6); Monocytes Percent Auto 8.2 % (2.6-8.5); Neutrophils Absolute Auto 7.6 K/mm3 (1.3-6.7); Platelet Count Result 227 k/mm3 (150-375); Red Blood Count 3.46 M/mm3 (4.6-6.20); Red Cell Distribution Width 13.9 % (11.5-14.5); White Blood Count 9.3 K/mm3 (4.5-10.0)
[2022-09-23 19:17] VITALS: BP 135/65; PULSE 73; RESP 20; O2SAT 98
[2022-09-23 19:21] LABS: Alanine Aminotransferase 17 U/L (6-50); Albumin Level 4.5 g/dL (3.5-5.1); Alkaline Phosphatase 46 U/L (38-126); Anion Gap 16 mmol/L (8-16); Aspartate Amino Transferase 24 U/L (17-59); Bilirubin,Total 0.7 mg/dL (0.2-1.3); Blood Urea Nitrogen 87 mg/dL (9-20); Calcium 7.4 mg/dL (8.4-10.2); Carbon Dioxide 19 mmol/L (22-30); Chloride 105 mmol/L (98-107); Estimated CRCL calculation 16 ml/min; Estimated Glomerular Filt Rate 18; Glucose 259 mg/dL (65-110); Potassium 5.1 mmol/L (3.4-5.0); Sodium 140 mmol/L (137-145)
[2022-09-23 19:31] VITALS: BP 152/66; PULSE 66; RESP 20; O2SAT 96
[2022-09-23] MEDS: FUROSEMIDE INJ 40 MG/4 ML VIAL IV PUSH (19:35)
--- NOTE | 2022-09-23 19:38 | ED.GENADULT ---
HPI - General Adult General Chief complaint: Shortness of Breath/Dyspnea Stated complaint: SOB Time Seen by Provider: 09/23/22 19:07 History of Present Illness HPI narrative: Patient 82-year-old gentleman who presents the emergency department with chief complaint of shortness of breath. The patient reports he has history of chronic kidney disease and congestive heart failure. The patient reports he has been compliant with his diuretic and reports that this morning he woke up and was having shortness of breath. The patient reports that he opened the door to his apartment and tried sitting in the doorway and one of the neighbors came by with their oxygen and was not using it at that time and decided to share their oxygen with him while he was short of breath the patient states the oxygen made him feel so much better and reports that he waited till 5 PM to call his family member who then transported him to the emergency department. Related Data Home Medications Medication Instructions Recorded Confirmed finasteride 5 mg tablet 5 mg PO HS 05/06/19 08/30/22 latanoprost 0.005 % eye drops 1 drp ophthalmic (eye) DAILY 05/06/19 08/30/22 omeprazole 20 mg capsule,delayed 20 mg PO DAILY 07/06/20 08/30/22 release calcium 600 mg capsule 600 mg PO QID 11/28/21 08/30/22 denosumab 60 mg/mL subcutaneous 60 mg subcut .[id number] 01/18/22 08/30/22 syringe leuprolide acetate (6 month) 45 mg 7.5 mg IM [id number] 01/18/22 08/30/22 intramuscular syringe kit enzalutamide 40 mg capsule (Xtandi) 160 mg PO DAILY 03/29/22 08/30/22 metoprolol tartrate 100 mg tablet 100 mg PO BID 03/30/22 08/30/22 apixaban 5 mg tablet (Eliquis) 5 mg PO BID 04/25/22 08/30/22 fluticasone propionate 50 1 spray intranasal BID 04/25/22 08/30/22 mcg/actuation nasal spray,suspension hydralazine 50 mg tablet 50 mg PO BID 06/28/22 08/30/22 amlodipine 2.5 mg tablet 2.5 mg PO DAILY 07/10/22 08/30/22 cholecalciferol (vitamin D3) 125 125 mcg PO DAILY 07/10/22 08/30/22 mcg (5,000 unit) capsule mecobalamin (vitamin B12) 500 mcg See Rx Instructions PO .COMPLEX 07/10/22 08/30/22 chewable tablet Allergies Allergy/AdvReac Type Severity Reaction Status Date / Time lisinopril Allergy Unknown Itching Verified 09/23/22 18:55 Review of Systems Review of Systems: A 10 system review of systems was completed on the patient and is negative except for what is stated in the HPI. Nursing and ancillary documentation was reviewed. [facility] Past Medical History Medical History Arthritis Atrial fibrillation with RVR BPH (benign prostatic hyperplasia) Cancer treatment started CHF (congestive heart failure) CKD (chronic kidney disease) stage 4, GFR 15-29 ml/min Diabetes mellitus DNR (do not resuscitate) Glaucoma HLD (hyperlipidemia) Hypertension Impaired functional mobility, balance, gait, and endurance Kidney disease Neuropathy OA (osteoarthritis) of knee Prostate cancer Wears glasses Surgical History Surgical History History of cardiac catheterization History of hernia repair Family History Family History Father Acute myocardial infarction, Onset Age: 87 Cerebrovascular accident, Onset Age: 87 Mother Heart disease Acute myocardial infarction Sibling Acute myocardial infarction Heart disease Cerebrovascular accident Malignant neoplasm of prostate Sibling Carcinoma of colon Other Diabetes mellitus Family history of arthritis Hypertension Kidney disease Neuropathy Social History Social History Social History: Patient recently moved into [facility] into the assisted living. His niece Ursula is his surrogate power of meter technician. Patient wishes to be a DNR at this time. Patient denies
[2022-09-23 19:45] LABS: INR 1.2
[2022-09-23 19:46] LABS: Partial Thromboplastin Time 35.5 SECONDS (22.3-36.8)
[2022-09-23 19:47] LABS: NT Pro B Type Natriuretic Pept 16400 pg/mL (19.9-100); Troponin I 0.103 ng/mL (0.000-0.034)
--- NOTE | 2022-09-23 21:29 | PM.IMHP ---
H&P: HPI History of Present Illness Date/Time: 09/23/22 21:29 Chief Complaint: Shortness of breath Narrative: This is an 82-year-old male with past medical history significant for systolic heart failure and diastolic heart failure, ejection fraction 45%, insulin-dependent diabetes mellitus, prostate CA, hypertension, chronic kidney insufficiency, atrial fibrillation, rate controlled anticoagulated, neuropathy, osteoarthritis. Patient resides a shelter was brought today by his daughter due to shortness of breath, has some cough with scanty production of white phlegm, this started in the morning he felt short of breath and a fellow shelter member offered her a supplemental oxygen which he borrowed and improved his shortness of breath, patient also with bilateral lower extremity edema, denies any chest pain, denies palpitations, has had PND and orthopnea, no fevers, no rigors, no chills, no nausea no vomiting no abdominal pain. Preliminary workup was significant for brain natriuretic peptide was 16,400, creatinine 3.3 BUN 87 potassium 5.1 bicarb 19 troponin x1 0.109 a chest x-ray was reported as: FINDINGS: Small bilateral pleural effusions with blunting at the posterior sulci and costophrenic angles. Additional mild opacities in the bilateral lung bases which could represent associated atelectasis, pneumonia or mild pulmonary edema. No pneumothorax. Cardiomegaly. Chronic markedly expansile mass arising from the posterolateral right eighth rib suspicious for metastatic disease in patient with known history of metastatic prostate cancer. IMPRESSION: 1. Small bilateral pleural effusions with mild bibasilar opacities which could represent atelectasis, mild pulmonary edema or pneumonia. 2. Cardiomegaly. 3. Chronic large expansile lesion arising from the posterolateral right eighth rib suspicious for metastatic disease. Patient has been admitted for further evaluation management and treatment. Review of Systems Review of Systems: Shortness of breath Constitutional: Constitutional: Denies chills, Reports fatigue, Denies fever(s), Reports lethargy, Denies malaise, Denies night sweats, Denies poor appetite, Reports stops breathing during sleep and Reports weakness Eyes: Eyes: Denies change in vision ENT: Denies dysphagia and Denies odynophagia Cardiovascular: Cardiovascular: Denies chest pain, Reports leg edema, Denies palpitations, Reports dyspnea, Reports dyspnea on exertion, Reports orthopnea and Reports paroxysmal nocturnal dyspnea Respiratory: Respiratory: Reports chest congestion, Reports cough and Denies excessive phlegm production Gastrointestinal: Gastrointestinal: Denies abdominal pain, Denies dyspepsia, Denies heartburn, Denies diarrhea, Denies nausea and Denies vomiting Genitourinary: Genitourinary: Denies dysuria Musculoskeletal: Musculoskeletal: Denies back pain, Denies myalgias and Denies muscle cramps Integumentary/Breasts: Skin/Breast: Denies rash Neurologic: Denies focal weakness and Denies Sensory deficit (Neuro) Psychiatric: Psychiatric: Reports no additional psychiatric complaints, Reports as per HPI and Reports other (Patient states that he is related to [facility] and [facility]) Endocrine: Endocrine: Denies cold intolerance, Denies flushing, Denies heat intolerance, Denies polyphagia, Denies polydipsia and Denies palpitations Hematologic/Lymphatic: Hematologic/Lymphatic: Reports no additional hematologic/lymphatic complaints and Reports as per HPI Allergic/Immunologic: Allergic/Immunologic: Reports no additional allergic/immunologic complaints and Reports as per HPI PMFSH Past Medical History Medical History Arthritis Atrial fibrillation with RVR BPH (benign prostatic hyperplasia) Cancer treatment started CHF (congestive heart failure) CKD (chronic kidney disease) stage 4, GFR 15-29 ml/min Diabetes mellitus DNR (do not resuscitate) Dave
[2022-09-23 22:00] VITALS: BP 161/76; PULSE 93; RESP 20; TEMP 36.3; O2SAT 98
--- NOTE | 2022-09-23 22:30 | ADMGEN ---
This patient, Rafael Oneill, was admitted to IMU Room 205-02 at 2205. Patient/family oriented to hospital policies and general routines including ID bracelet, bed and alarms, visiting hours, pain management, procedures, bathroom and other care routines, personal items, smoking policy, room service/diet, and visiting hours. Information on how to activate the Rapid Response Team has been discussed. Patient/Family are encouraged to report perceived risks to care and to ask questions if they do not understand what they are told or what they should do.
[2022-09-23 23:29] VITALS: BP 161/76; PULSE 93; TEMP 36.3; O2SAT 98
[2022-09-23 23:53] LABS: Glucose Point of Care 213 mg/dl (65-105)
[2022-09-24] VITALS (16 sets, daily range): BP systolic 121–141; BP diastolic 64–95; PULSE 58–118; RESP 20–24; TEMP 36.4–36.8; O2SAT 96–100
--- NOTE | 2022-09-24 00:19 | PHAR ---
pharmacy verified home med: *HOME MED* Enzalutamide [Xtandi] 40 mg Capsule take 4 capsules by mouth once daily
[2022-09-24] MEDS: FINASTERIDE 5 MG TABLET PO ×2 (00:26→21:06)
[2022-09-24] MEDS: APIXABAN 5 MG TABLET PO ×3 (00:26→17:30)
[2022-09-24] MEDS: METOPROLOL TARTRATE 50 MG TAB 100 MG PO ×3 (00:26→21:11)
[2022-09-24] MEDS: LATANOPROST 0.005% OP SOLN 2.5 ML BTL 1 DROP EACH EYE ×2 (00:26→21:07)
[2022-09-24] MEDS: hydrALAZINE HCL 50 MG TABLET PO ×2 (00:27→09:17)
[2022-09-24] MEDS: INSULIN GLARGINE (*BKC) 100 UNITS/ML 10 UNITS SUB-Q ×2 (00:29→09:18)
[2022-09-24 00:55] LABS: Troponin I 0.105 ng/mL (0.000-0.034)
[2022-09-24 01:05] LABS: Anion Gap 13 mmol/L (8-16); Blood Urea Nitrogen 85 mg/dL (9-20); Calcium 7.4 mg/dL (8.4-10.2); Carbon Dioxide 20 mmol/L (22-30); Chloride 106 mmol/L (98-107); Estimated CRCL calculation 18 ml/min; Estimated Glomerular Filt Rate 19; Glucose 217 mg/dL (65-110); Potassium 4.5 mmol/L (3.4-5.0); Sodium 139 mmol/L (137-145)
[2022-09-24] MEDS: cefTRIAXone 2 GM/NS 100 ML 2 GM/100 ML BAG IVPB ×2 (02:40→21:05)
[2022-09-24 03:33] LABS: Troponin I 0.115 ng/mL (0.000-0.034)
[2022-09-24 07:33] LABS: Glucose Point of Care 175 mg/dl (65-105)
--- NOTE | 2022-09-24 08:38 | PM.IMPN ---
Progress Note: A&P Assessment and Plan (1) Acute exacerbation of CHF (congestive heart failure): Code(s): I50.9 - Heart failure, unspecified Status: Acute Assessment and Plan: Patient presents with shortness of breath. Chest x-ray shows cardiomegaly and small bilateral pleural effusions with mild bibasilar opacities. [place] [address]. Troponin elevated to 0.115. EKG shows atrial flutter with controlled rate, left axis deviation and left bundle branch block. The bundle branch block is chronic. Patient with acute on chronic systolic and diastolic CHF. Patient started on fluid restriction. He was started on IV Lasix. Echocardiogram has been ordered. Echocardiogram from March shows EF of 45-50%, diastolic dysfunction and moderate pulmonary hypertension. Continue diuresis. Cardiology has been consulted. Monitor renal function fluid status. Continue Metoprolol. Continue Nitrate/Hydralazine. No GUSTAVO/ARB. Consider stopping Norvasc but will wait for repeat Echo. (2) CKD (chronic kidney disease) stage 4, GFR 15-29 ml/min: Code(s): N18.4 - Chronic kidney disease, stage 4 (severe) Status: Acute Assessment and Plan: Baseline creatinine over the past year has been 2.8-3.6. More consistently in the low 3 range. Creatinine 3.3 on admission and about the same on recheck today. BUN also was elevated in the 60-80 range. Monitor renal function closely as he is continued on IV diuretics. Appreciate Nephrology input. (3) Prostate CA: Code(s): C61 - Malignant neoplasm of prostate Status: Acute Assessment and Plan: Chest x-ray shows a chronic large expansile lesion in the right 8th rib concerning for metastatic disease. Most likely this is related to his prostate cancer. Will continue his hormonal treatments. He is on Eliquis which will cover him for DVT prophylaxis. (4) Atrial fibrillation with RVR: Code(s): I48.91 - Unspecified atrial fibrillation Status: Acute Assessment and Plan: Patient with atrial fibrillation/flutter. Rate is controlled. Continue metoprolol. Continue Eliquis. (5) Insulin dependent diabetes mellitus: Status: Acute Assessment and Plan: A1c 6.1 in June. The patient's blood glucose was reviewed on 09/24 Glucose elevated at times Continue AccuCheks covering with sliding scale. Hypoglycemia protocol available as needed. Continue current medications. (6) Lung infiltrate: Code(s): R91.8 - Other nonspecific abnormal finding of lung field Status: Acute Assessment and Plan: CXR as mentioned above. WBC normal. No fevers. Cough with scant production. He was started on antibiotics for possible PNA. BCx collected. He does have a LBBB but QTc listed as 528. Will stop Azithro. Repeat CXR and if clear, then stop abx. Subjective Date/time seen: 09/24/22 08:38 Interval history: 82yo male with CHF, prostate CA and AFib here for SOB. Shortness of breath is better. No wheezing. Says he has chronic lower extremity edema. He does not have COPD. He has a very remote history of tobacco use. Exam Narrative: AF 97.6 141/69 105 20 97% ra Gen - NARD sitting up in bed Chest -bibasilar mid and lower lung field inspiratory crackles. Normal respiratory rate. No conversational dyspnea. CV -irregular irregular. S1-S2. Telemetry showing AFib/flutter with controlled rate. Abd -soft. Nontender. Nondistended. Ext -no significant pedal edema. Scaly bilateral lower extremity skin. Psych - Nml mood and affect Skin - Warm and dry. Chronic venous stasis skin changes bilateral lower extremities. Objective Data Vital Signs Vital Signs: Vital Signs - 24 hr 09/23/22 18:51 09/23/22 18:55 09/23/22 18:55 Temperature Pulse Rate 94 94 90 Respiratory Rate 22 H 24 H Blood Pressure 154/96 H 154/96 H Pulse Oximetry 97 98 Oxygen Delivery Room Air 09/23/22 19:17 09/23/22 19:31 09/23/22 22:00 [place]
[2022-09-24] MEDS: FUROSEMIDE INJ 40 MG/4 ML VIAL IV PUSH ×2 (09:16→21:04)
[2022-09-24] MEDS: PANTOPRAZOLE 40 MG TABLET PO (09:17)
[2022-09-24] MEDS: CALCIUM CARBONATE (OSCAL) 500 MG TABLET PO ×4 (09:17→21:03)
[2022-09-24] MEDS: amLODIPine BESYLATE 2.5 MG TABLET PO (09:17)
[2022-09-24] MEDS: ISOSORBIDE MONONITRATE 30 MG TAB.ER.24H PO (09:17)
[2022-09-24] MEDS: ASPIRIN 81 MG CHEWABLE TABLET PO (09:17)
[2022-09-24] MEDS: SIMVASTATIN 20 MG TABLET 40 MG PO (09:17)
[2022-09-24] MEDS: FLUTICASONE PROPIONATE 0.05% NA SPR 16 GM BTL (*BKC) 1 SPRAY NASAL ×2 (09:18→17:30)
--- NOTE | 2022-09-24 10:00 | PM.CNNEP ---
Assessment and Plan Assessment and plan (1) Acute exacerbation of CHF (congestive heart failure): Code(s): I50.9 - Heart failure, unspecified Status: Acute Assessment and Plan: the patient has an ejection fraction of 45% plus diastolic dysfunction. He is on a low-dose of chronic diuretics to keep his volume status controlled. He has not had any cardiac issues lately. He says he has not been treating on his diet. He avoid salty foods. He has not been out to dinner much and has not traveled. He did not have any chest pain along with the shortness of breath and his troponins do not indicate any sort of cardiac issues. He does have chronic kidney disease which leads to some issues with sodium retention so possibly this is a combination of just mild heart issues plus mild kidney issues. I agree with diuretics. He made a large amount of urine yesterday he says and his oxygenation is better. discharge will be based on his volume status. (2) Chronic kidney disease, stage 4 (severe): Code(s): N18.4 - Chronic kidney disease, stage 4 (severe) Status: Acute Assessment and Plan: The patient has chronic kidney disease stage 4 due to diabetes and hypertension. Probably has vascular disease as well. His baseline creatinine is in the mid threes. He is at his baseline currently. (3) Insulin dependent diabetes mellitus: Status: Acute Assessment and Plan: The patient has diabetes. This is somewhat troublesome. Usually is morning sugars are fairly well controlled in the 120s and 130s. His nighttime sugars are often higher in the 180-220 range. His grinding wheel facer is careful not to get him too low. (4) Secondary hyperparathyroidism, not elsewhere classified: Code(s): E21.1 - Secondary hyperparathyroidism, not elsewhere classified Status: Acute Assessment and Plan: The patient has an elevated PTH due to the kidney disease. Will check a phosphorus level in the morning (5) Hypertension: Code(s): I10 - Essential (primary) hypertension Status: Acute Assessment and Plan: the patient has hypertension. His blood pressure is ranging from 120-160. He gets amlodipine Hydralazine and metoprolol at home for his blood pressure. will continue these. (6) Prostate CA: Code(s): C61 - Malignant neoplasm of prostate Status: Acute Assessment and Plan: He has metastases from his prostate cancer. He is on Xtandi History of Present Illness Reason for Consult Consult date: 09/24/22 Chief Complaint Chief complaint: acute CHF exacerbation, elevated troponin, chronic History of Present Illness Narrative: Rafael is a very pleasant 82-year-old gentleman who has multiple medical problems including congestive heart failure with diastolic dysfunction, EF of 45%, atrial fibrillation on anticoagulants, chronic kidney disease stage 4 with a baseline creatinine in the mid threes, diabetes with nephropathy and neuropathy, osteoarthritis, hypertension, prostate cancer with metastases. The patient said he was well until yesterday morning when he was short of breath. It happened fairly gradually. He had no chest pain or palpitations. Because he was short of breath he has checked his O2 saturations with his oximeter at home. It was in the 70s. His neighbor has an oxygen concentrator which she does not use so he asked her to take it over there. She did and he got on some oxygen and felt better. He called his niece who takes care of him but she was at work so did not call him back until yesterday afternoon. When she found out about the low oxygen she went right over there. She met the home health nurse as well. They did vitals and things were okay but the oxygenation was still low when they took the oxygen off and so they brought him to the ER. In the ER he was evaluated. His chest x-ray showed fluid. He was admitted to the floor and yasmani
[2022-09-24 11:35] LABS: Glucose Point of Care 429 mg/dl (65-105)
[2022-09-24] MEDS: EUCERIN CREAM 120 GM JAR 1 APPLIC TOPICAL (12:35)
[2022-09-24] MEDS: INSULIN ASPART (*BKC) 100 UNITS/ML SUB-Q (12:35)
--- NOTE | 2022-09-24 13:02 | PCOTNOTE ---
Attempted OT evaluation; pt. was getting cleaned up with nursing. Will attempt again tomorrow
--- NOTE | 2022-09-24 13:53 | PM.CNCAR ---
Assessment and Plan Assessment and plan (1) Acute on chronic diastolic CHF (congestive heart failure): Code(s): I50.33 - Acute on chronic diastolic (congestive) heart failure Status: Acute Assessment and Plan: Several admissions over the past year for CHF. Sounds like the patient is compliant with his medications. Perhaps excessive p.o. intake and the atrial flutter which sometimes has to rapid ventricular response is contributing. Any case it appears that he is not as sick as he was on last admission. --agree with IV Lasix 40 mg IV push b.i.d. --continue metoprolol 100 mg p.o. b.i.d. --daily BMP --recommend a modest fluid restriction on discharge. (2) Atrial flutter: Code(s): I48.92 - Unspecified atrial flutter Status: Acute Assessment and Plan: History of atrial fibrillation atrial flutter, sometimes with a mildly rapid ventricular rate, despite taking metoprolol 100 mg b.i.d.. --continue Eliquis --consider additional medication for rate control. Could consider diltiazem, if the patient's left ventricular function is not too diminished, or add amiodarone. Will add amiodarone 200 mg BID for HR control. Reduce had a later time. (3) Cardiomyopathy: Code(s): I42.9 - Cardiomyopathy, unspecified Status: Acute Assessment and Plan: History of mild cardiomyopathy, EF 45-50%. --continue hydralazine +nitrates, and beta julio. Try titrating the hydralazine to 75 mg b.i.d. and nitrates to 60 mg daily --unknown if an SGOT 2 inhibitor would be of use with this advanced stage of renal failure. --avoiding GUSTAVO-inhibitor and ARB due to advanced kidney disease (4) CKD stage 4 due to type 2 diabetes mellitus: Code(s): E11.22 - Type 2 diabetes mellitus with diabetic chronic kidney disease; N18.4 - Chronic kidney disease, stage 4 (severe) Status: Acute Assessment and Plan: Followed by Dr. Beltran (5) Hypertension: Code(s): I10 - Essential (primary) hypertension Status: Acute Assessment and Plan: Was elevated on admission, now well controlled --continue hydralazine, metoprolol etc. History of Present Illness History of Present Illness Consult date/time: 09/24/22 13:53 Reason For Visit: acute CHF exacerbation, elevated troponin, chronic Narrative: Bill eason an 82-year-old male whom I was asked to see at the request of Dr. Gordillo for my advice and opinion regarding his CHF in consultation. He has had multiple hospitalizations over the last few months for CHF and his stage IV CKD. He is followed by Dr. Vazquez. EF rounds 45-50%. History of atrial flutter and atrial fibrillation. He has metastatic prostate cancer and is DNR. The patient woke up yesterday short of breath and borrowed oxygen from his neighbor since his O2 sats were in the 70s. He was brought the emergency room from his skilled nursing by his daughter for increasing shortness of breath. He has been taking furosemide 40 mg q a.m. and 20 q. pm. ProBNP was 66709. Telemetry shows atrial flutter occasionally runs up in the 110 beat per minute range. Renal function was at baseline, with a GFR of 18 mils per minute.. He has been started on furosemide 40 mg IV push q.12 hours. Patient states he has been compliant with his medicines and has not run out of anything. He is on a low-salt diet. From what he says he may drink excessive fluids. No recent fever, denies any significant cough. Had some chest pressure supine relieved with sitting up. Review of Systems Constitutional: Constitutional: Denies fever(s) Eyes: Eyes: Reports no additional eye complaints ENT: Denies epistaxis Cardiovascular: Cardiovascular: Denies chest pain, Denies pedal edema, Denies lightheadedness and Denies dyspnea Comments: Has orthopnea Respiratory: Respiratory: Denies chest congestion, Reports dyspnea and Reports dyspnea on exertion Gastrointestinal: Gastrointestinal: Denies abdominal
[2022-09-24 16:24] LABS: Glucose Point of Care 87 mg/dl (65-105)
[2022-09-24] MEDS: AMIODARONE HCL 200 MG TABLET PO (17:30)
[2022-09-24] MEDS: hydrALAZINE HCL 25 MG TABLET 75 MG PO (17:30)
[2022-09-24 20:06] LABS: Glucose Point of Care 81 mg/dl (65-105)
--- NOTE | 2022-09-24 21:00 | PC.NURSE ---
Spoke with provider about BG and Lantus. [facility]
[2022-09-24] MEDS: DOXYCYCLINE HYCLATE 100 MG TABLET PO (21:03)
[2022-09-25] VITALS (18 sets, daily range): BP systolic 105–147; BP diastolic 64–96; PULSE 48–119; RESP 20–24; TEMP 36.1–36.8; O2SAT 98–100
--- NOTE | 2022-09-25 | ECHO_ITS ---
Patient Info Name: Rafael Oneill Age: 82 years : 1940 Gender: Male Ht: 70 in Wt: 210 lbs BSA: 2.19 m2 HR: 77 bpm BP: 132 / 77 mmHg Heart Rhythm: Atrial Fibrillation Technical Quality: Fair Exam Date: 09/25/2022 9:17 AM Exam Location: [facility] Patient Status: Inpatient Admit Date: 09/23/2022 Staff Ordering Physician: Millie Leal MD Ethanol Quality Leader: Pebbles Gutierrez RDCS Attending Provider: Millie Leal MD Referring Physician: Elvis CRAFT; Exam Type: CA echo doppler color flow Study Info Indications - chf Complete two-dimensional, color flow and Doppler transthoracic echocardiogram is performed. Summary 1. Complete two-dimensional, color flow and Doppler transthoracic echocardiogram is performed. 2. Mild left ventricular enlargement with moderate global systolic dysfunction ejection fraction 30-35%. 3. Significant left atrial enlargement. 4. Trivial MR. 5. Mildly sclerotic aortic valve with trivial aortic regurgitation. 6. Small circumferential pericardial effusion. 7. Atrial fibrillation. 8. Compared to echocardiogram in March of 2022 left ventricular systolic function has declined. Left Ventricle Left ventricular chamber dimension is moderately enlarged. Left ventricular systolic function is moderately reduced, estimated at 30-35%. The left ventricular diastolic function is indeterminate. Right Ventricle Right ventricular chamber dimension is normal. Left Atria Left atrial chamber dimension is moderately enlarged. Right Atria Right atrial chamber dimension is mildly enlarged. Aortic Valve The aortic valve is trileaflet. There is mild aortic valve sclerosis. Pulmonic Valve The pulmonic valve is normal. Mitral Valve The mitral valve has normal leaflets. There is trace mitral valve regurgitation. Tricuspid Valve The tricuspid valve leaflets are normal. Pericardium/Pleural The pericardium appears normal. There is small circumferential pericardial effusion. Aorta The aortic root size at the sinus of Valsalva is normal. Left Ventricular Outflow Tract Name Value Normal LVOT 2D LVOT Diameter 2.2 cm LVOT Doppler LVOT Peak Gradient 1 mmHg LVOT Mean Gradient 1 mmHg LVOT VTI 11 cm LVOT VTI/AV VTI Ratio 0.5 LVOT Stroke Volume 41 ml LVOT CO 3.0 l/min LVOT CI 1.4 l/min/m2 Pulmonic Valve Name Value Normal RVOT Doppler RVOT Peak Gradient 1 mmHg PV Doppler PV Peak Gradient 3 mmHg Mitral Valve
[2022-09-25 04:11] LABS: Glucose Point of Care 104 mg/dl (65-105)
[2022-09-25 04:19] LABS: Basophils Percent Auto 0.6 % (0.2-1.2); Eosinophils Absolute Auto 0.1 K/mm3 (0-0.3); Eosinophils Percent Auto 1.5 % (0-4.4); Hematocrit 29.7 % (42.0-52.0); Hemoglobin 9.8 g/dL (14.0-18.0); Immature Granulocyte Absolute 0.03 K/mm3 (0.00-0.031); Immature Granulocyte Percent A 0.5 % (0-0.5); Lymphocytes Absolute Auto 1.48 K/mm3 (0.9-3.2); Lymphocytes Percent Auto 22.3 % (18.3-44.2); Mean Corpuscular Hemoglobin 31.4 pg (26-34); Mean Corpuscular Volume 95.2 fl (80-100); Mean Platelet Volume 9.1 fl (7.4-10.4); Monocytes Absolute Auto 0.8 K/mm3 (0.1-0.6); Monocytes Percent Auto 12.3 % (2.6-8.5); Neutrophils Absolute Auto 4.2 K/mm3 (1.3-6.7); Neutrophils Percent Auto 62.8 % (45.5-73.1); Platelet Count Result 188 k/mm3 (150-375); Red Blood Count 3.12 M/mm3 (4.6-6.20); Red Cell Distribution Width 13.8 % (11.5-14.5); White Blood Count 6.6 K/mm3 (4.5-10.0)
[2022-09-25 04:36] LABS: Magnesium 2.2 mg/dL (1.6-2.3); Phosphorus 4.3 mg/dL (2.5-4.5)
[2022-09-25 04:40] LABS: Hemoglobin A1C 6.3 % (<5.7)
[2022-09-25 04:58] LABS: Troponin I 0.085 ng/mL (0.000-0.034)
[2022-09-25 05:21] LABS: Anion Gap 13 mmol/L (8-16); Blood Urea Nitrogen 84 mg/dL (9-20); Calcium 7.2 mg/dL (8.4-10.2); Carbon Dioxide 23 mmol/L (22-30); Chloride 104 mmol/L (98-107); Estimated CRCL calculation 18 ml/min; Estimated Glomerular Filt Rate 19; Glucose 101 mg/dL (65-110); Phosphorus 4.2 mg/dL (2.5-4.5); Potassium 4.1 mmol/L (3.4-5.0); Sodium 140 mmol/L (137-145)
[2022-09-25 07:52] LABS: Glucose Point of Care 119 mg/dl (65-105)
--- NOTE | 2022-09-25 09:14 | PCOTNOTE ---
Attempted OT evaluation, patient currently having test done, will follow.
[2022-09-25] MEDS: PANTOPRAZOLE 40 MG TABLET PO (09:47)
[2022-09-25] MEDS: hydrALAZINE HCL 25 MG TABLET 75 MG PO ×2 (09:47→17:36)
[2022-09-25] MEDS: SIMVASTATIN 20 MG TABLET 40 MG PO (09:47)
[2022-09-25] MEDS: APIXABAN 5 MG TABLET PO ×2 (09:47→17:38)
[2022-09-25] MEDS: DOXYCYCLINE HYCLATE 100 MG TABLET PO (09:48)
[2022-09-25] MEDS: ISOSORBIDE MONONITRATE 60 MG TAB.ER.24H PO (09:48)
[2022-09-25] MEDS: AMIODARONE HCL 200 MG TABLET PO ×2 (09:48→17:39)
[2022-09-25] MEDS: FUROSEMIDE INJ 40 MG/4 ML VIAL IV PUSH (09:49)
[2022-09-25] MEDS: amLODIPine BESYLATE 2.5 MG TABLET PO (09:49)
[2022-09-25] MEDS: CALCIUM CARBONATE (OSCAL) 500 MG TABLET PO ×4 (09:49→20:25)
[2022-09-25] MEDS: METOPROLOL TARTRATE 50 MG TAB 100 MG PO ×2 (09:51→20:25)
[2022-09-25] MEDS: EUCERIN CREAM 120 GM JAR 1 APPLIC TOPICAL (09:57)
[2022-09-25] MEDS: INSULIN GLARGINE (*BKC) 100 UNITS/ML 10 UNITS SUB-Q ×2 (09:57→20:26)
--- NOTE | 2022-09-25 10:27 | PM.PNNEP ---
Progress Note: A&P Assessment and Plan (1) Chronic kidney disease, stage 4 (severe): Code(s): N18.4 - Chronic kidney disease, stage 4 (severe) Status: Acute Assessment and Plan: baseline creatinine runs ~ 2.8 - 3.4mg/dl in the last year due to diabetes and hypertension as well as vascular disease and age related change (2) Acute exacerbation of CHF (congestive heart failure): Code(s): I50.9 - Heart failure, unspecified Status: Acute Assessment and Plan: unclear on trigger for this however, responding to current therapy/diuretics continue supportive therapy Cardiology recommendations noted (3) Hypertension: Code(s): I10 - Essential (primary) hypertension Status: Acute Assessment and Plan: reasonable control at this time continue to follow hemodynamics (4) Prostate CA: Code(s): C61 - Malignant neoplasm of prostate Status: Acute Assessment and Plan: known to be metastatic on Xtandi (5) Insulin dependent diabetes mellitus: Status: Acute Assessment and Plan: follow accuchecks glycemic control per hospitalist Will continue to follow. Subjective Date/time seen: 09/25/22 10:27 Chart reviewed -- assuming care from Dr. Beltran; good urine output noted in response to diuretic therapy; no complaints of shortness of breath or chest pain; sitting up in chair in no apparent distress at the time of my visit; no issues/events overnight or earlier this AM. Exam Narrative: General: elderly male in NAD Heart: IRRR, normal S1 and S2; no rub Lungs: decreased at bases with a few scant bibasilar crackles Abdomen: soft, nontender, nondistended, positive bowel sounds Extremities: no cyanosis or clubbing; no edema Skin: chronic venous stasis changes present Objective Data Vital Signs Vital Signs: Vital Signs Temp Pulse Resp BP Pulse Ox O2 Del Method 09/25/22 10:08 Room Air 09/25/22 09:51 Room Air 09/25/22 08:00 97.5 F L 114 H 24 H 147/96 H 98 09/25/22 09:51 101 H 09/25/22 09:48 101 H 09/25/22 05:56 77 09/25/22 04:00 82 20 98 Room Air 09/25/22 04:00 82 09/25/22 04:00 97.6 F 89 20 132/77 98 09/25/22 02:00 75 09/25/22 00:00 117 H 20 98 Room Air 09/25/22 00:00 48 L 09/25/22 00:00 97.2 F L 117 H 20 136/87 98 09/24/22 22:00 116 H 09/24/22 20:00 117 H 09/24/22 20:00 108 H 20 98 Room Air 09/24/22 21:11 108 H 09/24/22 20:00 97.6 F 108 H 20 128/64 98 09/24/22 16:00 Room Air 09/24/22 12:00 Room Air 09/24/22 18:00 116 H 09/24/22 16:00 118 H 09/24/22 14:00 65 09/24/22 12:00 60 09/24/22 17:30 118 H 09/24/22 16:00 97.8 F 118 H 20 126/95 H 100 09/24/22 12:00 97.9 F 114 H 24 H 121/81 100 Intake/Output Intake/Output: Intake & Output 09/22/22 09/23/22 09/24/22 09/25/22 23:59 23:59 23:59 23:59 Intake Total 1210 240 Output Total 2370 5380 Meds/Results Medications: Active Medications Generic Name Dose Route Start Last Admin Trade Name Darrellq PRN Reason Stop Dose Admin Amiodarone HCl 200 mg 09/24/22 17:00 09/25/22 09:48 Amiodarone Hcl 200 Mg Tablet PO 200 mg BID BLADIMIR Administration Amlodipine Besylate 2.5 mg 09/24/22 09:00 09/25/22 09:49 Amlodipine Besylate 2.5 Mg Tablet PO 2.5 mg DAILY BLADIMIR Administration Apixaban 5 mg 09/24/22 00:05 09/25/22 09:47 Apixaban 5 Mg Tablet PO 5 mg BID BLADIMIR Administration Aspirin 81 mg 09/24/22 08:00 09/25/22 09:54 Aspirin 81 Mg Chewable Tablet PO Not Given DAILY@0800 [facility] Calcium Carbonate 500 mg 09/24/22 09:00 09/25/22 09:49 Calcium Carbonate (Oscal) 500 Mg Tablet PO 500 mg QID BLADIMIR Administration Dextrose 12.5 gm 04/16/23 11:42 Dextrose 50% 25 Gm/50 Ml Syringe IV PUSH PRN PRN Hypoglyc
--- NOTE | 2022-09-25 11:26 | PM.IMPN ---
Progress Note: A&P Assessment and Plan (1) Acute exacerbation of CHF (congestive heart failure): Code(s): I50.9 - Heart failure, unspecified Status: Acute Assessment and Plan: Patient presents with shortness of breath. Chest x-ray shows cardiomegaly and small bilateral pleural effusions with mild bibasilar opacities. BNP was 62854. Troponin elevated to 0.115. EKG shows atrial flutter with controlled rate, left axis deviation and left bundle branch block. The bundle branch block is chronic. Patient with acute on chronic systolic and diastolic CHF. Patient started on fluid restriction. He was started on IV Lasix. Echocardiogram has been ordered. Echocardiogram from March shows EF of 45-50%, diastolic dysfunction and moderate pulmonary hypertension. Continue diuresis. Cardiology has been consulted. Continue to monitor renal function and fluid status. Continue Metoprolol. Continue Nitrate/Hydralazine. No GUSTAVO/ARB. Consider stopping Norvasc but will wait for repeat Echo. Takes Lasix 60mg daily; change to oral lasix 40mg BID. (2) Atrial fibrillation with RVR: Code(s): I48.91 - Unspecified atrial fibrillation Status: Acute Assessment and Plan: Patient with atrial fibrillation/flutter. Amiodarone added. Rate is mostly controlled. Continue metoprolol. Continue Eliquis. (3) Elevated troponin: Code(s): R77.8 - Other specified abnormalities of plasma proteins Status: Acute Assessment and Plan: Troponin elevated to 0.115. EKG as mentioned above. Echo pending. No CP. Elevated Trop related to CHF and/or AFib and/or CKD. Appreciate Cardiology input (4) CKD (chronic kidney disease) stage 4, GFR 15-29 ml/min: Code(s): N18.4 - Chronic kidney disease, stage 4 (severe) Status: Acute Assessment and Plan: Baseline creatinine over the past year has been 2.8-3.6. More consistently in the low 3 range. Creatinine 3.3 on admission and about the same on recheck today. BUN also was elevated in the 60-80 range. Monitor renal function closely as he is continued on diuretics. Appreciate Nephrology input. (5) Prostate CA: Code(s): C61 - Malignant neoplasm of prostate Status: Acute Assessment and Plan: Chest x-ray shows a chronic large expansile lesion in the right 8th rib concerning for metastatic disease. Most likely this is related to his prostate cancer. Will continue his hormonal treatments. He is on Eliquis which will cover him for DVT prophylaxis. (6) Insulin dependent diabetes mellitus: Status: Acute Assessment and Plan: A1c 6.3. The patient's blood glucose was reviewed on 09/25 Glucose elevated at times Continue AccuCheks covering with sliding scale. Hypoglycemia protocol available as needed. Continue current medications. (7) Lung infiltrate: Code(s): R91.8 - Other nonspecific abnormal finding of lung field Status: Acute Assessment and Plan: Admission CXR as mentioned above. WBC normal. No fevers. Cough with scant production. He was started on antibiotics for possible PNA. BCx NGTD. Repeat CXR reviewed and showing small left pleural effusion with probable mild intersitital pulm edema and bibasilar atelectasis. Doubt PNA. Stop abx. Plan Debility - he is working with PT/OT. Increase activity and time out of bed Subjective Date/time seen: 09/25/22 11:26 Interval history: 82yo male with CHF, prostate CA and AFib here for SOB. Good UOP with the Lasix. He has not been out of bed at all. No CP or SOB. No palpitations. No cough. No n/v. Exam Narrative: AF 97.5 147/96 101 24 98% ra Gen - NARD sitting up in bed Chest - L>R bibasilar inspiratory crackles. Normal respiratory rate. CV -irregular irregular. S1-S2. Telemetry showing AFib/flutter with occasional RVR Abd -soft. Nontender. Nondistended. Ext -no pedal edema. Psych - Nml mood and affect Skin - Warm and dry. Chr
[2022-09-25 11:48] LABS: Glucose Point of Care 183 mg/dl (65-105)
--- NOTE | 2022-09-25 12:34 | PM.PNCARD ---
Progress Note: A&P Assessment and Plan (1) Acute on chronic diastolic CHF (congestive heart failure): Code(s): I50.33 - Acute on chronic diastolic (congestive) heart failure Status: Acute Assessment and Plan: Several admissions over the past year for CHF. Sounds like the patient is compliant with his medications. Perhaps excessive p.o. intake and the atrial flutter which sometimes has to rapid ventricular response is contributing. Any case it appears that he is not as sick as he was on last admission. --Still has rales - Continue IV Lasix 40 mg IV push b.i.d. --continue metoprolol 100 mg p.o. b.i.d. --daily BMP --recommend a modest fluid restriction on discharge. (2) Atrial flutter: Code(s): I48.92 - Unspecified atrial flutter Status: Acute Assessment and Plan: History of atrial fibrillation atrial flutter, sometimes with a mildly rapid ventricular rate, despite taking metoprolol 100 mg b.i.d.. --continue Eliquis --Continue amiodarone 200 mg BID for HR control. Reduce to 200mg daily at a later time. (3) Cardiomyopathy: Code(s): I42.9 - Cardiomyopathy, unspecified Status: Acute Assessment and Plan: History of mild cardiomyopathy, EF 45-50%. --continue hydralazine +nitrates, and beta julio. --unknown if an SGLT 2 inhibitor would be of use with this advanced stage of renal failure. --avoiding GUSTAVO-inhibitor and ARB due to advanced kidney disease (4) CKD stage 4 due to type 2 diabetes mellitus: Code(s): E11.22 - Type 2 diabetes mellitus with diabetic chronic kidney disease; N18.4 - Chronic kidney disease, stage 4 (severe) Status: Acute Assessment and Plan: Followed by Dr. Beltran (5) Hypertension: Code(s): I10 - Essential (primary) hypertension Status: Acute Assessment and Plan: Was elevated on admission, now well controlled --continue hydralazine, metoprolol etc. Subjective Date/time seen: 09/25/22 12:34 Cardiology follow up for CHF, atrial fibrillation Resting comfortably when I enter the room, awakens to my voice. He feels well today and does not voice any complaints. He does not have any shortness of breath, swelling, chest pain, or palpitations. Review of Systems Constitutional: Constitutional: Denies fever(s) Eyes: Eyes: Reports no additional eye complaints ENT: Denies epistaxis Cardiovascular: Cardiovascular: Denies chest pain, Denies pedal edema, Denies lightheadedness, Reports dyspnea and Reports dyspnea on exertion Respiratory: Respiratory: Denies chest congestion, Reports dyspnea and Reports dyspnea on exertion Gastrointestinal: Gastrointestinal: Denies abdominal pain and Denies hematochezia Genitourinary: Genitourinary: Denies hematuria Musculoskeletal: Musculoskeletal: Reports no additional musculoskeletal complaints and Reports numbness (Lower extremity neuropathy) Integumentary/Breasts: Skin/Breast: Reports system reviewed and no additional complaints, except as docu Neurologic: Reports system reviewed and no additional complaints, except as documented, Denies behavioral changes, Denies confusion and Reports numbness (Lower extremity neuropathy) Psychiatric: Psychiatric: Denies behavioral changes and Denies confusion Exam Const: General: cooperative and comfortable; No confusion Orientation/consciousness: oriented to person, patient oriented x3 and No confusion HENMT: Mouth: Yes moist mucous membranes Eyes: General: appearance normal, both eyes and all related structures Neck: Neck: supple and no JVD Thyroid: thyroid normal Carotids: no bruits Resp: Effort & Inspection: normal respiratory effort Auscultation: rales Cardio: Rate: regular rate Rhythm: regular rhythm and abnormal rhythm irregularly irregular Heart sounds: no murmurs Other: Intact dorsalis pedis pulses GI: Inspection: normal to inspection Skin: General skin exam: normal color (Very tanned individual) and no analia
[2022-09-25 17:10] LABS: Glucose Point of Care 207 mg/dl (65-105)
[2022-09-25] MEDS: FUROSEMIDE 40 MG TABLET PO (17:40)
[2022-09-25] MEDS: INSULIN ASPART (*BKC) 100 UNITS/ML SUB-Q (17:40)
[2022-09-25 20:13] LABS: Glucose Point of Care 195 mg/dl (65-105)
[2022-09-25] MEDS: FINASTERIDE 5 MG TABLET PO (20:25)
[2022-09-25] MEDS: LATANOPROST 0.005% OP SOLN 2.5 ML BTL 1 DROP EACH EYE (20:25)
[2022-09-26] VITALS (13 sets, daily range): BP systolic 83–146; BP diastolic 52–86; PULSE 61–95; RESP 14–20; TEMP 36.4–36.6; O2SAT 97–100
[2022-09-26 04:58] LABS: Albumin Level 3.9 g/dL (3.5-5.1); Anion Gap 9 mmol/L (8-16); Blood Urea Nitrogen 89 mg/dL (9-20); Calcium 7.2 mg/dL (8.4-10.2); Carbon Dioxide 26 mmol/L (22-30); Chloride 103 mmol/L (98-107); Estimated CRCL calculation 18 ml/min; Estimated Glomerular Filt Rate 18; Glucose 143 mg/dL (65-110); Phosphorus 4.6 mg/dL (2.5-4.5); Potassium 4.1 mmol/L (3.4-5.0); Sodium 138 mmol/L (137-145)
[2022-09-26 08:22] LABS: Glucose Point of Care 145 mg/dl (65-105)
[2022-09-26] MEDS: ASPIRIN 81 MG CHEWABLE TABLET PO (09:27)
[2022-09-26] MEDS: PANTOPRAZOLE 40 MG TABLET PO (09:27)
[2022-09-26] MEDS: FUROSEMIDE 40 MG TABLET PO (09:27)
[2022-09-26] MEDS: SIMVASTATIN 20 MG TABLET 40 MG PO (09:27)
[2022-09-26] MEDS: amLODIPine BESYLATE 2.5 MG TABLET PO (09:27)
[2022-09-26] MEDS: APIXABAN 5 MG TABLET PO (09:28)
[2022-09-26] MEDS: METOPROLOL TARTRATE 50 MG TAB 100 MG PO (09:28)
[2022-09-26] MEDS: AMIODARONE HCL 200 MG TABLET PO (09:28)
[2022-09-26] MEDS: ISOSORBIDE MONONITRATE 60 MG TAB.ER.24H PO (09:28)
[2022-09-26] MEDS: CALCIUM CARBONATE (OSCAL) 500 MG TABLET PO (09:28)
[2022-09-26] MEDS: hydrALAZINE HCL 25 MG TABLET 75 MG PO (09:28)
[2022-09-26] MEDS: INSULIN GLARGINE (*BKC) 100 UNITS/ML 10 UNITS SUB-Q (09:30)
--- NOTE | 2022-09-26 09:50 | PM.PNNEP ---
Progress Note: A&P Assessment and Plan (1) Chronic kidney disease, stage 4 (severe): Code(s): N18.4 - Chronic kidney disease, stage 4 (severe) Status: Acute Assessment and Plan: baseline creatinine runs ~ 2.8 - 3.4mg/dl in the last year due to diabetes and hypertension as well as vascular disease and age related change follow trend of labs with ongoing diuresis (2) Acute exacerbation of CHF (congestive heart failure): Code(s): I50.9 - Heart failure, unspecified Status: Acute Assessment and Plan: acute on chronic systolic and diastolic heart failure unclear on trigger for this however, responding to current therapy/diuretics (~ 3.2L negative since admission) continue supportive therapy Cardiology recommendations noted (3) Hypertension: Code(s): I10 - Essential (primary) hypertension Status: Acute Assessment and Plan: reasonable control at this time continue to follow hemodynamics (4) Prostate CA: Code(s): C61 - Malignant neoplasm of prostate Status: Acute Assessment and Plan: known to be metastatic on Xtandi (5) Insulin dependent diabetes mellitus: Status: Acute Assessment and Plan: follow accuchecks glycemic control per hospitalist Will continue to follow. Subjective Date/time seen: 09/26/22 09:50 Slow and steady improvement in breathing and volume status with ongoing diuresis; no apparent issues/events overnight or earlier this morning; no other complaints voiced at the time of my visit. Exam Narrative: General: elderly male in NAD Heart: IRRR, normal S1 and S2; no rub Lungs: decreased at bases with occassional bibasilar crackles Abdomen: soft, nontender, nondistended, positive bowel sounds Extremities: no cyanosis or clubbing; no edema Skin: chronic venous stasis changes noted Objective Data Vital Signs Vital Signs: Vital Signs Temp Pulse Resp BP Pulse Ox O2 Del Method 09/26/22 09:28 93 09/26/22 09:28 95 09/26/22 08:00 97.8 F 80 14 146/82 H 98 09/26/22 06:00 82 09/26/22 04:00 97.8 F 80 20 127/86 97 09/26/22 04:00 78 09/26/22 03:19 69 Room Air 09/26/22 02:00 71 09/26/22 00:00 67 Room Air 09/26/22 00:00 67 04/17/23 23:17 98.3 F 60 20 126/76 98 09/25/22 22:00 64 09/25/22 20:00 119 H 09/25/22 20:00 117 H Room Air 09/25/22 20:25 117 H 09/25/22 20:20 98.0 F 118 H 20 133/86 98 09/25/22 16:00 Room Air 09/25/22 18:00 113 H 09/25/22 17:39 97 09/25/22 16:00 97.0 F L 112 H 20 136/91 H 98 09/25/22 12:00 Room Air 09/25/22 16:00 109 H 09/25/22 14:00 89 09/25/22 12:00 115 H 09/25/22 12:00 97.0 F L 114 H 20 105/64 100 Intake/Output Intake/Output: Intake & Output 09/23/22 09/24/22 09/25/22 09/26/22 23:59 23:59 23:59 23:59 Intake Total 1210 1220 600 Output Total 2375 2871 1000 Balance -6860 -1655 -400 Meds/Results Medications: Active Medications Generic Name Dose Route Start Last Admin Trade Name Freq PRN Reason Stop Dose Admin Amiodarone HCl 200 mg 09/24/22 17:00 09/26/22 09:28 Amiodarone Hcl 200 Mg Tablet PO 200 mg BID BLADIMIR Administration Amlodipine Besylate 2.5 mg 09/24/22 09:00 09/26/22 09:27 Amlodipine Besylate 2.5 Mg Tablet PO 2.5 mg DAILY BLADIMIR Administration Apixaban 5 mg 09/24/22 00:05 09/26/22 09:28 Apixaban 5 Mg Tablet PO 5 mg BID BLADIMIR Administration Aspirin 81 mg 09/24/22 08:00 09/26/22 09:27 Aspirin 81 Mg Chewable Tablet PO 81 mg DAILY@0800 BLADIMIR Administration Calcium Carbonate 500 mg 09/24/22 09:00 09/26/22 09:28 Calcium Carbonate (Oscal) 500 Mg Tablet PO 500 mg QID BLADIMIR Administration Dextrose 12.5 gm 09/24/22 11:42 Dextrose 50% 25 Gm/50 Ml Syringe IV PUSH PRN PRN Hypoglycemia Protocol Finast
--- NOTE | 2022-09-26 09:50 | P.PNNP_ITS ---
Progress Note: A&P Assessment and Plan (1) Chronic kidney disease, stage 4 (severe): Code(s): N18.4 - Chronic kidney disease, stage 4 (severe) Status: Acute Assessment and Plan: * baseline creatinine runs ~ 2.8 - 3.4mg/dl in the last year * due to diabetes and hypertension as well as vascular disease and age related change * follow trend of labs with ongoing diuresis (2) Acute exacerbation of CHF (congestive heart failure): Code(s): I50.9 - Heart failure, unspecified Status: Acute Assessment and Plan: * acute on chronic systolic and diastolic heart failure * unclear on trigger for this * however, responding to current therapy/diuretics (~ 3.2L negative since admission) * continue supportive therapy * Cardiology recommendations noted (3) Hypertension: Code(s): I10 - Essential (primary) hypertension Status: Acute Assessment and Plan: * reasonable control at this time * continue to follow hemodynamics (4) Prostate CA: Code(s): C61 - Malignant neoplasm of prostate Status: Acute Assessment and Plan: * known to be metastatic * on Xtandi (5) Insulin dependent diabetes mellitus: Status: Acute Assessment and Plan: * follow accuchecks * glycemic control per hospitalist Will continue to follow. Subjective Date/time seen: 09/26/22 09:50 Slow and steady improvement in breathing and volume status with ongoing diuresis; no apparent issues/events overnight or earlier this morning; no other complaints voiced at the time of my visit. Exam Narrative: General: elderly male in NAD Heart: IRRR, normal S1 and S2; no rub Lungs: decreased at bases with occassional bibasilar crackles Abdomen: soft, nontender, nondistended, positive bowel sounds Extremities: no cyanosis or clubbing; no edema Skin: chronic venous stasis changes noted Objective Data Vital Signs Vital Signs: Vital Signs Temp Pulse Resp BP Pulse Ox O2 Del Method 09/26/22 09:28 93 09/26/22 09:28 95 09/26/22 08:00 97.8 F 80 14 146/82 H 98 09/26/22 06:00 82 09/26/22 04:00 97.8 F 80 20 127/86 97 09/26/22 04:00 78 09/26/22 03:19 69 Room Air 09/26/22 02:00 71 09/26/22 00:00 67 Room Air 09/26/22 00:00 67 09/25/22 23:17 98.3 F 60 20 126/76 98 09/25/22 22:00 64 09/25/22 20:00 119 H 09/25/22 20:00 117 H Room Air 09/25/22 20:25 117 H 09/25/22 20:20 98.0 F 118 H 20 133/86 98 09/25/22 16:00 Room Air 09/25/22 18:00 113 H 09/25/22 17:39 97 09/25/22 16:00 97.0 F L 112 H 20 136/91 H 98 09/25/22 12:00 Room Air 09/25/22 16:00 109 H 09/25/22 14:00 89 09/25/22 12:00 115 H 09/25/22 12:00 97.0 F L 114 H 20 105/64 100 Intake/Output Intake/Output: Intake & Output 09/23/22 09/24/22 09/25/22 09/26/22 23:59 23:59 23:59 23:59 Intake Total 1210 1220 600 Output Total 4674 5236 1000 [facility] -1165 -1655 -400 Meds/Results Medications: Active Medicat
--- NOTE | 2022-09-26 11:55 | PM.PNCARD ---
Progress Note: A&P Assessment and Plan (1) Acute on chronic diastolic CHF (congestive heart failure): Code(s): I50.33 - Acute on chronic diastolic (congestive) heart failure Status: Acute Assessment and Plan: Several admissions over the past year for CHF. Sounds like the patient is compliant with his medications. Perhaps excessive p.o. intake and the atrial flutter which sometimes has to rapid ventricular response is contributing. Any case it appears that he is not as sick as he was on last admission. --Pulmonary exam much improved today. Has been shifted to p.o. lasix. --continue metoprolol 100 mg p.o. b.i.d. --daily BMP --recommend a modest fluid restriction on discharge. -- OK for discharge from a cardiac standpoint. Will sign off. Please do not hesitate to contact us with any further questions. (2) Atrial flutter: Code(s): I48.92 - Unspecified atrial flutter Status: Acute Assessment and Plan: History of atrial fibrillation atrial flutter, sometimes with a mildly rapid ventricular rate, despite taking metoprolol 100 mg b.i.d.. --continue Eliquis --Continue amiodarone 200 mg BID for HR control. Reduce to 200mg daily at a later time. (3) Cardiomyopathy: Code(s): I42.9 - Cardiomyopathy, unspecified Status: Acute Assessment and Plan: History of mild cardiomyopathy, EF 45-50%. --continue hydralazine +nitrates, and beta julio. --unknown if an SGLT 2 inhibitor would be of use with this advanced stage of renal failure. --avoiding GUSTAVO-inhibitor and ARB due to advanced kidney disease (4) CKD stage 4 due to type 2 diabetes mellitus: Code(s): E11.22 - Type 2 diabetes mellitus with diabetic chronic kidney disease; N18.4 - Chronic kidney disease, stage 4 (severe) Status: Acute Assessment and Plan: Followed by Dr. Beltran (5) Hypertension: Code(s): I10 - Essential (primary) hypertension Status: Acute Assessment and Plan: Was elevated on admission, now well controlled --continue hydralazine, metoprolol etc. Subjective Date/time seen: 09/26/22 11:55 Cardiology follow up for CHF, Afib Interval history: Feeling about the same today. He denies any shortness of breath, chest pain, palpitations, swelling. Review of Systems Constitutional: Constitutional: Denies fever(s) Eyes: Eyes: Reports no additional eye complaints ENT: Denies epistaxis Cardiovascular: Cardiovascular: Denies chest pain, Denies pedal edema, Denies lightheadedness, Reports dyspnea and Reports dyspnea on exertion Respiratory: Respiratory: Denies chest congestion, Reports dyspnea and Reports dyspnea on exertion Gastrointestinal: Gastrointestinal: Denies abdominal pain and Denies hematochezia Genitourinary: Genitourinary: Denies hematuria Musculoskeletal: Musculoskeletal: Reports no additional musculoskeletal complaints and Reports numbness (Lower extremity neuropathy) Integumentary/Breasts: Skin/Breast: Reports system reviewed and no additional complaints, except as docu Neurologic: Reports system reviewed and no additional complaints, except as documented, Denies behavioral changes, Denies confusion and Reports numbness (Lower extremity neuropathy) Psychiatric: Psychiatric: Denies behavioral changes and Denies confusion Exam Const: General: cooperative and comfortable; No confusion Orientation/consciousness: oriented to person, patient oriented x3 and No confusion HENMT: Mouth: Yes moist mucous membranes Eyes: General: appearance normal, both eyes and all related structures Neck: Neck: supple and no JVD Thyroid: thyroid normal Carotids: no bruits Resp: Effort & Inspection: normal respiratory effort Auscultation: clear to auscultation bilaterally Cardio: Rate: regular rate Rhythm: regular rhythm and abnormal rhythm irregularly irregular Heart sounds: no murmurs Other: Intact dorsalis pedis pulses GI: Inspection: normal to inspection Ski
[2022-09-26] MEDS: INSULIN ASPART (*BKC) 100 UNITS/ML SUB-Q (12:24)
[2022-09-26 12:56] LABS: Glucose Point of Care 248 mg/dl (65-105)
--- NOTE | 2022-09-26 14:27 | PM.DS ---
DS: Admitting Diagnosis Discharge Date 09/26/22 Admitting Diagnosis Shortness of breath DS: Discharge Diagnosis Discharge Diagnosis (1) Acute exacerbation of CHF (congestive heart failure): Code(s): I50.9 - Heart failure, unspecified Status: Acute (2) Atrial fibrillation with RVR: Code(s): I48.91 - Unspecified atrial fibrillation Status: Acute (3) Elevated troponin: Code(s): R77.8 - Other specified abnormalities of plasma proteins Status: Acute (4) CKD (chronic kidney disease) stage 4, GFR 15-29 ml/min: Code(s): N18.4 - Chronic kidney disease, stage 4 (severe) Status: Acute (5) Prostate CA: Code(s): C61 - Malignant neoplasm of prostate Status: Acute (6) Insulin dependent diabetes mellitus: Status: Acute (7) Lung infiltrate: Code(s): R91.8 - Other nonspecific abnormal finding of lung field Status: Acute DS: Summary Hospital Course Reason for hospitalization: 82yo male with CHF, prostate CA and AFib here for SOB. Please see H&P for details. Hospital Course: Patient presents with shortness of breath.? Chest x-ray shows cardiomegaly and small bilateral pleural effusions with mild bibasilar opacities.? BNP was 43935.? Troponin elevated to 0.115 felt related to CHF.? EKG shows atrial flutter with controlled rate, left axis deviation and left bundle branch block.? The bundle branch block is chronic.?Patient with acute on chronic systolic and diastolic CHF.? Patient started on fluid restriction.? He was started on IV Lasix.? Echo shows EF of 30-35%, indeterminate diastolic function, smal pericardial effusion and significant LAE. Cardiology was consulted.?We continued Metoprolol. We continued Nitrate/Hydralazine and doses were advanced. No GUSTAVO/ARB due to CKD. BP was soft so Norvasc stopped and Hydralazine was cut back to home dose. He did well and was able to be changed to oral lasix. He takes Lasix 60mg daily but changed to oral lasix 40mg BID. Patient with atrial fibrillation/flutter with RVR. He has been compliant with Eliquis. Amiodarone added. Rate better controlled.?Baseline creatinine over the past year has been 2.8-3.6.? More consistently in the low 3 range.? Creatinine 3.3 on admission and about the same on recheck today.? BUN also was elevated in the 60-80 range.?Chest x-ray shows a chronic large expansile lesion in the right 8th rib concerning for metastatic disease.? Most likely this is related to his prostate cancer.? We continued his hormonal treatments.? He is on Eliquis which will cover him for DVT prophylaxis. He worked with PT/OT who felt the patient was at his baseline. He overall did well and was able to be discharged home on 09/26/22. Status at Discharge Cognitive/behavioral status at discharge: Stable Time Spent with Patient Time attestation: Total time spent providing and/or coordinating discharge services: 38 minutes Time spent: Greater than 30 minutes Exam Narrative: AF 97.6 113/60 91 20 100% ra Gen - NARD sitting up in bed Chest - mild bibasilar inspiratory crackles. Normal respiratory rate. CV -irregular irregular. S1-S2. Abd -soft. NT/ND, +BS Ext -no pedal edema. Psych - Nml mood and affect Skin - Warm and dry. Chronic venous stasis skin changes bilateral lower extremities. DS: Data Data Completed and Pending Labs on day of discharge: Labs from last 24 hours 09/26/22 09/26/22 09/26/22 11:43 07:43 04:33 Sodium 138 Potassium 4.1 Chloride 103 Carbon Dioxide 26 Anion Gap 9 BUN 89 H Creatinine 3.30 H Estim Creat Clear Calc 18 Estimated GFR 18 L Glucose 143 H POC Capillary Glucose 248 H 145 H Calcium 7.2 L Phosphorus 4.6 H Albumin 3.9 09/25/22 09/25/22 20:05 16:43 Sodium Potassium Chloride Carbon Dioxide Anion Gap BUN Creatinine Estim Creat Clear Calc Estimated GFR Glucose POC Capillary Glucose 195 H 207 H
== END 2022-09-26 16:25 ==
LOC: ANHED 20:33 → ANHIMU 22:26
PROVIDERS: Admitting Provider Internal Medicine; Emergency Provider Emergency Medicine; PCP Emergency Medicine; Visit Provider Internal Medicine
DX: I13.0 Hypertensive heart and chronic kidney disease with heart failure and stage 1 through stage 4 chronic kidney disease, or unspecified chronic kidney disease (principal); E11.22 Type 2 diabetes mellitus with diabetic chronic kidney disease; N18.4 Chronic kidney disease, stage 4 (severe); I50.33 Acute on chronic diastolic (congestive) heart failure; I48.91 Unspecified atrial fibrillation; R77.8 Other specified abnormalities of plasma proteins; C61 Malignant neoplasm of prostate; R91.8 Other nonspecific abnormal finding of lung field; M19.90 Unspecified osteoarthritis, unspecified site; N40.0 Benign prostatic hyperplasia without lower urinary tract symptoms; E21.1 Secondary hyperparathyroidism, not elsewhere classified; Z66 Do not resuscitate; I44.4 Left anterior fascicular block; I44.7 Left bundle-branch block, unspecified; I35.8 Other nonrheumatic aortic valve disorders; H40.9 Unspecified glaucoma; E78.5 Hyperlipidemia, unspecified; R26.89 Other abnormalities of gait and mobility; E11.40 Type 2 diabetes mellitus with diabetic neuropathy, unspecified; F10.90 Alcohol use, unspecified, uncomplicated; M17.9 Osteoarthritis of knee, unspecified; Z87.891 Personal history of nicotine dependence; Z79.01 Long term (current) use of anticoagulants; Z79.899 Other long term (current) drug therapy; Z82.49 Family history of ischemic heart disease and other diseases of the circulatory system; Z83.3 Family history of diabetes mellitus; Z84.1 Family history of disorders of kidney and ureter
CPT/HCPCS: 36415; 71045; 71046; 80048; 80053; 80069; 82948; 83036; 83735; 83880; 84100; 84484; 85025; 85610; 85730; 87040; 93005; 93306; 96365; 96375; 96376; 97161; 97165; 97530; 99285; A9270; G0378; J0456; J0696; J1815; J1940

== ENCOUNTER 2022-10-17 02:24 | Inpatient (IN) | payer OTHER, SELFPAY ==
[2022-10-17] VITALS (39 sets, daily range): BP systolic 126–167; BP diastolic 59–101; PULSE 60–106; RESP 18–31; TEMP 36.2–36.6; O2SAT 78–99; BMI 30.3
--- NOTE | ~2022-10-17 | XR_ITS ---
XR chest 1V portable 10/22/2022 09:43 Indication: CHF. Shortness of breath. Hypertension. Procedure: AP portable chest Comparison: Comparison to multiple prior studies sequentially, with oldest reviewed study dated 03/11. Findings: Cardiomegaly. No focal air space disease, pulmonary edema, pleural effusion or suspected pn eumothorax. Expansile mass involving the right eighth rib, suspicious for metastatic disease. Conside r correlation with CT. Impression: 1: No acute cardiopulmonary disease. 2: Expansile mass right eighth rib, suspicious for metastatic disease. Consider correlation with CT. Reviewed, dictated and finalized at location A. Impression: 1: No acute cardiopulmonary disease. 2: Expansile mass right eighth rib, suspicious for metastatic disease. Consider correlation with CT.
--- NOTE | ~2022-10-17 | XR_ITS ---
Portable chest x-ray Comparison: 09/25/2022 Clinical History: Chest pain, dyspnea Findings: There is extensive hazy airspace disease, most compatible with moderate pulmonary edema. P robable minimal right pleural effusion. Cardiomediastinal silhouette is stable. Bones and soft tissu es are unremarkable. Impression: Moderate pulmonary edema pattern. Correlate for underlying infection or chronic interstitial disease. Probable minimal right pleural effusion. Reviewed, dictated and finalized at location M. Impression: Moderate pulmonary edema pattern. Correlate for underlying infection or chronic interstitial disease. Probable minimal right pleural effusion.
--- NOTE | ~2022-10-17 | XR_ITS ---
Portable chest x-ray Comparison: 10/17/2022 Clinical History: CHF Findings: There is probable mild bibasilar pulmonary edema/atelectasis. Probable minimal right pleur al effusion. Stable large calcified mass projecting over the lower right hemithorax. Cardiomediastin al silhouette is stable. Impression: Probable minimal right pleural effusion and minimal bibasilar pulmonary edema/atelectasis. Stable large calcified mass projecting over the lower right hemithorax. Reviewed, dictated and finalized at [facility]. Impression: Probable minimal right pleural effusion and minimal bibasilar pulmonary edema/a telectasis. Stable large calcified mass projecting over the lower right hemithorax.
--- NOTE | ~2022-10-17 | XR_ITS ---
XR shoulder LT min 2V 10/18/2022 08:29 Indication: Left shoulder pain Procedure: 4 views left shoulder Comparison: No prior studies for comparison. Findings: There is polyarticular osteoarthritis. Osteopenia. No acute fracture or traumatic malalignm ent. There is subacromial joint space narrowing. No acute fracture or traumatic malalignment. Impression: 1: Polyarticular osteoarthritis of the left shoulder. Reviewed, dictated and finalized at location B. Impression: 1: Polyarticular osteoarthritis of the left shoulder.
--- NOTE | ~2022-10-17 | NM_ITS ---
EXAMINATION: NM bone scan whole body DATE: 10/23/2022 13:40 INDICATION: Right eighth rib mass. Prostate cancer. TECHNIQUE: 23.1 mCi Tc-99m HDP was administered intravenously. Delayed whole-body scintigrams were o btained. COMPARISON: Chest single view 10/22/2022, bone scan 08/24/2019, 06/17/21, CT abdomen and pelvis 10/27/2020 FINDINGS: There is a 7 cm mass of increased activity in right eighth rib correlating with an expansil e aggressive lytic lesion with calcified matrix by CT. IMPRESSION: 1. Stable 7 cm mass with increased activity in right eighth rib suspicious for a sarcoma or metastati c disease. Reviewed, dictated and finalized at location A. IMPRESSION: 1. Stable 7 cm mass with increased activity in right eighth rib suspicious for a sarcoma or metastatic disease.
--- NOTE | ~2022-10-17 | XR_ITS ---
XR_CERV2-3V_CR 10/18/2022 08:29 Indication: Neck pain Procedure: 5 views cervical spine Comparison: No prior studies for comparison. Findings: C6 and C7 not adequately visualized on lateral view due to patient body habitus. The visual ized cervical spine, no fracture is identified. There is moderate-severe multilevel facet and to a le sser degree uncinate hypertrophy. Lung apices are unremarkable. Odontoid process is normal. Lateral m asses normally aligned. No prevertebral soft tissue swelling. Impression: 1: Moderate-severe cervical spondylosis. 2: Limited visualization of the lower cervical spine due to patient body habitus. Reviewed, dictated and finalized at location B. Impression: 1: Moderate-severe cervical spondylosis. 2: Limited visualization of the lower cervical spine due to patient body habit us.
--- NOTE | 2022-10-17 02:40 | ECG_ITS ---
Measurements Intervals Holt Rate: 96 P: 83 RI: 180 QRS: -42 QRSD: 169 T: 62 QT: 409 QTc: 517 Interpretive Statements ATRIAL FLUTTER/TACHYCARDIA WITH NORMAL VENTRICULAR RATE LEFT AXIS DEVIATION LEFT BUNDLE BRANCH BLOCK BASELINE ARTIFACT- I, II, III, AVR, AVL, AVF, V5-V6 ABNORMAL ECG COMPARED TO ECG 09/23/2022 19:04:03 NO SIGNIFICANT CHANGES Electronically Signed On 10-17-2022 6:42:29 CDT by Isma Pearson D.O.
--- NOTE | 2022-10-17 03:01 | ED.GENADULT ---
HPI - General Adult General Chief complaint: Chest Pain Stated complaint: CP, neck pain Time Seen by Provider: 10/17/22 02:31 History of Present Illness HPI narrative: Patient 82-year-old gentleman who presents emergency department with chief complaint of shortness of breath chest discomfort and neck pain. Patient reports that he has been having symptoms since Sunday and the patient has history of congestive heart failure and was recently in the hospital for congestive heart failure exacerbation. Patient states the pain has been pretty well constant but reports that today he started getting more more short of breath and started having crackles with breathing. The patient reports that his weight has not increased since he is left the hospital and reports that he has been taking his Lasix and has been urinating. The patient reports he is unable to lay flat Related Data Home Medications Medication Instructions Recorded Confirmed finasteride 5 mg tablet 5 mg PO HS 05/06/19 10/02/22 latanoprost 0.005 % eye drops 1 drp ophthalmic (eye) DAILY 05/06/19 10/02/22 omeprazole 20 mg capsule,delayed 20 mg PO DAILY 07/06/20 10/02/22 release calcium 600 mg capsule 600 mg PO QID 11/28/21 10/02/22 denosumab 60 mg/mL subcutaneous 60 mg subcut .[id number] 01/18/22 10/02/22 syringe leuprolide acetate (6 month) 45 mg 7.5 mg IM [id number] 01/18/22 10/02/22 intramuscular syringe kit enzalutamide 40 mg capsule (Xtandi) 160 mg PO DAILY 03/29/22 10/02/22 apixaban 5 mg tablet (Eliquis) 5 mg PO BID 04/25/22 10/02/22 fluticasone propionate 50 1 spray intranasal BID 04/25/22 10/02/22 mcg/actuation nasal spray,suspension hydralazine 50 mg tablet 50 mg PO BID 06/28/22 10/02/22 Allergies Allergy/AdvReac Type Severity Reaction Status Date / Time lisinopril Allergy Unknown Itching Verified 10/17/22 03:24 Review of Systems Review of Systems: A 10 system review of systems was completed on the patient and is negative except for what is stated in the HPI. Nursing and ancillary documentation was reviewed. [facility] Past Medical History Medical History Arthritis Atrial fibrillation with RVR BPH (benign prostatic hyperplasia) Cancer treatment started CHF (congestive heart failure) CKD (chronic kidney disease) stage 4, GFR 15-29 ml/min Diabetes mellitus DNR (do not resuscitate) Glaucoma HLD (hyperlipidemia) Hypertension Impaired functional mobility, balance, gait, and endurance Kidney disease Neuropathy OA (osteoarthritis) of knee Prostate cancer Wears glasses Surgical History Surgical History History of cardiac catheterization History of hernia repair Family History Family History Father Acute myocardial infarction, Onset Age: 87 Cerebrovascular accident, Onset Age: 87 Mother Heart disease Acute myocardial infarction Sibling Acute myocardial infarction Heart disease Cerebrovascular accident Malignant neoplasm of prostate Sibling Carcinoma of colon Other Diabetes mellitus Family history of arthritis Hypertension Kidney disease Neuropathy Social History Social History Social History: Patient recently moved into [facility] into the assisted living. His niece Ursula is his surrogate power of attorney general. Patient wishes to be a DNR at this time. Patient denies having any pets. He has no children and he is . He is a Retired [employer]. Code status DNR Smoking packs per day: 0.5 Smoking cigarettes per day: 10.0 Years smoked: 10 Smoking pack-years: 5.00 Smoking status: Never smoker Tobacco type: cigarettes Second hand tobacco smoke exposure: Yes Alcohol intake: current Drinks per week: 1 Alcohol use details: 1 beer
[2022-10-17] MEDS: NITROGLYCERIN SL 0.4 MG TABLET SUBLINGUAL (03:02)
[2022-10-17] MEDS: FUROSEMIDE INJ 40 MG/4 ML VIAL IV PUSH (03:03)
[2022-10-17 03:06] LABS: INR 1.2; Prothrombin Time 15.3 Seconds (11.1-14.7)
[2022-10-17 03:07] LABS: Partial Thromboplastin Time 37.4 SECONDS (22.3-36.8)
--- NOTE | 2022-10-17 03:12 | PC.NURSE ---
patient refused aspirin. Two returned to [facility]; other two were opened at bedside prior to patient refusing. Disposed of appropriately.
[2022-10-17 03:13] LABS: Basophils Absolute Auto 0.1 K/mm3 (0.0-0.1); Eosinophils Absolute Auto 0.2 K/mm3 (0-0.3); Eosinophils Percent Auto 2.8 % (0-4.4); Hematocrit 36.7 % (42.0-52.0); Hemoglobin 12.1 g/dL (14.0-18.0); Immature Granulocyte Absolute 0.05 K/mm3 (0.00-0.031); Immature Granulocyte Percent A 0.6 % (0-0.5); Lymphocytes Absolute Auto 1.39 K/mm3 (0.9-3.2); Lymphocytes Percent Auto 16.8 % (18.3-44.2); Mean Corpuscular Hemoglobin 31.8 pg (26-34); Mean Corpuscular Volume 96.6 fl (80-100); Mean Platelet Volume 10.8 fl (7.4-10.4); Monocytes Absolute Auto 0.9 K/mm3 (0.1-0.6); Monocytes Percent Auto 10.3 % (2.6-8.5); Neutrophils Absolute Auto 5.7 K/mm3 (1.3-6.7); Neutrophils Percent Auto 68.5 % (45.5-73.1); Platelet Count Result 171 k/mm3 (150-375); Red Cell Distribution Width 13.7 % (11.5-14.5); White Blood Count 8.3 K/mm3 (4.5-10.0)
[2022-10-17 03:45] LABS: Appearance Urine Clear (Clear); Bacteria Urine None Seen /hpf; Bilirubin Urine Negative (Negative); Blood Urine Negative (Negative); Color Urine Yellow (Yellow); Glucose Urine UA Negative (Negative); Ketones Urine Negative (Negative); Leukocyte Esterase Ur Negative LEU/UL (Negative); Nitrate Urine Negative (Negative); Non Pathogenic Casts 0-2; Protein Urine 2+ mg/dL (Negative); RBC Urine 0-2 /hpf (0-2); Specific Grav Ur 1.014 (1.001-1.035); Squamous Epithelial Cell Urine None seen /hpf (Few); Urobilinogen Urine 0.2 mg/dL (<2.0); WBC Urine 0-5 /hpf
[2022-10-17 03:46] LABS: Add Urine Microscopic? YES
[2022-10-17 04:02] LABS: Alanine Aminotransferase 17 U/L (6-50); Albumin Level 4.6 g/dL (3.5-5.1); Alkaline Phosphatase 46 U/L (38-126); Anion Gap 15 mmol/L (8-16); Aspartate Amino Transferase 31 U/L (17-59); Bilirubin,Total 0.6 mg/dL (0.2-1.3); Blood Urea Nitrogen 102 mg/dL (9-20); Calcium 8.4 mg/dL (8.4-10.2); Carbon Dioxide 22 mmol/L (22-30); Chloride 99 mmol/L (98-107); Estimated CRCL calculation 14 ml/min; Estimated Glomerular Filt Rate 14; Glucose 290 mg/dL (65-110); Lactic Acid Reflex 1.3 mmol/L (0.7-2.0); Lipase 364 U/L (23-300); Magnesium 2.3 mg/dL (1.6-2.3); Potassium 4.6 mmol/L (3.4-5.0); Sodium 136 mmol/L (137-145)
[2022-10-17 04:16] LABS: NT Pro B Type Natriuretic Pept 6960 pg/mL (19.9-100)
--- NOTE | 2022-10-17 04:39 | PM.IMHP ---
H&P: HPI History of Present Illness Date/Time: 10/17/22 04:39 Chief Complaint: Chest pain Narrative: This is an 82-year-old male with past medical history significant for systolic heart failure ejection fraction 30-35%, atrial fibrillation, chronic kidney disease, degenerative joint disease, type 2 diabetes mellitus, prostate CA. patient lives at assisted living facility was brought to the emergency room for evaluation due to chest pain shortness of breath bilateral lower extremity edema, patient recently discharged from [facility] and now back with similar complaints. Patient was treated for congestive heart failure exacerbation, denies any fevers, rigors, chills, nausea, vomiting, patient sleeps in a recliner, no syncope, near syncope, no lightheadedness, no dizziness. Preliminary workup significant brain natriuretic peptide upwards of 6960, BUN 100 and to creatinine is 4, a chest x-ray was reported as: Portable chest x-ray Comparison: 09/25/2022 Clinical History: Chest pain, dyspnea Findings:? There is extensive hazy airspace disease, most compatible with moderate pulmonary edema. Probable minimal right pleural effusion.? Cardiomediastinal silhouette is stable. Bones and soft tissues are unremarkable. ? Impression: ? Moderate pulmonary edema pattern. Correlate for underlying infection or chronic interstitial disease. Probable minimal right pleural effusion. patient has been admitted for further evaluation management and treatment Review of Systems Review of Systems: chest pain which is reproducible with movement radiates to the neck worse with movement of the neck, shortness of breath, bilateral lower extremity edema. Constitutional: Constitutional: Denies chills, Denies fever(s) and Denies night sweats Eyes: Eyes: Denies change in vision ENT: Denies dysphagia and Denies odynophagia Cardiovascular: Cardiovascular: Reports leg edema and Reports dyspnea on exertion Respiratory: Respiratory: Denies cough and Denies excessive phlegm production Gastrointestinal: Gastrointestinal: Denies abdominal pain, Denies dyspepsia, Denies heartburn, Denies diarrhea, Denies nausea and Denies vomiting Genitourinary: Genitourinary: Denies dysuria Musculoskeletal: Musculoskeletal: Reports arthralgias Integumentary/Breasts: Skin/Breast: Denies rash Neurologic: Denies focal weakness and Denies Sensory deficit (Neuro) Psychiatric: Psychiatric: Reports no additional psychiatric complaints and Reports as per HPI Endocrine: Endocrine: Denies cold intolerance, Denies flushing, Denies heat intolerance, Denies polyphagia, Denies polydipsia and Denies palpitations Hematologic/Lymphatic: Hematologic/Lymphatic: Denies no additional hematologic/lymphatic complaints and Denies as per HPI Allergic/Immunologic: Allergic/Immunologic: Denies no additional allergic/immunologic complaints and Denies as per HPI PMFSH Past Medical History Medical History (Updated 10/17/22 @ 12:06 by Ivone Rodgers MD) Arthritis Atrial fibrillation with RVR BPH (benign prostatic hyperplasia) Cancer treatment started CHF (congestive heart failure) CKD (chronic kidney disease) stage 4, GFR 15-29 ml/min Diabetes mellitus DNR (do not resuscitate) Glaucoma HLD (hyperlipidemia) Hypertension Impaired functional mobility, balance, gait, and endurance Kidney disease Neck pain Neuropathy OA (osteoarthritis) of knee Paroxysmal atrial flutter Prostate cancer Wears glasses Surgical History Surgical History History of cardiac catheterization History of hernia repair Family History Family History Father Acute myocardial infarction, Onset Age: 87 Cerebrovascular accident, Onset Age: 87 Mother Heart disease Acute myocardial infarction Sibling Acute myocardial infarction Heart d
--- NOTE | 2022-10-17 05:03 | PC.NURSE ---
Patient refused urinary catheterization.
--- NOTE | 2022-10-17 05:41 | ADMGEN ---
This patient, Rafael Oneill, was admitted to IMU Room 203-01. Patient/family oriented to hospital policies and general routines including ID bracelet, bed and alarms, visiting hours, pain management, procedures, bathroom and other care routines, personal items, smoking policy, room service/diet, and visiting hours. Information on how to activate the Rapid Response Team has been discussed. Patient/Family are encouraged to report perceived risks to care and to ask questions if they do not understand what they are told or what they should do.
[2022-10-17] MEDS: MORPHINE SULFATE (*CRX) 4 MG/ML INJ 2 MG IV PUSH ×3 (05:58→20:44)
--- NOTE | 2022-10-17 06:19 | PHAR ---
HOME MED VERIFIED [facility] [id number] XTANDI 40 MG TABS. TAKE 4 TAB (160 MG) ONCE A DAY. ROUND YELLOW TAB IMPRINTED E40
--- NOTE | 2022-10-17 09:01 | PM.IMPN ---
Progress Note: A&P Assessment and Plan (1) Acute on chronic systolic heart failure: Code(s): I50.23 - Acute on chronic systolic (congestive) heart failure Status: Acute Assessment and Plan: echocardiogram from September of 2022 showed EF 30-35% Appreciate cardiology consult Continue IV diuresis, dobutamine support as well (2) Diabetes mellitus: Qualifiers: Chronic kidney disease stage: stage 4 (severe) Diabetes mellitus complication detail: with chronic kidney disease Diabetes mellitus complication status: with kidney complications Diabetes mellitus terminal operations manager insulin use: with mcc use Diabetes mellitus type: type 2 Qualified Code(s): E11.22 - Type 2 diabetes mellitus with diabetic chronic kidney disease; N18.4 - Chronic kidney disease, stage 4 (severe); Z79.4 - terminal operations manager (current) use of insulin Code(s): E11.9 - Type 2 diabetes mellitus without complications Status: Acute Assessment and Plan: Accu-Cheks AC and HS, sliding scale insulin, A1c was 6.3 last month 10/01 Blood glucose reviewed 10/17 (3) Acute kidney injury superimposed on CKD: Code(s): N17.9 - Acute kidney failure, unspecified; N18.9 - Chronic kidney disease, unspecified Status: Acute Assessment and Plan: likely pre renal azotemia superimposed on chronic kidney disease nephrology consult Mora catheter (4) Acute and chronic respiratory failure with hypoxia: Code(s): J96.21 - Acute and chronic respiratory failure with hypoxia Status: Acute Assessment and Plan: supplemental oxygen as needed Plan DVT prophylaxis with eliquis GI prophylaxis with PPI Code status full code Subjective Date/time seen: 10/17/22 09:01 Interval history: 82-year-old male with history of heart disease, kidney disease and diabetes is presenting in heart failure exacerbation with sudden onset neck and shoulder pain. No overnight events noted. No chest pain or shortness of breath. No nausea, vomiting or diarrhea. No fevers or chills. He is complaining of severe neck and left shoulder pain after using his wheelchair. He denies any numbness or tingling or radiation of the pain into his upper extremities. Review of Systems Review of Systems: 12 point review of systems was assessed and was negative except as noted in the HPI Exam Narrative: General: No acute respiratory distress, alert and oriented per baseline, appears somewhat uncomfortable due to neck and shoulder pain HEENT: Atraumatic, normocephalic, mucous membranes moist CV: Irregularly irregular, S1, S2 Lungs: Clear to auscultation bilaterally, no rales or crackles noted, no wheezes, good air entry, somewhat diminished at bases Abdomen: Soft, nontender, nondistended Extremities: Normal to inspection, tenderness to palpation over left trapezius and SCM, no edema in bilateral lower extremities noted Skin: No rashes noted, no lesions or wounds seen Objective Data Vital Signs Vital Signs: Vital Signs - 24 hr 10/17/22 02:35 10/17/22 02:46 10/17/22 02:51 Temperature Pulse Rate 96 94 Respiratory Rate 25 H Blood Pressure 164/68 H Pulse Oximetry 81 L 98 Oxygen Delivery Room Air Nasal Cannula Oxygen Flow Rate 4 10/17/22 02:32 10/17/22 02:41 10/17/22 02:45 Temperature Pulse Rate 95 94 Respiratory Rate 30 H 27 H Blood Pressure 163/77 H Pulse Oximetry 78 L 95 Oxygen Delivery Oxygen Flow Rate 10/17/22 02:46 10/17/22 03:00 10/17/22 03:01 Temperature Pulse Rate 94 93 94 Respiratory Rate 25 H 31 H 29 H Blood Pressure 161/85 H 161/78 H Pulse Oximetry 99 95 96 Oxygen Delivery Oxygen Flow Rate 10/17/22 03:15 10/17/22 03:16 10/17/22 03:30 Temperature Pulse Rate 97 97 95 Respiratory Rate 28 H 25 H 27 H Blood Pressure 149/84 H Pulse Oximetry Oxygen Delivery Oxygen Flow Rate 10/17/22 03:31 10/17/22 03:32 10/17/22 03:4
[2022-10-17 09:41] LABS: Troponin I 0.088 ng/mL (0.000-0.034)
--- NOTE | 2022-10-17 10:38 | P.CONNP_ITS ---
Assessment and Plan Assessment and plan (1) DONNA (acute kidney injury): Code(s): N17.9 - Acute kidney failure, unspecified Status: Acute Assessment and Plan: * due to altered hemodynamics from #3 possibly exacerbated by atrial flutter * suspect further fluctuations to occur given need for IV diuresis * hopefully as CHF improves, so will his renal function * follow repeat labs and UOP with diuresis (2) Chronic kidney disease, stage 4 (severe): Code(s): N18.4 - Chronic kidney disease, stage 4 (severe) Status: Chronic Assessment and Plan: * baseline creatinine runs ~ 2.8 - 3.4mg/dl in the last year * due to diabetes and hypertension as well as vascular disease and age related change (3) Acute on chronic systolic heart failure: Code(s): I50.23 - Acute on chronic systolic (congestive) heart failure Status: Acute Assessment and Plan: * recent admission for the same and appears to have this again * possible contributing factor being atrial flutter on admission * IV diuresis * follow I/Os, respiratory status, and daily weights * follow renal function * Cardiology consulted (4) Cardiomyopathy: Code(s): I42.9 - Cardiomyopathy, unspecified Status: Acute Assessment and Plan: * as noted by recent Echo last month - EF ~ 30 - 35% * continue medical therapy as outlined * complicated by his known advanced kidney disease * Cardiology following (5) Hypertension: Code(s): I10 - Essential (primary) hypertension Status: Acute Assessment and Plan: * elevated on admission but better now * continue current therapy * follow trend of hemodynamics (6) Anemia: Code(s): D64.9 - Anemia, unspecified Status: Chronic Assessment and Plan: * due to CKD, acute illness, and underlying malignancy * follow trend of H/H * no need for ELISE at this time (7) Insulin dependent diabetes mellitus: Status: Chronic Assessment and Plan: * follow accuchecks * glycemic control per hospitalists I will continue to follow the patient with you while he remains hospitalized and make further recommendations depending on his hospital course. Thank you for allowing me to participate in the care of this patient. History of Present Illness Reason for Consult Consult date: 10/17/22 Reason for consult: acute renal failure (on chronic kidney disease) Chief Complaint Chief complaint: Chest Pain,CHF,Acute Kidney Injury History of Present Illness Narrative: The patient is an 82-year-old male with the extensive past medical history as outlined below who presented to [facility] Emergency room for further evaluation of chest pain, shortness of breath, and bilateral lower extremity edema. It should be noted the patient was just recently hospitalized for similar sym ptoms a few weeks ago at [facility]. During that hospitalization, he responded to more aggressive diuresis with relative stability in his renal function and he was subsequently discharged back to his assisted living facility. He returns today to [facility] Emergency room for similar symptoms/complaints as noted. On further questioning, he reports that his pain has been pretty well constant but feels that his shortness of breath has been progressively worsening with what appeared to be audible crackles. No significant weight increase noted and he reports compliance with his diuretic therapy. However, he does report difficulty with orthopnea and paroxysmal nocturnal dyspnea. Workup and evalua
--- NOTE | 2022-10-17 10:38 | PM.CNNEP ---
Assessment and Plan Assessment and plan (1) DONNA (acute kidney injury): Code(s): N17.9 - Acute kidney failure, unspecified Status: Acute Assessment and Plan: due to altered hemodynamics from #3 possibly exacerbated by atrial flutter suspect further fluctuations to occur given need for IV diuresis hopefully as CHF improves, so will his renal function follow repeat labs and UOP with diuresis (2) Chronic kidney disease, stage 4 (severe): Code(s): N18.4 - Chronic kidney disease, stage 4 (severe) Status: Chronic Assessment and Plan: baseline creatinine runs ~ 2.8 - 3.4mg/dl in the last year due to diabetes and hypertension as well as vascular disease and age related change (3) Acute on chronic systolic heart failure: Code(s): I50.23 - Acute on chronic systolic (congestive) heart failure Status: Acute Assessment and Plan: recent admission for the same and appears to have this again possible contributing factor being atrial flutter on admission IV diuresis follow I/Os, respiratory status, and daily weights follow renal function Cardiology consulted (4) Cardiomyopathy: Code(s): I42.9 - Cardiomyopathy, unspecified Status: Acute Assessment and Plan: as noted by recent Echo last month - EF ~ 30 - 35% continue medical therapy as outlined complicated by his known advanced kidney disease Cardiology following (5) Hypertension: Code(s): I10 - Essential (primary) hypertension Status: Acute Assessment and Plan: elevated on admission but better now continue current therapy follow trend of hemodynamics (6) Anemia: Code(s): D64.9 - Anemia, unspecified Status: Chronic Assessment and Plan: due to CKD, acute illness, and underlying malignancy follow trend of H/H no need for ELISE at this time (7) Insulin dependent diabetes mellitus: Status: Chronic Assessment and Plan: follow accuchecks glycemic control per hospitalists I will continue to follow the patient with you while he remains hospitalized and make further recommendations depending on his hospital course. Thank you for allowing me to participate in the care of this patient. History of Present Illness Reason for Consult Consult date: 10/17/22 Reason for consult: acute renal failure (on chronic kidney disease) Chief Complaint Chief complaint: Chest Pain,CHF,Acute Kidney Injury History of Present Illness Narrative: The patient is an 82-year-old male with the extensive past medical history as outlined below who presented to [facility] Emergency room for further evaluation of chest pain, shortness of breath, and bilateral lower extremity edema. It should be noted the patient was just recently hospitalized for similar symptoms a few weeks ago at [facility]. During that hospitalization, he responded to more aggressive diuresis with relative stability in his renal function and he was subsequently discharged back to his assisted living facility. He returns today to [facility] Emergency room for similar symptoms/complaints as noted. On further questioning, he reports that his pain has been pretty well constant but feels that his shortness of breath has been progressively worsening with what appeared to be audible crackles. No significant weight increase noted and he reports compliance with his diuretic therapy. However, he does report difficulty with orthopnea and paroxysmal nocturnal dyspnea. Workup and evaluation emergency room demonstrated the patient be hemodynamically stable but routine blood test demonstrated an elevated BNP of 69 60, elevated BUN of 100 and elevated creatinine of 4.0 which were are above his baseline. His chest x-ray showed moderate pulmonary edema but no significant findings of acute infiltrate or pneumonia. Given his constellation of symptoms as well as his imaging studies as mentione
[2022-10-17 10:56] LABS: Troponin I 0.092 ng/mL (0.000-0.034)
--- NOTE | 2022-10-17 11:26 | PM.CNCAR ---
Assessment and Plan Assessment and plan (1) Acute on chronic systolic heart failure: Code(s): I50.23 - Acute on chronic systolic (congestive) heart failure Status: Acute Assessment and Plan: Patient presents again with hypoxia and acute on chronic systolic heart failure. Heart rate was in the upper 90s and he appeared to be in atrial flutter on admission which may be contributing. He was also hypertensive on admission and of course has his stage 4-5 CKD. Sounds like he has been compliant with his medications. --agree with furosemide 40 mg IV daily --daily BMP --dobutamine 2.5 mics per kilos for a day or 2 to improve renal perfusion and diuresis (2) Cardiomyopathy: Code(s): I42.9 - Cardiomyopathy, unspecified Status: Acute Assessment and Plan: Progressive worsening of cardiomyopathy, EF now 30-35% as of September 2022. --continue hydralazine and nitrates, beta-julio, titrate as tolerated --avoiding GUSTAVO-inhibitor and ARB to to advanced kidney disease --unclear if an SGLT 2 inhibitor would be of any use with this advanced stage of renal failure --patient has underlying LBBB, with a QRS duration of 145-169 milliseconds. He is a DNR, but I wonder if he would benefit from a biventricular pacemaker? Follow-up with Dr. Thornton regarding this issue. (3) Paroxysmal atrial flutter: Code(s): I48.92 - Unspecified atrial flutter Status: Acute Assessment and Plan: Paroxysmal atrial flutter, rate in the upper 90s, currently in sinus rhythm. May have aggravated his underlying problems. --continue metoprolol 100 mg b.i.d. --Cont amiodarone 200 mg b.i.d.; eventually reduce the amiodarone dose (4) Hypertension: Code(s): I10 - Essential (primary) hypertension Status: Acute Assessment and Plan: Blood pressure high on admission, improving. --continue hydralazine, isosorbide, metoprolol (5) Acute kidney injury superimposed on CKD: Code(s): N17.9 - Acute kidney failure, unspecified; N18.9 - Chronic kidney disease, unspecified Status: Acute Assessment and Plan: Dr. Cordero consulted. (6) Neck pain: Code(s): M54.2 - Cervicalgia Status: Acute Assessment and Plan: Sudden onset of neck pain, sounds musculoskeletal. --evaluation per hospitalist. History of Present Illness History of Present Illness Consult date/time: 10/17/22 11:26 Reason For Visit: Chest Pain,CHF,Acute Kidney Injury Narrative: Rafael Oneill is an 82-year-old male whom we were asked to see at the request of Dr. Gordillo for advice and opinion regarding his CHF, in consultation. The patient is followed by Dr. Thornton for his CHF is seen by Dr. Zafar for his CKD stage 4. He also has hypertension, diabetes, and is a DNR. Patient was hospitalized for a non-STEMI (deemed not a candidate for cardiac catheterization), and DVTs in March, and heart failure, AFib, hypertension and respiratory failure in April, respiratory failure and COVID-19 in June, and CHF again in September. He was last seen by Dr. Thornton on 10/06/2022 and appeared compensated taking furosemide 20 mg t.i.d.. His AFib rate was controlled on amiodarone 200 mg b.i.d. and and metoprolol 100 mg b.i.d.; was tolerating his Eliquis. Apparently recently his furosemide was increased to 40 mg b.i.d.. He has not run out of any medicines. The patient presented to the emergency room early this morning with chest pain and shortness of breath. The patient's main concern is that he is having a lot of pain in the neck and upper shoulders, starting Sunday, hurts to move and turn, and is constant. No recent falls. However apparently this morning he was short of breath and states his O2 sat at home was in the 70s. No anginal CP, denies palps or worsening edema. Troponins were 0.04 and 0.09, proBNP was 7000. BUN and creatinine were a little worse than usual at 102/4.0. Pt is not a clear historian and likely not a reliabl
[2022-10-17] MEDS: CALCIUM CARBONATE (OSCAL) 500 MG TABLET PO ×3 (12:12→20:40)
[2022-10-17] MEDS: oxyCODONE/ACETAMINOPHEN (*CRX) 5-325 MG TABLET 1 TABLET PO (12:12)
[2022-10-17] MEDS: DOBUTamine 250 MG/D5W 250 ML 250 MG/250 ML BAG 14.4 MG IV CONT (12:52)
--- NOTE | 2022-10-17 14:12 | PCOTNOTE ---
Attempted OT eval at 14:12, being evaluated by . Will follow.
[2022-10-17] MEDS: AMIODARONE HCL 200 MG TABLET PO (17:59)
[2022-10-17] MEDS: APIXABAN 5 MG TABLET PO (17:59)
[2022-10-17] MEDS: hydrALAZINE HCL 50 MG TABLET PO (18:00)
[2022-10-17] MEDS: LATANOPROST 0.005% OP SOLN 2.5 ML BTL 1 DROP EACH EYE (20:40)
[2022-10-17] MEDS: FINASTERIDE 5 MG TABLET PO (20:40)
[2022-10-17] MEDS: METOPROLOL TARTRATE 50 MG TAB 100 MG PO (20:40)
[2022-10-18] VITALS (16 sets, daily range): BP systolic 93–154; BP diastolic 56–112; PULSE 80–108; RESP 18–24; TEMP 36.1–36.6; O2SAT 96–100
[2022-10-18 04:11] LABS: Glucose Point of Care 177 mg/dl (65-105)
--- NOTE | 2022-10-18 06:29 | PC.NURSE ---
Paper documentation exists on this patient due to [employer] downtime on 10/17/22 2100 from to 10/18/22 at 0620
[2022-10-18 06:34] LABS: Basophils Percent Auto 0.3 % (0.2-1.2); Eosinophils Percent Auto 0.3 % (0-4.4); Hematocrit 33.3 % (42.0-52.0); Hemoglobin 10.6 g/dL (14.0-18.0); Immature Granulocyte Absolute 0.03 K/mm3 (0.00-0.031); Immature Granulocyte Percent A 0.3 % (0-0.5); Lymphocytes Absolute Auto 0.79 K/mm3 (0.9-3.2); Lymphocytes Percent Auto 8.1 % (18.3-44.2); Mean Corpuscular HGB Conc 31.8 g/dl (32-36); Mean Corpuscular Hemoglobin 30.6 pg (26-34); Mean Corpuscular Volume 96.2 fl (80-100); Monocytes Absolute Auto 0.9 K/mm3 (0.1-0.6); Monocytes Percent Auto 9.2 % (2.6-8.5); Neutrophils Percent Auto 81.8 % (45.5-73.1); Platelet Count Result 150 k/mm3 (150-375); Red Blood Count 3.46 M/mm3 (4.6-6.20); Red Cell Distribution Width 13.2 % (11.5-14.5); White Blood Count 9.7 K/mm3 (4.5-10.0)
[2022-10-18 06:58] LABS: Alanine Aminotransferase 18 U/L (6-50); Albumin Level 4.1 g/dL (3.5-5.1); Alkaline Phosphatase 24 U/L (38-126); Anion Gap 12 mmol/L (8-16); Aspartate Amino Transferase 39 U/L (17-59); Blood Urea Nitrogen 103 mg/dL (9-20); Calcium 7.9 mg/dL (8.4-10.2); Carbon Dioxide 24 mmol/L (22-30); Chloride 97 mmol/L (98-107); Estimated CRCL calculation 18 ml/min; Estimated Glomerular Filt Rate 18; Glucose 202 mg/dL (65-110); Potassium 4.8 mmol/L (3.4-5.0); Sodium 133 mmol/L (137-145)
[2022-10-18] MEDS: oxyCODONE/ACETAMINOPHEN (*CRX) 5-325 MG TABLET 1 TABLET PO ×3 (09:22→21:26)
[2022-10-18] MEDS: PANTOPRAZOLE 40 MG TABLET PO (09:23)
[2022-10-18] MEDS: APIXABAN 5 MG TABLET PO ×2 (09:24→17:10)
[2022-10-18] MEDS: ASPIRIN 81 MG CHEWABLE TABLET PO (09:24)
[2022-10-18] MEDS: AMIODARONE HCL 200 MG TABLET PO ×2 (09:24→17:10)
[2022-10-18] MEDS: CALCIUM CARBONATE (OSCAL) 500 MG TABLET PO ×4 (09:24→20:20)
[2022-10-18] MEDS: ISOSORBIDE MONONITRATE 60 MG TAB.ER.24H PO (09:25)
[2022-10-18] MEDS: FUROSEMIDE INJ 40 MG/4 ML VIAL IV PUSH (09:25)
[2022-10-18] MEDS: hydrALAZINE HCL 50 MG TABLET PO ×2 (09:25→17:11)
[2022-10-18] MEDS: CHOLECALCIFEROL 1,000 UNITS TABLET 5000 UNITS PO (09:25)
[2022-10-18] MEDS: METOPROLOL TARTRATE 50 MG TAB 100 MG PO ×2 (09:25→20:20)
[2022-10-18] MEDS: VITAMIN B COMPLEX CAPSULE 1 CAP PO (09:26)
[2022-10-18] MEDS: PRAVASTATIN SODIUM 20 MG TABLET PO (09:26)
[2022-10-18] MEDS: LIDOCAINE 5% PATCH 1 PATCH TRANSDERM (11:02)
--- NOTE | 2022-10-18 12:48 | PM.PNCARD ---
Progress Note: A&P Assessment and Plan (1) Acute on chronic systolic heart failure: Code(s): I50.23 - Acute on chronic systolic (congestive) heart failure Status: Acute Assessment and Plan: Patient presents again with hypoxia and acute on chronic systolic heart failure. Heart rate was in the upper 90s and he appeared to be in atrial flutter on admission which may be contributing. He was also hypertensive on admission and of course has his stage 4-5 CKD. Sounds like he has been compliant with his medications. Still on oxygen. --continue with furosemide 40 mg IV daily --daily BMP --dobutamine 2.5 mics per kilos for a day or 2 to improve renal perfusion and diuresis --chest x-ray in the morning to reassess CHF (2) Cardiomyopathy: Code(s): I42.9 - Cardiomyopathy, unspecified Status: Acute Assessment and Plan: Progressive worsening of cardiomyopathy, EF now 30-35% as of September 2022. --continue hydralazine and nitrates, beta-julio, titrate as tolerated --avoiding GUSTAVO-inhibitor and ARB to to advanced kidney disease --unclear if an SGLT 2 inhibitor would be of any use with this advanced stage of renal failure --patient has underlying LBBB, with a QRS duration of 145-169 milliseconds. He is a DNR, but I wonder if he would benefit from a biventricular pacemaker? However, may not be a good responder. Follow-up with Dr. Thornton regarding this issue. (3) Paroxysmal atrial flutter: Code(s): I48.92 - Unspecified atrial flutter Status: Acute Assessment and Plan: Paroxysmal atrial flutter, rate in the upper 90s. May have aggravated his underlying problems. --continue metoprolol 100 mg b.i.d. --Cont amiodarone 200 mg b.i.d.; eventually reduce the amiodarone dose (4) Hypertension: Code(s): I10 - Essential (primary) hypertension Status: Acute Assessment and Plan: Blood pressure high on admission, improving. --Try increasing hydralazine to 50 mg TID --Cont isosorbide, metoprolol (5) Acute kidney injury superimposed on CKD: Code(s): N17.9 - Acute kidney failure, unspecified; N18.9 - Chronic kidney disease, unspecified Status: Acute Assessment and Plan: Dr. Zafar consulted. Creat improved. (6) Neck pain: Code(s): M54.2 - Cervicalgia Status: Acute Assessment and Plan: Sudden onset of neck pain, sounds musculoskeletal. XRays show DJD --evaluation per hospitalist. Subjective Date/time seen: 10/18/22 12:48 Interval history: Follow-up for CHF. The patient is followed by Dr. Thornton for his CHF is seen by Dr. Zafar for his CKD stage 4.? He also has hypertension, diabetes, and is a DNR. Readmitted 10/17/2022 with CHF. Started on IV diuretics and dobutamine 2.5 mics per kilos per minute. Date of service 10/18/2022: Patient states that he was never short of breath and not short of breath today. Can not tell me if he is urinating more than usual. Systolic BP variable, 93-134 mmHg. Still on 2 L nasal cannula. BUN still greater than 100 but creatinine has declined to 3.3. Telemetry: Probable atrial flutter, rate controlled 90-104. Pt requested I speak w/ niece Ursula Long. She is wondering where are we going with this? She has apparently been told by Dr. Thornton that This is it. --basically that Mr. Oneill has advanced kidney and heart disease and he likely will be in and out of the hospital, until his heart or kidneys give out. Pt has expressed to her that he is adverse to dialysis ( was [facility]), but when he can't breath he will accept any relief. We have few options to tx his CHF. Discussed the possibility of Palliative Care or Hospice Care at some point. Review of Systems Review of Systems: Denies chest pain, shortness of breath. Main complaint is neck and shoulder pain; has a lidocaine patch on. No abdominal complaints. Exam Const: General: comfortable; No confusion Orientation/consciousnes
--- NOTE | 2022-10-18 13:04 | PM.PNNEP ---
Progress Note: A&P Assessment and Plan (1) DONNA (acute kidney injury): Code(s): N17.9 - Acute kidney failure, unspecified Status: Acute Assessment and Plan: a bit better by AM labs due to altered hemodynamics from #3 possibly exacerbated by atrial flutter suspect further fluctuations to occur given need for IV diuresis hopefully as CHF improves, so will his renal function follow repeat labs and UOP with diuresis (2) Chronic kidney disease, stage 4 (severe): Code(s): N18.4 - Chronic kidney disease, stage 4 (severe) Status: Chronic Assessment and Plan: baseline creatinine runs ~ 2.8 - 3.4mg/dl in the last year due to diabetes and hypertension as well as vascular disease and age related change (3) Acute on chronic systolic heart failure: Code(s): I50.23 - Acute on chronic systolic (congestive) heart failure Status: Acute Assessment and Plan: recent admission for the same and appears to have this again possible contributing factor being atrial flutter on admission IV diuresis along with dobutamine gtt follow I/Os, respiratory status, and daily weights follow renal function Cardiology following (4) Cardiomyopathy: Code(s): I42.9 - Cardiomyopathy, unspecified Status: Acute Assessment and Plan: as noted by recent Echo last month - EF ~ 30 - 35% continue medical therapy as outlined complicated by his known advanced kidney disease Cardiology following (5) Hypertension: Code(s): I10 - Essential (primary) hypertension Status: Acute Assessment and Plan: elevated on admission but better now continue current therapy follow trend of hemodynamics (6) Anemia: Code(s): D64.9 - Anemia, unspecified Status: Chronic Assessment and Plan: due to CKD, acute illness, and underlying malignancy follow trend of H/H no need for ELISE at this time (7) Insulin dependent diabetes mellitus: Status: Chronic Assessment and Plan: follow accuchecks glycemic control per hospitalists Will continue to follow. Subjective Date/time seen: 10/18/22 13:04 Interval history: Follow-up for acute kidney injury on chronic kidney disease and fluid overload. Initiated on dobutamine gtt to optimize hemodynamics/cardiac function in context of his advanced kidney disease and need for IV diuresis; he reports stability in respiratory status but seems more concerned with his neck pain; creatinine better by AM labs but BUN still elevated and difficult to assess if urine output is doing better; no apparent distress noted. Exam Narrative: General: WD/WN male/female in NAD Heart: IRRR, normal S1 and S2; no rub Lungs: bibasilar crackles noted Abdomen: soft, nontender, nondistended, positive bowel sounds Extremities: no cyanosis or clubbing; no edema Skin: warm and dry Objective Data Vital Signs Vital Signs: Vital Signs Temp Pulse Resp BP Pulse Ox O2 Del Method O2 Flow Rate 10/18/22 12:00 89 10/18/22 12:00 97 F L 105 H 20 134/112 H 99 10/18/22 12:00 96 Nasal Cannula 2 10/18/22 11:28 Nasal Cannula 2 10/18/22 11:35 134/112 H 10/18/22 11:35 93/56 L 10/18/22 10:00 101 H 10/18/22 08:00 96 Nasal Cannula 4 10/18/22 08:00 108 H 10/18/22 09:25 101 H 10/18/22 09:24 101 H 10/18/22 08:00 97.8 F 89 24 H 146/70 H 96 10/18/22 04:00 97.8 F 95 18 154/81 H 96 10/18/22 00:00 97.8 F 95 18 125/62 96 10/17/22 20:40 97 10/17/22 19:46 97.9 F 98 18 134/61 95 10/17/22 18:00 91 10/17/22 17:59 96 10/17/22 16:47 97.2 F L 97 20 146/75 H 99 Intake/Output Intake/Output: Intake & Output 10/15/22 10/16/22 10/17/22 10/18/22 23:59 23:59 23:59 23:59 Intake Total 1020 780 Output Total 850 400 Balance 170 380 Meds/Results Medications: Active Medicatio
--- NOTE | 2022-10-18 13:04 | P.PNNP_ITS ---
Progress Note: A&P Assessment and Plan (1) DONNA (acute kidney injury): Code(s): N17.9 - Acute kidney failure, unspecified Status: Acute Assessment and Plan: * a bit better by AM labs * due to altered hemodynamics from #3 possibly exacerbated by atrial flutter * suspect further fluctuations to occur given need for IV diuresis * hopefully as CHF improves, so will his renal function * follow repeat labs and UOP with diuresis (2) Chronic kidney disease, stage 4 (severe): Code(s): N18.4 - Chronic kidney disease, stage 4 (severe) Status: Chronic Assessment and Plan: * baseline creatinine runs ~ 2.8 - 3.4mg/dl in the last year * due to diabetes and hypertension as well as vascular disease and age related change (3) Acute on chronic systolic heart failure: Code(s): I50.23 - Acute on chronic systolic (congestive) heart failure Status: Acute Assessment and Plan: * recent admission for the same and appears to have this again * possible contributing factor being atrial flutter on admission * IV diuresis along with dobutamine gtt * follow I/Os, respiratory status, and daily weights * follow renal function * Cardiology following (4) Cardiomyopathy: Code(s): I42.9 - Cardiomyopathy, unspecified Status: Acute Assessment and Plan: * as noted by recent Echo last month - EF ~ 30 - 35% * continue medical therapy as outlined * complicated by his known advanced kidney disease * Cardiology following (5) Hypertension: Code(s): I10 - Essential (primary) hypertension Status: Acute Assessment and Plan: * elevated on admission but better now * continue current therapy * follow trend of hemodynamics (6) Anemia: Code(s): D64.9 - Anemia, unspecified Status: Chronic Assessment and Plan: * due to CKD, acute illness, and underlying malignancy * follow trend of H/H * no need for ELISE at this time (7) Insulin dependent diabetes mellitus: Status: Chronic Assessment and Plan: * follow accuchecks * glycemic control per hospitalists Will continue to follow. Subjective Date/time seen: 10/18/22 13:04 Interval history: Follow-up for acute kidney injury on chronic kidney disease and fluid overload. Initiated on dobutamine gtt to optimize hemodynamics/cardiac function in context of his advanced kidney disease and need for IV diuresis; he reports stability in respiratory status but seems more concerned with his neck pain; creatinine bett er by AM labs but BUN still elevated and difficult to assess if urine output is doing better; no apparent distress noted. Exam Narrative: General: WD/WN male/female in NAD Heart: IRRR, normal S1 and S2; no rub Lungs: bibasilar crackles noted Abdomen: soft, nontender, nondistended, positive bowel sounds Extremities: no cyanosis or clubbing; no edema Skin: warm and dry Objective Data Vital Signs Vital Signs: Vital Signs Temp Pulse Resp BP Pulse Ox O2 Del Method O2 Flow Rate 10/18/22 12:00 89 10/18/22 12:00 97 F L 105 H 20 134/112 H 99 10/18/22 12:00 96 Nasal Cannula 2 10/18/22 11:28 Nasal Cannula 2 10/18/22 11:35 134/112 H 10/18/22 11:35 93/56 L 10/18/22 10:00 101 H 10/18/22 08:00 96 Nasal Cannula 4 10/18/22 08:00
--- NOTE | 2022-10-18 14:39 | PM.IMPN ---
Progress Note: A&P Assessment and Plan (1) Acute on chronic systolic heart failure: Code(s): I50.23 - Acute on chronic systolic (congestive) heart failure Status: Acute Assessment and Plan: Patient presents with chest pain and found to have acute on chronic systolic CHF exacerbatio, Echo from September of 2022 showed EF 30-35%. Hydralazine advanced. Appreciate cardiology consult. Continue IV diuresis, dobutamine support as well. (2) Acute kidney injury superimposed on CKD: Code(s): N17.9 - Acute kidney failure, unspecified; N18.9 - Chronic kidney disease, unspecified Status: Acute Assessment and Plan: Cr 4.0 on admission likely pre renal azotemia superimposed on chronic kidney disease. Nephrology consulted. Cr better today with diuresis. Continue to monitor electrolytes, urine output and renal funciton. 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 The patient's blood glucose was reviewed on 10/18 Glucose eelvated at times into the 200 range. Continue AccuCheks covering with sliding scale. Hypoglycemia protocol available as needed. Continue to monitor for now. (4) Acute and chronic respiratory failure with hypoxia: Code(s): J96.21 - Acute and chronic respiratory failure with hypoxia Status: Acute Assessment and Plan: Not on O2 at home. Hypoxia related to CHF exacerbation. Continue supplemental oxygen as needed (5) Neck pain: Code(s): M54.2 - Cervicalgia Status: Acute Assessment and Plan: Imaging showing osteoarthritis. Continue symptomatic care (6) Paroxysmal atrial flutter: Code(s): I48.92 - Unspecified atrial flutter Status: Acute Assessment and Plan: Patient with AFib. Rate controlled. Continue Amiodarone and metoprolol. Contineu Eliquis Plan Discussed with YESI (niece) and all questions answered. Discussed hospice as an option. She would like information about hospice. Care coordination informed. Subjective Date/time seen: 10/18/22 14:39 Interval history: 82-year-old male with history of heart disease, kidney disease and diabetes is presenting in heart failure exacerbation with sudden onset neck and shoulder pain. Assuming care. Chart reviewed. Has neck pains without change. He does not wear oxygen at home although he thinks he needs it. No complaints of chest pain or shortness of breath today. He feels well. He is by and large wheelchair-bound. Exam Narrative: AF 97.0 134/112 82 20 99% 2L Gen - NARD Chest - bibasilar crackles, nml RR CV - irregularly irregular. Tele showing AFib with controlled rate. Abd - Soft, NT/ND, Positive BS Ext - No pedal edema Psych - Nml mood and affect Skin - Warm and dry. chronic venous stasis skin changes bilateral LE Objective Data Vital Signs Vital Signs: Vital Signs - 24 hr 10/17/22 16:47 10/17/22 17:59 10/17/22 16:00 Temperature 97.2 F L Pulse Rate 97 96 Respiratory Rate 20 Blood Pressure 146/75 H Pulse Oximetry 99 94 Oxygen Delivery Nasal Cannula Oxygen Flow Rate 2 10/17/22 16:00 10/17/22 18:00 10/17/22 19:46 Temperature 97.9 F Pulse Rate 106 H 91 98 Respiratory Rate 18 Blood Pressure 134/61 Pulse Oximetry 95 Oxygen Delivery Oxygen Flow Rate 10/17/22 20:40 10/18/22 00:00 10/18/22 04:00 Temperature 97.8 F 9
[2022-10-18 16:54] LABS: Glucose Point of Care 238 mg/dl (65-105)
--- NOTE | 2022-10-18 18:48 | PC.NURSE ---
Dr Jeffers made aware of restarting medication for Chemo, stated will take to [facility] prior to restarting med due to adverse reactions, [facility] would like information on hospice care and consult placed for care management.
[2022-10-18] MEDS: FINASTERIDE 5 MG TABLET PO (20:20)
[2022-10-18] MEDS: LATANOPROST 0.005% OP SOLN 2.5 ML BTL 1 DROP EACH EYE (20:20)
[2022-10-18] MEDS: DOBUTamine 250 MG/D5W 250 ML 250 MG/250 ML BAG 14.4 MG IV CONT (22:20)
[2022-10-19] VITALS (20 sets, daily range): BP systolic 104–138; BP diastolic 57–76; PULSE 69–91; RESP 18–24; TEMP 36–36.4; O2SAT 95–100
[2022-10-19] MEDS: ACETAMINOPHEN 325 MG TABLET 650 MG PO (02:11)
[2022-10-19] MEDS: oxyCODONE/ACETAMINOPHEN (*CRX) 5-325 MG TABLET 1 TABLET PO ×3 (04:29→21:39)
[2022-10-19 05:19] LABS: Basophils Percent Auto 0.5 % (0.2-1.2); Eosinophils Absolute Auto 0.1 K/mm3 (0-0.3); Eosinophils Percent Auto 1.9 % (0-4.4); Hematocrit 27.6 % (42.0-52.0); Immature Granulocyte Absolute 0.02 K/mm3 (0.00-0.031); Immature Granulocyte Percent A 0.3 % (0-0.5); Lymphocytes Absolute Auto 1.13 K/mm3 (0.9-3.2); Lymphocytes Percent Auto 18.2 % (18.3-44.2); Mean Corpuscular HGB Conc 32.6 g/dl (32-36); Mean Corpuscular Hemoglobin 31.6 pg (26-34); Mean Corpuscular Volume 96.8 fl (80-100); Mean Platelet Volume 10.1 fl (7.4-10.4); Monocytes Percent Auto 16.1 % (2.6-8.5); Neutrophils Absolute Auto 3.9 K/mm3 (1.3-6.7); Platelet Count Result 127 k/mm3 (150-375); Red Blood Count 2.85 M/mm3 (4.6-6.20); Red Cell Distribution Width 13.3 % (11.5-14.5); White Blood Count 6.2 K/mm3 (4.5-10.0)
[2022-10-19 05:31] LABS: Alanine Aminotransferase 15 U/L (6-50); Albumin Level 3.6 g/dL (3.5-5.1); Alkaline Phosphatase 30 U/L (38-126); Anion Gap 9 mmol/L (8-16); Aspartate Amino Transferase 28 U/L (17-59); Bilirubin,Total 0.6 mg/dL (0.2-1.3); Blood Urea Nitrogen 103 mg/dL (9-20); Calcium 7.9 mg/dL (8.4-10.2); Carbon Dioxide 27 mmol/L (22-30); Chloride 97 mmol/L (98-107); Estimated CRCL calculation 16 ml/min; Estimated Glomerular Filt Rate 16; Glucose 145 mg/dL (65-110); Potassium 4.5 mmol/L (3.4-5.0); Sodium 133 mmol/L (137-145)
[2022-10-19] MEDS: LIDOCAINE 5% PATCH 1 PATCH TRANSDERM (09:19)
[2022-10-19] MEDS: PRAVASTATIN SODIUM 20 MG TABLET PO (09:20)
[2022-10-19] MEDS: VITAMIN B COMPLEX CAPSULE 1 CAP PO (09:21)
[2022-10-19] MEDS: ISOSORBIDE MONONITRATE 60 MG TAB.ER.24H PO (09:22)
[2022-10-19] MEDS: PANTOPRAZOLE 40 MG TABLET PO (09:22)
[2022-10-19] MEDS: hydrALAZINE HCL 50 MG TABLET PO ×3 (09:23→17:08)
[2022-10-19] MEDS: CALCIUM CARBONATE (OSCAL) 500 MG TABLET PO ×4 (09:23→21:36)
[2022-10-19] MEDS: APIXABAN 5 MG TABLET PO ×2 (09:23→17:06)
[2022-10-19] MEDS: METOPROLOL TARTRATE 50 MG TAB 100 MG PO ×2 (09:24→21:36)
[2022-10-19] MEDS: CHOLECALCIFEROL 1,000 UNITS TABLET 5000 UNITS PO (09:24)
[2022-10-19] MEDS: FUROSEMIDE INJ 40 MG/4 ML VIAL IV PUSH (09:25)
[2022-10-19] MEDS: AMIODARONE HCL 200 MG TABLET PO ×2 (09:25→17:08)
--- NOTE | 2022-10-19 11:46 | PM.PNCARD ---
Progress Note: A&P Assessment and Plan (1) Acute on chronic systolic heart failure: Code(s): I50.23 - Acute on chronic systolic (congestive) heart failure Status: Acute Assessment and Plan: Patient presents again with hypoxia and acute on chronic systolic heart failure. Heart rate was in the upper 90s and he appeared to be in atrial flutter on admission which may be contributing. He was also hypertensive on admission and of course has his stage 4-5 CKD. Sounds like he has been compliant with his medications and fluids. --Off O2, with significant improvement of his CXR. --Change furosemide 40 mg IV daily to po diuretic, if OK w/ DR. Kiran. Takes furosemide 40 mg BID at home; perhaps try 60 mg BID? --daily BMP, and FU BMP as OPT --DC dobutamine 2.5 mics per kilos for a day (2) Cardiomyopathy: Code(s): I42.9 - Cardiomyopathy, unspecified Status: Acute Assessment and Plan: Progressive worsening of cardiomyopathy, EF now 30-35% as of September 2022. --hydralazine increased. --Cont nitrates, beta-julio, titrate as tolerated --avoiding GUSTAVO-inhibitor and ARB to to advanced kidney disease --unclear if an SGLT 2 inhibitor would be of any use with this advanced stage of renal failure --patient has underlying LBBB, with a QRS duration of 145-169 milliseconds. He is a DNR, but I wonder if he would benefit from a biventricular pacemaker? However, may not be a good responder. Follow-up with Dr. Thornton regarding this issue. (3) Paroxysmal atrial flutter: Code(s): I48.92 - Unspecified atrial flutter Status: Acute Assessment and Plan: Paroxysmal atrial flutter, rate in the upper 90s on admission. May have aggravated his underlying problems. --HR improved --continue metoprolol 100 mg b.i.d. --Cont amiodarone 200 mg b.i.d.; eventually reduce the amiodarone dose (4) Hypertension: Code(s): I10 - Essential (primary) hypertension Status: Acute Assessment and Plan: Blood pressure high on admission, improving. --Increased hydralazine to 50 mg TID --Cont isosorbide, metoprolol (5) Acute kidney injury superimposed on CKD: Code(s): N17.9 - Acute kidney failure, unspecified; N18.9 - Chronic kidney disease, unspecified Status: Acute Assessment and Plan: Dr. Zafar consulted. Creat improved. (6) Neck pain: Code(s): M54.2 - Cervicalgia Status: Acute Assessment and Plan: Sudden onset of neck pain, sounds musculoskeletal. XRays show DJD --evaluation per hospitalist. Subjective Date/time seen: 10/19/22 11:46 Interval history: Follow-up for CHF. The patient is followed by Dr. Thornton for his CHF is seen by Dr. Zafar for his CKD stage 4.? He also has hypertension, diabetes, and is a DNR. Readmitted 10/17/2022 with CHF. Started on IV diuretics and dobutamine 2.5 mics per kilos per minute. Date of service 10/18/2022: Patient states that he was never short of breath and not short of breath today. Can not tell me if he is urinating more than usual. Systolic BP variable, 93-134 mmHg. Still on 2 L nasal cannula. BUN still greater than 100 but creatinine has declined to 3.3. Telemetry: Probable atrial flutter, rate controlled 90-104. Hydralazine increased. Pt requested I speak w/ niece Ursula Long. She is wondering where are we going with this? She has apparently been told by Dr. Thornton that This is it. --basically that Mr. Oneill has advanced kidney and heart disease and he likely will be in and out of the hospital, until his heart or kidneys give out. Pt has expressed to her that he is adverse to dialysis ( was [facility]), but when he can't breath he will accept any relief. We have few options to tx his CHF. Discussed the possibility of Palliative Care or Hospice Care at some point. Date of service 10/19/2022: Denies SOB at rest, but when getting up in a chair he has ALVA. Remains on room air. Blood p
--- NOTE | 2022-10-19 12:59 | PM.PNNEP ---
Progress Note: A&P Assessment and Plan (1) DONNA (acute kidney injury): Code(s): N17.9 - Acute kidney failure, unspecified Status: Acute Assessment and Plan: creatinine fluctuating due to altered hemodynamics from #3 possibly exacerbated by atrial flutter suspect further fluctuations to occur given need for IV diuresis hopefully as CHF improves, so will his renal function follow repeat labs and UOP with diuresis (2) Chronic kidney disease, stage 4 (severe): Code(s): N18.4 - Chronic kidney disease, stage 4 (severe) Status: Chronic Assessment and Plan: baseline creatinine runs ~ 2.8 - 3.4mg/dl in the last year due to diabetes and hypertension as well as vascular disease and age related change he may have a new baseline creatinine (due to CKD progression) (3) Acute on chronic systolic heart failure: Code(s): I50.23 - Acute on chronic systolic (congestive) heart failure Status: Acute Assessment and Plan: clinically improving recent admission for the same and appears to have this again possible contributing factor being atrial flutter on admission IV diuresis along with dobutamine gtt follow I/Os, respiratory status, and daily weights follow renal function Cardiology following (4) Cardiomyopathy: Code(s): I42.9 - Cardiomyopathy, unspecified Status: Acute Assessment and Plan: as noted by recent Echo last month - EF ~ 30 - 35% continue medical therapy as outlined complicated by his known advanced kidney disease Cardiology following (5) Hypertension: Code(s): I10 - Essential (primary) hypertension Status: Acute Assessment and Plan: elevated on admission but better now continue current therapy/medications follow trend of hemodynamics (6) Anemia: Code(s): D64.9 - Anemia, unspecified Status: Chronic Assessment and Plan: due to CKD, acute illness, and underlying malignancy follow trend of H/H no need for ELISE at this time (7) Insulin dependent diabetes mellitus: Status: Chronic Assessment and Plan: follow accuchecks glycemic control per hospitalists Will continue to follow. Subjective Date/time seen: 10/19/22 12:59 Interval history: Follow-up for acute kidney injury on chronic kidney disease and fluid overload. Shortness of breath seems better although he notes dyspnea on exertion; off oxygen and doing reasonably well on room air; tolerating diuresis although renal function fluctuating; no apparent distress voiced at this time; transitioned to oral diuretics and dobutamine gtt to be discontinued. Exam Narrative: General: WD/WN male/female in NAD Heart: IRRR, normal S1 and S2; no rub Lungs: decreased breath sounds at bases Abdomen: soft, nontender, nondistended, positive bowel sounds Extremities: no cyanosis or clubbing; trace edema Skin: chronic venous stasis changes noted Objective Data Vital Signs Vital Signs: Vital Signs Temp Pulse Resp BP Pulse Ox O2 Del Method O2 Flow Rate 10/19/22 12:00 Room Air 10/19/22 12:23 96.9 F L 72 20 127/76 97 10/19/22 08:00 83 10/19/22 08:00 100 Nasal Cannula 2 10/19/22 09:54 95 Room Air 10/19/22 09:43 97 Nasal Cannula 0.5 10/19/22 09:25 79 10/19/22 09:24 79 10/19/22 08:15 96.8 F L 75 21 H 138/57 L 98 10/19/22 06:00 73 10/19/22 04:00 69 10/19/22 02:00 77 10/19/22 00:00 82 10/18/22 22:00 85 10/18/22 20:00 92 10/19/22 04:00 100 Nasal Cannula 2 10/19/22 04:00 97 F L 75 20 129/70 99 10/19/22 00:00 100 Nasal Cannula 2 10/18/22 20:00 100 Nasal Cannula 2 10/19/22 00:00 97.5 F L 82 20 119/68 100 10/18/22 20:20 89 10/18/22 19:57 97.9 F 87 20 99/61 L 100 Intake/Output Intake/Output: Intake & Output 10/16/22 10/17/22 10/18/22 05/
--- NOTE | 2022-10-19 12:59 | P.PNNP_ITS ---
Progress Note: A&P Assessment and Plan (1) DONNA (acute kidney injury): Code(s): N17.9 - Acute kidney failure, unspecified Status: Acute Assessment and Plan: * creatinine fluctuating * due to altered hemodynamics from #3 possibly exacerbated by atrial flutter * suspect further fluctuations to occur given need for IV diuresis * hopefully as CHF improves, so will his renal function * follow repeat labs and UOP with diuresis (2) Chronic kidney disease, stage 4 (severe): Code(s): N18.4 - Chronic kidney disease, stage 4 (severe) Status: Chronic Assessment and Plan: * baseline creatinine runs ~ 2.8 - 3.4mg/dl in the last year * due to diabetes and hypertension as well as vascular disease and age related change * he may have a new baseline creatinine (due to CKD progression) (3) Acute on chronic systolic heart failure: Code(s): I50.23 - Acute on chronic systolic (congestive) heart failure Status: Acute Assessment and Plan: * clinically improving * recent admission for the same and appears to have this again * possible contributing factor being atrial flutter on admission * IV diuresis along with dobutamine gtt * follow I/Os, respiratory status, and daily weights * follow renal function * Cardiology following (4) Cardiomyopathy: Code(s): I42.9 - Cardiomyopathy, unspecified Status: Acute Assessment and Plan: * as noted by recent Echo last month - EF ~ 30 - 35% * continue medical therapy as outlined * complicated by his known advanced kidney disease * Cardiology following (5) Hypertension: Code(s): I10 - Essential (primary) hypertension Status: Acute Assessment and Plan: * elevated on admission but better now * continue current therapy/medications * follow trend of hemodynamics (6) Anemia: Code(s): D64.9 - Anemia, unspecified Status: Chronic Assessment and Plan: * due to CKD, acute illness, and underlying malignancy * follow trend of H/H * no need for ELISE at this time (7) Insulin dependent diabetes mellitus: Status: Chronic Assessment and Plan: * follow accuchecks * glycemic control per hospitalists Will continue to follow. Subjective Date/time seen: 10/19/22 12:59 Interval history: Follow-up for acute kidney injury on chronic kidney disease and fluid overload. Shortness of breath seems better although he notes dyspnea on exertion; off oxygen and doing reasonably well on room air; tolerating diuresis although renal function fluctuating; no apparent distress voiced at this time; transitioned to oral diuretics and dobutamine gtt to be discontinued. Exam Narrative: General: WD/WN male/female in NAD Heart: IRRR, normal S1 and S2; no rub Lungs: decreased breath sounds at bases Abdomen: soft, nontender, nondistended, positive bowel sounds Extremities: no cyanosis or clubbing; trace edema Skin: chronic venous stasis changes noted Objective Data Vital Signs Vital Signs: Vital Signs Temp Pulse Resp BP Pulse Ox O2 Del Method O2 Flow Rate 10/19/22 12:00 Room Air 10/19/22 12:23 96.9 F L 72 20 127/76 97 10/19/22 08:00 83 10/19/22 08:00 100 Nasal Cannula 2 10/19/22 09:54 95 Room Air 10/19/22 09:43 97 Nasal Cannula 0.5 10/19/22 09:25 79
--- NOTE | 2022-10-19 16:01 | PM.IMPN ---
Progress Note: A&P Assessment and Plan (1) Acute on chronic systolic heart failure: Code(s): I50.23 - Acute on chronic systolic (congestive) heart failure Status: Acute Assessment and Plan: Patient presents with chest pain and found to have acute on chronic systolic CHF exacerbation Echo September 2022 showed EF 30-35%, diastolic function is indeterminate Started on IV diuretics. Dobutamine was added. Hydralazine advanced. Appreciate cardiology consult. Weaned to room air. Changed to oral Lasix today and home dosed advanced. Dobutamine stopped. Monitor renal function. (2) Acute kidney injury superimposed on CKD: Code(s): N17.9 - Acute kidney failure, unspecified; N18.9 - Chronic kidney disease, unspecified Status: Acute Assessment and Plan: Cr 4.0 on admission likely pre renal azotemia superimposed on chronic kidney disease. Nephrology consulted. Cr up again to 3.7 today with diuresis. BUN remains at 103. Changed to oral Lasix and home dose advanced. Continue to monitor electrolytes, urine output and renal function. 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 The patient's blood glucose was reviewed on 10/19 Glucose elevated at times into the 200 range at times (but 145 this morning). Continue AccuCheks covering with sliding scale. Hypoglycemia protocol available as needed. Continue to monitor for now. (4) Acute and chronic respiratory failure with hypoxia: Code(s): J96.21 - Acute and chronic respiratory failure with hypoxia Status: Acute Assessment and Plan: Not on O2 at home. Hypoxia related to CHF exacerbation. Weaned to room air. Continue supplemental oxygen as needed (5) Neck pain: Code(s): M54.2 - Cervicalgia Status: Acute Assessment and Plan: Imaging showing osteoarthritis. Continue Lidoderm patch Continue symptomatic care (6) Paroxysmal atrial flutter: Code(s): I48.92 - Unspecified atrial flutter Status: Acute Assessment and Plan: Patient with AFib. Rate controlled. Continue Amiodarone and metoprolol. Continue Eliquis Subjective Date/time seen: 10/19/22 16:01 Interval history: 82-year-old male with history of heart disease, kidney disease and diabetes is presenting in heart failure exacerbation with sudden onset neck and shoulder pain. No CP or SOB today. Complains of neck pain mostly left sided. Exam Narrative: AF 96.9 127/76 72 20 97% ra Gen - NARD Chest - bibasilar crackles, nml RR CV - irregularly irregular. Tele showing AFib and variable block Abd - Soft, NT/ND, Positive BS Ext - No pedal edema Psych - Nml mood and affect Skin - Warm and dry. chronic venous stasis skin changes bilateral LE Objective Data Vital Signs Vital Signs: Vital Signs - 24 hr 10/18/22 17:10 10/18/22 18:00 10/18/22 19:57 Temperature 97.9 F Pulse Rate 85 80 87 Respiratory Rate 20 Blood Pressure 99/61 L Pulse Oximetry 100 Oxygen Delivery Oxygen Flow Rate Fraction of Inspired Oxygen 10/18/22 20:20 10/19/22 00:00 10/18/22 20:00 Temperature 97.5 F L Pulse Rate 89 82 Respiratory Rate 20 Blood Pressure 119/68 Pulse Oximetry 100 100 Oxygen Delivery Nasal Cannula Oxygen Flow Rate 2 Fraction of Inspired Oxygen 10/19/22 00:00 10/19/22 04:00 10/19/22 04:00 Temperature 9
[2022-10-19] MEDS: FUROSEMIDE 20 MG TABLET 60 MG PO (17:07)
[2022-10-19] MEDS: FINASTERIDE 5 MG TABLET PO (21:36)
[2022-10-19] MEDS: LATANOPROST 0.005% OP SOLN 2.5 ML BTL 1 DROP EACH EYE (21:37)
[2022-10-20] VITALS (19 sets, daily range): BP systolic 95–167; BP diastolic 46–109; PULSE 71–102; RESP 16–24; TEMP 36–37.2; O2SAT 97–100
[2022-10-20] MEDS: oxyCODONE/ACETAMINOPHEN (*CRX) 5-325 MG TABLET 1 TABLET PO ×3 (03:53→18:33)
[2022-10-20 04:37] LABS: Alanine Aminotransferase 16 U/L (6-50); Albumin Level 4.1 g/dL (3.5-5.1); Alkaline Phosphatase 20 U/L (38-126); Anion Gap 13 mmol/L (8-16); Aspartate Amino Transferase 40 U/L (17-59); Bilirubin,Total 0.8 mg/dL (0.2-1.3); Blood Urea Nitrogen 105 mg/dL (9-20); Calcium 8.1 mg/dL (8.4-10.2); Carbon Dioxide 22 mmol/L (22-30); Chloride 97 mmol/L (98-107); Estimated CRCL calculation 18 ml/min; Estimated Glomerular Filt Rate 17; Glucose 178 mg/dL (65-110); Potassium 4.8 mmol/L (3.4-5.0); Sodium 132 mmol/L (137-145)
[2022-10-20 04:42] LABS: Basophils Absolute Auto 0.1 K/mm3 (0.0-0.1); Basophils Percent Auto 0.8 % (0.2-1.2); Eosinophils Absolute Auto 0.4 K/mm3 (0-0.3); Eosinophils Percent Auto 5.7 % (0-4.4); Immature Granulocyte Absolute 0.04 K/mm3 (0.00-0.031); Immature Granulocyte Percent A 0.6 % (0-0.5); Lymphocytes Absolute Auto 1.45 K/mm3 (0.9-3.2); Lymphocytes Percent Auto 23.5 % (18.3-44.2); Mean Corpuscular HGB Conc 32.3 g/dl (32-36); Mean Corpuscular Hemoglobin 31.7 pg (26-34); Mean Corpuscular Volume 98.4 fl (80-100); Mean Platelet Volume 11.1 fl (7.4-10.4); Monocytes Absolute Auto 0.8 K/mm3 (0.1-0.6); Monocytes Percent Auto 12.8 % (2.6-8.5); Neutrophils Absolute Auto 3.5 K/mm3 (1.3-6.7); Neutrophils Percent Auto 56.6 % (45.5-73.1); Platelet Count Result 175 k/mm3 (150-375); Red Blood Count 3.15 M/mm3 (4.6-6.20); Red Cell Distribution Width 13.2 % (11.5-14.5); White Blood Count 6.2 K/mm3 (4.5-10.0)
[2022-10-20 05:05] LABS: Anisocytosis 1+ (NORMAL); Platelet Estimate Adequate (Adequate); Poikilocytosis 1+ (NORMAL); Tear Drop Cells 1+ (NORMAL)
[2022-10-20 05:06] LABS: Burr Cells 1+ (NORMAL); Schistocytes None Seen (NORMAL)
[2022-10-20] MEDS: ACETAMINOPHEN 325 MG TABLET 650 MG PO ×2 (06:44→20:49)
[2022-10-20] MEDS: LIDOCAINE 5% PATCH 1 PATCH TRANSDERM (09:26)
[2022-10-20] MEDS: VITAMIN B COMPLEX CAPSULE 1 CAP PO (09:28)
[2022-10-20] MEDS: METOPROLOL TARTRATE 50 MG TAB 100 MG PO ×2 (09:28→20:31)
[2022-10-20] MEDS: hydrALAZINE HCL 50 MG TABLET PO ×3 (09:28→18:05)
[2022-10-20] MEDS: CHOLECALCIFEROL 1,000 UNITS TABLET 5000 UNITS PO (09:29)
[2022-10-20] MEDS: FUROSEMIDE 20 MG TABLET 60 MG PO ×2 (09:29→18:03)
[2022-10-20] MEDS: AMIODARONE HCL 200 MG TABLET PO ×2 (09:29→18:04)
[2022-10-20] MEDS: CALCIUM CARBONATE (OSCAL) 500 MG TABLET PO ×4 (09:29→20:38)
[2022-10-20] MEDS: APIXABAN 5 MG TABLET PO ×2 (09:30→18:03)
[2022-10-20] MEDS: PANTOPRAZOLE 40 MG TABLET PO (09:30)
[2022-10-20] MEDS: PRAVASTATIN SODIUM 20 MG TABLET PO (09:30)
[2022-10-20] MEDS: ASPIRIN 81 MG CHEWABLE TABLET PO (09:30)
[2022-10-20] MEDS: ISOSORBIDE MONONITRATE 60 MG TAB.ER.24H PO (09:30)
--- NOTE | 2022-10-20 10:10 | P.PNNP_ITS ---
Progress Note: A&P Assessment and Plan (1) DONAN (acute kidney injury): Code(s): N17.9 - Acute kidney failure, unspecified Status: Acute Assessment and Plan: * creatinine fluctuating * due to altered hemodynamics from #3 possibly exacerbated by atrial flutter * suspect fluctuations due to need for IV diuresis * seems to have improved with achievement of relative euvolemia * follow repeat labs and UOP with diuresis (2) Chronic kidney disease, stage 4 (severe): Code(s): N18.4 - Chronic kidney disease, stage 4 (severe) Status: Chronic Assessment and Plan: * baseline creatinine runs ~ 2.8 - 3.4mg/dl in the last year or so * due to diabetes and hypertension as well as vascular disease and age related change * remains at risk for CKD progression * 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 in general (3) Acute on chronic systolic heart failure: Code(s): I50.23 - Acute on chronic systolic (congestive) heart failure Status: Acute Assessment and Plan: * clinically improving * recent admission for the same and appears to have this again * possible contributing factor being atrial flutter on admission * s/p IV lasix and IV dobutamine; now on oral diuretics * follow I/Os, respiratory status, and daily weights * follow renal function * Cardiology following (4) Cardiomyopathy: Code(s): I42.9 - Cardiomyopathy, unspecified Status: Acute Assessment and Plan: * as noted by recent Echo last month - EF ~ 30 - 35% * continue medical therapy as outlined * complicated by his known advanced kidney disease * Cardiology following (5) Hypertension: Code(s): I10 - Essential (primary) hypertension Status: Acute Assessment and Plan: * elevated on admission but better now * continue current therapy/medications * follow trend of hemodynamics (6) Anemia: Code(s): D64.9 - Anemia, unspecified Status: Chronic Assessment and Plan: * due to CKD, acute illness, and underlying malignancy * follow trend of H/H * no need for ELISE at this time (7) Insulin dependent diabetes mellitus: Status: Chronic Assessment and Plan: * follow accuchecks * glycemic control per hospitalists Will continue to follow. Subjective Date/time seen: 10/20/22 10:10 Interval history: Follow-up for acute kidney injury on chronic kidney disease and fluid overload. Volume status doing significantly better with previous interventions (IV lasix + dobutamine gtt) since admission; transitioned to oral diuretic therapy; major complaint is that of diffuse muscle aches and associated weakness; no acute distress noted; PT/OT has been ordered; no issues/events overnight. Exam Narrative: General: elderly but WD/WN male in NAD Heart: IRRR, normal S1 and S2; no rub Lungs: decreased breath sounds at bases Abdomen: soft, nontender, nondistended, positive bowel sounds Extremities: no cyanosis or clubbing; trace edema Skin: chronic venous stasis changes apparent Objective Data Vital Signs Vital Signs: Vital Signs Temp Pulse Resp BP Pulse Ox O2 Del Method 10/20/22 10:00 87 10/20/22 08:00 93 10/20/22 09:29 86 10/20/22 09:28 82 10/20/22 08:38 96.8 F L 92 24 H 167/100 H 97 10/20/22 06:00 87
--- NOTE | 2022-10-20 10:10 | PM.PNNEP ---
Progress Note: A&P Assessment and Plan (1) DONNA (acute kidney injury): Code(s): N17.9 - Acute kidney failure, unspecified Status: Acute Assessment and Plan: creatinine fluctuating due to altered hemodynamics from #3 possibly exacerbated by atrial flutter suspect fluctuations due to need for IV diuresis seems to have improved with achievement of relative euvolemia follow repeat labs and UOP with diuresis (2) Chronic kidney disease, stage 4 (severe): Code(s): N18.4 - Chronic kidney disease, stage 4 (severe) Status: Chronic Assessment and Plan: baseline creatinine runs ~ 2.8 - 3.4mg/dl in the last year or so due to diabetes and hypertension as well as vascular disease and age related change remains at risk for CKD progression not interested in pursuing [facility]/dialysis as a treatment option in general (3) Acute on chronic systolic heart failure: Code(s): I50.23 - Acute on chronic systolic (congestive) heart failure Status: Acute Assessment and Plan: clinically improving recent admission for the same and appears to have this again possible contributing factor being atrial flutter on admission s/p IV lasix and IV dobutamine; now on oral diuretics follow I/Os, respiratory status, and daily weights follow renal function Cardiology following (4) Cardiomyopathy: Code(s): I42.9 - Cardiomyopathy, unspecified Status: Acute Assessment and Plan: as noted by recent Echo last month - EF ~ 30 - 35% continue medical therapy as outlined complicated by his known advanced kidney disease Cardiology following (5) Hypertension: Code(s): I10 - Essential (primary) hypertension Status: Acute Assessment and Plan: elevated on admission but better now continue current therapy/medications follow trend of hemodynamics (6) Anemia: Code(s): D64.9 - Anemia, unspecified Status: Chronic Assessment and Plan: due to CKD, acute illness, and underlying malignancy follow trend of H/H no need for ELISE at this time (7) Insulin dependent diabetes mellitus: Status: Chronic Assessment and Plan: follow accuchecks glycemic control per hospitalists Will continue to follow. Subjective Date/time seen: 10/20/22 10:10 Interval history: Follow-up for acute kidney injury on chronic kidney disease and fluid overload. Volume status doing significantly better with previous interventions (IV lasix + dobutamine gtt) since admission; transitioned to oral diuretic therapy; major complaint is that of diffuse muscle aches and associated weakness; no acute distress noted; PT/OT has been ordered; no issues/events overnight. Exam Narrative: General: elderly but WD/WN male in NAD Heart: IRRR, normal S1 and S2; no rub Lungs: decreased breath sounds at bases Abdomen: soft, nontender, nondistended, positive bowel sounds Extremities: no cyanosis or clubbing; trace edema Skin: chronic venous stasis changes apparent Objective Data Vital Signs Vital Signs: Vital Signs Temp Pulse Resp BP Pulse Ox O2 Del Method 10/20/22 10:00 87 10/20/22 08:00 93 10/20/22 09:29 86 10/20/22 09:28 82 10/20/22 08:38 96.8 F L 92 24 H 167/100 H 97 10/20/22 06:00 87 10/20/22 04:00 97.9 F 84 20 144/77 H 99 10/20/22 04:00 84 10/20/22 02:00 91 10/20/22 00:00 74 10/19/22 22:00 91 10/19/22 20:00 80 10/20/22 00:00 96.9 F L 74 18 123/59 L 97 10/19/22 21:36 82 10/19/22 20:00 97.1 F L 81 18 126/67 98 10/19/22 18:00 75 Intake/Output Intake/Output: Intake & Output 10/17/22 10/18/22 10/19/22 10/20/22 23:59 23:59 23:59 23:59 Intake Total 1020 2170 920 740 Output Total 850 1950 1951 2975 Balance 170 013 -5808 -1345 Meds/Results Medications: Active Medications Generic Name Dose Route Start Last
--- NOTE | 2022-10-20 14:23 | PM.PNCARD ---
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 He has been restored to a state of euvolemia and at this point there are no additional cardiac recommendations to make. He is very weak with several days of bedrest being treated for CHF yet again. Prognosis is poor. Others have mentioned in notes the possibility of hospice consultation. I discussed this with the patient and his daughter in the room today they do not believe any discussions have been initiated in the this regard. Discharge to home or to rehab is reasonable at this time and deferred to the primary team. Obviously long-term prognosis is poor Jose M Frazier MD [facility] Subjective Date/time seen: Date of service: 10/20/22 14:23 Interval history: Follow-up visit in this 82-year-old man with: Severe end-stage cardiomyopathy with poor left ventricular function, chronic atrial flutter and poor renal function. Patient was hospitalized for another episode of heart failure with reduced ejection fraction. Combination of intravenous dobutamine along with loop diuretics have restored a state of euvolemia. Patient is comfortable sitting in the chair and at least at rest or with minimal activity is no longer short of breath. Edema has resolved. Exam Const: General: comfortable; No confusion Orientation/consciousness: oriented to person, patient oriented x3 and No confusion Other: Poor historian. HENMT: Mouth: Yes moist mucous membranes Other: No palpable lesions along the neck, no discrete tenderness. Eyes: EOM: EOMs intact bilaterally Neck: Thyroid: thyroid normal Resp: Effort & Inspection: normal respiratory effort Auscultation: clear to auscultation bilaterally Other: Diminished breath sounds in the bases Cardio: Rate: regular rate Rhythm: regular rhythm and abnormal rhythm irregularly irregular Heart sounds: no murmurs GI: Inspection: normal to inspection Skin: General skin exam: lesion (Hyperpigmentation of the lower extremities) Lesions: lesion noted (Hyperpigmentation of the lower extremities) Neuro: General: oriented to person, patient oriented x3 and No confusion Extrem: Right lower extremity: no edema Left lower extremity: no edema Other: Distal pulses are not palpable, there is no residual edema at this time Psych: Appearance: grossly normal Mental Status: mental status grossly normal Other: Likely not a very reliable historian Objective Data Vital Signs Vital Signs: Vital Signs - 24 hr 10/19/22 17:08 10/19/22 16:00 10/19/22 16:00 Temperature 36.3 C L Pulse Rate 82 76 Respiratory Rate 24 H Blood Pressure 104/60 Pulse Oximetry 98 Oxygen Delivery Room Air 10/19/22 16:00 10/19/22 18:00 10/19/22 20:00 Temperature 36.2 C L Pulse Rate 79 75 81 Respiratory Rate 18 Blood Pressure 126/67 Pulse Oximetry 98 Oxygen Delivery 10/19/22 21:36 10/20/22 00:00 10/19/22 20:00 Temperature 36.1 C L Pulse Rate 82 74 80 Respiratory Rate 18 Blood Pressure 123/59 L Pulse Oximetry 97 Oxygen Delivery 10/19/22 22:00 10/20/22 00:00 10/20/22 02:00 Temperature Pulse Rate 91 74 91 Respiratory Rate Blood Pressure Pulse Oximetry Oxygen Delivery 10/20/22 04:00 10/20/22 04:00 10/20/22 06:00 Temperature 36.6 C Pulse Rate 84 84 87 Respiratory Rate 20 Blood Pressure 144/77 H Pulse Oximetry 99 Oxygen Delivery 10/20/22 08:38 10/20/22 09:28 10/20/22 09:29 Temperature 36.0 C L Pulse Rate 92 82 86 Respiratory Rate 24 H Blood Pressure 167/100 H Pulse Oximetry 97 Oxygen Delivery 10/20/22 08:00 10/20/22 10:00 10/20/22 11:59 Temperature 36.1 C L Pulse Rate 93 87 7
--- NOTE | 2022-10-20 15:32 | PCPTNOTE ---
Attempted to see patient for PT, however patient reported he just got done working with OT and that he was not going to get back up out of bed.
--- NOTE | 2022-10-20 16:27 | PM.IMPN ---
Progress Note: A&P Assessment and Plan (1) Chronic kidney disease, stage IV (severe): Code(s): N18.4 - Chronic kidney disease, stage 4 (severe) Status: Inactive (2) Paroxysmal atrial flutter: Code(s): I48.92 - Unspecified atrial flutter Status: Acute (3) Acute on chronic systolic heart failure: Code(s): I50.23 - Acute on chronic systolic (congestive) heart failure Status: Acute (4) Neck pain: Code(s): M54.2 - Cervicalgia Status: Acute Plan # diffuse muscle skeletal pain -patient has some tight muscles neck, may use heating pad -PTOT consulted -encourage out of bed, discussed with nursing staff -as needed lidocaine patch, K-pad # end-stage congestive heart failure -echocardiogram September 2022 EF 30 diaphragm%, indeterminate diastolic dysfunction -appreciate Cardiology consultation: Recommendation for hospice, patient is not euvolemic -transition from IV diuretics to p.o. as he patient is euvolemic -off dobutamine -heart failure car patient is now stable # chronic conditions -paroxysmal atrial fibrillation: Anticoagulation Eliquis, rate control with amiodarone metoprolol -hyperlipidemia: Pravastatin, aspirin 81 mg -holding dose of leuprolide, denosumab, enzalutamide -vitamin-D supplement -GERD: Protonix Diet: Heart healthy DVT prophylaxis: On Eliquis Code status: DNR Disposition: Pending PT evaluation Subjective Date/time seen: 10/20/22 16:27 Interval history: Patient seen examined. He still has significant muscle aches. Advised him to get out of bed and ambulate. Patient to work with PT and OT. Patient has fever, chills, nausea vomiting or diarrhea. Patient will likely need halfway facility placement. Patient is not euvolemic and cardiac stable. Cardiology team is adjusting hospice for severity of end-stage cardiomyopathy with poor left ventricular function. He has been transition to oral diuretic management. Patient encouraged to be out of bed and working with PT for musculoskeletal issues. Review of Systems Review of Systems: 10 point ROS complete, negative other than what is specified in HPI. Exam Narrative: - GENERAL: Pleasant elderly male no acute distress. Well-nourished. - EYES: EOMI. Anicteric. - HENT: Moist mucous membranes. Tight muscles around the area of pain - LUNGS: Clear to auscultation bilaterally, no wheezing, rhonchi, or rales. - CARDIOVASCULAR: Regular rate and rhythm. No murmur. No JVD. - ABDOMEN: Soft, non-tender and non-distended. No palpable masses. - EXTREMITIES: No edema. Peripheral pulses 2+. Non-tender. - NEUROLOGIC: No focal neurological deficits. CN II-XII grossly intact. - PSYCHIATRIC: Awake, Alert and oriented x 3. Appropriate mood and affect. - SKIN: No rashes or lesions. Warm. - LYMPH: No cervical lymphadenopathy. Objective Data Vital Signs Vital Signs: Vital Signs - 24 hr 10/19/22 17:08 10/19/22 18:00 10/19/22 20:00 Temperature 36.2 C L Pulse Rate 82 75 81 Respiratory Rate 18 Blood Pressure 126/67 Pulse Oximetry 98 Oxygen Delivery 10/19/22 21:36 10/20/22 00:00 10/19/22 20:00 Temperature 36.1 C L Pulse Rate 82 74 80 Respiratory Rate 18 Blood Pressure 123/59 L Pulse Oximetry 97 Oxygen Delivery 10/19/22 22:00 10/20/22 00:00 10/20/22 02:00 Temperature Pulse Rate 91 74 91 Respiratory Rate Blood Pressure Pulse Oximetry Oxygen Delivery 10/20/22 04:00 10/20/22 04:00 10/20/22 06:00 Temperature 36.6 C Pulse Rate 84 84 87 Respiratory Rate 20 Blood Pressure 144/77 H Pulse Oximetry 99 Oxygen Delivery 10/20/22 08:38 10/20/22 09:28 10/20/22 09:29 Temperature 36.0 C L Pulse Rate 92 82 86 Respiratory Rate 24 H Blood Pressure 167/100 H Pulse Oximetry 97 Oxygen Delivery 10/20/22 08:00 10/20/22 10:00 10/20/22 11:59 Temperature 36.1 C L Pulse Rate 93 87 75 Respiratory Rate 18 Blood Pressure 135/7
[2022-10-20] MEDS: LATANOPROST 0.005% OP SOLN 2.5 ML BTL 1 DROP EACH EYE (20:31)
[2022-10-20] MEDS: FINASTERIDE 5 MG TABLET PO (20:31)
--- NOTE | 2022-10-20 21:34 | PC.NURSE ---
This patient, Rafael Oneill, was transferred to [[id number]] on 10/20/22 at 2125. Personal belongings sent with patient. Report given to [CHAYO El]. Appropriate documentation sent with patient.
[2022-10-21] VITALS (11 sets, daily range): BP systolic 94–126; BP diastolic 52–75; PULSE 69–102; RESP 16–20; TEMP 35.8–37.4; O2SAT 96–99
[2022-10-21 05:52] LABS: Basophils Percent Auto 0.5 % (0.2-1.2); Eosinophils Absolute Auto 0.2 K/mm3 (0-0.3); Eosinophils Percent Auto 3.5 % (0-4.4); Hematocrit 29.3 % (42.0-52.0); Hemoglobin 9.6 g/dL (14.0-18.0); Immature Granulocyte Absolute 0.03 K/mm3 (0.00-0.031); Immature Granulocyte Percent A 0.5 % (0-0.5); Lymphocytes Absolute Auto 1.55 K/mm3 (0.9-3.2); Mean Corpuscular HGB Conc 32.8 g/dl (32-36); Mean Corpuscular Hemoglobin 30.8 pg (26-34); Mean Corpuscular Volume 93.9 fl (80-100); Mean Platelet Volume 10.2 fl (7.4-10.4); Monocytes Absolute Auto 0.8 K/mm3 (0.1-0.6); Monocytes Percent Auto 13.9 % (2.6-8.5); Neutrophils Absolute Auto 3.1 K/mm3 (1.3-6.7); Neutrophils Percent Auto 54.6 % (45.5-73.1); Platelet Count Result 153 k/mm3 (150-375); Red Blood Count 3.12 M/mm3 (4.6-6.20); Red Cell Distribution Width 12.8 % (11.5-14.5); White Blood Count 5.7 K/mm3 (4.5-10.0)
[2022-10-21 06:02] LABS: Alanine Aminotransferase 16 U/L (6-50); Albumin Level 3.8 g/dL (3.5-5.1); Alkaline Phosphatase 35 U/L (38-126); Anion Gap 10 mmol/L (8-16); Aspartate Amino Transferase 29 U/L (17-59); Bilirubin,Total 0.6 mg/dL (0.2-1.3); Blood Urea Nitrogen 104 mg/dL (9-20); Carbon Dioxide 29 mmol/L (22-30); Chloride 94 mmol/L (98-107); Estimated CRCL calculation 16 ml/min; Estimated Glomerular Filt Rate 15; Glucose 172 mg/dL (65-110); Potassium 4.2 mmol/L (3.4-5.0); Sodium 133 mmol/L (137-145)
[2022-10-21] MEDS: CHOLECALCIFEROL 1,000 UNITS TABLET 5000 UNITS PO (08:44)
[2022-10-21] MEDS: ISOSORBIDE MONONITRATE 60 MG TAB.ER.24H PO (08:44)
[2022-10-21] MEDS: oxyCODONE/ACETAMINOPHEN (*CRX) 5-325 MG TABLET 1 TABLET PO ×3 (08:44→20:45)
[2022-10-21] MEDS: PANTOPRAZOLE 40 MG TABLET PO (08:45)
[2022-10-21] MEDS: ASPIRIN 81 MG CHEWABLE TABLET PO (08:45)
[2022-10-21] MEDS: AMIODARONE HCL 200 MG TABLET PO ×2 (08:45→17:35)
[2022-10-21] MEDS: VITAMIN B COMPLEX CAPSULE 1 CAP PO (08:45)
[2022-10-21] MEDS: hydrALAZINE HCL 50 MG TABLET PO (08:45)
[2022-10-21] MEDS: CALCIUM CARBONATE (OSCAL) 500 MG TABLET PO ×4 (08:45→20:44)
[2022-10-21] MEDS: METOPROLOL TARTRATE 50 MG TAB 100 MG PO ×2 (08:45→20:45)
[2022-10-21] MEDS: FUROSEMIDE 20 MG TABLET 60 MG PO ×2 (08:45→17:35)
[2022-10-21] MEDS: LIDOCAINE 5% PATCH 1 PATCH TRANSDERM (08:45)
[2022-10-21] MEDS: APIXABAN 5 MG TABLET PO ×2 (08:45→17:35)
[2022-10-21] MEDS: PRAVASTATIN SODIUM 20 MG TABLET PO (08:46)
--- NOTE | 2022-10-21 14:12 | PM.IMPN ---
Progress Note: A&P Assessment and Plan (1) Chronic kidney disease, stage IV (severe): Code(s): N18.4 - Chronic kidney disease, stage 4 (severe) Status: Inactive (2) DONNA (acute kidney injury): Code(s): N17.9 - Acute kidney failure, unspecified Status: Acute (3) Neck pain: Code(s): M54.2 - Cervicalgia Status: Acute (4) Paroxysmal atrial flutter: Code(s): I48.92 - Unspecified atrial flutter Status: Acute (5) Acute kidney injury superimposed on CKD: Code(s): N17.9 - Acute kidney failure, unspecified; N18.9 - Chronic kidney disease, unspecified Status: Acute (6) CKD (chronic kidney disease) stage 4, GFR 15-29 ml/min: Code(s): N18.4 - Chronic kidney disease, stage 4 (severe) Status: Acute Plan # diffuse muscle skeletal pain -patient has some tight muscles neck, may use heating pad -PT/OT consulted -encourage out of bed, discussed with nursing staff -as needed lidocaine patch, K-pad -encouraging patient to get out of bed # end-stage congestive heart failure -echocardiogram September 2022 EF 30 diaphragm%, indeterminate diastolic dysfunction -appreciate Cardiology consultation: Recommendation for hospice, patient is not euvolemic -lasix 60mg PO BID, if DONNA worsens may need to hold -off dobutamine -Cr 3.8, baseline is 2.8-3.4 # chronic conditions -paroxysmal atrial fibrillation: Anticoagulation Eliquis, rate control with amiodarone metoprolol -hyperlipidemia: Pravastatin, aspirin 81 mg -holding home doses of leuprolide, denosumab, enzalutamide -vitamin-D supplement -GERD: Protonix Diet:??Heart healthy DVT prophylaxis:??On Eliquis Code status:??DNR Disposition:?pending placement SNF Subjective Date/time seen: 10/21/22 14:12 Interval history: Patient seen examined. Muscle pains are better today. Cr 3.8 above his baseline 2.8-3.4. Nephrology Dr. Gil casanova. Cardiology whose patient is euvolemic and stable for discharge. Patient will likely need SNF. I encouraged him to get out of bed. I discussed with nurse bedside. Review of Systems Review of Systems: 10 point ROS complete, negative other than what is specified in HPI. Exam Narrative: - GENERAL:? Pleasant elderly male no acute distress. - EYES: EOMI. Anicteric. - HENT: Moist mucous membranes. - LUNGS: Clear to auscultation bilaterally, no wheezing, rhonchi, or rales. - CARDIOVASCULAR: Regular rate and rhythm. No murmur. No JVD. - ABDOMEN: Soft, non-tender and non-distended. No palpable masses. - EXTREMITIES: No edema. Peripheral pulses 2+. Non-tender. - NEUROLOGIC: No focal neurological deficits. CN II-XII grossly intact. - PSYCHIATRIC: Awake, Alert and oriented x 3. Appropriate mood and affect. - SKIN: No rashes or lesions. Warm. - LYMPH: No cervical lymphadenopathy.? Objective Data Vital Signs Vital Signs: Vital Signs - 24 hr 10/20/22 16:00 10/20/22 16:48 10/20/22 17:00 Temperature 36.2 C L Pulse Rate 82 81 Respiratory Rate 20 Blood Pressure 143/109 H Pulse Oximetry 100 Oxygen Delivery Room Air 10/20/22 18:04 10/20/22 20:00 10/20/22 20:31 Temperature 36.6 C Pulse Rate 81 80 86 Respiratory Rate 20 Blood Pressure 146/71 H Pulse Oximetry 99 Oxygen Delivery 10/20/22 20:00 10/20/22 21:00 10/20/22 23:54 Temperature 37.2 C 37.0 C Pulse Rate 71 100 Respiratory Rate 16 20 Blood Pressure 105/46 L 95/65 L Pulse Oximetry 97 99 Oxygen Delivery Room Air 10/20/22 20:00 10/21/22 00:00 10/21/22 04:00 Temperature Pulse Rate 102 H 74 102 H Respiratory Rate Blood Pressure Pulse Oximetry Oxygen Delivery 10/21/22 04:00 10/21/22 08:45 10/21/22 08:45 Temperature 36.8 C Pulse Rate 99 77 77 Respiratory Rate 18 Blood Pressure 126/75 Pulse Oximetry 97 Oxygen Delivery 10/21/22 10:01 10/21/22 08:00 10/21/22 08:00 Temperature 36.1 C L Pulse Rate 101 H 69 Respiratory Rate 18 Blood Pressure
--- NOTE | 2022-10-21 14:26 | P.PNNP_ITS ---
Progress Note: A&P Assessment and Plan (1) DONNA (acute kidney injury): Code(s): N17.9 - Acute kidney failure, unspecified Status: Acute Assessment and Plan: * creatinine fluctuating * it is ranging mostly in the low to high threes. * due to altered hemodynamics from #3 possibly exacerbated by atrial flutter * suspect fluctuations due to need for IV diuresis * seems to have improved with achievement of relative euvolemia * His creatinine is up a little bit again today. This just may be part of the fluctuation. Will check another creatinine tomorrow to see if there is a trend. (2) Chronic kidney disease, stage 4 (severe): Code(s): N18.4 - Chronic kidney disease, stage 4 (severe) Status: Chronic Assessment and Plan: * baseline creatinine runs ~ 2.8 - 3.4mg/dl in the last year or so * due to diabetes and hypertension as well as vascular disease and age related change * remains at risk for CKD progression * not interested in pursuing [employer]/dialysis as a treatment option in general (3) Acute on chronic systolic heart failure: Code(s): I50.23 - Acute on chronic systolic (congestive) heart failure Status: Acute Assessment and Plan: * clinically improving * recent admission for the same and appears to have this again * possible contributing factor being atrial flutter on admission * s/p IV lasix and IV dobutamine; now on oral diuretics * follow I/Os, respiratory status, and daily weights * follow renal function * Cardiology following (4) Cardiomyopathy: Code(s): I42.9 - Cardiomyopathy, unspecified Status: Acute Assessment and Plan: * as noted by recent Echo last month - EF ~ 30 - 35% * continue medical therapy as outlined * complicated by his known advanced kidney disease * Cardiology following (5) Hypertension: Code(s): I10 - Essential (primary) hypertension Status: Acute Assessment and Plan: * elevated on admission but better now * systolic is down to 94 today. * On metoprolol 100 twice a day and hydralazine 50 3 times a day. Will reduce hydralazine to 25 * follow trend of hemodynamics (6) Anemia: Code(s): D64.9 - Anemia, unspecified Status: Chronic Assessment and Plan: * due to CKD, acute illness, and underlying malignancy * follow trend of H/H * no need for ELISE at this time (7) Insulin dependent diabetes mellitus: Status: Chronic Assessment and Plan: * follow accuchecks * glycemic control per hospitalists Subjective Date/time seen: 10/21/22 14:26 Interval history: Lluvia is feeling better. He came in with neck and shoulder pain but not shortness of breath. X-rays revealed volume overload and so he is getting diuresed. He is making lots of urine. Eating and drinking okay Exam Narrative: General: elderly but WD/WN male in NAD Heart: IRRR, normal S1 and S2; no rub or gallop Lungs: decreased breath sounds at bases Abdomen: soft, nontender, nondistended, positive bowel sounds Extremities: trace edema Skin: chronic venous stasis changes on the lower extremities Objective Data Vital Signs Vital Signs: Vital Signs - 24 hr 10/20/22 16:00 10/20/22 16:48 10/20/22 17:00 Temperature 97.2 F L Pulse Rate 82 81 Respiratory Rate 20 Blood Pressure 143/109 H Pulse Oximetry 100
--- NOTE | 2022-10-21 14:26 | PM.PNNEP ---
Progress Note: A&P Assessment and Plan (1) DONNA (acute kidney injury): Code(s): N17.9 - Acute kidney failure, unspecified Status: Acute Assessment and Plan: creatinine fluctuating it is ranging mostly in the low to high threes. due to altered hemodynamics from #3 possibly exacerbated by atrial flutter suspect fluctuations due to need for IV diuresis seems to have improved with achievement of relative euvolemia His creatinine is up a little bit again today. This just may be part of the fluctuation. Will check another creatinine tomorrow to see if there is a trend. (2) Chronic kidney disease, stage 4 (severe): Code(s): N18.4 - Chronic kidney disease, stage 4 (severe) Status: Chronic Assessment and Plan: baseline creatinine runs ~ 2.8 - 3.4mg/dl in the last year or so due to diabetes and hypertension as well as vascular disease and age related change remains at risk for CKD progression not interested in pursuing [employer]/dialysis as a treatment option in general (3) Acute on chronic systolic heart failure: Code(s): I50.23 - Acute on chronic systolic (congestive) heart failure Status: Acute Assessment and Plan: clinically improving recent admission for the same and appears to have this again possible contributing factor being atrial flutter on admission s/p IV lasix and IV dobutamine; now on oral diuretics follow I/Os, respiratory status, and daily weights follow renal function Cardiology following (4) Cardiomyopathy: Code(s): I42.9 - Cardiomyopathy, unspecified Status: Acute Assessment and Plan: as noted by recent Echo last month - EF ~ 30 - 35% continue medical therapy as outlined complicated by his known advanced kidney disease Cardiology following (5) Hypertension: Code(s): I10 - Essential (primary) hypertension Status: Acute Assessment and Plan: elevated on admission but better now systolic is down to 94 today. On metoprolol 100 twice a day and hydralazine 50 3 times a day. Will reduce hydralazine to 25 follow trend of hemodynamics (6) Anemia: Code(s): D64.9 - Anemia, unspecified Status: Chronic Assessment and Plan: due to CKD, acute illness, and underlying malignancy follow trend of H/H no need for ELISE at this time (7) Insulin dependent diabetes mellitus: Status: Chronic Assessment and Plan: follow accuchecks glycemic control per hospitalists Subjective Date/time seen: 10/21/22 14:26 Interval history: Lluvia is feeling better. He came in with neck and shoulder pain but not shortness of breath. X-rays revealed volume overload and so he is getting diuresed. He is making lots of urine. Eating and drinking okay Exam Narrative: General: elderly but WD/WN male in NAD Heart: IRRR, normal S1 and S2; no rub or gallop Lungs: decreased breath sounds at bases Abdomen: soft, nontender, nondistended, positive bowel sounds Extremities: trace edema Skin: chronic venous stasis changes on the lower extremities Objective Data Vital Signs Vital Signs: Vital Signs - 24 hr 10/20/22 16:00 10/20/22 16:48 10/20/22 17:00 Temperature 97.2 F L Pulse Rate 82 81 Respiratory Rate 20 Blood Pressure 143/109 H Pulse Oximetry 100 Oxygen Delivery Room Air 10/20/22 18:04 10/20/22 20:00 10/20/22 20:31 Temperature 97.9 F Pulse Rate 81 80 86 Respiratory Rate 20 Blood Pressure 146/71 H Pulse Oximetry 99 Oxygen Delivery 10/20/22 20:00 10/20/22 21:00 10/20/22 23:54 Temperature 99 F 98.6 F Pulse Rate 71 100 Respiratory Rate 16 20 Blood Pressure 105/46 L 95/65 L Pulse Oximetry 97 99 Oxygen Delivery Room Air 10/20/22 20:00 10/21/22 00:00 10/21/22 04:00 Temperature Pulse Rate 102 H 74 102 H Respiratory Rate Blood Pressure Pulse Oximetry Oxygen Delivery 10/21
[2022-10-21] MEDS: ACETAMINOPHEN 325 MG TABLET 650 MG PO (14:43)
[2022-10-21] MEDS: hydrALAZINE HCL 25 MG TABLET PO (17:35)
[2022-10-21] MEDS: LATANOPROST 0.005% OP SOLN 2.5 ML BTL 1 DROP EACH EYE (20:44)
[2022-10-21] MEDS: FINASTERIDE 5 MG TABLET PO (20:45)
[2022-10-22] VITALS (13 sets, daily range): BP systolic 95–122; BP diastolic 57–82; PULSE 75–99; RESP 16–20; TEMP 35.9–36.7; O2SAT 96–99
[2022-10-22 05:14] LABS: Basophils Absolute Auto 0.1 K/mm3 (0.0-0.1); Basophils Percent Auto 1.1 % (0.2-1.2); Eosinophils Absolute Auto 0.2 K/mm3 (0-0.3); Hemoglobin 9.8 g/dL (14.0-18.0); Immature Granulocyte Absolute 0.02 K/mm3 (0.00-0.031); Immature Granulocyte Percent A 0.4 % (0-0.5); Lymphocytes Absolute Auto 1.43 K/mm3 (0.9-3.2); Mean Corpuscular HGB Conc 32.7 g/dl (32-36); Mean Corpuscular Hemoglobin 30.9 pg (26-34); Mean Corpuscular Volume 94.6 fl (80-100); Monocytes Absolute Auto 0.7 K/mm3 (0.1-0.6); Monocytes Percent Auto 13.8 % (2.6-8.5); Neutrophils Absolute Auto 2.8 K/mm3 (1.3-6.7); Neutrophils Percent Auto 53.7 % (45.5-73.1); Platelet Count Result 176 k/mm3 (150-375); Red Blood Count 3.17 M/mm3 (4.6-6.20); Red Cell Distribution Width 12.5 % (11.5-14.5); White Blood Count 5.3 K/mm3 (4.5-10.0)
[2022-10-22 05:29] LABS: Alanine Aminotransferase 18 U/L (6-50); Albumin Level 3.8 g/dL (3.5-5.1); Alkaline Phosphatase 35 U/L (38-126); Anion Gap 12 mmol/L (8-16); Aspartate Amino Transferase 25 U/L (17-59); Bilirubin,Total 0.5 mg/dL (0.2-1.3); Blood Urea Nitrogen 109 mg/dL (9-20); Calcium 7.7 mg/dL (8.4-10.2); Carbon Dioxide 26 mmol/L (22-30); Chloride 94 mmol/L (98-107); Estimated CRCL calculation 15 ml/min; Estimated Glomerular Filt Rate 14; Glucose 184 mg/dL (65-110); Magnesium 2.1 mg/dL (1.6-2.3); Phosphorus 5.1 mg/dL (2.5-4.5); Potassium 4.1 mmol/L (3.4-5.0); Sodium 132 mmol/L (137-145)
[2022-10-22] MEDS: ACETAMINOPHEN 325 MG TABLET 650 MG PO ×2 (08:51→16:28)
[2022-10-22] MEDS: oxyCODONE/ACETAMINOPHEN (*CRX) 5-325 MG TABLET 1 TABLET PO ×3 (08:51→22:10)
[2022-10-22] MEDS: ASPIRIN 81 MG CHEWABLE TABLET PO (08:52)
[2022-10-22] MEDS: hydrALAZINE HCL 25 MG TABLET PO ×3 (08:52→16:29)
[2022-10-22] MEDS: CHOLECALCIFEROL 1,000 UNITS TABLET 5000 UNITS PO (08:52)
[2022-10-22] MEDS: CALCIUM CARBONATE (OSCAL) 500 MG TABLET PO ×4 (08:52→21:55)
[2022-10-22] MEDS: AMIODARONE HCL 200 MG TABLET PO ×2 (08:52→16:29)
[2022-10-22] MEDS: APIXABAN 5 MG TABLET PO ×2 (08:52→16:29)
[2022-10-22] MEDS: ISOSORBIDE MONONITRATE 60 MG TAB.ER.24H PO (08:53)
[2022-10-22] MEDS: FUROSEMIDE 20 MG TABLET 60 MG PO (08:53)
[2022-10-22] MEDS: PRAVASTATIN SODIUM 20 MG TABLET PO (08:53)
[2022-10-22] MEDS: LIDOCAINE 5% PATCH 1 PATCH TRANSDERM (08:53)
[2022-10-22] MEDS: METOPROLOL TARTRATE 50 MG TAB 100 MG PO ×2 (08:53→21:54)
[2022-10-22] MEDS: PANTOPRAZOLE 40 MG TABLET PO (08:53)
[2022-10-22] MEDS: VITAMIN B COMPLEX CAPSULE 1 CAP PO (08:54)
--- NOTE | 2022-10-22 09:56 | P.PNNP_ITS ---
Progress Note: A&P Assessment and Plan (1) DONNA (acute kidney injury): Code(s): N17.9 - Acute kidney failure, unspecified Status: Acute Assessment and Plan: * creatinine is trending upwards unfortunately. * Baseline is mid threes. Now it is above 4. * due to altered hemodynamics from #3 possibly exacerbated by atrial flutter * suspect fluctuations due to need for IV diuresis * Will check another chest x-ray to be sure he does not have fluid overload but I will also reduce the diuretics to his home dose. (2) Chronic kidney disease, stage 4 (severe): Code(s): N18.4 - Chronic kidney disease, stage 4 (severe) Status: Chronic Assessment and Plan: * baseline creatinine runs ~ 2.8 - 3.4mg/dl in the last year or so * due to diabetes and hypertension as well as vascular disease and age related change * remains at risk for CKD progression * not interested in pursuing SOLUTION DEVELOPER/dialysis as a treatment option in general (3) Acute on chronic systolic heart failure: Code(s): I50.23 - Acute on chronic systolic (congestive) heart failure Status: Acute Assessment and Plan: * clinically improving * On no oxygen. No shortness of breath. * Will check a chest x-ray. * Cardiology following (4) Cardiomyopathy: Code(s): I42.9 - Cardiomyopathy, unspecified Status: Acute Assessment and Plan: * as noted by recent Echo last month - EF ~ 30 - 35% * continue medical therapy as outlined * complicated by his known advanced kidney disease * Cardiology following (5) Hypertension: Code(s): I10 - Essential (primary) hypertension Status: Acute Assessment and Plan: * Systolic is good at 115 today. * On metoprolol 100 twice a day and hydralazine Twenty-five 3 times a day. * blood pressure is a little better today. (6) Anemia: Code(s): D64.9 - Anemia, unspecified Status: Chronic Assessment and Plan: * due to CKD, acute illness, and underlying malignancy * follow trend of H/H * no need for ELISE at this time (7) Insulin dependent diabetes mellitus: Status: Chronic Assessment and Plan: * follow accuchecks * glycemic control per hospitalists Subjective Date/time seen: 10/22/22 09:56 Interval history: Lluvia is feeling better. He came in with neck and shoulder pain but not shortness of breath. X-rays revealed volume overload and so he is getting diuresed. Neck and back still hurt. Unfortunately Tylenol is the only thing he can take other than narcotics because of his blood thinner. He is making lots of urine. Eating and drinking okay Exam Narrative: General: elderly but WD/WN male in NAD Heart: IRRR, normal S1 and S2; no rub or gallop Lungs: decreased breath sounds at bases Abdomen: soft, nontender, nondistended, positive bowel sounds Extremities: trace edema Skin: chronic venous stasis changes on the lower extremities Objective Data Vital Signs Vital Signs: Vital Signs - 24 hr 10/21/22 10:01 10/21/22 12:00 10/21/22 14:55 Temperature 97 F L 99.3 F Pulse Rate 101 H 71 71 Respiratory Rate 18 16 Blood Pressure 94/59 L 112/61 Pulse Oximetry 96 99 Oxygen Delivery Fraction of Inspired Oxygen 10/21/22 16:00 10/21/22 17:35 10/21/22 18:19 T
--- NOTE | 2022-10-22 09:56 | PM.PNNEP ---
Progress Note: A&P Assessment and Plan (1) DONNA (acute kidney injury): Code(s): N17.9 - Acute kidney failure, unspecified Status: Acute Assessment and Plan: creatinine is trending upwards unfortunately. Baseline is mid threes. Now it is above 4. due to altered hemodynamics from #3 possibly exacerbated by atrial flutter suspect fluctuations due to need for IV diuresis Will check another chest x-ray to be sure he does not have fluid overload but I will also reduce the diuretics to his home dose. (2) Chronic kidney disease, stage 4 (severe): Code(s): N18.4 - Chronic kidney disease, stage 4 (severe) Status: Chronic Assessment and Plan: baseline creatinine runs ~ 2.8 - 3.4mg/dl in the last year or so due to diabetes and hypertension as well as vascular disease and age related change remains at risk for CKD progression not interested in pursuing INSTRUCTOR CREELER/dialysis as a treatment option in general (3) Acute on chronic systolic heart failure: Code(s): I50.23 - Acute on chronic systolic (congestive) heart failure Status: Acute Assessment and Plan: clinically improving On no oxygen. No shortness of breath. Will check a chest x-ray. Cardiology following (4) Cardiomyopathy: Code(s): I42.9 - Cardiomyopathy, unspecified Status: Acute Assessment and Plan: as noted by recent Echo last month - EF ~ 30 - 35% continue medical therapy as outlined complicated by his known advanced kidney disease Cardiology following (5) Hypertension: Code(s): I10 - Essential (primary) hypertension Status: Acute Assessment and Plan: Systolic is good at 115 today. On metoprolol 100 twice a day and hydralazine Twenty-five 3 times a day. blood pressure is a little better today. (6) Anemia: Code(s): D64.9 - Anemia, unspecified Status: Chronic Assessment and Plan: due to CKD, acute illness, and underlying malignancy follow trend of H/H no need for ELISE at this time (7) Insulin dependent diabetes mellitus: Status: Chronic Assessment and Plan: follow accuchecks glycemic control per hospitalists Subjective Date/time seen: 10/22/22 09:56 Interval history: Lluvia is feeling better. He came in with neck and shoulder pain but not shortness of breath. X-rays revealed volume overload and so he is getting diuresed. Neck and back still hurt. Unfortunately Tylenol is the only thing he can take other than narcotics because of his blood thinner. He is making lots of urine. Eating and drinking okay Exam Narrative: General: elderly but WD/WN male in NAD Heart: IRRR, normal S1 and S2; no rub or gallop Lungs: decreased breath sounds at bases Abdomen: soft, nontender, nondistended, positive bowel sounds Extremities: trace edema Skin: chronic venous stasis changes on the lower extremities Objective Data Vital Signs Vital Signs: Vital Signs - 24 hr 10/21/22 10:01 10/21/22 12:00 10/21/22 14:55 Temperature 97 F L 99.3 F Pulse Rate 101 H 71 71 Respiratory Rate 18 16 Blood Pressure 94/59 L 112/61 Pulse Oximetry 96 99 Oxygen Delivery Fraction of Inspired Oxygen 10/21/22 16:00 10/21/22 17:35 10/21/22 18:19 Temperature 96.4 F L Pulse Rate 84 85 78 Respiratory Rate 18 Blood Pressure 114/52 L Pulse Oximetry 98 Oxygen Delivery Fraction of Inspired Oxygen 10/21/22 20:00 10/22/22 00:00 10/21/22 20:00 Temperature 98.2 F 97.6 F Pulse Rate 81 98 89 Respiratory Rate 18 20 Blood Pressure 122/68 122/72 Pulse Oximetry 98 98 Oxygen Delivery Fraction of Inspired Oxygen 10/21/22 20:00 10/22/22 04:00 10/22/22 00:00 Temperature 97.9 F Pulse Rate 98 97 96 Respiratory Rate 20 16 Blood Pressure 116/68 Pulse Oximetry 98 98 Oxygen Delivery Room Air Fraction of Inspired Oxygen 21 10/22/22 04:00
--- NOTE | 2022-10-22 13:17 | PM.IMPN ---
Progress Note: A&P Assessment and Plan (1) Chronic kidney disease, stage IV (severe): Code(s): N18.4 - Chronic kidney disease, stage 4 (severe) Status: Inactive (2) Neck pain: Code(s): M54.2 - Cervicalgia Status: Acute (3) Acute on chronic systolic heart failure: Code(s): I50.23 - Acute on chronic systolic (congestive) heart failure Status: Acute Plan # diffuse muscle skeletal pain -patient has some tight muscles neck, may use heating pad -PT/OT consulted -encourage out of bed, discussed with nursing staff -as needed lidocaine patch, K-pad -chest x-ray negative for acute findings, suspicious right 8th rib, when creatinine improves will get CT scan # end-stage congestive heart failure # CKD stage 4 -echocardiogram September 2022 EF 30%, indeterminate diastolic dysfunction -appreciate Cardiology consultation: Recommendation for hospice, patient is not euvolemic -with worsening creatinine will decrease Lasix from 60 mg p.o. b.i.d. to home dose of lasix 40 mg p.o. b.i.d. -off dobutamine -Cr 4.0, baseline is 2.8-3.4, worsening Cr -appreciate nephrology consultation # chronic conditions -paroxysmal atrial fibrillation: Anticoagulation Eliquis, rate control with amiodarone, metoprolol -hyperlipidemia: Pravastatin, aspirin 81 mg -holding home doses of leuprolide, denosumab, enzalutamide -vitamin-D supplement -GERD: Protonix Diet:??Heart healthy DVT prophylaxis:??On Eliquis Code status:??DNR Disposition:?pending placement [facility] Subjective Date/time seen: 10/22/22 13:17 Interval history: Patient seen and examined. He is doing well with no new complaints. Patient still has diffuse body aches. Creatinine up to 4.0. Lasix back to home dose. Nephrology following. Chest x-ray shows no acute cardiopulmonary disease. Review of Systems Review of Systems: 10 point ROS complete, negative other than what is specified in HPI. Exam Narrative: - GENERAL:? Pleasant elderly male no acute distress. - EYES: EOMI. Anicteric. - HENT: Moist mucous membranes. - LUNGS: Clear to auscultation bilaterally, no wheezing or rales. - CARDIOVASCULAR: Regular rate and rhythm. No murmur - ABDOMEN: Soft, non-tender and non-distended. - EXTREMITIES: No edema. Peripheral pulses 2+. Non-tender. - NEUROLOGIC: No focal neurological deficits. CN II-XII grossly intact. - PSYCHIATRIC: Awake, Alert and oriented x 3. Appropriate mood and affect. - SKIN: No rashes or lesions. Warm. Objective Data Vital Signs Vital Signs: Vital Signs - 24 hr 10/21/22 14:55 10/21/22 16:00 10/21/22 17:35 Temperature 37.4 C Pulse Rate 71 84 85 Respiratory Rate 16 Blood Pressure 112/61 Pulse Oximetry 99 Oxygen Delivery Fraction of Inspired Oxygen 10/21/22 18:19 10/21/22 20:00 10/22/22 00:00 Temperature 35.8 C L 36.8 C 36.4 C Pulse Rate 78 81 98 Respiratory Rate 18 18 20 Blood Pressure 114/52 L 122/68 122/72 Pulse Oximetry 98 98 98 Oxygen Delivery Fraction of Inspired Oxygen 10/21/22 20:00 10/21/22 20:00 10/22/22 04:00 Temperature 36.6 C Pulse Rate 89 98 97 Respiratory Rate 20 16 Blood Pressure 116/68 Pulse Oximetry 98 98 Oxygen Delivery Room Air Fraction of Inspired Oxygen 21 10/22/22 00:00 10/22/22 04:00 10/22/22 08:52 Temperature Pulse Rate 96 87 84 Respiratory Rate Blood Pressure Pulse Oximetry Oxygen Delivery Fraction of Inspired Oxygen 10/22/22 08:53 10/22/22 09:50 Temperature 36.3 C L Pulse Rate 86 99 Respiratory Rate 18 Blood Pressure 115/58 L Pulse Oximetry 99 Oxygen Delivery Fraction of Inspired Oxygen Intake/Output Intake/Output: Intake & Output 10/19/22 10/20/22 10/21/22 10/22/22 23:59 23:59 23:59 23:59 Intake Total 029 922 9315 530 Output Total 1087 1478 9253 0724 [facility] -1031 [phone] [phone] Meds/Results Medications: Active Medications Generic Name Dose Route Start Last Admin Trade Name Freq TREVOR Fenton
[2022-10-22] MEDS: FUROSEMIDE 40 MG TABLET PO (16:29)
[2022-10-22] MEDS: LATANOPROST 0.005% OP SOLN 2.5 ML BTL 1 DROP EACH EYE (21:55)
[2022-10-22] MEDS: FINASTERIDE 5 MG TABLET PO (21:55)
[2022-10-23] VITALS (13 sets, daily range): BP systolic 104–137; BP diastolic 55–80; PULSE 60–100; RESP 16–20; TEMP 36.3–36.8; O2SAT 96–99
[2022-10-23] MEDS: ACETAMINOPHEN 325 MG TABLET 650 MG PO (02:10)
[2022-10-23] MEDS: oxyCODONE/ACETAMINOPHEN (*CRX) 5-325 MG TABLET 1 TABLET PO ×2 (04:21→16:31)
[2022-10-23 05:31] LABS: Basophils Absolute Auto 0.1 K/mm3 (0.0-0.1); Basophils Percent Auto 1.1 % (0.2-1.2); Eosinophils Absolute Auto 0.2 K/mm3 (0-0.3); Eosinophils Percent Auto 4.2 % (0-4.4); Immature Granulocyte Absolute 0.03 K/mm3 (0.00-0.031); Immature Granulocyte Percent A 0.5 % (0-0.5); Lymphocytes Absolute Auto 1.45 K/mm3 (0.9-3.2); Lymphocytes Percent Auto 26.5 % (18.3-44.2); Mean Corpuscular HGB Conc 33.3 g/dl (32-36); Mean Corpuscular Hemoglobin 31.5 pg (26-34); Mean Corpuscular Volume 94.6 fl (80-100); Mean Platelet Volume 10.3 fl (7.4-10.4); Monocytes Absolute Auto 0.7 K/mm3 (0.1-0.6); Monocytes Percent Auto 13.3 % (2.6-8.5); Neutrophils Percent Auto 54.4 % (45.5-73.1); Platelet Count Result 193 k/mm3 (150-375); Red Blood Count 3.17 M/mm3 (4.6-6.20); Red Cell Distribution Width 12.8 % (11.5-14.5); White Blood Count 5.5 K/mm3 (4.5-10.0)
[2022-10-23 05:43] LABS: Alanine Aminotransferase 16 U/L (6-50); Albumin Level 3.8 g/dL (3.5-5.1); Alkaline Phosphatase 38 U/L (38-126); Anion Gap 12 mmol/L (8-16); Aspartate Amino Transferase 27 U/L (17-59); Bilirubin,Total 0.5 mg/dL (0.2-1.3); Blood Urea Nitrogen 120 mg/dL (9-20); Calcium 7.8 mg/dL (8.4-10.2); Carbon Dioxide 26 mmol/L (22-30); Chloride 93 mmol/L (98-107); Estimated CRCL calculation 14 ml/min; Estimated Glomerular Filt Rate 13; Glucose 181 mg/dL (65-110); Phosphorus 4.9 mg/dL (2.5-4.5); Potassium 3.8 mmol/L (3.4-5.0); Sodium 131 mmol/L (137-145)
[2022-10-23] MEDS: ASPIRIN 81 MG CHEWABLE TABLET PO (08:29)
[2022-10-23] MEDS: VITAMIN B COMPLEX CAPSULE 1 CAP PO (08:29)
[2022-10-23] MEDS: ISOSORBIDE MONONITRATE 60 MG TAB.ER.24H PO (08:29)
[2022-10-23] MEDS: CHOLECALCIFEROL 1,000 UNITS TABLET 5000 UNITS PO (08:29)
[2022-10-23] MEDS: PANTOPRAZOLE 40 MG TABLET PO (08:30)
[2022-10-23] MEDS: CALCIUM CARBONATE (OSCAL) 500 MG TABLET PO ×4 (08:30→20:49)
[2022-10-23] MEDS: hydrALAZINE HCL 25 MG TABLET PO ×3 (08:30→16:29)
[2022-10-23] MEDS: AMIODARONE HCL 200 MG TABLET PO ×2 (08:30→16:28)
[2022-10-23] MEDS: APIXABAN 5 MG TABLET PO ×2 (08:30→16:28)
[2022-10-23] MEDS: METOPROLOL TARTRATE 50 MG TAB 100 MG PO ×2 (08:30→20:49)
[2022-10-23] MEDS: PRAVASTATIN SODIUM 20 MG TABLET PO (08:30)
[2022-10-23] MEDS: LIDOCAINE 5% PATCH 1 PATCH TRANSDERM (08:39)
--- NOTE | 2022-10-23 10:36 | PM.PNNEP ---
Progress Note: A&P Assessment and Plan (1) DONNA (acute kidney injury): Code(s): N17.9 - Acute kidney failure, unspecified Status: Acute Assessment and Plan: creatinine is still higher than baseline due to altered hemodynamics from #3 possibly exacerbated by atrial flutter suspect further fluctuations due to need for diuresis recent CXR looks good (2) Chronic kidney disease, stage 4 (severe): Code(s): N18.4 - Chronic kidney disease, stage 4 (severe) Status: Chronic Assessment and Plan: baseline creatinine runs ~ 2.8 - 3.4mg/dl in the last year or so due to diabetes and hypertension as well as vascular disease and age related change remains at risk for CKD progression not interested in pursuing AQUATIC SCIENTIST/dialysis as a treatment option in general (3) Acute on chronic systolic heart failure: Code(s): I50.23 - Acute on chronic systolic (congestive) heart failure Status: Acute Assessment and Plan: clinically improving breathing stable CXR looks good Cardiology following (4) Cardiomyopathy: Code(s): I42.9 - Cardiomyopathy, unspecified Status: Acute Assessment and Plan: as noted by recent Echo last month - EF ~ 30 - 35% continue medical therapy as outlined complicated by his known advanced kidney disease Cardiology following (5) Hypertension: Code(s): I10 - Essential (primary) hypertension Status: Acute Assessment and Plan: reasonable control follow trend of hemodynamics (6) Anemia: Code(s): D64.9 - Anemia, unspecified Status: Chronic Assessment and Plan: due to CKD, acute illness, and underlying malignancy follow trend of H/H no need for ELISE at this time (7) Insulin dependent diabetes mellitus: Status: Chronic Assessment and Plan: follow accuchecks glycemic control per hospitalists Will continue to follow. Subjective Date/time seen: 10/23/22 10:36 Interval history: Follow-up for acute kidney injury on chronic kidney disease and fluid overload. Chart reviewed since last seen - renal function continues to fluctuate despite lower dose diuretics; blood pressure remains on the soft side as well; still having significant issues with back and neck pain at the time of my visit. Exam Narrative: General: elderly but WD/WN male in NAD Heart: IRRR, normal S1 and S2; no rub or gallop Lungs: decreased breath sounds at bases Abdomen: soft, nontender, nondistended, positive bowel sounds Extremities: trace edema Skin: chronic venous stasis changes on the lower extremities Objective Data Vital Signs Vital Signs: Vital Signs Temp Pulse Resp BP Pulse Ox O2 Del Method 10/23/22 08:00 Room Air 10/23/22 10:10 98.1 F 97 18 107/55 L 98 10/23/22 08:30 73 10/23/22 08:30 73 10/23/22 04:00 97 10/23/22 00:00 100 10/22/22 20:00 75 10/23/22 04:00 98.2 F 83 20 137/62 98 10/23/22 00:00 97.9 F 100 18 115/60 96 10/22/22 21:54 79 10/22/22 20:00 98.1 F 93 20 102/82 98 10/22/22 18:31 97.1 F L 92 18 95/57 L 96 10/22/22 16:00 78 10/22/22 16:29 86 10/22/22 14:46 96.7 F L 77 16 104/78 99 Intake/Output Intake/Output: Intake & Output 10/20/22 10/21/22 10/22/22 10/23/22 23:59 23:59 23:59 23:59 Intake Total 980 1020 1120 540 Output Total 3925 1250 2225 850 [facility] -2945 -230 [phone] -310 Meds/Results Medications: Active Medications Generic Name Dose Route Start Last Admin Trade Name Freq PRN Reason Stop Dose Admin Acetaminophen 650 mg 10/19/22 17:55 10/23/22 02:10 Acetaminophen 325 Mg Tablet PO 650 mg Q6H PRN Administration Mild Pain (1-5) Or Fever Amiodarone HCl 200 mg 10/17/22 17:00 10/23/22 08:30 Amiodarone Hcl 200 Mg Tablet PO 200 mg BID BLADIMIR Administration Apixaban 5 mg 10/17/22 17:00 10/23/22 08:30 Apixa
--- NOTE | 2022-10-23 10:36 | P.PNNP_ITS ---
Progress Note: A&P Assessment and Plan (1) DONNA (acute kidney injury): Code(s): N17.9 - Acute kidney failure, unspecified Status: Acute Assessment and Plan: * creatinine is still higher than baseline * due to altered hemodynamics from #3 possibly exacerbated by atrial flutter * suspect further fluctuations due to need for diuresis * recent CXR looks good (2) Chronic kidney disease, stage 4 (severe): Code(s): N18.4 - Chronic kidney disease, stage 4 (severe) Status: Chronic Assessment and Plan: * baseline creatinine runs ~ 2.8 - 3.4mg/dl in the last year or so * due to diabetes and hypertension as well as vascular disease and age related change * remains at risk for CKD progression * not interested in pursuing POLYMER MATERIALS CONSULTANT/dialysis as a treatment option in general (3) Acute on chronic systolic heart failure: Code(s): I50.23 - Acute on chronic systolic (congestive) heart failure Status: Acute Assessment and Plan: * clinically improving * breathing stable * CXR looks good * Cardiology following (4) Cardiomyopathy: Code(s): I42.9 - Cardiomyopathy, unspecified Status: Acute Assessment and Plan: * as noted by recent Echo last month - EF ~ 30 - 35% * continue medical therapy as outlined * complicated by his known advanced kidney disease * Cardiology following (5) Hypertension: Code(s): I10 - Essential (primary) hypertension Status: Acute Assessment and Plan: * reasonable control * follow trend of hemodynamics (6) Anemia: Code(s): D64.9 - Anemia, unspecified Status: Chronic Assessment and Plan: * due to CKD, acute illness, and underlying malignancy * follow trend of H/H * no need for ELISE at this time (7) Insulin dependent diabetes mellitus: Status: Chronic Assessment and Plan: * follow accuchecks * glycemic control per hospitalists Will continue to follow. Subjective Date/time seen: 10/23/22 10:36 Interval history: Follow-up for acute kidney injury on chronic kidney disease and fluid overload. Chart reviewed since last seen - renal function continues to fluctuate despite lower dose diuretics; blood pressure remains on the soft side as well; still having significant issues with back and neck pain at the time of my visit. Exam Narrative: General: elderly but WD/WN male in NAD Heart: IRRR, normal S1 and S2; no rub or gallop Lungs: decreased breath sounds at bases Abdomen: soft, nontender, nondistended, positive bowel sounds Extremities: trace edema Skin: chronic venous stasis changes on the lower extremities Objective Data Vital Signs Vital Signs: Vital Signs Temp Pulse Resp BP Pulse Ox O2 Del Method 10/23/22 08:00 Room Air 10/23/22 10:10 98.1 F 97 18 107/55 L 98 10/23/22 08:30 73 10/23/22 08:30 73 10/23/22 04:00 97 10/23/22 00:00 100 10/22/22 20:00 75 10/23/22 04:00 98.2 F 83 20 137/62 98 10/23/22 00:00 97.9 F 100 18 115/60 96 10/22/22 21:54 79 10/22/22 20:00 98.1 F 93 20 102/82 98 10/22/22 18:31 97.1 F L 92 18 95/57 L 96 10/22/22 16:00 78 10/22/22 16:29 86 10/22/22 14:46 96.7 F L 77 16 104/78 99
--- NOTE | 2022-10-23 12:45 | PM.IMPN ---
Progress Note: A&P Assessment and Plan (1) DONNA (acute kidney injury): Code(s): N17.9 - Acute kidney failure, unspecified Status: Acute (2) Chronic kidney disease, stage IV (severe): Code(s): N18.4 - Chronic kidney disease, stage 4 (severe) Status: Inactive (3) Neck pain: Code(s): M54.2 - Cervicalgia Status: Acute (4) Paroxysmal atrial flutter: Code(s): I48.92 - Unspecified atrial flutter Status: Acute (5) Acute on chronic systolic heart failure: Code(s): I50.23 - Acute on chronic systolic (congestive) heart failure Status: Acute Plan # diffuse muscle skeletal pain mostly in neck -patient has some tight muscles neck, may use heating pad -PT/OT consulted -encourage out of bed, discussed with nursing staff -as needed lidocaine patch, K-pad -chest x-ray negative for acute findings, suspicious right 8th rib, when creatinine improves will get CT scan -with worsening renal function I am hesitant to start muscle relaxers # end-stage congestive heart failure # DONNA on CKD stage 4 -echocardiogram September 2022 EF 30%, indeterminate diastolic dysfunction -appreciate Cardiology consultation: Recommendation for hospice, patient is now euvolemic -hold Lasix -off dobutamine -Cr 4.3, baseline is 2.8-3.4, worsening Cr -appreciate nephrology consultation # chronic conditions -paroxysmal atrial fibrillation: Anticoagulation Eliquis, rate control with amiodarone, metoprolol -hyperlipidemia: Pravastatin, aspirin 81 mg -holding home doses of leuprolide, denosumab, enzalutamide -vitamin-D supplement -GERD: Protonix Diet:??Heart healthy DVT prophylaxis:??On Eliquis Code status:??DNR Disposition:?SNF Subjective Date/time seen: 10/23/22 12:45 Interval history: Patient seen examined. Despite cutting down Lasix to home dose yesterday patient continues to have worsening creatinine up to 4.3, soft blood pressure. Will hold Lasix. He denies fever, chills nausea vomiting, diarrhea. He still complains of neck pain. Review of Systems Review of Systems: 10 point ROS complete, negative other than what is specified in HPI. Exam Narrative: - GENERAL:? Pleasant elderly male no acute distress. - EYES: EOMI. Anicteric. - HENT: Moist mucous membranes. Limited range of motion of neck due to pain - LUNGS: Clear to auscultation bilaterally, no wheezing or rales. - CARDIOVASCULAR: Regular rate and rhythm. No murmur - ABDOMEN: Soft, non-tender and non-distended. - EXTREMITIES: Peripheral pulses 2+. Non-tender. - NEUROLOGIC: No focal neurological deficits. CN II-XII grossly intact. - PSYCHIATRIC: Awake, Alert and oriented x 3. Appropriate mood and affect. - SKIN: No rashes or lesions. Warm. Objective Data Vital Signs Vital Signs: Vital Signs - 24 hr 10/22/22 14:46 10/22/22 16:29 10/22/22 16:00 Temperature 35.9 C L Pulse Rate 77 86 78 Respiratory Rate 16 Blood Pressure 104/78 Pulse Oximetry 99 Oxygen Delivery 10/22/22 18:31 10/22/22 20:00 10/22/22 21:54 Temperature 36.2 C L 36.7 C Pulse Rate 92 93 79 Respiratory Rate 18 20 Blood Pressure 95/57 L 102/82 Pulse Oximetry 96 98 Oxygen Delivery 10/23/22 00:00 10/23/22 04:00 10/22/22 20:00 Temperature 36.6 C 36.8 C Pulse Rate 100 83 75 Respiratory Rate 18 20 Blood Pressure 115/60 137/62 Pulse Oximetry 96 98 Oxygen Delivery 10/23/22 00:00 10/23/22 04:00 10/23/22 08:30 Temperature Pulse Rate 100 97 73 Respiratory Rate Blood Pressure Pulse Oximetry Oxygen Delivery 10/23/22 08:30 10/23/22 10:10 10/23/22 08:00 Temperature 36.7 C Pulse Rate 73 97 Respiratory Rate 18 Blood Pressure 107/55 L Pulse Oximetry 98 Oxygen Delivery Room Air Intake/Output Intake/Output: Intake & Output 10/20/22 10/21/22 10/22/22 10/23/22 23:59 23:59 23:59 23:59 Intake Total 980 1020 1120 540 Output Total 4761 7881 8789 850 [facility]8345 -230 -[phone] -501 M
[2022-10-23] MEDS: FINASTERIDE 5 MG TABLET PO (20:49)
[2022-10-23] MEDS: LATANOPROST 0.005% OP SOLN 2.5 ML BTL 1 DROP EACH EYE (21:05)
[2022-10-24] VITALS (17 sets, daily range): BP systolic 106–138; BP diastolic 62–81; PULSE 70–96; RESP 14–20; TEMP 36.4–36.9; O2SAT 95–99
[2022-10-24 00:11] LABS: Glucose Point of Care 265 mg/dl (65-105)
[2022-10-24] MEDS: oxyCODONE/ACETAMINOPHEN (*CRX) 5-325 MG TABLET 1 TABLET PO ×3 (01:35→14:56)
--- NOTE | 2022-10-24 04:29 | ECG_ITS ---
Measurements Intervals [place] Rate: 81 P: [place]: 0 QRS: -69 QRSD: 174 T: 93 QT: 448 QTc: 522 Interpretive Statements ATRIAL FLUTTER/TACHYCARDIA WITH VARIABLE BLOCK LEFT AXIS DEVIATION LEFT BUNDLE BRANCH BLOCK ABNORMAL ECG COMPARED TO ECG 10/17/2022 02:35:30 HEART RATE HAS DECREASED Electronically Signed On 10-24-2022 6:44:53 CDT by Isma Pearson D.O.
[2022-10-24 05:14] LABS: Basophils Absolute Auto 0.1 K/mm3 (0.0-0.1); Basophils Percent Auto 0.9 % (0.2-1.2); Eosinophils Absolute Auto 0.2 K/mm3 (0-0.3); Eosinophils Percent Auto 3.5 % (0-4.4); Hematocrit 29.3 % (42.0-52.0); Hemoglobin 9.7 g/dL (14.0-18.0); Immature Granulocyte Absolute 0.03 K/mm3 (0.00-0.031); Immature Granulocyte Percent A 0.5 % (0-0.5); Lymphocytes Absolute Auto 1.36 K/mm3 (0.9-3.2); Mean Corpuscular HGB Conc 33.1 g/dl (32-36); Mean Corpuscular Hemoglobin 30.7 pg (26-34); Mean Corpuscular Volume 92.7 fl (80-100); Mean Platelet Volume 10.2 fl (7.4-10.4); Monocytes Absolute Auto 0.8 K/mm3 (0.1-0.6); Monocytes Percent Auto 14.8 % (2.6-8.5); Neutrophils Absolute Auto 3.2 K/mm3 (1.3-6.7); Neutrophils Percent Auto 56.3 % (45.5-73.1); Platelet Count Result 208 k/mm3 (150-375); Red Blood Count 3.16 M/mm3 (4.6-6.20); Red Cell Distribution Width 12.1 % (11.5-14.5); White Blood Count 5.7 K/mm3 (4.5-10.0)
[2022-10-24 05:26] LABS: Alanine Aminotransferase 16 U/L (6-50); Albumin Level 3.9 g/dL (3.5-5.1); Alkaline Phosphatase 39 U/L (38-126); Anion Gap 12 mmol/L (8-16); Aspartate Amino Transferase 27 U/L (17-59); Bilirubin,Total 0.5 mg/dL (0.2-1.3); Blood Urea Nitrogen 120 mg/dL (9-20); Calcium 7.9 mg/dL (8.4-10.2); Carbon Dioxide 27 mmol/L (22-30); Chloride 91 mmol/L (98-107); Estimated CRCL calculation 14 ml/min; Estimated Glomerular Filt Rate 14; Glucose 165 mg/dL (65-110); Potassium 4.3 mmol/L (3.4-5.0); Sodium 130 mmol/L (137-145)
[2022-10-24] MEDS: LIDOCAINE 5% PATCH 1 PATCH TRANSDERM (08:33)
[2022-10-24] MEDS: CALCIUM CARBONATE (TUMS) 500 MG (200 MG ELEMENTAL) PO (08:33)
[2022-10-24] MEDS: CALCIUM CARBONATE (OSCAL) 500 MG TABLET PO ×4 (08:34→20:53)
[2022-10-24] MEDS: ASPIRIN 81 MG CHEWABLE TABLET PO (08:34)
[2022-10-24] MEDS: APIXABAN 5 MG TABLET PO ×2 (08:35→17:53)
[2022-10-24] MEDS: ISOSORBIDE MONONITRATE 60 MG TAB.ER.24H PO (08:35)
[2022-10-24] MEDS: PANTOPRAZOLE 40 MG TABLET PO (08:35)
[2022-10-24] MEDS: CHOLECALCIFEROL 1,000 UNITS TABLET 5000 UNITS PO (08:35)
[2022-10-24] MEDS: VITAMIN B COMPLEX CAPSULE 1 CAP PO (08:36)
[2022-10-24] MEDS: PRAVASTATIN SODIUM 20 MG TABLET PO (08:36)
[2022-10-24] MEDS: AMIODARONE HCL 200 MG TABLET PO ×2 (08:47→17:53)
[2022-10-24] MEDS: METOPROLOL TARTRATE 50 MG TAB 100 MG PO ×2 (08:49→20:54)
[2022-10-24] MEDS: hydrALAZINE HCL 25 MG TABLET PO ×3 (08:49→17:53)
--- NOTE | 2022-10-24 11:35 | P.PNNP_ITS ---
Progress Note: A&P Assessment and Plan (1) DONNA (acute kidney injury): Code(s): N17.9 - Acute kidney failure, unspecified Status: Acute Assessment and Plan: * creatinine is still higher than baseline * due to altered hemodynamics from #3 possibly exacerbated by atrial flutter * suspect further fluctuations due to need for diuresis * recent CXR looks good * follow repeat labs and UOP (2) Chronic kidney disease, stage 4 (severe): Code(s): N18.4 - Chronic kidney disease, stage 4 (severe) Status: Chronic Assessment and Plan: * baseline creatinine runs ~ 2.8 - 3.4mg/dl in the last year or so * due to diabetes and hypertension as well as vascular disease and age related change * remains at risk for CKD progression * not interested in pursuing ELECTRONIC SYSTEMS SECURITY ASSESSMENT/dialysis as a treatment option in general (3) Acute on chronic systolic heart failure: Code(s): I50.23 - Acute on chronic systolic (congestive) heart failure Status: Acute Assessment and Plan: * clinically improving * breathing stable * CXR looks good * Cardiology following (4) Cardiomyopathy: Code(s): I42.9 - Cardiomyopathy, unspecified Status: Acute Assessment and Plan: * as noted by recent Echo last month - EF ~ 30 - 35% * continue medical therapy as outlined * complicated by his known advanced kidney disease * Cardiology following (5) Hypertension: Code(s): I10 - Essential (primary) hypertension Status: Acute Assessment and Plan: * reasonable control * follow trend of hemodynamics (6) Anemia: Code(s): D64.9 - Anemia, unspecified Status: Chronic Assessment and Plan: * due to CKD, acute illness, and underlying malignancy * follow trend of H/H * no need for ELISE at this time (7) Insulin dependent diabetes mellitus: Status: Chronic Assessment and Plan: * follow accuchecks * glycemic control per hospitalists Will continue to follow. Subjective Date/time seen: 10/24/22 11:35 Interval history: Follow-up for acute kidney injury on chronic kidney disease and fluid overload. Diuretics placed on hold yesterday due to rising BUN + creatinine; renal function about the same as noted by AM labs; continues to make good/reasonable urine output; still with intermittent back and neck pain. Exam Narrative: General: elderly but WD/WN male in NAD Heart: IRRR, normal S1 and S2; no rub or gallop Lungs: decreased breath sounds at bases Abdomen: soft, nontender, nondistended, positive bowel sounds Extremities: trace edema Skin: chronic venous stasis changes apparent Objective Data Vital Signs Vital Signs: Vital Signs Temp Pulse Resp BP Pulse Ox O2 Del Method 10/24/22 11:26 82 14 138/68 98 10/24/22 10:00 97.9 F 94 18 119/68 99 10/24/22 08:49 70 10/24/22 08:48 70 14 124/68 95 10/24/22 08:47 70 10/24/22 08:21 98 Room Air 10/24/22 06:00 97.5 F L 74 20 129/80 99 10/24/22 04:00 95 10/24/22 00:00 96 10/23/22 21:56 97.4 F L 77 20 130/80 99 10/23/22 20:00 83 10/23/22 20:49 75 10/23/22 18:10 97.4 F L 60 16 104/59 L 96 10/23/22 16:00 70 10/23/22 16:39 Room Air
--- NOTE | 2022-10-24 11:35 | PM.PNNEP ---
Progress Note: A&P Assessment and Plan (1) DONNA (acute kidney injury): Code(s): N17.9 - Acute kidney failure, unspecified Status: Acute Assessment and Plan: creatinine is still higher than baseline due to altered hemodynamics from #3 possibly exacerbated by atrial flutter suspect further fluctuations due to need for diuresis recent CXR looks good follow repeat labs and UOP (2) Chronic kidney disease, stage 4 (severe): Code(s): N18.4 - Chronic kidney disease, stage 4 (severe) Status: Chronic Assessment and Plan: baseline creatinine runs ~ 2.8 - 3.4mg/dl in the last year or so due to diabetes and hypertension as well as vascular disease and age related change remains at risk for CKD progression not interested in pursuing RESIDENTIAL GREEN BUILDING DESIGNER/dialysis as a treatment option in general (3) Acute on chronic systolic heart failure: Code(s): I50.23 - Acute on chronic systolic (congestive) heart failure Status: Acute Assessment and Plan: clinically improving breathing stable CXR looks good Cardiology following (4) Cardiomyopathy: Code(s): I42.9 - Cardiomyopathy, unspecified Status: Acute Assessment and Plan: as noted by recent Echo last month - EF ~ 30 - 35% continue medical therapy as outlined complicated by his known advanced kidney disease Cardiology following (5) Hypertension: Code(s): I10 - Essential (primary) hypertension Status: Acute Assessment and Plan: reasonable control follow trend of hemodynamics (6) Anemia: Code(s): D64.9 - Anemia, unspecified Status: Chronic Assessment and Plan: due to CKD, acute illness, and underlying malignancy follow trend of H/H no need for ELISE at this time (7) Insulin dependent diabetes mellitus: Status: Chronic Assessment and Plan: follow accuchecks glycemic control per hospitalists Will continue to follow. Subjective Date/time seen: 10/24/22 11:35 Interval history: Follow-up for acute kidney injury on chronic kidney disease and fluid overload. Diuretics placed on hold yesterday due to rising BUN + creatinine; renal function about the same as noted by AM labs; continues to make good/reasonable urine output; still with intermittent back and neck pain. Exam Narrative: General: elderly but WD/WN male in NAD Heart: IRRR, normal S1 and S2; no rub or gallop Lungs: decreased breath sounds at bases Abdomen: soft, nontender, nondistended, positive bowel sounds Extremities: trace edema Skin: chronic venous stasis changes apparent Objective Data Vital Signs Vital Signs: Vital Signs Temp Pulse Resp BP Pulse Ox O2 Del Method 10/24/22 11:26 82 14 138/68 98 10/24/22 10:00 97.9 F 94 18 119/68 99 10/24/22 08:49 70 10/24/22 08:48 70 14 124/68 95 10/24/22 08:47 70 10/24/22 08:21 98 Room Air 10/24/22 06:00 97.5 F L 74 20 129/80 99 10/24/22 04:00 95 10/24/22 00:00 96 10/23/22 21:56 97.4 F L 77 20 130/80 99 10/23/22 20:00 83 10/23/22 20:49 75 10/23/22 18:10 97.4 F L 60 16 104/59 L 96 10/23/22 16:00 70 10/23/22 16:39 Room Air 10/23/22 16:28 73 10/23/22 14:20 98.1 F 95 16 120/80 96 Intake/Output Intake/Output: Intake & Output 10/21/22 10/22/22 10/23/22 10/24/22 23:59 23:59 23:59 23:59 Intake Total 1020 1120 1100 540 Output Total 1250 2225 1700 1750 Balance -230 -1105 -600 -1210 Meds/Results Medications: Active Medications Generic Name Dose Route Start Last Admin Trade Name Darrellq PRN Reason Stop Dose Admin Acetaminophen 650 mg 10/19/22 17:55 10/23/22 02:10 Acetaminophen 325 Mg Tablet PO 650 mg Q6H PRN Administration Mild Pain (1-5) Or Fever Amiodarone HCl 200 mg 10/17/22 17:00 10/24/22 08:47 Amiodarone Hcl 200 Mg Tablet PO 200 mg BID [facility] Administrat
--- NOTE | 2022-10-24 14:48 | PM.IMPN ---
Progress Note: A&P Assessment and Plan (1) Chronic kidney disease, stage IV (severe): Code(s): N18.4 - Chronic kidney disease, stage 4 (severe) Status: Inactive (2) Paroxysmal atrial flutter: Code(s): I48.92 - Unspecified atrial flutter Status: Acute (3) Acute on chronic systolic heart failure: Code(s): I50.23 - Acute on chronic systolic (congestive) heart failure Status: Acute (4) Diabetes mellitus: Qualifiers: Diabetes mellitus type: type 2 Diabetes mellitus termite exterminator insulin use: with termite exterminator use Diabetes mellitus complication status: with kidney complications Diabetes mellitus complication detail: with chronic kidney disease Chronic kidney disease stage: stage 4 (severe) Qualified Code(s): E11.22 - Type 2 diabetes mellitus with diabetic chronic kidney disease; N18.4 - Chronic kidney disease, stage 4 (severe); Z79.4 - long term care social worker (current) use of insulin Code(s): E11.9 - Type 2 diabetes mellitus without complications Status: Acute Plan ?82-year-old male with past medical history significant for systolic heart failure ejection fraction 30-35%, atrial fibrillation, chronic kidney disease, was brought to the emergency room for evaluation due to chest pain shortness of breath bilateral lower extremity edema, patient recently discharged from [facility] and now back with similar complaints.? # diffuse muscle skeletal pain mostly in neck -patient has some tight muscles neck, may use heating pad -PT/OT consulted -encourage out of bed, discussed with nursing staff -as needed lidocaine patch, K-pad -chest x-ray negative for acute findings, suspicious right 8th rib, when creatinine improves will get CT scan # end-stage congestive heart failure+ DONNA on CKD stage 4 -echocardiogram September 2022 EF 30%, indeterminate diastolic dysfunction -appreciate Cardiology consultation: Recommendation for hospice, patient is now euvolemic -off dobutamine -Cr 4.3, baseline is 2.8-3.4, worsening Cr -appreciate nephrology consultation #paroxysmal atrial fibrillation: Anticoagulation Eliquis, rate control with amiodarone, metoprolol #DVT prophylaxis:??On Eliquis #Code status:??DNR, discussed with patient and Niece(POA) about hospice/Comfort measure, they are not quite ready yet Disposition:?possibly SNF, case picker working on it Time Spent With Patient Time with patient: 15 - 25 minutes Subjective Date/time seen: 10/24/22 14:48 Interval history: no acute events overnight Review of Systems Review of Systems: All systems reviewed & are unremarkable except as noted in HPI and below Exam Narrative: - GENERAL:? Pleasant elderly male no acute distress. - EYES: EOMI. Anicteric. - HENT: Moist mucous membranes. Limited range of motion of neck due to pain - LUNGS: Clear to auscultation bilaterally, no wheezing or rales. - CARDIOVASCULAR: Regular rate and rhythm. No murmur - ABDOMEN: Soft, non-tender and non-distended. - EXTREMITIES: Peripheral pulses 2+. Non-tender. - NEUROLOGIC: No focal neurological deficits. CN II-XII grossly intact. - PSYCHIATRIC: Awake, Alert and oriented x 3. Appropriate mood and affect. - SKIN: No rashes or lesions. Warm. Objective Data Vital Signs Vital Signs: Vital Signs - 24 hr 10/23/22 16:28 10/23/22 16:39 10/23/22 16:00 Temperature Pulse Rate 73 70 Respiratory Rate Blood Pressure Pulse Oximetry Oxygen Delivery Room Air 10/23/22 18:10 10/23/22 20:49 10/23/22 20:00 Temperature 97.4 F L Pulse Rate 60 75 83 Respiratory Rate 16 Blood Pressure 104/59 L Pulse Oximetry 96 Oxygen Delivery 10/23/22 21:56 10/24/22 00:00 10/24/22 04:00 Temperature 97.4 F L Pulse Rate 77 96 95 Respiratory Rate 20 Blood Pressure 130/80 Pulse Oximetry 99 Oxygen Delivery 10/24/22 06:00 10/24/22 08:21 10/24/22 08:47 Temperature 97.5 F L Pulse Rate 74 70 Respiratory Rate 20 Blood Pressure 129/80 P
[2022-10-24] MEDS: FINASTERIDE 5 MG TABLET PO (20:54)
[2022-10-24] MEDS: LATANOPROST 0.005% OP SOLN 2.5 ML BTL 1 DROP EACH EYE (20:54)
[2022-10-25] VITALS: PULSE 95
[2022-10-25] MEDS: oxyCODONE/ACETAMINOPHEN (*CRX) 5-325 MG TABLET 1 TABLET PO ×2 (03:58→13:21)
[2022-10-25 04:00] VITALS: PULSE 78
[2022-10-25 05:28] LABS: Basophils Absolute Auto 0.1 K/mm3 (0.0-0.1); Basophils Percent Auto 0.8 % (0.2-1.2); Eosinophils Absolute Auto 0.2 K/mm3 (0-0.3); Eosinophils Percent Auto 3.4 % (0-4.4); Hematocrit 30.1 % (42.0-52.0); Hemoglobin 9.9 g/dL (14.0-18.0); Immature Granulocyte Absolute 0.04 K/mm3 (0.00-0.031); Immature Granulocyte Percent A 0.6 % (0-0.5); Lymphocytes Absolute Auto 1.33 K/mm3 (0.9-3.2); Lymphocytes Percent Auto 21.3 % (18.3-44.2); Mean Corpuscular HGB Conc 32.9 g/dl (32-36); Mean Corpuscular Hemoglobin 30.9 pg (26-34); Mean Corpuscular Volume 94.1 fl (80-100); Monocytes Absolute Auto 0.9 K/mm3 (0.1-0.6); Monocytes Percent Auto 13.6 % (2.6-8.5); Neutrophils Absolute Auto 3.8 K/mm3 (1.3-6.7); Neutrophils Percent Auto 60.3 % (45.5-73.1); Platelet Count Result 201 k/mm3 (150-375); Red Cell Distribution Width 12.3 % (11.5-14.5); White Blood Count 6.2 K/mm3 (4.5-10.0)
[2022-10-25 05:37] LABS: Alanine Aminotransferase 16 U/L (6-50); Albumin Level 3.8 g/dL (3.5-5.1); Alkaline Phosphatase 39 U/L (38-126); Anion Gap 12 mmol/L (8-16); Aspartate Amino Transferase 27 U/L (17-59); Bilirubin,Total 0.4 mg/dL (0.2-1.3); Blood Urea Nitrogen 116 mg/dL (9-20); Calcium 7.9 mg/dL (8.4-10.2); Carbon Dioxide 26 mmol/L (22-30); Chloride 94 mmol/L (98-107); Estimated CRCL calculation 15 ml/min; Estimated Glomerular Filt Rate 14; Glucose 201 mg/dL (65-110); Potassium 4.4 mmol/L (3.4-5.0); Sodium 132 mmol/L (137-145)
[2022-10-25 06:18] VITALS: BP 108/68; PULSE 94; RESP 18; TEMP 36.7; O2SAT 96
[2022-10-25] MEDS: ISOSORBIDE MONONITRATE 60 MG TAB.ER.24H PO (08:51)
[2022-10-25] MEDS: CHOLECALCIFEROL 1,000 UNITS TABLET 5000 UNITS PO (08:51)
[2022-10-25] MEDS: APIXABAN 5 MG TABLET PO (08:51)
[2022-10-25] MEDS: CALCIUM CARBONATE (OSCAL) 500 MG TABLET PO ×2 (08:51→12:31)
[2022-10-25 08:52] VITALS: PULSE 86
[2022-10-25] MEDS: VITAMIN B COMPLEX CAPSULE 1 CAP PO (08:52)
[2022-10-25] MEDS: PRAVASTATIN SODIUM 20 MG TABLET PO (08:52)
[2022-10-25] MEDS: ASPIRIN 81 MG CHEWABLE TABLET PO (08:52)
[2022-10-25] MEDS: METOPROLOL TARTRATE 50 MG TAB 100 MG PO (08:52)
[2022-10-25] MEDS: hydrALAZINE HCL 25 MG TABLET PO ×2 (08:52→12:31)
[2022-10-25] MEDS: AMIODARONE HCL 200 MG TABLET PO (08:52)
[2022-10-25] MEDS: PANTOPRAZOLE 40 MG TABLET PO (08:52)
[2022-10-25 10:00] VITALS: BP 132/62; PULSE 82; RESP 18; TEMP 36.9; O2SAT 95
--- NOTE | 2022-10-25 10:35 | PCNWS ---
Weekly nutritional screen. Patient is tolerating current diet with adequate intake. No weight loss reported. No nutritional needs at this time.
--- NOTE | 2022-10-25 10:42 | PCOTNOTE ---
Attempted to see pt for Occupational Therapy treatment. Pt is currently with a visitor right now and has request to have therapy come back.
--- NOTE | 2022-10-25 11:08 | PM.IMPN ---
Progress Note: A&P Assessment and Plan (1) Chronic kidney disease, stage IV (severe): Code(s): N18.4 - Chronic kidney disease, stage 4 (severe) Status: Inactive (2) Paroxysmal atrial flutter: Code(s): I48.92 - Unspecified atrial flutter Status: Acute (3) Acute on chronic systolic heart failure: Code(s): I50.23 - Acute on chronic systolic (congestive) heart failure Status: Acute (4) Diabetes mellitus: Qualifiers: Diabetes mellitus type: type 2 Diabetes mellitus manager long term care insulin use: with manager long term care use Diabetes mellitus complication status: with kidney complications Diabetes mellitus complication detail: with chronic kidney disease Chronic kidney disease stage: stage 4 (severe) Qualified Code(s): E11.22 - Type 2 diabetes mellitus with diabetic chronic kidney disease; N18.4 - Chronic kidney disease, stage 4 (severe); 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 # diffuse muscle skeletal pain mostly in neck -patient has some tight muscles neck, may use heating pad -PT/OT consulted -encourage out of bed, discussed with nursing staff -as needed lidocaine patch, K-pad -chest x-ray negative for acute findings, suspicious right 8th rib, when creatinine improves will get CT scan # end-stage congestive heart failure+ DONNA on CKD stage 4 -echocardiogram September 2022 EF 30%, indeterminate diastolic dysfunction -appreciate Cardiology consultation: Recommendation for hospice, patient is now euvolemic -off dobutamine -Cr 4.3, baseline is 2.8-3.4, worsening Cr -appreciate nephrology consultation #paroxysmal atrial fibrillation: Anticoagulation Eliquis, rate control with amiodarone, metoprolol #DVT prophylaxis:??On Eliquis #Code status:??DNR, discussed with patient and Niece(POA) about hospice/Comfort measure, they are not quite ready yet Disposition:?possibly SNF, window caser working on it Subjective Date/time seen: 10/25/22 11:08 Interval history: No overnight events noted. No chest pain or shortness of breath. No nausea, vomiting or diarrhea. No fevers or chills. Review of Systems Review of Systems: 12 point review of systems was assessed and was negative except as noted in the HPI Exam Narrative: General: No acute distress, alert and oriented per baseline HEENT: Atraumatic, normocephalic, mucous membranes moist CV: Regular rate and rhythm, S1, S2 Lungs: Clear to auscultation bilaterally, no rales or crackles noted, no wheezes, good air entry Abdomen: Soft, nontender, nondistended Extremities: Normal to inspection Skin: No rashes noted, no lesions or wounds seen Psych: Euthymic, normal affect Objective Data Vital Signs Vital Signs: Vital Signs - 24 hr 10/24/22 12:26 10/24/22 13:12 10/24/22 17:53 Temperature 98.3 F Pulse Rate 82 84 94 Respiratory Rate 14 16 Blood Pressure 138/68 106/62 Pulse Oximetry 98 97 Oxygen Delivery 10/24/22 17:56 10/24/22 12:00 10/24/22 20:54 Temperature Pulse Rate 94 82 74 Respiratory Rate 14 Blood Pressure 121/63 Pulse Oximetry 97 Oxygen Delivery 10/24/22 20:00 10/24/22 22:40 10/25/22 00:00 Temperature 98.4 F Pulse Rate 76 74 95 Respiratory Rate 20 Blood Pressure 113/81 Pulse Oximetry 98 Oxygen Delivery 10/25/22 04:00 10/25/22 06:18 10/25/22 08:52 Temperature 98.0 F Pulse Rate 78 94 86 Respiratory Rate 18 Blood Pressure 108/68 Pulse Oximetry 96 Oxygen Delivery 10/25/22 08:52 10/25/22 08:00 Tempera
--- NOTE | 2022-10-25 12:45 | P.PNNP_ITS ---
Progress Note: A&P Assessment and Plan (1) DONNA (acute kidney injury): Code(s): N17.9 - Acute kidney failure, unspecified Status: Acute Assessment and Plan: * creatinine is still higher than baseline - possible new baseline?? * due to altered hemodynamics from #3 possibly exacerbated by atrial flutter * suspect further fluctuations due to need for diuresis * recent CXR looks good * follow repeat labs and UOP (2) Chronic kidney disease, stage 4 (severe): Code(s): N18.4 - Chronic kidney disease, stage 4 (severe) Status: Chronic Assessment and Plan: * baseline creatinine runs ~ 2.8 - 3.4mg/dl in the last year or so * due to diabetes and hypertension as well as vascular disease and age related change * remains at risk for CKD progression * not interested in pursuing CASSANDRA DEVELOPER/dialysis as a treatment option in general (3) Acute on chronic systolic heart failure: Code(s): I50.23 - Acute on chronic systolic (congestive) heart failure Status: Acute Assessment and Plan: * clinically improving * breathing stable * CXR looks good * Cardiology following (4) Cardiomyopathy: Code(s): I42.9 - Cardiomyopathy, unspecified Status: Acute Assessment and Plan: * as noted by recent Echo last month - EF ~ 30 - 35% * continue medical therapy as outlined * complicated by his known advanced kidney disease * Cardiology following (5) Hypertension: Code(s): I10 - Essential (primary) hypertension Status: Acute Assessment and Plan: * reasonable control * follow trend of hemodynamics (6) Anemia: Code(s): D64.9 - Anemia, unspecified Status: Chronic Assessment and Plan: * due to CKD, acute illness, and underlying malignancy * follow trend of H/H * no need for ELISE at this time (7) Insulin dependent diabetes mellitus: Status: Chronic Assessment and Plan: * follow accuchecks * glycemic control per hospitalists Noted plans for discharge and likely transition to hospice/comfort care measures. Subjective Date/time seen: 10/25/22 12:45 Interval history: Follow-up for acute kidney injury on chronic kidney disease and fluid overload. Only major complaint is that of on/off back and left sided neck pain; renal function about the same; noted plans for discharge and likely hospice. Exam Narrative: General: elderly but WD/WN male in NAD Heart: IRRR, normal S1 and S2; no rub or gallop Lungs: decreased breath sounds at bases Abdomen: soft, nontender, nondistended, positive bowel sounds Extremities: trace edema Skin: chronic venous stasis changes Objective Data Vital Signs Vital Signs: Vital Signs Temp Pulse Resp BP Pulse Ox O2 Del Method 10/25/22 12:00 97.5 F L 80 18 108/66 97 10/25/22 10:00 98.4 F 82 18 132/62 95 10/25/22 08:00 Room Air 10/25/22 08:52 86 10/25/22 08:52 86 10/25/22 06:18 98.0 F 94 18 108/68 96 10/25/22 04:00 78 10/25/22 00:00 95 10/24/22 22:40 98.4 F 74 20 113/81 98 10/24/22 20:00 76 10/24/22 20:54 74 10/24/22 17:56 94 14 121/63 97 10/24/22 17:53 94 Intake/Output Intake/Output: Intake & Outpu
--- NOTE | 2022-10-25 12:45 | PM.PNNEP ---
Progress Note: A&P Assessment and Plan (1) DONNA (acute kidney injury): Code(s): N17.9 - Acute kidney failure, unspecified Status: Acute Assessment and Plan: creatinine is still higher than baseline - possible new baseline?? due to altered hemodynamics from #3 possibly exacerbated by atrial flutter suspect further fluctuations due to need for diuresis recent CXR looks good follow repeat labs and UOP (2) Chronic kidney disease, stage 4 (severe): Code(s): N18.4 - Chronic kidney disease, stage 4 (severe) Status: Chronic Assessment and Plan: baseline creatinine runs ~ 2.8 - 3.4mg/dl in the last year or so due to diabetes and hypertension as well as vascular disease and age related change remains at risk for CKD progression not interested in pursuing ORACLE MANUFACTURING CONSULTANT/dialysis as a treatment option in general (3) Acute on chronic systolic heart failure: Code(s): I50.23 - Acute on chronic systolic (congestive) heart failure Status: Acute Assessment and Plan: clinically improving breathing stable CXR looks good Cardiology following (4) Cardiomyopathy: Code(s): I42.9 - Cardiomyopathy, unspecified Status: Acute Assessment and Plan: as noted by recent Echo last month - EF ~ 30 - 35% continue medical therapy as outlined complicated by his known advanced kidney disease Cardiology following (5) Hypertension: Code(s): I10 - Essential (primary) hypertension Status: Acute Assessment and Plan: reasonable control follow trend of hemodynamics (6) Anemia: Code(s): D64.9 - Anemia, unspecified Status: Chronic Assessment and Plan: due to CKD, acute illness, and underlying malignancy follow trend of H/H no need for ELISE at this time (7) Insulin dependent diabetes mellitus: Status: Chronic Assessment and Plan: follow accuchecks glycemic control per hospitalists Noted plans for discharge and likely transition to hospice/comfort care measures. Subjective Date/time seen: 10/25/22 12:45 Interval history: Follow-up for acute kidney injury on chronic kidney disease and fluid overload. Only major complaint is that of on/off back and left sided neck pain; renal function about the same; noted plans for discharge and likely hospice. Exam Narrative: General: elderly but WD/WN male in NAD Heart: IRRR, normal S1 and S2; no rub or gallop Lungs: decreased breath sounds at bases Abdomen: soft, nontender, nondistended, positive bowel sounds Extremities: trace edema Skin: chronic venous stasis changes Objective Data Vital Signs Vital Signs: Vital Signs Temp Pulse Resp BP Pulse Ox O2 Del Method 10/25/22 12:00 97.5 F L 80 18 108/66 97 10/25/22 10:00 98.4 F 82 18 132/62 95 10/25/22 08:00 Room Air 10/25/22 08:52 86 10/25/22 08:52 86 10/25/22 06:18 98.0 F 94 18 108/68 96 10/25/22 04:00 78 10/25/22 00:00 95 10/24/22 22:40 98.4 F 74 20 113/81 98 10/24/22 20:00 76 10/24/22 20:54 74 10/24/22 17:56 94 14 121/63 97 10/24/22 17:53 94 Intake/Output Intake/Output: Intake & Output 10/22/22 10/23/22 10/24/22 10/25/22 23:59 23:59 23:59 23:59 Intake Total 1120 1100 1020 1060 Output Total 2225 1700 2050 700 Balance -1105 -600 -1030 360 Meds/Results Medications: Active Medications Generic Name Dose Route Start Last Admin Trade Name Rj PRN Reason Stop Dose Admin Acetaminophen 650 mg 10/19/22 17:55 10/23/22 02:10 Acetaminophen 325 Mg Tablet PO 650 mg Q6H PRN Administration Mild Pain (1-5) Or Fever Amiodarone HCl 200 mg 10/17/22 17:00 10/25/22 08:52 Amiodarone Hcl 200 Mg Tablet PO 200 mg BID [facility] Administration Apixaban 5 mg 10/17/22 17:00 10/25/22 08:51 Apixaban 5 Mg Tablet PO 5 mg BID BLADIMIR Administration Aspirin 81 mg 10/17/22 0
[2022-10-25 14:00] VITALS: BP 108/66; PULSE 80; RESP 18; TEMP 36.4; O2SAT 97
--- NOTE | 2022-10-25 15:41 | PM.DS ---
DS: Admitting Diagnosis Discharge Date 10/25/22 Admitting Diagnosis chest pain DS: Discharge Diagnosis Discharge Diagnosis (1) Chronic kidney disease, stage IV (severe): Code(s): N18.4 - Chronic kidney disease, stage 4 (severe) Status: Inactive (2) Paroxysmal atrial flutter: Code(s): I48.92 - Unspecified atrial flutter Status: Acute (3) Acute on chronic systolic heart failure: Code(s): I50.23 - Acute on chronic systolic (congestive) heart failure Status: Acute (4) Diabetes mellitus: Qualifiers: Chronic kidney disease stage: stage 4 (severe) Diabetes mellitus complication detail: with chronic kidney disease Diabetes mellitus complication status: with kidney complications Diabetes mellitus emt intermediate insulin use: with emt intermediate use Diabetes mellitus type: type 2 Qualified Code(s): E11.22 - Type 2 diabetes mellitus with diabetic chronic kidney disease; N18.4 - Chronic kidney disease, stage 4 (severe); Z79.4 - manager terminal (current) use of insulin Code(s): E11.9 - Type 2 diabetes mellitus without complications Status: Acute Plan ?82-year-old male with past medical history significant for systolic heart failure ejection fraction 30-35%, atrial fibrillation, chronic kidney disease, was brought to the emergency room for evaluation due to chest pain shortness of breath bilateral lower extremity edema, patient recently discharged from [facility] and now back with similar complaints.? # diffuse muscle skeletal pain mostly in neck -patient has some tight muscles neck, may use heating pad -PT/OT consulted -encourage out of bed, discussed with nursing staff -as needed lidocaine patch, K-pad -chest x-ray negative for acute findings, suspicious right 8th rib, when creatinine improves will get CT scan # end-stage congestive heart failure+ DONNA on CKD stage 4 -echocardiogram September 2022 EF 30%, indeterminate diastolic dysfunction -appreciate Cardiology consultation: Recommendation for hospice, patient is now euvolemic -off dobutamine -Cr 4.3, baseline is 2.8-3.4, worsening Cr -appreciate nephrology consultation #paroxysmal atrial fibrillation: Anticoagulation Eliquis, rate control with amiodarone, metoprolol #DVT prophylaxis:??On Eliquis #Code status:??DNR, discussed with patient and Niece(POA) about hospice/Comfort measure, they are not quite ready yet Disposition:?possibly SNF, case 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 He was found to be in acute heart failure and DONNA. He was diuresed and required dobutamine to maintain BP. Cardiology nad nephrology were consulted. Creat cont to worsen with diuresis and cardiology recommended hospice. He was d/c to SNF with hospice. See above and med rec for details. Time Spent with Patient Time attestation: Total time spent providing and/or coordinating discharge services: Exam Narrative: General: No acute distress, alert and oriented per baseline HEENT: Atraumatic, normocephalic, mucous membranes moist CV: Regular rate and rhythm, S1, S2 Lungs: Clear to auscultation bilaterally, no rales or crackles noted, no wheezes, good air entry Abdomen: Soft, nontender, nondistended Extremities: Normal to inspection Skin: No rashes noted, no lesions or wounds seen Psych: Euthymic, normal affect DS: Data Data Completed and Pending Labs on day of discharge: Labs from last 24 hours 10/25/22 05:08 WBC 6.2 RBC 3.20 L Hgb 9.9 L Hct 30.1 L MCV 94.1 MCH 30.9 MCHC 32.9 RDW 12.3 Plt Count 201 MPV 10.0 Immature Gran % (Auto) 0.6 H Neut % (Auto) 60.3 Lymph % (Auto) 21.3 [place] % (Auto) 13.6 H Eos % (Auto) 3.4 Baso % (Auto) 0.8 Lymph # (Auto) 1.33 [place] # (Auto) 0.9 H Eos # (Auto) 0.2 Baso # (Auto) 0.1 Abs I
== END 2022-10-25 16:15 | disposition hospice, inpatient (51) | DRG 291 ==
LOC: ANHED 04:31 → ANHIMU 04:58 → ANH2MED 10-20 21:36
PROVIDERS: Admitting Provider Internal Medicine; Emergency Provider Emergency Medicine; PCP Emergency Medicine; Visit Provider Student in an Organized Health Care Education/Training Program
DX: I13.0 Hypertensive heart and chronic kidney disease with heart failure and stage 1 through stage 4 chronic kidney disease, or unspecified chronic kidney disease (principal); I50.23 Acute on chronic systolic (congestive) heart failure; J96.21 Acute and chronic respiratory failure with hypoxia; N18.4 Chronic kidney disease, stage 4 (severe); I48.92 Unspecified atrial flutter; N17.9 Acute kidney failure, unspecified; E11.22 Type 2 diabetes mellitus with diabetic chronic kidney disease; N40.0 Benign prostatic hyperplasia without lower urinary tract symptoms; H40.9 Unspecified glaucoma; E78.5 Hyperlipidemia, unspecified; I48.0 Paroxysmal atrial fibrillation; E11.42 Type 2 diabetes mellitus with diabetic polyneuropathy; D63.1 Anemia in chronic kidney disease; I42.9 Cardiomyopathy, unspecified; Z66 Do not resuscitate; M25.512 Pain in left shoulder; M15.9 Polyosteoarthritis, unspecified; Z85.46 Personal history of malignant neoplasm of prostate; Z79.4 Long term (current) use of insulin; K21.9 Gastro-esophageal reflux disease without esophagitis
CPT/HCPCS: 36415; 71045; 72040; 73030; 78306; 80053; 81001; 82948; 83605; 83690; 83735; 83880; 84100; 84484; 85025; 85610; 85730; 93005; 96374; 97110; 97161; 97165; 97530; 97535; 99285; A9270; A9503; G0378; J1250; J1940; J2270